=== PATIENT | male | born 1940 | race Caucasian/White ===

== ENCOUNTER 2019-11-13 09:48 | Outpatient (RCR) | payer MEDICARE, SELFPAY | END 2019-12-11 11:00 | disposition home or self-care (01) | LOC: HO.WCC 09:48 | PROVIDERS: PCP Internal Medicine; Visit Provider Plastic Surgery | DX: E11.621 Type 2 diabetes mellitus with foot ulcer (principal); L97.522 Non-pressure chronic ulcer of other part of left foot with fat layer exposed; T81.31XA Disruption of external operation (surgical) wound, not elsewhere classified, initial encounter; I70.245 Atherosclerosis of native arteries of left leg with ulceration of other part of foot; Z89.412 Acquired absence of left great toe; Z79.2 Long term (current) use of antibiotics; Z79.4 Long term (current) use of insulin; Z79.82 Long term (current) use of aspirin | CPT/HCPCS: 11042; 11044; 87071; 87077; 87186; 87205; 88304; 88305; 88311 ==

== ENCOUNTER 2019-11-13 15:46 | Outpatient (REF) | payer MEDICARE, SELFPAY ==
[2019-11-13 15:53] LABS: MANUAL DIFF FLAG NO
[2019-11-13 16:03] LABS: Basophils Percent Auto 0.4 % (0-2); Eosinophils Absolute Auto 0.2 X10*3/uL (0.0-0.4); Eosinophils Percent Auto 2.3 % (0-4); Hematocrit 30.5 % (42-52); Hemoglobin 9.7 g/dl (14.0-18.0); Imm Gran Abs Auto 0.02 X10*3/uL (0.00-0.03); Imm Gran Pct Auto 0.3 % (0.0-0.4); Lymphocytes Percent Auto 24.9 % (20-40); Mean Corpuscular HGB Conc 31.8 g/dl (31.0-36.0); Mean Corpuscular Hemoglobin 30.3 pg (27.0-33.0); Mean Corpuscular Volume 95.3 fL (80-98); Mean Platelet Volume 9.6 fL (9.4-12.4); Monocytes Absolute Auto 0.8 X10*3/uL (0.1-1.2); Monocytes Percent Auto 10.5 % (2-11); Neutrophils Absolute Auto 4.9 X10*3/uL (2.0-8.3); Neutrophils Percent Auto 61.6 % (45-73); Platelet Count 367 X10*3/uL (160-400); Red Cell Distribution Width 13.8 % (11.0-16.0); White Blood Count 7.9 X10*3/uL (4.8-10.8)
[2019-11-13 16:34] LABS: Alanine Aminotransferase 14 U/L (0-40); Albumin Level 3.7 g/dL (3.5-5.0); Alkaline Phosphatase 96 U/L (39-117); Anion Gap 13 (12-20); Aspartate Amino Transferase 14 U/L (5-37); Bilirubin Direct < 0.2 mg/dL (0.0-0.5); Bilirubin Total 0.2 mg/dL (0.0-1.0); Blood Urea Nitrogen 24 mg/dL (9-16); Calcium 8.7 mg/dL (8.4-10.2); Carbon Dioxide 25 mmol/L (22-29); Chloride 102 mmol/L (96-108); Estimated Glomerular Filt Rate > 60; Glucose Random 161 mg/dL (60-115); Potassium 5.2 mmol/l (3.3-5.1); Sodium 135 mmol/L (135-145); Total Protein 6.3 g/dL (6.5-8.0)
== END 2019-11-13 15:47 | disposition home or self-care (01) ==
LOC: HO.LNP 15:46
PROVIDERS: Referring Provider Internal Medicine; Visit Provider Internal Medicine
DX: D64.9 Anemia, unspecified (principal)
CPT/HCPCS: 36415; 80048; 80076; 85025

== ENCOUNTER 2019-11-20 13:08 | Outpatient (REF) | payer MEDICARE, SELFPAY ==
[2019-11-20 13:12] LABS: MANUAL DIFF FLAG NO
[2019-11-20 13:20] LABS: Basophils Percent Auto 0.4 % (0-2); Eosinophils Absolute Auto 0.2 X10*3/uL (0.0-0.4); Eosinophils Percent Auto 2.4 % (0-4); Hematocrit 30.8 % (42-52); Hemoglobin 9.7 g/dl (14.0-18.0); Imm Gran Abs Auto 0.03 X10*3/uL (0.00-0.03); Imm Gran Pct Auto 0.4 % (0.0-0.4); Lymphocytes Absolute Auto 1.7 X10*3/uL (1.2-4.9); Lymphocytes Percent Auto 20.4 % (20-40); Mean Corpuscular HGB Conc 31.5 g/dl (31.0-36.0); Mean Corpuscular Hemoglobin 29.8 pg (27.0-33.0); Mean Corpuscular Volume 94.8 fL (80-98); Mean Platelet Volume 9.6 fL (9.4-12.4); Monocytes Absolute Auto 0.8 X10*3/uL (0.1-1.2); Monocytes Percent Auto 9.9 % (2-11); Neutrophils Absolute Auto 5.4 X10*3/uL (2.0-8.3); Neutrophils Percent Auto 66.5 % (45-73); Platelet Count 534 X10*3/uL (160-400); Red Blood Count 3.25 X10*6/uL (4.60-5.80); Red Cell Distribution Width 13.5 % (11.0-16.0); White Blood Count 8.1 X10*3/uL (4.8-10.8)
[2019-11-20 13:38] LABS: Alanine Aminotransferase 13 U/L (0-40); Albumin Level 3.8 g/dL (3.5-5.0); Alkaline Phosphatase 105 U/L (39-117); Anion Gap 15 (12-20); Aspartate Amino Transferase 15 U/L (5-37); Bilirubin Direct < 0.2 mg/dL (0.0-0.5); Bilirubin Total 0.4 mg/dL (0.0-1.0); Blood Urea Nitrogen 25 mg/dL (9-16); Calcium 8.7 mg/dL (8.4-10.2); Carbon Dioxide 25 mmol/L (22-29); Chloride 102 mmol/L (96-108); Estimated Glomerular Filt Rate > 60; Glucose Random 176 mg/dL (60-115); Potassium 5.6 mmol/l (3.3-5.1); Sodium 136 mmol/L (135-145); Total Protein 6.4 g/dL (6.5-8.0)
== END 2019-11-20 13:09 | disposition home or self-care (01) ==
LOC: HO.LNP 13:08
PROVIDERS: Referring Provider Internal Medicine; Visit Provider Internal Medicine
DX: D64.9 Anemia, unspecified (principal)
CPT/HCPCS: 36415; 80053; 80076; 85025

== ENCOUNTER 2019-11-22 11:57 | Outpatient (REF) | payer MEDICARE, SELFPAY ==
[2019-11-22 13:01] LABS: Potassium 5.1 mmol/l (3.3-5.1)
== END 2019-11-22 11:58 | disposition home or self-care (01) ==
LOC: HO.LAB 11:57
PROVIDERS: PCP Internal Medicine; Visit Provider Internal Medicine
DX: M86.9 Osteomyelitis, unspecified (principal); E87.5 Hyperkalemia
CPT/HCPCS: 84132; 99212

== ENCOUNTER → 2019-12-05 11:09 | Outpatient (BNVA) | payer MEDICARE, SELFPAY | PROVIDERS: Visit Provider Surgery Vascular Surgery | DX: T87.81 Dehiscence of amputation stump (principal); M86.9 Osteomyelitis, unspecified; I73.9 Peripheral vascular disease, unspecified | CPT/HCPCS: 99212 ==

== ENCOUNTER → 2019-12-06 13:38 | Outpatient (BNVA) | payer MEDICARE, SELFPAY | PROVIDERS: Visit Provider Internal Medicine | DX: M86.9 Osteomyelitis, unspecified (principal); I73.9 Peripheral vascular disease, unspecified; Z79.899 Other long term (current) drug therapy | CPT/HCPCS: 99212 ==

== ENCOUNTER 2019-12-18 06:03 | Day surgery (SDC) | payer MEDICARE, SELFPAY ==
[2019-12-14 10:50] VITALS: BMI 30.7
[2019-12-14 11:22] VITALS: BMI 30.7
--- NOTE | 2019-12-15 12:43 | HO.ANESPROP2 ---
Documented by User: Sary Ricketts 12/15/19 12:51 HPI - Anesthesia Eval Consult details Narrative: 79yo M for Toe Amputation,revision great toe s/p toe amp 09/2019 GA-LMA 5 [facility] Past Medical History Medical History Diabetes History of amputation of great toe History of amputation of great toe HTN (hypertension) Hx of osteomyelitis 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 Surgical History Surgical History History of angioplasty of peripheral vessel Social History Social History Are you a primary aged or disabled care worker to a significant other at home: No Do you presently have visiting nurse or other home services: Yes Alcohol intake: never Smoking Status: Former smoker Tobacco Type: Cigarette Smoking Quit Date: age 30's Use of substances other than those prescribed or required for medical reasons: No Have you been hit, kicked, punched, or otherwise hurt by someone within the past year? If so, by whom?: No Advance Directives Information Provided: No Recently lost weight without trying: No Meds Allergies Allergy/AdvReac Type Severity Reaction Status Date / Time No Known Allergies Allergy Verified 12/05/19 11:18 [No Known Allergies*] Home Medications Medication Instructions Recorded Confirmed Type clopidogrel 75 mg tablet 75 mg PO DAILY 11/22/19 12/14/19 History insulin glargine 100 unit/mL (3 38 unit SUBCUT QAM 11/22/19 12/14/19 History mL) subcutaneous pen lisinopril 20 mg tablet 20 mg PO DAILY 11/22/19 12/14/19 History aspirin 81 mg tablet,delayed 81 mg PO DAILY 12/05/19 12/18/19 History release metformin 1,000 mg tablet 1,000 mg PO BID tab 12/05/19 12/14/19 History Exam Exam Date and Time: December 15, 2019 1243 Height,Weight and Vital Signs: Height 5 ft 7 in Weight 88.904 kg Pertinent Lab Results Pertinent Lab Results: Laboratory Tests 11/20/19 11/20/19 11/22/19 11:00 11:00 12:15 WBC 8.1 Hgb 9.7 L Hct 30.8 L Plt Count 534 H D Sodium 136 Potassium 5.1 Chloride 102 Carbon Dioxide 25 BUN 25 H Creatinine 0.86 Assessment and Plan Assessment Anesthesia Assessment: Chart Reviewed Documented by User: Angelito Espinosa 12/18/19 08:08 [facility] Past Medical History Medical History Diabetes History of amputation of great toe History of amputation of great toe HTN (hypertension) Hx of osteomyelitis 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 Surgical History Surgical History History of angioplasty of peripheral vessel Social History Social History Are you a primary aged or disabled care worker to a significant other at home: No Do you presently have visiting nurse or other home services: Yes Alcohol intake: never Smoking Status: Former smoker Tobacco Type: Cigarette Smoking Quit Date: age 32's Use of substances other than those prescribed or required for medical reasons: No Have you been hit, kicked, punched, or otherwise hurt by someone within the past year? If so, by whom?: No Advance Directives Information Provided: No Recently lost weight without trying: No Meds Allergies Allergy/AdvReac Type Severity Reaction Status Date / Time No Known Allergies Allergy Verified 12/05/19 11:18 [No Known Allergies*] Home Medications Medication Instructions Recorded Confirmed Type clopidogrel 75 mg tablet 75 mg PO DAILY 11/22/19 12/14/19 History insulin glargine 100 unit/mL (3 38 unit SUBCUT QAM 11/22/19 12/14/19 History mL) subcutaneous pen lisinopril 20 mg tablet 20 mg PO DAILY 11/22/19 12/14/19 History aspirin 81 mg tablet,delayed 81 mg PO DAILY 12/05/19 12/18/19 History release metformin 1,000 mg tablet 1,000 mg PO BID tab 12/05/19 12/14/19 History Exam Airway Mallampati Class: III TM Dist: >3cm Neck ROM: Limited Partial: Upper and Lower (Edentulous) Heart: RRR Assessment and Plan Assessment Anesthesia Assessment: Anesthesia Plan Discussed Final Anesthetic Review NPO: Yes ASA Class: IV Final Preanesthetic Review: Consent Obtained/Reviewed Anesthetic Plan Anesthetic Plan: MAC:
[2019-12-18 06:46] LABS: Glucose, Whole Blood 124 mg/dL (60-115)
[2019-12-18 07:10] VITALS: BP 135/52; PULSE 64; RESP 16; TEMP 36.1; O2SAT 94
[2019-12-18] MEDS: Lactated Ringers 1,000 ML 100 ML IVCONT (07:15)
[2019-12-18] MEDS: ceFAZolin Sodium/Dextrose,Iso 2 GM/50 ML PIGGYBACK IV (07:15)
[2019-12-18 08:51] VITALS: BP 121/52; PULSE 59; RESP 18; TEMP 36.4; O2SAT 100
[2019-12-18 09:06] VITALS: BP 134/53; PULSE 59; RESP 18; O2SAT 99
[2019-12-18 09:19] LABS: Glucose, Whole Blood 124 mg/dL (60-115)
[2019-12-18] MEDS: Acetaminophen 325 MG TABLET 650 MG PO (09:20)
[2019-12-18 09:21] VITALS: BP 141/53; PULSE 56; RESP 18; O2SAT 98
--- NOTE | 2019-12-18 09:27 | HO.POSTANES ---
Post Anesthesia Evaluation Post Anesthesia Evaluation Vital Signs: Vital Signs Temp Pulse Resp BP Pulse Ox 12/18/19 09:06 59 18 134/53 L 99 12/18/19 08:51 97.5 F 59 18 121/52 L 100 12/18/19 07:10 97 F 64 16 135/52 L 94 Anesthesia: Monitored Mental Status: Awake Pain Control: Satisfactory Nausea/Vomiting: None Hydration: Adequate Anesthesia-Related Issues: No Anes. Related Issues
--- NOTE | 2019-12-18 13:22 | OP_ITS ---
SURGEON: Shaq Jhonson MD INDICATIONS: Vj is a 79-year-old gentleman with a history of a great toe amp that has been nonhealing. He has exposed metatarsal head. He now presents for revision. Risks, benefits, and complications were discussed in detail with the patient. The patient understood and consented. PREOPERATIVE DIAGNOSIS: POSTOPERATIVE DIAGNOSIS: PROCEDURE PERFORMED: Left great toe ray amputation. ESTIMATED BLOOD LOSS: Minimal. COMPLICATIONS: ANESTHESIA: General. ASSISTANTS: SPECIMENS: One. PREPROCEDURE DIAGNOSIS: Nonhealing left great toe ulceration. POSTPROCEDURE DIAGNOSIS: Nonhealing left great toe ulceration. DESCRIPTION OF PROCEDURE: The patient was brought to the operating room, prior to which timeout was called for patient identification and site verification. Incision was carried out over the dorsum of the first metatarsal head. We took this all the way back and then we dissected around that metatarsal head and this was then cut with the power electric saw. Once we were through, adequate hemostasis was achieved. The wound was thoroughly irrigated out after the bone was removed and good tissue bed was noted. Once this was accomplished, we reapproximated the deep layer with 2-0 Vicryl, and the skin with a 2-0 nylon. Xeroform and a sterile dressing were applied. At the end of the case, sponge, needle, instrument counts were correct. The patient tolerated the procedure well, returned to Recovery with stable vitals. DRAINS: None. MD LUIS Astorga/MODL / [id number]
== END 2019-12-18 10:16 | disposition home or self-care (01) ==
PROVIDERS: PCP Internal Medicine; Visit Provider Surgery Vascular Surgery
PROC: (CPT 28810; principal; 2019-12-18 07:30)
DX: T87.89 Other complications of amputation stump (principal); M86.9 Osteomyelitis, unspecified; E11.621 Type 2 diabetes mellitus with foot ulcer; L97.526 Non-pressure chronic ulcer of other part of left foot with bone involvement without evidence of necrosis; Z79.4 Long term (current) use of insulin; I10 Essential (primary) hypertension; I73.9 Peripheral vascular disease, unspecified; Z79.899 Other long term (current) drug therapy; Z79.82 Long term (current) use of aspirin; Z87.891 Personal history of nicotine dependence
CPT/HCPCS: 28810; 82947; 88304; 88311; J0690; J2250; J3590; Q4186

== ENCOUNTER → 2020-01-02 14:35 | Outpatient (BNVA) | payer MEDICARE, SELFPAY | PROVIDERS: PCP Internal Medicine; Referring Provider Internal Medicine; Visit Provider Surgery Vascular Surgery | DX: Z48.89 Encounter for other specified surgical aftercare (principal); I73.9 Peripheral vascular disease, unspecified; L97.529 Non-pressure chronic ulcer of other part of left foot with unspecified severity; Z89.412 Acquired absence of left great toe | CPT/HCPCS: 99212 ==

== ENCOUNTER → 2020-01-16 14:19 | Outpatient (BNVA) | payer MEDICARE, SELFPAY | PROVIDERS: PCP Internal Medicine; Visit Provider Surgery Vascular Surgery | DX: I73.9 Peripheral vascular disease, unspecified (principal); Z89.412 Acquired absence of left great toe | CPT/HCPCS: 99212 ==

== ENCOUNTER → 2020-02-06 13:20 | Outpatient (BNVA) | payer MEDICARE, SELFPAY | PROVIDERS: PCP Internal Medicine; Visit Provider Surgery Vascular Surgery | DX: I73.9 Peripheral vascular disease, unspecified (principal) | CPT/HCPCS: 99212 ==

== ENCOUNTER → 2020-02-27 13:23 | Outpatient (BNVA) | payer MEDICARE, SELFPAY | PROVIDERS: PCP Internal Medicine; Visit Provider Surgery Vascular Surgery | DX: I73.9 Peripheral vascular disease, unspecified (principal) | CPT/HCPCS: 99212 ==

== ENCOUNTER 2020-03-19 11:54 | Outpatient (REF) | payer MEDICARE, SELFPAY ==
[2020-03-19 13:56] LABS: Estimated Average Glucose 120 mg/dL; Glucose Fasting 111 mg/dL (60-99); Hemoglobin A1c % 5.8 %
== END 2020-03-19 11:55 | disposition home or self-care (01) ==
LOC: HO.10HDLNP 11:54
PROVIDERS: Visit Provider Internal Medicine
DX: E11.9 Type 2 diabetes mellitus without complications (principal)
CPT/HCPCS: 82947; 83036

== ENCOUNTER → 2020-03-21 10:13 | Outpatient (BNVA) | payer MEDICARE, SELFPAY | PROVIDERS: PCP Internal Medicine; Visit Provider Surgery Vascular Surgery | DX: I73.9 Peripheral vascular disease, unspecified (principal) | CPT/HCPCS: 99212 ==

== ENCOUNTER → 2020-04-11 11:01 | Outpatient (BNVA) | payer MEDICARE, SELFPAY | PROVIDERS: PCP Internal Medicine; Visit Provider Surgery Vascular Surgery | DX: I73.9 Peripheral vascular disease, unspecified (principal) | CPT/HCPCS: 99212 ==

== ENCOUNTER → 2020-05-02 11:27 | Outpatient (BNVA) | payer MEDICARE, SELFPAY | PROVIDERS: PCP Internal Medicine; Visit Provider Surgery Vascular Surgery | DX: I73.9 Peripheral vascular disease, unspecified (principal); Z87.891 Personal history of nicotine dependence | CPT/HCPCS: 99212 ==

== ENCOUNTER → 2020-05-16 10:14 | Outpatient (BNVA) | payer MEDICARE, SELFPAY | PROVIDERS: PCP Internal Medicine; Visit Provider Surgery Vascular Surgery | DX: I73.9 Peripheral vascular disease, unspecified (principal) | CPT/HCPCS: 99212 ==

== ENCOUNTER → 2020-06-06 09:53 | Outpatient (BNVA) | payer MEDICARE, SELFPAY | PROVIDERS: PCP Internal Medicine; Visit Provider Surgery Vascular Surgery | DX: I73.9 Peripheral vascular disease, unspecified (principal) | CPT/HCPCS: 99212 ==

== ENCOUNTER 2020-07-09 09:33 | Outpatient (REF) | payer MEDICARE, SELFPAY ==
--- NOTE | ~2020-07-09 | US_ITS ---
EXAMINATION: NONINVASIVE ASSESSMENT OF THE ARTERIES OF BOTH LOWER EXTREMITIES CLINICAL INFORMATION: Peripheral vascular disease. COMPARISON: Arterial study of 10/05/2019 and 09/04/2019. TECHNIQUE: Segmental ankle pulse volume recording, pressure measurement at the ankle and ankle brachial indices were obtained of the lower extremity arterial system bilaterally. This study was performed at rest only. FINDINGS: a) AT REST: 1. The ankle-brachial indices are: Right 0.66 and left 0.84. >0.97-1.25 = normal - no significant arterial disease. 0.75-0.96 = mild peripheral arterial disease. 0.5-0.74 = moderate peripheral arterial disease. <0.50 = severe peripheral arterial disease. 2. Segmental pressure at ankle: Dorsalis pedis artery 104 mmHg. Left posterior tibial artery pressure of 125 mmHg. US/US BERENICE complete IMPRESSION: Findings consistent with moderate peripheral vascular disease within the right lower extremity and mild peripheral vascular disease within the left lower extremity.
--- NOTE | ~2020-07-09 | US_ITS ---
EXAMINATION: US ARTERIAL LOWER EXTREMITY DUPLEX DOPPLER EVALUATION AND ABIS, BILATERAL CLINICAL INFORMATION: PVD. Status post 1st toe amputation. COMPARISON: 10/05/2019 and 09/04/2019 TECHNIQUE: Real-time ultrasound and Doppler techniques (integrating B-mode 2-D vascular images, Doppler spectral analysis and color flow Doppler imaging) were utilized to interrogate the lower extremity arteries bilaterally. ABIS: FINDINGS: Segmental ankle pulse volume recording, pressure measurement at the ankle and ankle brachial indices were obtained of the lower extremity arterial system bilaterally. This study was performed at rest only. FINDINGS: a) AT REST: 1. The ankle-brachial indices are: Right 0.66 and left 0.80. >0.97-1.25 = normal - no significant arterial disease. 0.75-0.96 = mild peripheral arterial disease. 0.5-0.74 = moderate peripheral arterial disease. <0.50 = severe peripheral arterial disease. 2. Segmental pressure at ankle: Right dorsalis pedis 104 mmHg. Left posterior tibial 125 mmHg. Calcified plaque is seen throughout the arterial system which was studied. Right Lower Extremity: The right common femoral artery has a biphasic waveform with elevated peak systolic velocity of 432 cm/s. The right profunda femoral artery has a biphasic waveform with peak systolic velocity of 210 cm/s. The right superficial femoral artery proximally has a biphasic waveform with peak systolic velocity of 130 cm/s. The mid superficial femoral artery has a triphasic waveform with peak systolic velocity of 210 cm/s. The distal superficial femoral artery has a biphasic waveform with peak systolic velocity of 104 cm/s. The popliteal artery has a triphasic waveform with peak systolic velocity of 53 cm/s. The posterior tibial artery has a monophasic waveform with peak systolic velocity of 37 cm/s. The peroneal artery has a monophasic waveform with peak systolic velocity of 41 cm/s. Left Lower Extremity: The left common femoral artery has a biphasic waveform with peak systolic velocity of 146 cm/s. The left profunda femoral artery has a biphasic waveform with peak systolic velocity of 111 cm/s. Common femoral artery proximal to stent has a biphasic waveform with peak systolic velocity of 202 cm/s. Within the proximal stent, there is a triphasic waveform with peak systolic velocity of 186 cm/s. Within the mid stent just past a region of intimal hyperplasia, there is a biphasic waveform with peak systolic velocity of 258 cm/s. In the superficial femoral artery just distal to the stent, there is a triphasic waveform with peak systolic velocity of 179 cm/s. In the distal aspect of the stent, there is a triphasic waveform with peak systolic velocity of 230 cm/s. Within the mid superficial femoral artery, there is a biphasic waveform with peak systolic velocity of 127 cm/s. Within the distal superficial femoral artery, there is a triphasic waveform with peak systolic velocity of 61 cm/s. Within the left popliteal artery, there is a monophasic waveform with peak systolic velocity of 82 cm/s. Within the posterior tibial artery. there is a monophasic waveform with peak systolic velocity of 59 cm/s. Within the peroneal artery. there is a monophasic waveform with peak systolic velocity of 66 cm/s. There is a left popliteal fossa cyst measuring 3.2 x 1.1 x 2.0 cm in size. US/US arterial duplex LE BI IMPRESSION: By ankle brachial indices, there is moderate peripheral vascular disease within the right lower extremity and mild peripheral arterial disease within the left lower extremity. There is elevation of peak systolic velocity of the right common femoral artery consistent with a more proximal hemodynamically significant stenosis. There are bilateral regions of calcified plaque identified. There are monophasic waveforms distal to the right popliteal artery consistent with hemodynamically significant stenoses. There is elevation of peak systolic velocity within the mid superficial femoral artery consistent with hemodynamically significant stenosis. Within the left superficial femoral artery stent, there is some intimal hyperplasia and a hemodynamically significant stenosis. There are monophasic waveforms seen within the left popliteal artery and distal to this. Left popliteal fossa cyst.
== END 2020-07-09 09:34 | disposition home or self-care (01) ==
LOC: HO.US 09:33
PROVIDERS: PCP Internal Medicine; Visit Provider Surgery Vascular Surgery
DX: I70.213 Atherosclerosis of native arteries of extremities with intermittent claudication, bilateral legs (principal)
CPT/HCPCS: 93923; 93925

== ENCOUNTER → 2020-07-23 10:46 | Outpatient (BNVA) | payer MEDICARE, SELFPAY | PROVIDERS: PCP Internal Medicine; Visit Provider Surgery Vascular Surgery | DX: I73.9 Peripheral vascular disease, unspecified (principal) | CPT/HCPCS: 99212 ==

== ENCOUNTER 2021-08-15 10:54 | Outpatient (REF) | payer MEDICARE, OTHER, SELFPAY ==
[2021-08-15 10:58] LABS: MANUAL DIFF FLAG NO
[2021-08-15 11:06] LABS: Basophils Percent Auto 0.4 % (0-2); Eosinophils Absolute Auto 0.4 X10*3/uL (0.0-0.4); Eosinophils Percent Auto 3.3 % (0-4); Hematocrit 42.4 % (42.0-52.0); Imm Gran Abs Auto 0.04 X10*3/uL (0.00-0.03); Imm Gran Pct Auto 0.4 % (0.0-0.4); Lymphocytes Percent Auto 18.4 % (20-40); Mean Corpuscular Hemoglobin 31.9 pg (27.0-33.0); Mean Corpuscular Volume 96.6 fL (80.0-98.0); Monocytes Absolute Auto 0.9 X10*3/uL (0.1-1.2); Monocytes Percent Auto 8.5 % (2-11); Neutrophils Absolute Auto 7.6 x10*3/uL (2.0-8.3); Platelet Count 339 X10*3/uL (160-400); Red Blood Count 4.39 X10*6/uL (4.60-5.80); Red Cell Distribution Width 12.3 % (11.0-16.0); White Blood Count 11.1 X10*3/uL (4.8-10.8)
[2021-08-15 11:08] LABS: Appearance Urine CLEAR; Color Urine YELLOW; Glucose Urine UA NEG (NEG); Leukocyte Esterase Urine NEG (NEG); Nitrite Urine NEG (NEG); PH 5.5 (5.0-8.0); Specific Gravity - Urine 1.015 (1.005-1.025); Urine Blood NEG (NEG); Urine Ketones NEG (NEG); Urine Protein NEG (NEG-TRACE)
[2021-08-15 11:19] LABS: RBC Urine 0 /HPF (0); WBC Urine 0-2 /HPF (0-4)
[2021-08-15 11:23] LABS: Estimated Average Glucose 117 mg/dL; Hemoglobin A1c % 5.7 %
[2021-08-15 11:32] LABS: Alanine Aminotransferase 17 U/L (0-40); Albumin Level 4.1 g/dL (3.5-5.0); Alkaline Phosphatase 79 U/L (39-117); Anion Gap 12 (12-20); Aspartate Amino Transferase 17 U/L (5-37); Bilirubin Total 0.2 mg/dL (0.0-1.0); Blood Urea Nitrogen 29 mg/dL (9-16); Calcium 8.8 mg/dL (8.4-10.2); Carbon Dioxide 27 mmol/L (22-29); Chloride 104 mmol/L (96-108); Cholesterol 228 mg/dL; Estimated Glomerular Filt Rate > 60; Glucose Fasting 80 mg/dL (60-99); HDL Cholesterol 53 mg/dL; LDL Cholesterol Calculated 156 mg/dl; Potassium 5.1 mmol/L (3.3-5.1); Sodium 138 mmol/L (135-145); Total Protein 6.6 g/dL (6.5-8.0); Triglycerides 97 mg/dL
[2021-08-15 11:50] LABS: Creatinine Urine 58.64 mg/dL; Microalbum/Creatinine Ratio Ur 27.2 ug/mg cr
[2021-08-15 11:55] LABS: PSA,Total (Free>4and<10) 2.37 ng/mL (0.00-4.00)
== END 2021-08-15 10:55 | disposition home or self-care (01) ==
LOC: HO.LNP 10:54
PROVIDERS: Visit Provider Internal Medicine
DX: Z12.5 Encounter for screening for malignant neoplasm of prostate (principal); I10 Essential (primary) hypertension; R31.9 Hematuria, unspecified; E78.00 Pure hypercholesterolemia, unspecified; E11.621 Type 2 diabetes mellitus with foot ulcer
CPT/HCPCS: 80053; 80061; 81001; 82043; 83036; 84153; 85025

== ENCOUNTER 2021-09-30 15:08 | Inpatient (IN) | payer MEDICARE, OTHER, SELFPAY ==
--- NOTE | ~2021-09-30 | US_ITS ---
EXAMINATION: COLOR-FLOW DUPLEX IMAGING OF THE UNILATERAL LEFT LOWER EXTREMITY ARTERIAL SYSTEM. VELOCITY MEASUREMENTS THROUGHOUT THE FEMORAL ARTERIES Interventional Radiologist: Arsalan Sylvester M.D., F.S.I.R., F.A.C.R. CLINICAL INFORMATION: This is a 81-year-old male with osteomyelitis of the third toe. Peripheral arterial disease. Status post femoral stent. LEFT FEMORAL RUNOFF VELOCITIES: The left common femoral artery measures 180 cm/s and monophasic. The left profunda femoral artery is 127 cm/s and is biphasic. Left proximal superficial femoral artery measures 194 cm/s and biphasic. Mid superficial femoral artery is 226 cm/s and monophasic. Distal left superficial femoral artery measures 136 cm/s and is monophasic. Left popliteal velocity measures 107 cm/s and is monophasic. The posterior tibial artery velocity measures 63 cm/s and was monophasic. Left femoral stent velocities: [place] artery proximal to stent: 202 cm/s and triphasic. Proximal stent: 200 cm/s and monophasic. Mid stent: 204 cm/s and monophasic. Distal stent: 163 cm/s and monophasic. [place] artery distal to the stent: 167 cm/s and monophasic. US/US arterial duplex LE LT IMPRESSION: 1. The patient is status post stent placement within the left femoral artery. There are elevated velocities within the stent with monophasic waveforms suggesting developing stenosis. 2. There is a hemodynamically significant stenosis in the mid left superficial femoral artery.
--- NOTE | ~2021-09-30 | XR_ITS ---
EXAMINATION: XR FOOT, LEFT CLINICAL INFORMATION: Question osteo third toe COMPARISON: 10/04/2019 TECHNIQUE: AP, lateral, and oblique views of the left foot. FINDINGS: In comparison to the prior examination there is now heterogeneous destruction of the third distal phalanx with surrounding soft tissue swelling, suspicious for osteomyelitis. Status post amputation through the neck of the first metatarsal. There is generalized soft tissue swelling most prominently of the distal foot. Articular alignment elsewhere appears anatomic. Vascular calcification is noted. XR/XR foot LT 2V IMPRESSION: Heterogeneous destruction of the third distal phalanx with surrounding soft tissue swelling, suspicious for osteomyelitis. Generalized soft tissue swelling of the distal foot.
[2021-09-30 16:12] VITALS: BP 180/84; PULSE 65; RESP 18; O2SAT 98; BMI 31.1
[2021-09-30 19:59] VITALS: BP 179/75; PULSE 60; RESP 16; TEMP 36.7; O2SAT 95
[2021-09-30 21:07] LABS: Hematocrit 40.3 % (42.0-52.0); Hemoglobin 13.5 g/dl (14.0-18.0); Mean Corpuscular HGB Conc 33.5 g/dl (31.0-36.0); Mean Corpuscular Hemoglobin 31.4 pg (27.0-33.0); Mean Corpuscular Volume 93.7 fL (80.0-98.0); Mean Platelet Volume 9.3 fL (9.4-12.4); Platelet Count 350 X10*3/uL (160-400); Red Cell Distribution Width 12.2 % (11.0-16.0); White Blood Count 10.8 X10*3/uL (4.8-10.8)
[2021-09-30 21:20] LABS: Alanine Aminotransferase 12 U/L (0-40); Albumin Level 3.9 g/dL (3.5-5.0); Alkaline Phosphatase 104 U/L (39-117); Anion Gap 15 (12-20); Aspartate Amino Transferase 16 U/L (5-37); Bilirubin Total 0.4 mg/dL (0.0-1.0); Blood Urea Nitrogen 20 mg/dL (9-16); Carbon Dioxide 24 mmol/L (22-29); Chloride 104 mmol/L (96-108); Creatinine Clr Calc Pharmacy 82.8; Estimated Glomerular Filt Rate > 60; Glucose Random 64 mg/dL (60-115); Potassium 4.4 mmol/L (3.3-5.1); Sodium 139 mmol/L (135-145); Total Protein 6.6 g/dL (6.5-8.0)
[2021-09-30 23:35] VITALS: BP 181/75; PULSE 69; RESP 18; TEMP 36.7; O2SAT 97
--- NOTE | 2021-09-30 23:57 | ED_ITS ---
HPI - General Adult General Chief complaint: Extremity Problem Stated complaint: L foot infection/leg sent by pcp Time Seen by Provider: 09/30/21 21:37 Source: patient Mode of arrival: ambulatory Limitations: no limitations History of Present Illness HPI narrative: Patient comes to the emergency room complaining of an infection in his 3rd toe spreading up his foot and to the distal extremity on the left side. Patient states that approximately 7 days ago, he tried cutting his own toenails, since then, erythema started in his toe spreading upwards. Patient denies fever or chills. Patient has history of poor lower extremity circulation, has had stents placed by Dr. Johnson. Related Data Home Medications Medication Instructions Recorded Confirmed clopidogrel 75 mg tablet 75 mg PO DAILY 11/22/19 12/14/19 insulin glargine 100 unit/mL (3 38 unit subcut QAM 11/22/19 12/14/19 mL) subcutaneous pen lisinopril 20 mg tablet 20 mg PO DAILY 11/22/19 12/14/19 aspirin 81 mg tablet,delayed 81 mg PO DAILY 12/05/19 12/18/19 release (Adult Low Dose Aspirin) metformin 1,000 mg tablet 1,000 mg PO BID 12/05/19 12/14/19 multivit with min-folic tab PO 07/23/20 acid-lutein 200 mcg-137.5 mcg chewable tablet (Adult Multivitamin (w-lutein)) Previous Rx's Medication Instructions Recorded cephalexin 500 mg capsule 500 mg PO BID #20 caps 05/02/20 Allergies Allergy/AdvReac Type Severity Reaction Status Date / Time No Known Allergies Allergy Verified 09/30/21 16:12 [No Known Allergies*] Review of Systems Review of Systems: Constitutional : No Weight loss, No Fever, No Chills, No Night Sweats, No Fatigue, No Malaise ENT/Mouth : No Hearing loss, No Ear Pain, No Nasal Congestion, No Sinus Pain, No Hoarseness, No sore throat, No Rhinorrhea, No Swallowing Difficulty Eyes: No Eye Pain, No Swelling, No Redness, No Foreign Body, No Discharge, No Vision Changes Cardiovascular : No Chest Pain, No SOB, No Dyspnea on Exertion, No Orthopnea, No Edema, No Palpitations Respiratory : No Cough, No Sputum, No Wheezing, No Smoke Exposure, No Dyspnea Gastrointestinal : No Nausea, No Vomiting, No Diarrhea, No Constipation, No abdominal Pain, No Hematochezia, No Melena Genitourinary : no irregular bleeding, No Dysuria, No Urinary Frequency, No Hematuria, No Urinary Incontinence, No Urgency, No Flank Pain, No Urinary Flow Changes, No Hesitancy Musculoskeletal : No joint pain, No Myalgias, No Joint Swelling Skin : Diabetic foot ulcer in the left foot 3rd toe, redness spreading to the dorsum of the foot and to the lateral aspect of the left leg distally Neuro : No Weakness, No Numbness, No Paresthesias, No Loss of Consciousness, No Dizziness, No Headache Psych : No Anxiety/Panic, No Depression, No SI/HI/AH/VH, No Social Issues, Heme/Lymph: No Bruising, No Bleeding,No Lymphadenopathy Endocrine : No Polyuria, No Polydipsia, No Temperature Intolerance [facility] Past Medical History Medical History Diabetes History of amputation of great toe History of amputation of great toe HTN (hypertension) Hx of osteomyelitis 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 Surgical History History of angioplasty of peripheral vessel Social History Social History Are you a primary before and after school daycare worker to a significant other at home: No Do you presently have visiting nurse or other home services: Yes Alcohol intake: current Alcohol intake frequency: holidays/special occasions only Patient Tobacco Use Status: Never used Tobacco Use of substances other than those prescribed or required for medical reasons: No Advance Directives: No Advance Directives Information Provided: Yes Physical Exam ED Vital Signs: Vital Signs - 24 hr 09/30/21 16:12 09/30/21 19:59 09/30/21 23:35 Temperature 98.0 F 98.0 F Pulse Rate 65 60 69 Respiratory Rate 18 16 18 Blood Pressure 180/84 H 179/75 H 181/75 H Pulse Oximetry 98 95 97 Oxygen Delivery Method Room Air Room Air Room Air 10/01/21 01:21 Temperature 97.8 F Pulse Rate 70 Respiratory Rate 18 Blood Pressure 126/100 H Pulse Oximetry 98 Oxygen Delivery Method Room Air BMI result Body Mass Index 31.1 Const Other: Appearance: Alert. Oriented X3. No acute distress. Eyes: Pupils equal, round and reactive to light. ENT: Pharynx normal. Neck: Normal inspection. Neck supple. No lymph nodes noted. No crepitus CVS: Normal heart rate and rhythm. Pulses normal. Normal S1 and S2 Respiratory: No respiratory distress. Breath sounds normal. No Wheezing. No rales Abdomen: Soft and nontender. No rigidity. No distention. Skin: Skin warm and dry. See extremity below Extremities: +1 pitting edema bilaterally, 3rd toe on the left foot distally has a diabetic ulcer, foul-smelling. Patient denies any pain to palpation. No drainage. Erythema present on the dorsum of the left foot and a patch of erythema in the lateral aspect above the left ankle Neuro: Oriented X 3. No motor deficit. No sensory deficit. Moving all extremities. No slurred speech. CN 2 through 12 grossly intact Psych: calm, cooperative, normal affect Course Course Course Narrative: I discussed with the patient that he will likely need debridement of his toe. Some labs are pending, x-rays pending. Patient has been started on IV fluids, vancomycin and Zosyn. Patient's vitals stable, no fever, normal white blood cell count, sepsis not suspected. Anticipating admission. CRP elevated, ESR pending. Foot x-ray is suspicious for 3rd digit osteomyelitis. Sepsis is not suspected. I discussed the patient with Dr. Hodgson, patient being admitted Medical Decision Making Lab Data Result diagrams: 09/30/21 20:59 09/30/21 20:59 Labs: Lab Results 09/30/21 09/30/21 10/01/21 Range/Units 20:59 20:59 00:11 WBC 10.8 (4.8-10.8) X10*3/uL RBC 4.30 L (4.60-5.80) X10*6/uL Hgb 13.5 L (14.0-18.0) g/dl Hct 40.3 L (42.0-52.0) % MCV 93.7 (80.0-98.0) fL MCH 31.4 (27.0-33.0) pg MCHC 33.5 (31.0-36.0) g/dl RDW 12.2 (11.0-16.0) % Plt Count 350 (160-400) X10*3/uL MPV 9.3 L (9.4-12.4) fL Absolute Nucleated RBC 0.000 (0.0-0.012) X10*3/uL Nucleated RBC % (auto) 0.0 (0.0-0.2) /100WBC Sodium 139 (135-145) mmol/L Potassium 4.4 (3.3-5.1) mmol/L Chloride 104 (96-108) mmol/L Carbon Dioxide 24 (22-29) mmol/L Anion Gap 15 (12-20) BUN 20 H (9-16) mg/dL Creatinine 0.80 (0.5-1.4) mg/dL Estim Creat Clear Calc 82.8 Estimated GFR > 60 Random Glucose 64 D (60-115) mg/dL Lactic Acid (0.5-2.0) mmol/L Calcium 9.0 (8.4-10.2) mg/dL Total Bilirubin 0.4 (0.0-1.0) mg/dL AST 16 (5-37) U/L ALT 12 (0-40) U/L Alkaline Phosphatase 104 D (39-117) U/L C-Reactive Protein 1.90 H (< or = 0.50) mg/dL Total Protein 6.6 (6.5-8.0) g/dL Albumin 3.9 (3.5-5.0) g/dL COVID-19 (SANDRINE) (Negative) COVID-19 Clin Com 10/01/21 10/01/21 Range/Units 00:11 00:11 WBC (4.8-10.8) X10*3/uL RBC (4.60-5.80) X10*6/uL Hgb (14.0-18.0) g/dl Hct (42.0-52.0) % MCV (80.0-98.0) fL MCH (27.0-33.0) pg MCHC (31.0-36.0) g/dl RDW (11.0-16.0) % Plt Count (160-400) X10*3/uL MPV (9.4-12.4) fL Absolute Nucleated RBC (0.0-0.012) X10*3/uL Nucleated RBC % (auto) (0.0-0.2) /100WBC Sodium (135-145) mmol/L Potassium (3.3-5.1) mmol/L Chloride (96-108) mmol/L Carbon Dioxide (22-29) mmol/L Anion Gap (12-20) BUN (9-16) mg/dL Creatinine (0.5-1.4) mg/dL Estim Creat Clear Calc Estimated GFR Random Glucose (60-115) mg/dL Lactic Acid 0.7 (0.5-2.0) mmol/L Calcium (8.4-10.2) mg/dL Total Bilirubin (0.0-1.0) mg/dL AST (5-37) U/L ALT (0-40) U/L Alkaline Phosphatase (39-117) U/L C-Reactive Protein (< or = 0.50) mg/dL Total Protein (6.5-8.0) g/dL Albumin (3.5-5.0) g/dL COVID-19 (SANDRINE) Negative (Negative) COVID-19 Clin Com See Note Imaging Data Foot x-ray: Radiologist's impression: In comparison to the prior examination there is now heterogeneous destruction of the third distal phalanx with surrounding soft tissue swelling, suspicious for osteomyelitis. Status post amputation through the neck of the first metatarsal. There is generalized soft tissue swelling most prominently of the distal foot. Articular alignment elsewhere appears anatomic. Vascular calcification is noted.? XR/XR foot LT 2V IMPRESSION: Heterogeneous destruction of the third distal phalanx with surrounding soft tissue swelling, suspicious for osteomyelitis. Generalized soft tissue swelling of the distal foot. Discharge Plan Discharge Clinical Impression: Diabetic foot ulcer, Osteomyelitis of third toe of left foot Patient Disposition: Admitted As Inpatient Prescriptions: No Action lisinopril 20 mg tablet 20 mg PO DAILY insulin glargine 100 unit/mL (3 mL) insulin pen 38 unit subcut QAM clopidogrel 75 mg tablet 75 mg PO DAILY metformin 1,000 mg tablet 1,000 mg PO BID aspirin [Adult Low Dose Aspirin] 81 mg tablet,delayed release (DR/EC) 81 mg PO DAILY cephalexin 500 mg capsule 500 mg PO BID Qty: 20 0RF
[2021-10-01] VITALS (7 sets, daily range): BP systolic 126–171; BP diastolic 50–100; PULSE 65–78; RESP 15–20; TEMP 36.4–37; O2SAT 94–98
[2021-10-01] MEDS: 0.9 % Sodium Chloride 1,000 ML 999 ML IVCONT (00:15)
[2021-10-01 00:39] LABS: Lactic Acid 0.7 mmol/L (0.5-2.0)
[2021-10-01 00:40] LABS: COVID-19 Test Negative (Negative)
[2021-10-01] MEDS: Piperacillin Sodium/Tazobactam 3.375 GM in 0.9 % Sodium Chloride 50 ML IV ×4 (00:58→17:58)
--- NOTE | 2021-10-01 01:37 | PM.IMHP ---
History of Present Illness Date of Service: 10/01/21 Chief Complaint: left toe infection 81-year-old male with history of diabetes, history of amputation of left great toe secondary to osteomyelitis, hypertension, presents the hospital with complaints of redness, swelling of his 3rd left toe, he is also complaining that there is redness along his foot as well as huitron laterally. He reports that his symptoms are about 7 days ago when he was trying to cut his nails on his toes, he reports no fever or chills, he reports significant swelling in the foot up to the huitron area, redness, as well as pain. He denies any headache, no change in vision, No chest pain, no shortness of breath,no abdominal pain nausea or vomiting,no diarrhea constipation, no urinary symptoms. on arrival to the ED patient hemodynamically stable with elevated blood pressure Labs are significant for WBC count of 12.1, hemoglobin 13.6, hematocrit 39.3, ESR 63, CRP of 1.9, Foot x-ray shows heterogeneous destruction of the 3rd distal phalanx with surrounding soft tissue swelling suspicious for osteomyelitis and generalized soft tissue swelling of the distal foot patient started on IV antibiotics and will be admitted for further management Review of Systems Review of Systems: Yes all other systems are reviewed and are negative [facility] Medical History Diabetes History of amputation of great toe History of amputation of great toe HTN (hypertension) Hx of osteomyelitis 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 Family History Other No family history of coronary artery disease Surgical History History of angioplasty of peripheral vessel Social History Are you a primary foster care therapist to a significant other at home: No Do you presently have visiting nurse or other home services: Yes Alcohol intake: current Alcohol intake frequency: holidays/special occasions only Patient Tobacco Use Status: Never used Tobacco Use of substances other than those prescribed or required for medical reasons: No Advance Directives: No Advance Directives Information Provided: Yes Meds Allergies Allergy/AdvReac Type Severity Reaction Status Date / Time No Known Allergies Allergy Verified 09/30/21 16:12 [No Known Allergies*] Active Medications: Current Medications Vancomycin HCl 2,000 mg/ (Sodium Chloride) 540 mls @ 270 mls/hr IV ONCE ONE Stop: 10/01/21 01:47 Last Admin: 10/01/21 01:14 Dose: 270 mls/hr Pharmacy Consult (Consult Rx Vancomycin Dosing) 1 each MISCELLANE DAILY PRN PRN Reason: Consult order Home Medications Medication Instructions Recorded Confirmed Last Taken Type clopidogrel 75 mg tablet 75 mg PO DAILY 11/22/19 12/14/19 Unknown History insulin glargine 100 unit/mL (3 38 unit subcut QAM 11/22/19 12/14/19 Unknown History mL) subcutaneous pen lisinopril 20 mg tablet 20 mg PO DAILY 11/22/19 12/14/19 Unknown History aspirin 81 mg tablet,delayed 81 mg PO DAILY 12/05/19 12/18/19 12/18/19 05:00 History release (Adult Low Dose Aspirin) metformin 1,000 mg tablet 1,000 mg PO BID 12/05/19 12/14/19 Unknown History multivit with min-folic tab PO 07/23/20 Unknown History acid-lutein 200 mcg-137.5 mcg chewable tablet (Adult Multivitamin (w-lutein)) Physical Exam Vital Signs and Narrative: Vital Signs: Last Vital Signs Temp 97.8 F 10/01/21 01:21 Pulse 70 10/01/21 01:21 Resp 18 10/01/21 01:21 BP 126/100 H 10/01/21 01:21 Pulse Ox 98 10/01/21 01:21 O2 Del Method 10/01/21 01:21 BMI result Body Mass Index 31.1 Const: General: cooperative and no acute distress Orientation/consciousness: patient oriented x3 Eyes: General: appearance normal, both eyes and all related structures Resp: Effort & Inspection: normal respiratory effort Auscultation: clear to auscultation bilaterally Cardio: Rate: regular rate Rhythm: regular rhythm GI: Palpation (GI): Soft to palpation Auscultation: normal bowel sounds Skin: General skin exam: no rashes or lesions noted Neuro: General: patient oriented x3 Cognition (Neuro): normal cognition Extrem: Other: left foot erythema, warmth, tenderness, there is also significant edema, on the dorsiflex of the left foot, as well as on the huitron, patient also has and erythematous area on the lateral left huitron Results Labs CBC and Chem 7: 10/01/21 04:33 10/01/21 04:33 Labs: Laboratory Results - last 24 hr 09/30/21 09/30/21 10/01/21 20:59 20:59 00:11 MCV 93.7 MCH 31.4 MCHC 33.5 RDW 12.2 Plt Count 350 MPV 9.3 L Absolute Nucleated RBC 0.000 Nucleated RBC % (auto) 0.0 Anion Gap 15 Estim Creat Clear Calc 82.8 Estimated GFR > 60 Random Glucose 64 D Lactic Acid Calcium 9.0 Total Bilirubin 0.4 AST 16 ALT 12 Alkaline Phosphatase 104 D C-Reactive Protein 1.90 H Total Protein 6.6 Albumin 3.9 COVID-19 (SANDRINE) COVID-19 Clin Com 10/01/21 10/01/21 00:11 00:11 MCV MCH MCHC RDW Plt Count MPV Absolute Nucleated RBC Nucleated RBC % (auto) Anion Gap Estim Creat Clear Calc Estimated GFR Random Glucose Lactic Acid 0.7 Calcium Total Bilirubin AST ALT Alkaline Phosphatase C-Reactive Protein Total Protein Albumin COVID-19 (SANDRINE) Negative COVID-19 Clin Com See Note Imaging Radiologist's Impressions: Impressions Foot X-Ray 10/01/21 00:27 IMPRESSION: Heterogeneous destruction of the third distal phalanx with surrounding soft tissue swelling, suspicious for osteomyelitis. Generalized soft tissue swelling of the distal foot. Assessment and Plan (1) Osteomyelitis of third toe of left foot: Status: Acute (2) Diabetic foot ulcer: Status: Acute Plan 81-year-old male with past medical history of diabetes, osteomyelitis, PD who presents the hospital with complaints of left foot/toe redness and swelling found to have osteomyelitis # left 3rd phalanx osteomyelitis - has elevated ESR, CRP, as well as evidence on imaging of osteomyelitis - has leukocytosis, afebrile and no lactic acidosis - history of osteomyelitis with history of diabetes - will treat with IV antibiotics, blood cultures, - Infectious Disease consulted # diabetes - hold metformin, - continue glargine - low-dose sliding scale insulin - diabetic diet # history PAD - continue Plavix DVT prophylaxis: Lovenox given osteomyelitis and need for IV antibiotics patient will require a minimum 2 night hospital stay for further management and monitoring Quality Stroke Does the patient have a stroke diagnosis?: No VTE Prior VTE?: No VTE Risk Level:: Medical - moderate - high VTE Device Contraindication: Treatment Not Indicated VTE Drug Contraindication: N/A - Med Ordered
[2021-10-01 01:45] LABS: Erythrocyte Sedimentation Rate 63 MM/HR (0-15)
[2021-10-01] MEDS: Enoxaparin Sodium 40 MG/0.4 ML SYRINGE SUBCUT (03:35)
[2021-10-01 04:39] LABS: MANUAL DIFF FLAG NO
[2021-10-01 04:40] LABS: Basophils Percent Auto 0.3 % (0-2); Eosinophils Absolute Auto 0.4 X10*3/uL (0.0-0.4); Eosinophils Percent Auto 3.5 % (0-4); Hematocrit 39.3 % (42.0-52.0); Hemoglobin 13.6 g/dl (14.0-18.0); Imm Gran Abs Auto 0.03 X10*3/uL (0.00-0.03); Imm Gran Pct Auto 0.2 % (0.0-0.4); Lymphocytes Absolute Auto 2.1 X10*3/uL (1.2-4.9); Lymphocytes Percent Auto 17.1 % (20-40); Mean Corpuscular HGB Conc 34.6 g/dl (31.0-36.0); Mean Corpuscular Hemoglobin 33.2 pg (27.0-33.0); Mean Corpuscular Volume 95.9 fL (80.0-98.0); Mean Platelet Volume 9.7 fL (9.4-12.4); Monocytes Absolute Auto 1.2 X10*3/uL (0.1-1.2); Monocytes Percent Auto 9.8 % (2-11); Neutrophils Absolute Auto 8.4 x10*3/uL (2.0-8.3); Neutrophils Percent Auto 69.1 % (45-73); Platelet Count 328 X10*3/uL (160-400); Red Cell Distribution Width 12.3 % (11.0-16.0); White Blood Count 12.1 X10*3/uL (4.8-10.8)
[2021-10-01 04:57] LABS: Anion Gap 15 (12-20); Blood Urea Nitrogen 18 mg/dL (9-16); Calcium 8.9 mg/dL (8.4-10.2); Carbon Dioxide 23 mmol/L (22-29); Chloride 106 mmol/L (96-108); Creatinine Clr Calc Pharmacy 82.8; Estimated Glomerular Filt Rate > 60; Glucose Random 100 mg/dL (60-115); Potassium 4.4 mmol/L (3.3-5.1); Sodium 140 mmol/L (135-145)
[2021-10-01 07:20] LABS: Glucose, Whole Blood 63 mg/dL (60-115)
--- NOTE | 2021-10-01 07:47 | PHA.MEDREC ---
Pharmacy Consult ? Medication Reconciliation Nurse has completed the medication reconciliation, pharmacist reviewed.
[2021-10-01] MEDS: 0.9 % Sodium Chloride Flush 3 ML SYRINGE IVFLUSH ×2 (08:30→15:19)
--- NOTE | 2021-10-01 09:57 | P.CONGS_ITS ---
History of Present Illness Consult details Consult date: 10/01/21 Narrative: 81-year-old male referred for osteomyelitis of the left 3rd toe. He says he really had not noticed pain on his 3rd toe but apparently he has had some redness on this area for a week now. He also describes a separate area of redness on the left lower leg. He denies any significant pain. He has a history of amputation of the big toe on the left for osteomyelitis. He had undergone endovascular intervention for peripheral artery disease of the left leg in the past. Review of Systems Constitutional: Constitutional: Denies chills and Denies fever(s) Cardiovascular: Cardiovascular: Denies chest pain, Denies dyspnea and Denies dyspnea on exertion Respiratory: Respiratory: Denies cough, Denies dyspnea and Denies dyspnea on exertion Gastrointestinal: Gastrointestinal: Denies hematochezia and Denies change in bowel habits Genitourinary: Genitourinary: Denies hematuria and Denies difficulty urinating Musculoskeletal: Musculoskeletal: Denies back pain and Denies limited range of motion Neurologic: Denies focal weakness and Denies convulsions Psychiatric: Psychiatric: Denies depression and Denies mood swings PMFSH Past Medical History Medical History Diabetes History of amputation of great toe History of amputation of great toe HTN (hypertension) Hx of osteomyelitis 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 Family History Family History Other No family history of coronary artery disease Surgical History Surgical History History of angioplasty of peripheral vessel Social History Social History Household Members: Significant Other Housing: House Are you a primary manager medicare to a significant other at home: No Do you presently have visiting nurse or other home services: No Alcohol intake: current Alcohol intake frequency: holidays/special occasions only Patient Tobacco Use Status: Never used Tobacco Second Hand Smoke Exposure: No service: No Current occupational status: retired Meds Allergies Allergy/AdvReac Type Severity Reaction Status Date / Time No Known Allergies Allergy Verified 09/30/21 16:12 [No Known Allergies*] Active Medications: Current Medications Acetaminophen (Acetaminophen 325 Mg Tablet) 650 mg PO Q6H PRN PRN Reason: Pain, Mild (Pain Scale 1-3) Dextrose (Dextrose 50 % 25 Gm/50 Ml Syringe) 25 gm IVPUSH Q15M PRN; Protocol PRN Reason: per Hypoglycemia Standing Ord. Docusate Sodium (Docusate Sodium 100 Mg Capsule) 100 mg PO DAILY PRN PRN Reason: Constipation Enoxaparin Sodium (Enoxaparin Sodium 40 Mg/0.4 Ml Syringe) 40 mg SUBCUT Q24H [facility] Last Admin: 10/01/21 03:35 Dose: 40 mg Glucose (Glucose Gel 15 Gm Gel..Gram.) 15 gm PO Q15M PRN; Protocol PRN Reason: per Hypoglycemia Standing Ord. Piperacillin Sod/Tazobactam (Sod 3.375 gm/ Sodium Chloride) 50 mls @ 100 mls/hr IV Q6H [facility] Last Infusion: 10/01/21 08:25 Dose: Infused Insulin Glargine (Insulin Glargine,Hum.Rec.Anlog 100 Unit/Ml 10 Ml Vial) 38 unit SUBCUT DAILY [facility] Insulin Human Lispro (Insulin Lispro 100 Unit/Ml 3 Ml Vial) 0 unit SUBCUT QIDACHS [facility]; Protocol Lisinopril (Lisinopril 20 Mg Tablet) 20 mg PO DAILY [facility]; Protocol Morphine Sulfate (Morphine Sulfate 4 Mg/Ml Cartridge) 4 mg IVPUSH Q4H PRN; Protocol PRN Reason: Pain, Severe (Pain Scale 7-10) Ondansetron HCl (Ondansetron Hcl 4 Mg/2 Ml Vial) 4 mg IVPUSH Q8H PRN PRN Reason: Nausea and Vomiting Pharmacy Consult (Consult Rx Vancomycin Dosing) 1 each MISCELLANE DAILY PRN PRN Reason: Consult order Pharmacy Consult (Consult Rx Vancomycin Dosing) 1 each MISCELLANE DAILY PRN PRN Reason: Consult order Sodium Chloride (0.9 % Sodium Chloride Flush 3 Ml Syringe) [facility] Last Admin: 10/01/21 08:30 Dose: 3 ml Home Medications Medication Instructions Recorded Confirmed Last Taken Type insulin glargine 100 unit/mL (3 38 unit subcut QAM 11/22/19 10/01/21 1 Day Ago History mL) subcutaneous pen ~09/30/21 lisinopril 20 mg tablet 20 mg PO DAILY 11/22/19 10/01/21 1 Day Ago History ~09/30/21 metformin 1,000 mg tablet 1,000 mg PO BID 12/05/19 10/01/21 1 Day Ago History ~09/30/21 Physical Exam Vital Signs: Vital Signs: Last Vital Signs Temp 97.6 F 10/01/21 07:07 Pulse 66 10/01/21 07:07 Resp 16 10/01/21 07:07 BP 157/61 H 10/01/21 07:07 Pulse Ox 98 10/01/21 07:07 O2 Del Method 10/01/21 07:07 BMI result Body Mass Index 31.1 Const: General: comfortable and no acute distress Orientation/cons ciousness: patient oriented x3 Neck: Neck: Yes no lymphadenopathy Resp: Auscultation: clear to auscultation bilaterally Cardio: Rhythm: regular rhythm GI: Palpation (GI): Soft to palpation, nontender and no guarding Neuro: General: patient oriented x3 Extrem: Other: Area of redness about 5 cm wide, on the lateral aspect the left lower leg consistent with cellulitis. There was note of dry ulceration of the distal aspect of the 3rd toe on the left as well, with cellulitic changes on the toe as well as the base at the forefoot Old amputation site, big toe on the left Results Labs Result diagrams: 10/04/21 20:56 10/06/21 07:13 Labs: Abnormal lab results 09/30/21 09/30/21 10/01/21 Range/Units 20:59 20:59 00:11 WBC (4.8-10.8) X10*3/uL RBC 4.30 L (4.60-5.80) X10*6/uL Hgb 13.5 L (14.0-18.0) g/dl Hct 40.3 L (42.0-52.0) % MCH (27.0-33.0) pg MPV 9.3 L (9.4-12.4) fL Lymph % (Auto) (20-40) % Absolute Neuts (auto) (2.0-8.3) x10*3/uL ESR 63 H (0-15) MM/HR BUN 20 H (9-16) mg/dL C-Reactive Protein (< or = 0.50) mg/dL 10/01/21 10/01/21 10/01/21 Range/Units 00:11 04:33 04:33 WBC 12.1 H (4.8-10.8) X10*3/uL RBC 4.10 L (4.60-5.80) X10*6/uL Hgb 13.6 L (14.0-18.0) g/dl Hct 39.3 L (42.0-52.0) % MCH 33.2 H (27.0-33.0) pg MPV (9.4-12.4) fL Lymph % (Auto) 17.1 L (20-40) % Absolute Neuts (auto) 8.4 H (2.0-8.3) x10*3/uL ESR (0-15) MM/HR BUN 18 H (9-16) mg/dL C-Reactive Protein 1.90 H (< or = 0.50) mg/dL Short CBC 09/30/21 10/01/21 Range/Units 20:59 04:33 WBC 10.8 12.1 H (4.8-10.8) X10*3/uL Hgb 13.5 L 13.6 L (14.0-18.0) g/dl Hct 40.3 L 39.3 L (42.0-52.0) % Plt Count 350 328 (160-400) X10*3/uL BMP 09/30/21 10/01/21 20:59 04:33 Sodium 139 140 Potassium 4.4 4.4 Chloride 104 106 Carbon Dioxide 24 23 BUN 20 H 18 H Creatinine 0.80 0.80 Calcium 9.0 8.9 Liver Function 09/30/21 Range/Units 20:59 Total Bilirubin 0.4 (0.0-1.0) mg/dL AST 16 (5-37) U/L ALT 12 (0-40) U/L Alkaline Phosphatase 104 D (39-117) U/L Albumin 3.9 (3.5-5.0) g/dL All other labs normal. Assessment and Plan (1) Osteomyelitis of third toe of left foot: Status: Acute He has ulceration and redness of the 3rd toe extending to base. His x-ray shows findings consistent with osteomyelitis of the distal phalanx. I explained to him the option of proceeding with amputation of the 3rd toe. I reviewed with him the technique of this procedure. I explained the risks including but not limited to bleeding, infections, as well as the benefits and alternatives which would be long-term IV antibiotics. He is very hesitant about proceeding with amputation at this time. He says he wants to save the toe for now and wants to try antibiotic treatment. I will follow along while he is in the hospital. He has a peripheral artery disease but surveillance after the vascular intervention on the left leg shows good flow last July,. Procedures Date of Service Date of Service: 10/01/21
[2021-10-01] MEDS: Insulin Glargine,Hum.rec.anlog 100 UNIT/ML 10 ML VIAL 38 UNIT SUBCUT (10:23)
[2021-10-01] MEDS: lisinopriL 20 MG TABLET PO (10:24)
--- NOTE | 2021-10-01 10:59 | PHA.PROG ---
Admission Date/Time: October 01, 2021 01:36 Indication: Weight in k.986 kg Adjusted body weight in K.2 [place] body weight in K.4 Obesity Dosing Indication % IBW: Serum Creatinine - Last 168 Hours 09/30/21 10/01/21 20:59 04:33 Creatinine 0.80 0.80 Estimated CrCl and GFR - Last 168 Hours 09/30/21 10/01/21 20:59 04:33 Estim Creat Clear Calc 82.8 82.8 Estimated GFR > 60 > 60 Vancomycin Loading Dose: 2000 MG Current Vancomycin Dosing Regimen: 1500 MG Q24 Vancomycin Monitoring using AUC goal of 400 - 600 range with trough as surrogate marker: 479, 14.9 Date and Time for next Vancomycin Level to be drawn:10/02 @ 2100 Pharmacist Comments on Vancomycin Plan: scheduling second dose a bit earlier so labs can be drawn during second shift to manage trough Vancomycin dosing will take advantage of [employer] as a clinical decision support tool that uses Bayesian modeling to calculate individual patient's pharmacokinetic parameters and forecast the patient's drug concentration time course with the target goal AUC 24 range of 400 - 600 mg/L/hr.
[2021-10-01 12:31] LABS: Glucose, Whole Blood 88 mg/dL (60-115)
--- NOTE | 2021-10-01 15:28 | MHC.CM.PN ---
PATIENT LIVES WITH SIGNIFICANT OTHER HCP IS ON FILE AND VERIFIED. HE USES A CANE MOSTLY BUT DOES HAVE A ROLLATOR THAT IS USED OCCASIONALLY NO VNA OR ELDER SERVICES. IF HE NEEDS VNA AT DISCHARGE,HE ASKS FOR [facility]. REFERRAL TO BE PLACED TO FOLLOW. HE HAS BEEN COVID VACCINATED X 3 HE HAS NOT CONTRACTED COVID-19 CASE MANAGEMENT FOLLOWING FOR DC NEEDS. IMM 10/01 IN MEDICAL RECORDS BIN
--- NOTE | 2021-10-01 15:53 | HO.PM.IMPN ---
Subjective Subjective Date of Service: 10/01/21 Interval History: no fever/chills ongoing redness/pain/swelling L 3rd toe streaking up the huitron Review of Systems Review of Systems: Yes all other systems are reviewed and are negative Physical Exam Vital Signs: Vital Signs: Last Vital Signs Temp 97.6 F 10/01/21 07:07 Pulse 66 10/01/21 07:07 Resp 16 10/01/21 07:07 BP 157/61 H 10/01/21 07:07 Pulse Ox 98 10/01/21 07:07 O2 Del Method 10/01/21 07:07 BMI result Body Mass Index 31.1 Gen: in no acute distress HEENT: sclera anicteric, moist mucus membranes Neck: supple Lungs: clear to auscultation bilaterally Heart: regular rate and rhythm, no murmurs Abd: soft, non-tender, non-distended Ext: s/p L 1st toe amputation. L 3rd toe with dry ulcer, erythematous; erythema streaking up dorsum of L foot and L huitron Skin: warm/well-perfused Neuro: alert and oriented x3, no focal findings Psych: appropriate affect Objective Data Active Medications Acetaminophen (Acetaminophen 325 Mg Tablet) 650 mg PO Q6H PRN PRN Reason: Pain, Mild (Pain Scale 1-3) Dextrose (Dextrose 50 % 25 Gm/50 Ml Syringe) 25 gm IVPUSH Q15M PRN; Protocol PRN Reason: per Hypoglycemia Standing Ord. Docusate Sodium (Docusate Sodium 100 Mg Capsule) 100 mg PO DAILY PRN PRN Reason: Constipation Enoxaparin Sodium (Enoxaparin Sodium 40 Mg/0.4 Ml Syringe) 40 mg SUBCUT Q24H [facility] Last Admin: 10/01/21 03:35 Dose: 40 mg Documented By: ADAM Comments: Med. late d/t med. not available in ED Glucose (Glucose Gel 15 Gm Gel..Gram.) 15 gm PO Q15M PRN; Protocol PRN Reason: per Hypoglycemia Standing Ord. Piperacillin Sod/Tazobactam (Sod 3.375 gm/ Sodium Chloride) 50 mls @ 100 mls/hr IV Q6H [facility] Last Infusion: 10/01/21 13:01 Dose: 0 mls/hr Documented By: [email or web address] Vancomycin HCl 1,500 mg/ (Sodium Chloride) 500 mls @ 333.333 mls/hr IV Q24H [facility] Insulin Glargine (Insulin Glargine,Hum.Rec.Anlog 100 Unit/Ml 10 Ml Vial) 38 unit SUBCUT DAILY [facility] Last Admin: 10/01/21 10:23 Dose: 38 unit Documented By: JOCELYN Insulin Human Lispro (Insulin Lispro 100 Unit/Ml 3 Ml Vial) 0 unit SUBCUT QIDACHS [facility]; Protocol Last Admin: 10/01/21 12:31 Dose: Not Given Documented By: MARCELLA Non-Admin Reason: No Insulin Coverage Lisinopril (Lisinopril 20 Mg Tablet) 20 mg PO DAILY [facility]; Protocol Last Admin: 10/01/21 10:24 Dose: 20 mg Documented By: JOCELYN Morphine Sulfate (Morphine Sulfate 4 Mg/Ml Cartridge) 4 mg IVPUSH Q4H PRN; Protocol PRN Reason: Pain, Severe (Pain Scale 7-10) Ondansetron HCl (Ondansetron Hcl 4 Mg/2 Ml Vial) 4 mg IVPUSH Q8H PRN PRN Reason: Nausea and Vomiting Pharmacy Consult (Consult Rx Vancomycin Dosing) 1 each MISCELLANE DAILY PRN PRN Reason: Consult order Pharmacy Consult (Consult Rx Vancomycin Dosing) 1 each MISCELLANE DAILY PRN PRN Reason: Consult order Sodium Chloride (0.9 % Sodium Chloride Flush 3 Ml Syringe) 3 ml IVFLUSH QSHIFT [facility] Last Admin: 10/01/21 15:19 Dose: 3 ml Documented By: MARCELLA Labs CBC & Chem 7: 10/01/21 04:33 10/01/21 04:33 Labs: Laboratory Results - last 24 hr 09/30/21 09/30/21 10/01/21 20:59 20:59 00:11 MCV 93.7 MCH 31.4 MCHC 33.5 RDW 12.2 Plt Count 350 MPV 9.3 L Immature Gran % (Auto) Neut % (Auto) Lymph % (Auto) [place] % (Auto) Eos % (Auto) Baso % (Auto) Lymph # (Auto) [place] # (Auto) Eos # (Auto) Baso # (Auto) Abs Immat Gran (auto) Absolute Neuts (auto) Absolute Nucleated RBC 0.000 Nucleated RBC % (auto) 0.0 ESR 63 H Anion Gap 15 Estim Creat Clear Calc 82.8 Estimated GFR > 60 POC Glucose Random Glucose 64 D Lactic Acid Calcium 9.0 Total Bilirubin 0.4 AST 16 ALT 12 Alkaline Phosphatase 104 D C-Reactive Protein Total Protein 6.6 Albumin 3.9 COVID-19 (SANDRINE) COVID-19 Clin Com 10/01/21 10/01/21 10/01/21 00:11 00:11 00:11 MCV MCH MCHC RDW Plt Count MPV Immature Gran % (Auto) Neut % (Auto) Lymph % (Auto) [place] % (Auto) Eos % (Auto) Baso % (Auto) Lymph # (Auto) [place] # (Auto) Eos # (Auto) Baso # (Auto) Abs Immat Gran (auto) Absolute Neuts (auto) Absolute Nucleated RBC Nucleated RBC % (auto) ESR Anion Gap Estim Creat Clear Calc Estimated GFR POC Glucose Random Glucose Lactic Acid 0.7 Calcium Total Bilirubin AST ALT Alkaline Phosphatase C-Reactive Protein 1.90 H Total Protein Albumin COVID-19 (SANDRINE) Negative COVID-19 Clin Com See Note 10/01/21 10/01/21 10/01/21 04:33 04:33 07:04 MCV 95.9 MCH 33.2 H MCHC 34.6 RDW 12.3 Plt Count 328 MPV 9.7 Immature Gran % (Auto) 0.2 Neut % (Auto) 69.1 Lymph % (Auto) 17.1 L [place] % (Auto) 9.8 Eos % (Auto) 3.5 Baso % (Auto) 0.3 Lymph # (Auto) 2.1 [place] # (Auto) 1.2 Eos # (Auto) 0.4 Baso # (Auto) 0.0 Abs Immat Gran (auto) 0.03 Absolute Neuts (auto) 8.4 H Absolute Nucleated RBC 0.000 Nucleated RBC % (auto) 0.0 ESR Anion Gap 15 Estim Creat Clear Calc 82.8 Estimated GFR > 60 POC Glucose 63 Random Glucose 100 D Lactic Acid Calcium 8.9 Total Bilirubin AST ALT Alkaline Phosphatase C-Reactive Protein Total Protein Albumin COVID-19 (SANDRINE) COVID-19 Clin Com 10/01/21 12:28 MCV MCH MCHC RDW Plt Count MPV Immature Gran % (Auto) Neut % (Auto) Lymph % (Auto) [place] % (Auto) Eos % (Auto) Baso % (Auto) Lymph # (Auto) [place] # (Auto) Eos # (Auto) Baso # (Auto) Abs Immat Gran (auto) Absolute Neuts (auto) Absolute Nucleated RBC Nucleated RBC % (auto) ESR Anion Gap Estim Creat Clear Calc Estimated GFR POC Glucose 88 Random Glucose Lactic Acid Calcium Total Bilirubin AST ALT Alkaline Phosphatase C-Reactive Protein Total Protein Albumin COVID-19 (SANDRINE) COVID-19 Clin Com Assessment and Plan (1) Osteomyelitis of third toe of left foot: Status: Acute Plan hospital d#1 81yo M with DM2, hx osteomyelitis, hx MRSA infection, PAD admitted for L 3rd toe osteomyelitis/cellulitis # osteomyelitis/cellulitis associated with DM foot - pip/valeria + vanco d#1, ID consultation, Gen Surg/Vasc Surg consultations, artieral duplex studies # PAD - continue clopidogrel # HTN - continue lisinopril # DM2 - basal/bolus insulin, hold MTF # VTE ppx: LMWH In my clinical judgment, the patient requires continued hospitalization for the following reasons: IV ABX, possibility of operative intervention Quality Stroke Does the patient have a stroke diagnosis?: No VTE Prior VTE?: No VTE Risk Level:: Medical - moderate - high VTE Device Contraindication: Treatment Not Indicated VTE Drug Contraindication: N/A - Med Ordered
[2021-10-01 17:31] LABS: Glucose, Whole Blood 134 mg/dL (60-115)
[2021-10-01 20:42] LABS: Glucose, Whole Blood 171 mg/dL (60-115)
[2021-10-01] MEDS: Insulin Lispro 100 UNIT/ML 3 ML VIAL SUBCUT (20:46)
--- NOTE | 2021-10-01 22:59 | W.PM.IDCN ---
History of Present Illness Data of Consult Service Date: 10/01/21 Requesting physician: Thiago Adams Primary Care Provider: Keaton Santana MD [facility] Reason for consult: reddened left foot He presents with left foot and leg redness over last week. He had cut nails by himself and nicked foot. He now has malodor and redness He has seen Dr Johnson. He stopped going to Podiatry. He has h/o MRSA. Review of Systems Review of Systems: Yes all other systems are reviewed and are negative PMFSH Past Medical History Medical History Diabetes History of amputation of great toe History of amputation of great toe HTN (hypertension) Hx of osteomyelitis 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 Family History Family History Other No family history of coronary artery disease Family history: reviewed and not pertinent Surgical History Surgical History History of angioplasty of peripheral vessel Social History Social History Are you a primary pet care attendant to a significant other at home: No Do you presently have visiting nurse or other home services: Yes Alcohol intake: current Alcohol intake frequency: holidays/special occasions only Patient Tobacco Use Status: Never used Tobacco Use of substances other than those prescribed or required for medical reasons: No Advance Directives: No Advance Directives Information Provided: Yes service: No Current occupational status: retired Meds Allergies Allergy/AdvReac Type Severity Reaction Status Date / Time No Known Allergies Allergy Verified 09/30/21 16:12 [No Known Allergies*] Active Medications: Current Medications Acetaminophen (Acetaminophen 325 Mg Tablet) 650 mg PO Q6H PRN PRN Reason: Pain, Mild (Pain Scale 1-3) Dextrose (Dextrose 50 % 25 Gm/50 Ml Syringe) 25 gm IVPUSH Q15M PRN; Protocol PRN Reason: per Hypoglycemia Standing Ord. Docusate Sodium (Docusate Sodium 100 Mg Capsule) 100 mg PO DAILY PRN PRN Reason: Constipation Enoxaparin Sodium (Enoxaparin Sodium 40 Mg/0.4 Ml Syringe) 40 mg SUBCUT Q24H [facility] Last Admin: 10/01/21 03:35 Dose: 40 mg Glucose (Glucose Gel 15 Gm Gel..Gram.) 15 gm PO Q15M PRN; Protocol PRN Reason: per Hypoglycemia Standing Ord. Piperacillin Sod/Tazobactam (Sod 3.375 gm/ Sodium Chloride) 50 mls @ 100 mls/hr IV Q6H [facility] Last Infusion: 10/01/21 20:41 Dose: Infused Vancomycin HCl 1,500 mg/ (Sodium Chloride) 500 mls @ 333.333 mls/hr IV Q24H [facility] Insulin Glargine (Insulin Glargine,Hum.Rec.Anlog 100 Unit/Ml 10 Ml Vial) 38 unit SUBCUT DAILY [facility] Last Admin: 10/01/21 10:23 Dose: 38 unit Insulin Human Lispro (Insulin Lispro 100 Unit/Ml 3 Ml Vial) 0 unit SUBCUT QIDACHS [facility]; Protocol Last Admin: 10/01/21 20:46 Dose: 2 unit Lisinopril (Lisinopril 20 Mg Tablet) 20 mg PO DAILY [facility]; Protocol Last Admin: 10/01/21 10:24 Dose: 20 mg Morphine Sulfate (Morphine Sulfate 4 Mg/Ml Cartridge) 4 mg IVPUSH Q4H PRN; Protocol PRN Reason: Pain, Severe (Pain Scale 7-10) Ondansetron HCl (Ondansetron Hcl 4 Mg/2 Ml Vial) 4 mg IVPUSH Q8H PRN PRN Reason: Nausea and Vomiting Pharmacy Consult (Consult Rx Vancomycin Dosing) 1 each MISCELLANE DAILY PRN PRN Reason: Consult order Pharmacy Consult (Consult Rx Vancomycin Dosing) 1 each MISCELLANE DAILY PRN PRN Reason: Consult order Sodium Chloride (0.9 % Sodium Chloride Flush 3 Ml Syringe) 3 ml IVFLUSH QSHIFT [facility] Last Admin: 10/01/21 15:19 Dose: 3 ml Home Medications Medication Instructions Recorded Confirmed Last Taken Type insulin glargine 100 unit/mL (3 38 unit subcut QAM 11/22/19 10/01/21 1 Day Ago History mL) subcutaneous pen ~09/30/21 lisinopril 20 mg tablet 20 mg PO DAILY 11/22/19 10/01/21 1 Day Ago History ~09/30/21 metformin 1,000 mg tablet 1,000 mg PO BID 12/05/19 10/01/21 1 Day Ago History ~09/30/21 Physical Exam Vital Signs: Vital Signs: Last Vital Signs Temp 98.1 F 10/01/21 20:31 Pulse 78 10/01/21 20:31 Resp 15 10/01/21 20:31 BP 171/73 H 10/01/21 20:31 Pulse Ox 98 10/01/21 20:31 O2 Del Method 10/01/21 20:31 BMI result Body Mass Index 31.1 Const: General: cooperative HEENT: Head: Yes normal to inspection Face and sinus: Yes normal facial exam Mouth: Normal oral and palatal mucosa present Teeth and gingiva: dentition normal Eyes: General: appearance normal, both eyes and all related structures Pupils: Equal, round and reactive pupils present Resp: Effort & Inspection: normal respiratory effort Cardio: Rate: regular rate Rhythm: regular rhythm GI: Palpation (GI): Soft to palpation and nontender : General: Yes no CVA tenderness Back/Spine/Pelvis: Back: no CVA tenderness Skin: General skin exam: no rashes or lesions noted Neuro: General: moves all extremities Cranial nerves: Yes Equal, round and reactive pupils present Extrem: Other: neuropathy, reddened foot and leg,left,ulcer scab lateral Psych: Appearance: grossly normal Results Labs CBC & Chem 7: 10/01/21 04:33 10/01/21 04:33 Labs: Short CBC 10/01/21 Range/Units 04:33 WBC 12.1 H (4.8-10.8) X10*3/uL Hgb 13.6 L (14.0-18.0) g/dl Hct 39.3 L (42.0-52.0) % Plt Count 328 (160-400) X10*3/uL BMP 10/01/21 04:33 Sodium 140 Potassium 4.4 Chloride 106 Carbon Dioxide 23 BUN 18 H Creatinine 0.80 Calcium 8.9 Assessment and Plan (1) Diabetic foot ulcer: Status: Acute He has gram negative,likely anerobes and gram positive There is likely osteomyelitis. Plan Would continue Zosyn and Vancomycin Await cultures. Likely 6 weeks IV antibiotics
[2021-10-02] MEDS: Enoxaparin Sodium 40 MG/0.4 ML SYRINGE SUBCUT (04:33)
[2021-10-02] MEDS: Piperacillin Sodium/Tazobactam 3.375 GM in 0.9 % Sodium Chloride 50 ML IV ×3 (04:34→18:25)
[2021-10-02] MEDS: vancomycin HCL 1,500 MG in 0.9 % Sodium Chloride 500 ML 333.33 MG IV ×2 (04:35→23:11)
[2021-10-02] MEDS: 0.9 % Sodium Chloride Flush 3 ML SYRINGE IVFLUSH ×4 (04:35→20:45)
[2021-10-02 05:18] VITALS: BP 151/72; PULSE 72; RESP 18; TEMP 35.9; O2SAT 98
[2021-10-02 05:20] VITALS: BMI 31.9
--- NOTE | 2021-10-02 06:10 | PC.NURSE ---
PATIENT ADMITTED TO ROOM 378 VIA WHEELCHAIR FROM ED SETTING AT 0450. ALERT, CALM, AND CO-OP, LITTLE VAGUE AT TIMES. PRN #[id number] ANGIO AT RIGHT FOREARM WITH NO IV ABX INFUSING UPON TRANSFER TIME. NOTED EXPANSE WAS IN DOWNTIME AND ED RN STATED IN REPORT THAT SHE INFUSED ZOSYN AND VANCOMYCIN, AND TIMES REFLECTED ARE OFF. PT STATED HE FELT DIZZY AND WEAK RECENTLY DUE TO BLOOD PRESSURE MEDICATION CHANGES AND HAD A MINOR FALL. PT DENIES DIZZINESS CURRENTLY, HOWEVER, WILL MAKE A MODERATE RISK AND EDUCATED PT ON HFR PROTOCOL. PT DENIES ALL PAIN, VSS, LUNG LOUIS CLEAR. REDNESS AND EDEMA NOTED TO LLE AND FOOT. DX OSTEO AT 3RD TOE LEFT FOOT AND HX GREAT TOE AMPUTATION IN 2020 ON LEFT.
[2021-10-02 07:07] LABS: Hematocrit 40.9 % (42.0-52.0); Hemoglobin 13.5 g/dl (14.0-18.0); Mean Corpuscular Hemoglobin 31.1 pg (27.0-33.0); Mean Corpuscular Volume 94.2 fL (80.0-98.0); Mean Platelet Volume 9.5 fL (9.4-12.4); Platelet Count 362 X10*3/uL (160-400); Red Blood Count 4.34 X10*6/uL (4.60-5.80); White Blood Count 11.4 X10*3/uL (4.8-10.8)
[2021-10-02 07:42] LABS: Glucose, Whole Blood 88 mg/dL (60-115)
[2021-10-02 07:48] LABS: Anion Gap 14 (12-20); Blood Urea Nitrogen 18 mg/dL (9-16); Carbon Dioxide 26 mmol/L (22-29); Chloride 103 mmol/L (96-108); Creatinine Clr Calc Pharmacy 79.8; Estimated Glomerular Filt Rate > 60; Glucose Random 86 mg/dL (60-115); Potassium 4.6 mmol/L (3.3-5.1); Sodium 138 mmol/L (135-145)
[2021-10-02 07:55] VITALS: BP 190/81; PULSE 72; RESP 17; TEMP 36; O2SAT 96
[2021-10-02] MEDS: lisinopriL 20 MG TABLET PO (10:23)
[2021-10-02] MEDS: Insulin Glargine,Hum.rec.anlog 100 UNIT/ML 10 ML VIAL 38 UNIT SUBCUT (10:24)
[2021-10-02 11:15] VITALS: BP 168/72; PULSE 78; RESP 18; TEMP 36.2; O2SAT 98
[2021-10-02 11:25] LABS: Glucose, Whole Blood 196 mg/dL (60-115)
--- NOTE | 2021-10-02 12:07 | P.CDIC_ITS ---
CDI Concurrent Query Documentation Clarification: PHYSICIAN'S DOCUMENTATION REQUEST Date of Query: 10/02/21 1209 Patient Name: Vj Galicia Admit Date: 10/01/21 Dear Doctor, A review of the medical record indicates additional documentation may be needed. Please review below and update the documentation accordingly. Clinical Indicators: Documentation on 10/01/21 indicates Osteomyelitis. Risk Factors/Clinical Indicators/Treatments Per MD progress note 10/01/21: ?DM2, hx osteomyelitis, hx MRSA infection, PAD admitted for L 3rd toe osteomyelitis/cellulitis Based on the above, please clarify in the Progress Notes further specificity regarding the type of Osteomyelitis. Also include specific site with laterality and known or suspected infectious agent: * Acute osteomyelitis * Acute hematogenous osteomyelitis * Subacute osteomyelitis * Chronic osteomyelitis * Chronic hemotogenous osteomyelitis * Chronic multifocal osteomyelitis * Other (please specify) * Unable to determine Use of terms such as suspected, likely, concern for, or probable (associated with a specific diagnosis that is being evaluated, monitored, or treated as if it exists) are acceptable and can be coded in the inpatient setting, when docu mented at the time of discharge. Thank you, Jeanie Gallo RN Extension: [phone] Please use your independent medical judgment in providing your response. THIS QUERY IS PART OF THE PERMANENT MEDICAL RECORD Provider Response: Other Other Diagnosis: acute osteo
--- NOTE | 2021-10-02 12:30 | P.PNIM_ITS ---
Subjective Subjective Date of Service: 10/02/21 Interval History: Redness L foot slightly improved; pain improved; no fever/chills; BCx NGTD Review of Systems Review of Systems: Yes all other systems are reviewed and are negative Physical Exam Vital Signs: Vital Signs: Last Vital Signs Temp 97.1 F 10/02/21 11:15 Pulse 78 10/02/21 11:15 Resp 18 10/02/21 11:15 BP 168/72 H 10/02/21 11:15 Pulse Ox 98 10/02/21 11:15 O2 Del Method 10/02/21 11:15 BMI result Body Mass Index 31.9 Gen: in no acute distress HEENT: sclera anicteric, moist mucus membranes Neck: supple Lungs: clear to auscultation bilaterally Heart: regular rate and rhythm, no murmurs Abd: soft, non-tender, non-distended Ext: s/p L 1st toe amputation.? L 3rd toe with dry ulcer, erythematous; erythema streaking up dorsum of L foot and L huitron less bright and less extensive than yesterday Skin: warm/well-perfused Neuro: alert and oriented x3, no focal findings Psych: appropriate affect Objective Data Active Medications Acetaminophen (Acetaminophen 325 Mg Tablet) 650 mg PO Q6H PRN PRN Reason: Pain, Mild (Pain Scale 1-3) Dextrose (Dextrose 50 % 25 Gm/50 Ml Syringe) 25 gm IVPUSH Q15M PRN; Protocol PRN Reason: per Hypoglycemia Standing Ord. Docusate Sodium (Docusate Sodium 100 Mg Capsule) 100 mg PO DAILY PRN PRN Reason: Constipation Enoxaparin Sodium (Enoxaparin Sodium 40 Mg/0.4 Ml Syringe) 40 mg SUBCUT Q24H [facility] Last Admin: 10/02/21 04:33 Dose: 40 mg Documented By: ADAM Glucose (Glucose Gel 15 Gm Gel..Gram.) 15 gm PO Q15M PRN; Protocol PRN Reason: per Hypoglycemia Standing Ord. Piperacillin Sod/Tazobactam (Sod 3.375 gm/ Sodium Chloride) 50 mls @ 100 mls/hr IV Q6H [facility] Last Admin: 10/02/21 05:39 Dose: Not Given Documented By: JOE Non-Admin Reason: just given in the ed Vancomycin HCl 1,500 mg/ (Sodium Chloride) 500 mls @ 333.333 mls/hr IV Q24H [facility] Last Infusion: 10/02/21 07:19 Dose: 0 mls/hr Documented By: HUGO Insulin Glargine (Insulin Glargine,Hum.Rec.Anlog 100 Unit/Ml 10 Ml Vial) 38 unit SUBCUT DAILY [facility] Last Admin: 10/02/21 10:24 Dose: 38 unit Documented By: HUGO Insulin Human Lispro (Insulin Lispro 100 Unit/Ml 3 Ml Vial) 0 unit SUBCUT QIDACHS [facility]; Protocol Last Admin: 10/02/21 07:43 Dose: Not Given Documented By: HUGO Non-Admin Reason: No Insulin Coverage Lisinopril (Lisinopril 20 Mg Tablet) 20 mg PO DAILY [facility]; Protocol Last Admin: 10/02/21 10:23 Dose: 20 mg Documented By: HUGO Morphine Sulfate (Morphine Sulfate 4 Mg/Ml Cartridge) 4 mg IVPUSH Q4H PRN; Protocol PRN Reason: Pain, Severe (Pain Scale 7-10) Ondansetron HCl (Ondansetron Hcl 4 Mg/2 Ml Vial) 4 mg IVPUSH Q8H PRN PRN Reason: Nausea and Vomiting Pharmacy Consult (Consult Rx Vancomycin Dosing) 1 each MISCELLANE DAILY PRN PRN Reason: Consult order Pharmacy Consult (Consult Rx Vancomycin Dosing) 1 each MISCELLANE DAILY PRN PRN Reason: Consult order Sodium Chloride (0.9 % Sodium Chloride Flush 3 Ml Syringe) 3 ml IVFLUSH QSHIFT [facility] Last Admin: 10/02/21 10:23 Dose: 3 ml Documented By: HUGO Labs CBC & Chem 7: 10/02/21 06:13 10/02/21 06:13 Labs: Laboratory Results - last 24 hr 10/01/21 10/01/21 10/01/21 12:28 17:25 20:37 MCV MCH MCHC RDW Plt Count MPV Absolute Nucleated RBC Nucleated RBC % (auto) Anion Gap Estim Creat Clear Calc Estimated GFR POC Glucose 88 134 H 171 H Random Glucose Calcium 10/02/21 10/02/21 10/02/21 06:13 06:13 07:37 MCV 94.2 MCH 31.1 MCHC 33.0 RDW 12.0 Plt Count 362 MPV 9.5 Absolute Nucleated RBC 0.000 Nucleated RBC % (auto) 0.0 Anion Gap 14 Estim Creat Clear Calc 79.8 Estimated GFR > 60 POC Glucose 88 Random Glucose 86 Calcium 9.0 10/02/21 11:17 MCV MCH MCHC RDW Plt Count MPV Absolute Nucleated RBC Nucleated RBC % (auto) Anion Gap Estim Creat Clear Calc Estimated GFR POC Glucose 196 H Random Glucose Calcium Microbiology Microbiology Results: Microbiology 10/01/21 00:11 Blood Culture - Preliminary Blood - Venous No growth after 24 hours. 10/01/21 00:11 Blood Culture - Preliminary Blood - Venous No growth after 24 hours. Assessment and Plan (1) Osteomyelitis of third toe of left foot: Status: Acute Plan hospital d#2 81yo M with DM2, hx osteomyelitis, hx MRSA infection, PAD admitted for L 3rd toe osteomyelitis/cellulitis # acute osteomyelitis/cellulitis associated with DM foot - pip/valeria + vanco d#2, ID consulted, pt declined amputation by Gen Surg, if BCx negative tomorrow will place PICC for likely 6 wk IV ABX # PAD - continue clopidogrel - arterial duplex pending, Vascular Surgery consult pending # HTN - continue lisinopril # DM2 - basal/bolus insulin, hold MTF # VTE ppx: LMWH In my clinical judgment, the patient requires continued hospitalization for the following reasons: IV ABX, possibility of operative intervention Quality Stroke Does the patient have a stroke diagnosis?: No VTE Prior VTE?: No VTE Risk Level:: Medical - moderate - high VTE Device Contraindication: Treatment Not Indicated VTE Drug Contraindication: N/A - Med Ordered
[2021-10-02] MEDS: Insulin Lispro 100 UNIT/ML 3 ML VIAL SUBCUT (12:31)
--- NOTE | 2021-10-02 13:16 | MHC.CM.PN ---
PER REVIEW OF CHART, IF BLOOD CX ARE (-) Wednesday10/03/21, PLAN IS PICC AND LT IV ABX. PATIENT DECLINES AMPUTATION.
--- NOTE | 2021-10-02 14:32 | MHC.CLN ---
NUTRITION INCREASED DIET CALORIES. DIET=DIABETIC 2000 KCALS.
[2021-10-02 15:03] VITALS: BP 131/63; PULSE 71; RESP 17; TEMP 36.2; O2SAT 98
--- NOTE | 2021-10-02 15:21 | PM.CNGS ---
History of Present Illness Consult details Consult date: 10/02/21 Narrative: pleasant 81-year-old gentleman well known to me for prior endovascular intervention presented to the hospital with nonhealing left 3rd toe ulcer. It had become a source of pain and discomfort. He has also noted some swelling in that left lower extremity as well. There has been some serous drainage throughout the foot. Now presents to us for vascular evaluation. Review of Systems Review of Systems: Yes all other systems are reviewed and are negative Constitutional: Constitutional: Reports no additional constitutional complaints ENT: Reports Normal hearing present Cardiovascular: Cardiovascular: Denies chest pain, Denies chest pain at rest, Denies chest pain with activity and Denies pedal edema Respiratory: Respiratory: Denies cough Gastrointestinal: Gastrointestinal: Denies abdominal pain Musculoskeletal: Musculoskeletal: Denies abnormal gait, Denies muscle cramps and Denies radiating pain into limb Integumentary/Breasts: Skin/Breast: Denies skin ulcer and Denies wounds Neurologic: Reports Normal hearing present and Denies abnormal gait Psychiatric: Psychiatric: Reports no additional psychiatric complaints PMFSH Past Medical History Medical History Diabetes History of amputation of great toe History of amputation of great toe HTN (hypertension) Hx of osteomyelitis 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 Family History Family History Other No family history of coronary artery disease Family history: reviewed and not pertinent Surgical History Surgical History History of angioplasty of peripheral vessel Social History Social History Household Members: Significant Other Housing: House Are you a primary menagerie caretaker to a significant other at home: No Do you presently have visiting nurse or other home services: No Alcohol intake: current Alcohol intake frequency: holidays/special occasions only Patient Tobacco Use Status: Never used Tobacco Second Hand Smoke Exposure: No service: No Current occupational status: retired [employer] Allergies Allergy/AdvReac Type Severity Reaction Status Date / Time No Known Allergies Allergy Verified 09/30/21 16:12 [No Known Allergies*] Active Medications: Current Medications Acetaminophen (Acetaminophen 325 Mg Tablet) 650 mg PO Q6H PRN PRN Reason: Pain, Mild (Pain Scale 1-3) Dextrose (Dextrose 50 % 25 Gm/50 Ml Syringe) 25 gm IVPUSH Q15M PRN; Protocol PRN Reason: per Hypoglycemia Standing Ord. Docusate Sodium (Docusate Sodium 100 Mg Capsule) 100 mg PO DAILY PRN PRN Reason: Constipation Enoxaparin Sodium (Enoxaparin Sodium 40 Mg/0.4 Ml Syringe) 40 mg SUBCUT Q24H [facility] Last Admin: 10/02/21 04:33 Dose: 40 mg Glucose (Glucose Gel 15 Gm Gel..Gram.) 15 gm PO Q15M PRN; Protocol PRN Reason: per Hypoglycemia Standing Ord. Piperacillin Sod/Tazobactam (Sod 3.375 gm/ Sodium Chloride) 50 mls @ 100 mls/hr IV Q6H [facility] Last Infusion: 10/02/21 14:19 Dose: Infused Vancomycin HCl 1,500 mg/ (Sodium Chloride) 500 mls @ 333.333 mls/hr IV Q24H [facility] Last Infusion: 10/02/21 07:19 Dose: Infused Insulin Glargine (Insulin Glargine,Hum.Rec.Anlog 100 Unit/Ml 10 Ml Vial) 38 unit SUBCUT DAILY [facility] Last Admin: 10/02/21 10:24 Dose: 38 unit Insulin Human Lispro (Insulin Lispro 100 Unit/Ml 3 Ml Vial) 0 unit SUBCUT QIDACHS [facility]; Protocol Last Admin: 10/02/21 12:31 Dose: 2 unit Lisinopril (Lisinopril 20 Mg Tablet) 20 mg PO DAILY [facility]; Protocol Last Admin: 10/02/21 10:23 Dose: 20 mg Morphine Sulfate (Morphine Sulfate 4 Mg/Ml Cartridge) 4 mg IVPUSH Q4H PRN; Protocol PRN Reason: Pain, Severe (Pain Scale 7-10) Ondansetron HCl (Ondansetron Hcl 4 Mg/2 Ml Vial) 4 mg IVPUSH Q8H PRN PRN Reason: Nausea and Vomiting Pharmacy Consult (Consult Rx Vancomycin Dosing) 1 each MISCELLANE DAILY PRN PRN Reason: Consult order Pharmacy Consult (Consult Rx Vancomycin Dosing) 1 each MISCELLANE DAILY PRN PRN Reason: Consult order Sodium Chloride (0.9 % Sodium Chloride Flush 3 Ml Syringe) 3 ml IVFLUSH QSHIFT [facility] Last Admin: 10/02/21 10:23 Dose: 3 ml Home Medications Medication Instructions Recorded Confirmed Last Taken Type insulin glargine 100 unit/mL (3 38 unit subcut QAM 11/22/19 10/01/21 1 Day Ago History mL) subcutaneous pen ~09/30/21 lisinopril 20 mg tablet 20 mg PO DAILY 11/22/19 10/01/21 1 Day Ago History ~09/30/21 metformin 1,000 mg tablet 1,000 mg PO BID 12/05/19 10/01/21 1 Day Ago History ~09/30/21 Physical Exam Vital Signs: Vital Signs: Last Vital Signs Temp 97.2 F 10/02/21 15:03 Pulse 71 10/02/21 15:03 Resp 17 10/02/21 15:03 BP 131/63 10/02/21 15:03 Pulse Ox 98 10/02/21 15:03 O2 Del Method 10/02/21 15:03 BMI result Body Mass Index 31.9 Const: General: cooperative, healthy appearing and comfortable Orientation/consciousness: oriented to person, oriented to place and oriented to time HEENT: Head: Yes normal to inspection Neck: Neck: Yes normal visual inspection Carotids: no bruits Chest: Chest palpation & inspection: normal inspection of the chest Resp: Effort & Inspection: normal respiratory effort and able to speak in complete sentences Auscultation: clear to auscultation bilaterally, no crackles, no rales, no rhonchi and no wheezes Cardio: Rate: regular rate Rhythm: regular rhythm Heart sounds: S1 normal heart sound present and S2 normal heart sound present Bruits: no carotid bruits Peripheral pulses: dorsalis pedis present ( bilateral DP signals) GI: Inspection: Yes normal to inspection Skin: Wounds: wounds noted ( Left 3rd toe) Hair: normal Neuro: General: oriented to person, oriented to place and oriented to time Cranial nerves: Yes CN's II-XII intact bilaterally and Yes Normal hearing present Cognition (Neuro): normal cognition Motor exam (neuro): 5/5 motor strength present throughout Extrem: Other: venous exam: +2 edema left leg General: No clubbing, No cyanosis and Yes edema Psych: Appearance: grossly normal Mental Status: mental status grossly normal Speech and movement: Normal speech and movement present Results Labs Result diagrams: 10/02/21 06:13 10/02/21 06:13 Labs: Abnormal lab results 10/01/21 10/01/21 10/02/21 Range/Units 17:25 20:37 06:13 WBC 11.4 H (4.8-10.8) X10*3/uL RBC 4.34 L (4.60-5.80) X10*6/uL Hgb 13.5 L (14.0-18.0) g/dl Hct 40.9 L (42.0-52.0) % BUN (9-16) mg/dL POC Glucose 134 H 171 H (60-115) mg/dL 10/02/21 10/02/21 Range/Units 06:13 11:17 WBC (4.8-10.8) X10*3/uL RBC (4.60-5.80) X10*6/uL Hgb (14.0-18.0) g/dl Hct (42.0-52.0) % BUN 18 H (9-16) mg/dL POC Glucose 196 H (60-115) mg/dL Short CBC 10/02/21 Range/Units 06:13 WBC 11.4 H (4.8-10.8) X10*3/uL Hgb 13.5 L (14.0-18.0) g/dl Hct 40.9 L (42.0-52.0) % Plt Count 362 (160-400) X10*3/uL BMP 10/02/21 06:13 Sodium 138 Potassium 4.6 Chloride 103 Carbon Dioxide 26 BUN 18 H Creatinine 0.84 Calcium 9.0 All other labs normal. Assessment and Plan (1) PAD (peripheral artery disease): Status: Acute the patient has undergone left lower extremity intervention with us in 2019. It appears that his arterial flow was stable on last surveillance his left BERENICE was 0.8 with reasonable flow down through the left leg. He has undergone repeat ultrasound with final report still pending it appears that his prior stent is patent. At the current time I do believe his vascular flow is stable. Has been seen by General surgery and is refusing toe amputation. Agree with conservative measures and long-term IV antibiotics. We will follow up with you once final reading ultrasound has been performed. Thank you for allowing us to assist in his care. Procedures Date of Service Date of Service: 10/02/21
[2021-10-02 16:33] LABS: Glucose, Whole Blood 140 mg/dL (60-115)
[2021-10-02 19:23] VITALS: BP 175/77; PULSE 70; RESP 18; TEMP 35.7; O2SAT 98
[2021-10-02 20:01] LABS: Glucose, Whole Blood 125 mg/dL (60-115)
[2021-10-02 21:25] LABS: Vancomycin Random 10.9 mcg/mL (15-20)
--- NOTE | 2021-10-02 21:55 | HE.PHANOTE ---
trough 10.9 per [facility], keep 1500 mg Q24H. may suggest increasing dose to 1750 mg for higher therapeutic AUC
[2021-10-02 23:28] VITALS: BP 149/67; PULSE 66; RESP 16; TEMP 36.3; O2SAT 94
[2021-10-03] MEDS: Enoxaparin Sodium 40 MG/0.4 ML SYRINGE SUBCUT (00:53)
[2021-10-03] MEDS: Piperacillin Sodium/Tazobactam 3.375 GM in 0.9 % Sodium Chloride 50 ML IV ×4 (00:53→17:52)
[2021-10-03 03:03] VITALS: BP 140/61; PULSE 62; RESP 18; TEMP 36.1; O2SAT 95
[2021-10-03 08:00] VITALS: BP 157/74; PULSE 70; RESP 18; TEMP 36.4; O2SAT 97
[2021-10-03 08:15] LABS: Glucose, Whole Blood 84 mg/dL (60-115)
[2021-10-03 08:27] LABS: Creatinine Clr Calc Pharmacy 76.2; Estimated Glomerular Filt Rate > 60
[2021-10-03] MEDS: Insulin Glargine,Hum.rec.anlog 100 UNIT/ML 10 ML VIAL 38 UNIT SUBCUT (08:57)
[2021-10-03] MEDS: lisinopriL 20 MG TABLET PO (08:57)
[2021-10-03] MEDS: 0.9 % Sodium Chloride Flush 3 ML SYRINGE IVFLUSH ×3 (08:57→20:32)
--- NOTE | 2021-10-03 09:19 | MHC.CM.PN ---
REFERRAL TO [facility] TO FOLLOW FOR HOME INFUSION NEEDS.
[2021-10-03 11:28] VITALS: BP 173/80; PULSE 62; RESP 18; TEMP 36.5; O2SAT 97
--- NOTE | 2021-10-03 12:04 | P.F2F_ITS ---
Service Date Service Date: 10/03/21 Encounter Date of encounter: 10/03/21 Reasons for Services Signs and symptoms assessed: IV ABX for osteomyelitis Reason for group home: central line care and medication management Overseeing Care: Keaton Santana Homebound: Leaving the home is medically contraindicated at this time without the asist of a device and/or another person due th the listed conditions above and below. Reason homebound: immunosuppression / infection risk and weakness related to hospital stay Homebound supporting statement: needs IV ABX for osteomyelitis, end date 11/12/21 Certification: Based on the above findings, I certify that this patient is confined to the home and needs intermittent group home care, physical therapy and/or speech therapy, or continues to need occupational therapy. The patient is under my care, and I have initiated the establishment of the plan of care. The patient will be followed by a physician who will periodically review the plan of care.
[2021-10-03 12:08] LABS: Glucose, Whole Blood 137 mg/dL (60-115)
--- NOTE | 2021-10-03 14:11 | HO.PM.IMPN ---
Subjective Subjective Date of Service: 10/03/21 Interval History: more redness to L lateral huitron with suggestion of some purulence no fever/chills Review of Systems Review of Systems: Yes all other systems are reviewed and are negative Physical Exam Vital Signs: Vital Signs: Last Vital Signs Temp 97.7 F 10/03/21 11:28 Pulse 62 10/03/21 11:28 Resp 18 10/03/21 11:28 BP 173/80 H 10/03/21 11:28 Pulse Ox 97 10/03/21 11:28 O2 Del Method 10/03/21 11:28 BMI result Body Mass Index 31.9 Gen: in no acute distress HEENT: sclera anicteric, moist mucus membranes Neck: supple Lungs: clear to auscultation bilaterally Heart: regular rate and rhythm, no murmurs Abd: soft, non-tender, non-distended Ext: s/p L 1st toe amputation.? L 3rd toe with dry ulcer, erythematous; erythema streaking up dorsum of L foot and L huitron with an indurated area on the lateral huitron with minimal purulence but no underlying fluctuance Skin: warm/well-perfused Neuro: alert and oriented x3, no focal findings Psych: appropriate affect Objective Data Active Medications Acetaminophen (Acetaminophen 325 Mg Tablet) 650 mg PO Q6H PRN PRN Reason: Pain, Mild (Pain Scale 1-3) Dextrose (Dextrose 50 % 25 Gm/50 Ml Syringe) 25 gm IVPUSH Q15M PRN; Protocol PRN Reason: per Hypoglycemia Standing Ord. Docusate Sodium (Docusate Sodium 100 Mg Capsule) 100 mg PO DAILY PRN PRN Reason: Constipation Enoxaparin Sodium (Enoxaparin Sodium 40 Mg/0.4 Ml Syringe) 40 mg SUBCUT Q24H [facility] Last Admin: 10/03/21 00:53 Dose: 40 mg Documented By: PRABHAKAR Glucose (Glucose Gel 15 Gm Gel..Gram.) 15 gm PO Q15M PRN; Protocol PRN Reason: per Hypoglycemia Standing Ord. Piperacillin Sod/Tazobactam (Sod 3.375 gm/ Sodium Chloride) 50 mls @ 100 mls/hr IV Q6H [facility] Last Admin: 10/03/21 13:47 Dose: 100 mls/hr Documented By: HUGO Vancomycin HCl 1,500 mg/ (Sodium Chloride) 500 mls @ 333.333 mls/hr IV Q24H [facility] Last Infusion: 10/03/21 00:50 Dose: 0 mls/hr Documented By: PRABHAKAR Insulin Glargine (Insulin Glargine,Hum.Rec.Anlog 100 Unit/Ml 10 Ml Vial) 38 unit SUBCUT DAILY [facility] Last Admin: 10/03/21 08:57 Dose: 38 unit Documented By: HUGO Insulin Human Lispro (Insulin Lispro 100 Unit/Ml 3 Ml Vial) 0 unit SUBCUT QIDACHS [facility]; Protocol Last Admin: 10/03/21 11:43 Dose: Not Given Documented By: HUGO Non-Admin Reason: No Insulin Coverage Lisinopril (Lisinopril 20 Mg Tablet) 20 mg PO DAILY [facility]; Protocol Last Admin: 10/03/21 08:57 Dose: 20 mg Documented By: HUGO Morphine Sulfate (Morphine Sulfate 4 Mg/Ml Cartridge) 4 mg IVPUSH Q4H PRN; Protocol PRN Reason: Pain, Severe (Pain Scale 7-10) Ondansetron HCl (Ondansetron Hcl 4 Mg/2 Ml Vial) 4 mg IVPUSH Q8H PRN PRN Reason: Nausea and Vomiting Pharmacy Consult (Consult Rx Vancomycin Dosing) 1 each MISCELLANE DAILY PRN PRN Reason: Consult order Pharmacy Consult (Consult Rx Vancomycin Dosing) 1 each MISCELLANE DAILY PRN PRN Reason: Consult order Sodium Chloride (0.9 % Sodium Chloride Flush 3 Ml Syringe) 3 ml IVFLUSH QSHIFT [facility] Last Admin: 10/03/21 08:57 Dose: 3 ml Documented By: HUGO Labs CBC & Chem 7: 10/02/21 06:13 10/03/21 08:04 Labs: Laboratory Results - last 24 hr 10/02/21 10/02/21 10/02/21 16:29 19:20 20:58 Estim Creat Clear Calc Estimated GFR POC Glucose 140 H 125 H Random Vancomycin 10.9 L 10/03/21 10/03/21 10/03/21 08:04 08:10 11:28 Estim Creat Clear Calc 76.2 Estimated GFR > 60 POC Glucose 84 137 H Random Vancomycin Impressions Duplex Scan Lower Extremity Artery 10/01/21 16:35 IMPRESSION: 1. The patient is status post stent placement within the left femoral artery. There are elevated velocities within the stent with monophasic waveforms suggesting developing stenosis. 2. There is a hemodynamically significant stenosis in the mid left superficial femoral artery. Microbiology Microbiology Results: Microbiology 10/01/21 00:11 Blood Culture - Preliminary Blood - Venous No growth after 48 hours. 10/01/21 00:11 Blood Culture - Preliminary Blood - Venous No growth after 48 hours. Assessment and Plan (1) Osteomyelitis of third toe of left foot: Status: Acute Plan hospital d#3 81yo M with DM2, hx osteomyelitis, hx MRSA infection, PAD admitted for L 3rd toe osteomyelitis/cellulitis # acute osteomyelitis/cellulitis associated with DM foot # PAD - pip/valeria + vanco d#3, not bacteremic - outpt IV ABX options are prohibitively expensive for patient. considering linezolid PO - pt now amenable to amputation, will need angiogram Wednesday, updated Dr Johnson - continue clopidogrel # HTN - continue lisinopril # DM2 - basal/bolus insulin, hold MTF # VTE ppx: LMWH In my clinical judgment, the patient requires continued hospitalization for the following reasons: IV ABX, possibility of operative intervention Quality Stroke Does the patient have a stroke diagnosis?: No VTE Prior VTE?: No VTE Risk Level:: Medical - moderate - high VTE Device Contraindication: Treatment Not Indicated VTE Drug Contraindication: N/A - Med Ordered
--- NOTE | 2021-10-03 14:21 | MHC.CM.PN ---
Addendum entered by Yohana Russell 10/03/21 14:26: amedysis vna and hvna following along Original Note: PLAN WAS HOME WITH [facility]. VANCO CHANGED TO ERTAPENEM. COST IS $379/WEEK WHICH IS NOT AFFORDABLE FOR PATIENT. $310/WEEK FOR DAPTO AND $195/ 8 DAYSFOR VANCO. ALL COSTS ARE UNAFFORDABLE PLAN IS TO DC HOME ON PO ZYVOX. (600 MG BID) PATIENT MAY REMAIN HERE OVER THE WEEKEND. HE IS CURRENTLY WAITING TO SPEAK WITH VASCULAR DAUGHTER HUMPHREY [phone] AWARE OF PLAN
--- NOTE | 2021-10-03 15:27 | MHC.CM.PN ---
DAUGHTER HUMPHREY SPOKE WITH PATIENT WHO IS NOW CONSIDERING A TOE AMPUTATION. PATIENT WILL SPEAK WITH VASCULAR AND POSSIBLE OR AT FIRST OF THE WEEK. AMEDYSIS AND HVNA FOLLOWING ALONG [facility] ALSO FOLLOWING IN THE EVENT IV ABX WERE NEEDED AND AFFORDABLE TO PATIENT
[2021-10-03 16:00] VITALS: BP 157/74; PULSE 73; RESP 17; TEMP 36.6; O2SAT 99
--- NOTE | 2021-10-03 16:06 | HO.VASCPN ---
Subjective Subjective Date of Service: 10/03/21 Patient reports: no new complaints and feels better Interval history: 81-year-old gentleman with a nonhealing left foot diabetic ulcer is now for hospital follow-up. He has undergone noninvasive testing. He has had no interval issues over the last day or 2. He reports that he is fairly comfortable. He is concerned that he may require 6 weeks of IV antibiotics and may not be interested in that. He would like to proceed with all procedures required at the current time. Physical Exam Vital Signs: Vital Signs: Last Vital Signs Temp 97.7 F 10/03/21 11:28 Pulse 62 10/03/21 11:28 Resp 18 10/03/21 11:28 BP 173/80 H 10/03/21 11:28 Pulse Ox 97 10/03/21 11:28 O2 Del Method 10/03/21 11:28 BMI result Body Mass Index 31.9 Const: General: cooperative, healthy appearing and no acute distress Orientation/consciousness: oriented to person, oriented to place and oriented to time HEENT: Head: Yes normal to inspection Neck: Carotids: no bruits Chest: Chest palpation & inspection: normal inspection of the chest Resp: Effort & Inspection: normal respiratory effort and able to speak in complete sentences Auscultation: clear to auscultation bilaterally Cardio: Rate: regular rate Heart sounds: S1 normal heart sound present and S2 normal heart sound present Peripheral pulses: dorsalis pedis present ( Bilateral DP signals) GI: Inspection: Yes normal to inspection Skin: General skin exam: no rashes or lesions noted Wounds: wounds noted ( left 3rd toe nonhealing ulcer) Neuro: General: oriented to person, oriented to place, oriented to time and CN's II-XI intact bilaterally Extrem: General: Yes normal to inspection, Yes full ROM and Yes no clubbing, cyanosis or edema Psych: Appearance: grossly normal and well kempt Speech and movement: Normal speech and movement present Affect: normal affect Progress Note: A&P Assessment and plan (1) PAD (peripheral artery disease): Status: Acute Assessment and Plan: Patient has a nonhealing left 3rd toe ulcer. I have discussed the pathophysiology of peripheral vascular disease with the patient. I have also discussed risk factor modification. I have reviewed the patient's arterial testing which reveals on direct ultrasound there is concern for left leg InStent restenoses. the patient would benefit from a left leg endovascular peripheral angiogram with possible angioplasty, stent, and/or atherectomy. This has been discussed in detail with the patient along with risks, benefits, and complications. This includes but is not limited to bleeding, infection, heart attack, need for emergent surgical repair, limb ischemia, blood vessel damage, bleeding, puncture, kidney injury, bruising, allergic reaction, and skin reaction. The patient demonstrates a clear understanding. We will schedule for the next for Wednesday. Thank you for allowing us to assist in this patient's care. Time Spent With Patient Time: Total time spent is greater than 50% in coordination of care (as documented) at patient's floor/unit and/or counseling patient: Procedures Date of Service Date of Service: 10/03/21 Quality Stroke Does the patient have a stroke diagnosis?: No VTE Prior VTE?: No VTE Risk Level:: Medical - moderate - high VTE Device Contraindication: Treatment Not Indicated VTE Drug Contraindication: N/A - Med Ordered
[2021-10-03 16:23] LABS: Glucose, Whole Blood 137 mg/dL (60-115)
[2021-10-03 19:10] VITALS: BP 132/58; PULSE 72; RESP 18; TEMP 36.2; O2SAT 97
[2021-10-03 19:30] LABS: Glucose, Whole Blood 225 mg/dL (60-115)
[2021-10-03] MEDS: Insulin Lispro 100 UNIT/ML 3 ML VIAL SUBCUT (20:29)
--- NOTE | 2021-10-03 21:52 | HE.PHANOTE ---
Vancomycin Dosing Addendum Patients renal function slightly up from 0.84 to 0.88mg/dL. Patients trough came back at 13 mg/L, slightly shy of goal. Increasing dose is 1750mg Q24H. Pharmacy will continue to monitor renal function. Level to be drawn 10/04 @2100 to ensure safety vs efficacy. Predicted AUC 528 mg/L/hr.
[2021-10-03] MEDS: vancomycin HCL 1,000 MG, vancomycin HCL 750 MG in 0.9 % Sodium Chloride 500 ML 267.5 MG IV (22:59)
[2021-10-03 23:26] VITALS: BP 167/79; PULSE 80; RESP 16; TEMP 36.4; O2SAT 97
[2021-10-04] VITALS (7 sets, daily range): BP systolic 136–146; BP diastolic 60–78; PULSE 55–74; RESP 16–20; TEMP 36.1–37.1; O2SAT 95–98
[2021-10-04] MEDS: Piperacillin Sodium/Tazobactam 3.375 GM in 0.9 % Sodium Chloride 50 ML IV ×5 (01:19→23:09)
[2021-10-04] MEDS: Enoxaparin Sodium 40 MG/0.4 ML SYRINGE SUBCUT ×2 (01:19→23:12)
[2021-10-04 06:17] LABS: Creatinine Clr Calc Pharmacy 74.5; Estimated Glomerular Filt Rate > 60
[2021-10-04 07:17] LABS: Glucose, Whole Blood 85 mg/dL (60-115)
--- NOTE | 2021-10-04 08:16 | HE.PHANOTE ---
Vancomycin Dosing Addendum Vancomycin Trough scheduled for 10/04 @2100. Continue with current regimen.
[2021-10-04] MEDS: Insulin Glargine,Hum.rec.anlog 100 UNIT/ML 10 ML VIAL 38 UNIT SUBCUT (09:14)
[2021-10-04] MEDS: lisinopriL 20 MG TABLET PO (09:14)
[2021-10-04] MEDS: 0.9 % Sodium Chloride Flush 3 ML SYRINGE IVFLUSH ×2 (09:15→17:10)
--- NOTE | 2021-10-04 10:34 | HO.PM.IMPN ---
Subjective Subjective Date of Service: 10/04/21 Interval History: no fever/chills developing abscess L lateral huitron Review of Systems Review of Systems: Yes all other systems are reviewed and are negative Physical Exam Vital Signs: Vital Signs: Last Vital Signs Temp 97 F 10/04/21 07:08 Pulse 74 10/04/21 07:08 Resp 20 10/04/21 07:08 BP 146/78 H 10/04/21 07:08 Pulse Ox 98 10/04/21 07:08 O2 Del Method 10/04/21 07:08 BMI result Body Mass Index 31.9 Gen: in no acute distress HEENT: sclera anicteric, moist mucus membranes Neck: supple Lungs: clear to auscultation bilaterally Heart: regular rate and rhythm, no murmurs Abd: soft, non-tender, non-distended Ext: s/p L 1st toe amputation.? L 3rd toe with dry ulcer, erythematous; erythema streaking up dorsum of L foot and L huitron with an indurated area on the lateral huitron with purulence under tension Skin: warm/well-perfused Neuro: alert and oriented x3, no focal findings Psych: appropriate affect ? Objective Data Active Medications Acetaminophen (Acetaminophen 325 Mg Tablet) 650 mg PO Q6H PRN PRN Reason: Pain, Mild (Pain Scale 1-3) Dextrose (Dextrose 50 % 25 Gm/50 Ml Syringe) 25 gm IVPUSH Q15M PRN; Protocol PRN Reason: per Hypoglycemia Standing Ord. Docusate Sodium (Docusate Sodium 100 Mg Capsule) 100 mg PO DAILY PRN PRN Reason: Constipation Enoxaparin Sodium (Enoxaparin Sodium 40 Mg/0.4 Ml Syringe) 40 mg SUBCUT Q24H [facility] Last Admin: 10/04/21 01:19 Dose: 40 mg Documented By: MALIK Glucose (Glucose Gel 15 Gm Gel..Gram.) 15 gm PO Q15M PRN; Protocol PRN Reason: per Hypoglycemia Standing Ord. Piperacillin Sod/Tazobactam (Sod 3.375 gm/ Sodium Chloride) 50 mls @ 100 mls/hr IV Q6H [facility] Last Infusion: 10/04/21 06:11 Dose: 0 mls/hr Documented By: JORDIN Vancomycin HCl 1,000 mg/Vancomycin HCl 750 mg/ Sodium Chloride 535 mls @ 267.5 mls/hr IV Q24H [facility] Last Infusion: 10/04/21 02:30 Dose: 0 mls/hr Documented By: JORDIN Insulin Glargine (Insulin Glargine,Hum.Rec.Anlog 100 Unit/Ml 10 Ml Vial) 38 unit SUBCUT DAILY [facility] Last Admin: 10/04/21 09:14 Dose: 38 unit Documented By: WESLEY Insulin Human Lispro (Insulin Lispro 100 Unit/Ml 3 Ml Vial) 0 unit SUBCUT QIDACHS [facility]; Protocol Last Admin: 10/04/21 07:35 Dose: Not Given Documented By: WESLEY Non-Admin Reason: No Insulin Coverage Lisinopril (Lisinopril 20 Mg Tablet) 20 mg PO DAILY [facility]; Protocol Last Admin: 10/04/21 09:14 Dose: 20 mg Documented By: WESLEY Morphine Sulfate (Morphine Sulfate 4 Mg/Ml Cartridge) 4 mg IVPUSH Q4H PRN; Protocol PRN Reason: Pain, Severe (Pain Scale 7-10) Ondansetron HCl (Ondansetron Hcl 4 Mg/2 Ml Vial) 4 mg IVPUSH Q8H PRN PRN Reason: Nausea and Vomiting Pharmacy Consult (Consult Rx Vancomycin Dosing) 1 each MISCELLANE DAILY PRN PRN Reason: Consult order Pharmacy Consult (Consult Rx Vancomycin Dosing) 1 each MISCELLANE DAILY PRN PRN Reason: Consult order Sodium Chloride (0.9 % Sodium Chloride Flush 3 Ml Syringe) 3 ml IVFLUSH QSHIFT [facility] Last Admin: 10/04/21 09:15 Dose: 3 ml Documented By: WESLEY Labs CBC & Chem 7: 10/02/21 06:13 10/04/21 05:14 Labs: Laboratory Results - last 24 hr 10/03/21 10/03/21 10/03/21 11:28 16:10 19:21 Estim Creat Clear Calc Estimated GFR POC Glucose 137 H 137 H 225 H Vancomycin Trough 10/03/21 10/04/21 10/04/21 20:58 05:14 07:07 Estim Creat Clear Calc 74.5 Estimated GFR > 60 POC Glucose 85 Vancomycin Trough 13.0 Assessment and Plan (1) Osteomyelitis of third toe of left foot: Status: Acute Plan hospital d#4 81yo M with DM2, hx osteomyelitis, hx MRSA infection, PAD admitted for L 3rd toe osteomyelitis/cellulitis # acute osteomyelitis/cellulitis/abscess associated with DM foot # PAD - pip/valeria + vanco d#4, not bacteremic - outpt IV ABX options are prohibitively expensive for patient. considering linezolid PO - pt now amenable to definitive treatment by amputation but will need angiography and revascularization first; NPO after midnight 10/06/[address] Johnson - Gen Surg evaluation re: drainage of developing abscess on L lateral huitron - continue clopidogrel # HTN - continue lisinopril # DM2 - basal/bolus insulin, hold MTF # VTE ppx: LMWH In my clinical judgment, the patient requires continued hospitalization for the following reasons: IV ABX, operative intervention Quality Stroke Does the patient have a stroke diagnosis?: No VTE Prior VTE?: No VTE Risk Level:: Medical - moderate - high VTE Device Contraindication: Treatment Not Indicated VTE Drug Contraindication: N/A - Med Ordered
[2021-10-04 11:23] LABS: Glucose, Whole Blood 231 mg/dL (60-115)
[2021-10-04] MEDS: Insulin Lispro 100 UNIT/ML 3 ML VIAL SUBCUT ×3 (12:08→20:04)
--- NOTE | 2021-10-04 14:16 | P.PNGS_ITS ---
Subjective Subjective Date of Service: 10/04/21 Interval history: feels ok left leg draining Physical Exam Vital Signs: Vital Signs: Last Vital Signs Temp 98 F 10/04/21 11:02 Pulse 65 10/04/21 11:02 Resp 18 10/04/21 11:02 BP 142/74 H 10/04/21 11:02 Pulse Ox 97 10/04/21 11:02 O2 Del Method 10/04/21 11:02 BMI result Body Mass Index 31.9 Skin: Other: left leg significantly swollen and edemaotous no ture abscess but some irriation nd cellultis worse due to edema Objective Data Active Medications Acetaminophen (Acetaminophen 325 Mg Tablet) 650 mg PO Q6H PRN PRN Reason: Pain, Mild (Pain Scale 1-3) Dextrose (Dextrose 50 % 25 Gm/50 Ml Syringe) 25 gm IVPUSH Q15M PRN; Protocol PRN Reason: per Hypoglycemia Standing Ord. Docusate Sodium (Docusate Sodium 100 Mg Capsule) 100 mg PO DAILY PRN PRN Reason: Constipation Enoxaparin Sodium (Enoxaparin Sodium 40 Mg/0.4 Ml Syringe) 40 mg SUBCUT Q24H [facility] Last Admin: 10/04/21 01:19 Dose: 40 mg Documented By: MALIK Glucose (Glucose Gel 15 Gm Gel..Gram.) 15 gm PO Q15M PRN; Protocol PRN Reason: per Hypoglycemia Standing Ord. Piperacillin Sod/Tazobactam (Sod 3.375 gm/ Sodium Chloride) 50 mls @ 100 mls/hr IV Q6H [facility] Last Infusion: 10/04/21 13:07 Dose: 0 mls/hr Documented By: WESLEY Vancomycin HCl 1,000 mg/Vancomycin HCl 750 mg/ Sodium Chloride 535 mls @ 267.5 mls/hr IV Q24H [facility] Last Infusion: 10/04/21 02:30 Dose: 0 mls/hr Documented By: JORDIN Insulin Glargine (Insulin Glargine,Hum.Rec.Anlog 100 Unit/Ml 10 Ml Vial) 38 unit SUBCUT DAILY [facility] Last Admin: 10/04/21 09:14 Dose: 38 unit Documented By: WESLEY Insulin Human Lispro (Insulin Lispro 100 Unit/Ml 3 Ml Vial) 0 unit SUBCUT QIDACHS [facility]; Protocol Last Admin: 10/04/21 12:08 Dose: 4 unit Documented By: WESLEY Lisinopril (Lisinopril 20 Mg Tablet) 20 mg PO DAILY [facility]; Protocol Last Admin: 10/04/21 09:14 Dose: 20 mg Documented By: WESLEY Morphine Sulfate (Morphine Sulfate 4 Mg/Ml Cartridge) 4 mg IVPUSH Q4H PRN; Protocol PRN Reason: Pain, Severe (Pain Scale 7-10) Ondansetron HCl (Ondansetron Hcl 4 Mg/2 Ml Vial) 4 mg IVPUSH Q8H PRN PRN Reason: Nausea and Vomiting Pharmacy Consult (Consult Rx Vancomycin Dosing) 1 each MISCELLANE DAILY PRN PRN Reason: Consult order Pharmacy Consult (Consult Rx Vancomycin Dosing) 1 each MISCELLANE DAILY PRN PRN Reason: Consult order Sodium Chloride (0.9 % Sodium Chloride Flush 3 Ml Syringe) 3 ml IVFLUSH QSHIFT [facility] Last Admin: 10/04/21 09:15 Dose: 3 ml Documented By: WESLEY Labs CBC & Chem 7: 10/02/21 06:13 10/04/21 05:14 Labs: Laboratory Results - last 24 hr 10/03/21 10/03/21 10/03/21 16:10 19:21 20:58 Estim Creat Clear Calc Estimated GFR POC Glucose 137 H 225 H Vancomycin Trough 13.0 10/04/21 10/04/21 10/04/21 05:14 07:07 11:01 Estim Creat Clear Calc 74.5 Estimated GFR > 60 POC Glucose 85 231 H Vancomycin Trough Procedures Date of Service Date of Service: 10/04/21 Progress Note: A&P Assessment and plan (1) Edema: Status: Acute Plan left leg edema - evin wrap leg and keep it elevated no need to i and d betadine paint reassess tomorrow Time Spent With Patient Time: Total time spent is greater than 50% in coordination of care (as documented) at patient's floor/unit and/or counseling patient: Quality Stroke Does the patient have a stroke diagnosis?: No VTE Prior VTE?: No VTE Risk Level:: Medical - moderate - high VTE Device Contraindication: Treatment Not Indicated VTE Drug Contraindication: N/A - Med Ordered
[2021-10-04 16:15] LABS: Glucose, Whole Blood 225 mg/dL (60-115)
[2021-10-04 19:47] LABS: Glucose, Whole Blood 160 mg/dL (60-115)
[2021-10-04] MEDS: vancomycin HCL 1,000 MG, vancomycin HCL 750 MG in 0.9 % Sodium Chloride 500 ML 267.5 MG IV (21:09)
[2021-10-04 21:14] LABS: Hematocrit 35.7 % (42.0-52.0); Hemoglobin 11.8 g/dl (14.0-18.0); Mean Corpuscular HGB Conc 33.1 g/dl (31.0-36.0); Mean Corpuscular Hemoglobin 31.3 pg (27.0-33.0); Mean Corpuscular Volume 94.7 fL (80.0-98.0); Mean Platelet Volume 9.4 fL (9.4-12.4); Platelet Count 367 X10*3/uL (160-400); Red Blood Count 3.77 X10*6/uL (4.60-5.80); Red Cell Distribution Width 12.2 % (11.0-16.0); White Blood Count 8.9 X10*3/uL (4.8-10.8)
[2021-10-04 21:20] LABS: Prothrombin Time 11.4 SEC (10.0-13.1)
[2021-10-04 21:22] LABS: Partial Thromboplastin Time 31.7 SEC (26.0-36.4)
[2021-10-04 21:27] LABS: Anion Gap 12 (12-20); Blood Urea Nitrogen 22 mg/dL (9-16); C Reactive Protein 2.86 mg/dL (< or = 0.50); Calcium 8.5 mg/dL (8.4-10.2); Carbon Dioxide 27 mmol/L (22-29); Chloride 105 mmol/L (96-108); Creatinine Clr Calc Pharmacy 72.8; Estimated Glomerular Filt Rate > 60; Glucose Random 101 mg/dL (60-115); Potassium 4.3 mmol/L (3.3-5.1); Sodium 140 mmol/L (135-145)
[2021-10-04 23:23] LABS: Vancomycin Random 12.9 mcg/mL (15-20)
[2021-10-05] VITALS (7 sets, daily range): BP systolic 152–190; BP diastolic 59–84; PULSE 63–88; RESP 17–19; TEMP 36.1–37.1; O2SAT 97–99
[2021-10-05] MEDS: Piperacillin Sodium/Tazobactam 3.375 GM in 0.9 % Sodium Chloride 50 ML IV ×3 (06:25→17:12)
--- NOTE | 2021-10-05 06:32 | HE.PHANOTE ---
Vanco level 12.9, keep current dose of 1750 mg q24h. expected auc = [phone]
[2021-10-05 08:08] LABS: Glucose, Whole Blood 76 mg/dL (60-115)
[2021-10-05] MEDS: Insulin Glargine,Hum.rec.anlog 100 UNIT/ML 10 ML VIAL 38 UNIT SUBCUT (08:52)
[2021-10-05] MEDS: lisinopriL 20 MG TABLET PO (08:52)
[2021-10-05] MEDS: 0.9 % Sodium Chloride Flush 3 ML SYRINGE IVFLUSH ×3 (08:55→22:31)
--- NOTE | 2021-10-05 09:46 | P.PNIM_ITS ---
Subjective Subjective Date of Service: 10/05/21 Interval History: L lateral huitron pus draining spontaneously no fever/chills Review of Systems Review of Systems: Yes all other systems are reviewed and are negative Physical Exam Vital Signs: Vital Signs: Last Vital Signs Temp 98.7 F 10/05/21 07:57 Pulse 88 10/05/21 07:57 Resp 18 10/05/21 07:57 BP 157/84 H 10/05/21 07:57 Pulse Ox 98 10/05/21 07:57 O2 Del Method 10/05/21 07:57 BMI result Body Mass Index 31.9 Gen: in no acute distress HEENT: sclera anicteric, moist mucus membranes Neck: supple Lungs: clear to auscultation bilaterally Heart: regular rate and rhythm, no murmurs Abd: soft, non-tender, non-distended Ext: s/p L 1st toe amputation.? L 3rd toe with dry ulcer, erythematous; erythema streaking up dorsum of L foot and L huitron with an indurated area on the lateral huitron with draining purulence Skin: warm/well-perfused Neuro: alert and oriented x3, no focal findings Psych: appropriate affect Objective Data Active Medications Acetaminophen (Acetaminophen 325 Mg Tablet) 650 mg PO Q6H PRN PRN Reason: Pain, Mild (Pain Scale 1-3) Dextrose (Dextrose 50 % 25 Gm/50 Ml Syringe) 25 gm IVPUSH Q15M PRN; Protocol PRN Reason: per Hypoglycemia Standing Ord. Docusate Sodium (Docusate Sodium 100 Mg Capsule) 100 mg PO DAILY PRN PRN Reason: Constipation Enoxaparin Sodium (Enoxaparin Sodium 40 Mg/0.4 Ml Syringe) 40 mg SUBCUT Q24H [facility] Last Admin: 10/04/21 23:12 Dose: 40 mg Documented By: JORDIN Glucose (Glucose Gel 15 Gm Gel..Gram.) 15 gm PO Q15M PRN; Protocol PRN Reason: per Hypoglycemia Standing Ord. Piperacillin Sod/Tazobactam (Sod 3.375 gm/ Sodium Chloride) 50 mls @ 100 mls/hr IV Q6H [facility] Last Infusion: 10/05/21 07:49 Dose: 0 mls/hr Documented By: YOHANA Vancomycin HCl 1,000 mg/Vancomycin HCl 750 mg/ Sodium Chloride 535 mls @ 267.5 mls/hr IV Q24H [facility] Last Infusion: 10/04/21 23:15 Dose: 0 mls/hr Documented By: JORDIN Insulin Glargine (Insulin Glargine,Hum.Rec.Anlog 100 Unit/Ml 10 Ml Vial) 38 unit SUBCUT DAILY [facility] Last Admin: 10/05/21 08:52 Dose: 38 unit Documented By: YOHANA Insulin Human Lispro (Insulin Lispro 100 Unit/Ml 3 Ml Vial) 0 unit SUBCUT QIDACHS [facility]; Protocol Last Admin: 10/05/21 08:09 Dose: Not Given Documented By: YOHANA Non-Admin Reason: No Insulin Coverage Lisinopril (Lisinopril 20 Mg Tablet) 20 mg PO DAILY [facility]; Protocol Last Admin: 10/05/21 08:52 Dose: 20 mg Documented By: YOHANA Morphine Sulfate (Morphine Sulfate 4 Mg/Ml Cartridge) 4 mg IVPUSH Q4H PRN; Protocol PRN Reason: Pain, Severe (Pain Scale 7-10) Ondansetron HCl (Ondansetron Hcl 4 Mg/2 Ml Vial) 4 mg IVPUSH Q8H PRN PRN Reason: Nausea and Vomiting Pharmacy Consult (Consult Rx Vancomycin Dosing) 1 each MISCELLANE DAILY PRN PRN Reason: Consult order Pharmacy Consult (Consult Rx Vancomycin Dosing) 1 each MISCELLANE DAILY PRN PRN Reason: Consult order Sodium Chloride (0.9 % Sodium Chloride Flush 3 Ml Syringe) 3 ml IVFLUSH QSHIFT [facility] Last Admin: 10/05/21 08:55 Dose: 3 ml Documented By: YOHANA Labs CBC & Chem 7: 10/04/21 20:56 10/04/21 20:56 Labs: Laboratory Results - last 24 hr 10/04/21 10/04/21 10/04/21 11:01 15:16 19:30 MCV MCH MCHC RDW Plt Count MPV Absolute Nucleated RBC Nucleated RBC % (auto) PT INR APTT Anion Gap Estim Creat Clear Calc Estimated GFR POC Glucose 231 H 225 H 160 H Random Glucose Calcium C-Reactive Protein Random Vancomycin 10/04/21 10/04/21 10/04/21 20:56 20:56 20:56 MCV 94.7 MCH 31.3 MCHC 33.1 RDW 12.2 Plt Count 367 MPV 9.4 Absolute Nucleated RBC 0.000 Nucleated RBC % (auto) 0.0 PT 11.4 INR 1.0 APTT 31.7 Anion Gap Estim Creat Clear Calc Estimated GFR POC Glucose Random Glucose Calcium C-Reactive Protein Random Vancomycin 12.9 L 10/04/21 10/05/21 20:56 08:02 MCV MCH MCHC RDW Plt Count MPV Absolute Nucleated RBC Nucleated RBC % (auto) PT INR APTT Anion Gap 12 Estim Creat Clear Calc 72.8 Estimated GFR > 60 POC Glucose 76 Random Glucose 101 Calcium 8.5 C-Reactive Protein 2.86 H Random Vancomycin Assessment and Plan (1) Osteomyelitis of third toe of left foot: Status: Acute Plan hospital d#5 81yo M with DM2, hx osteomyelitis, hx MRSA infection, PAD admitted for L 3rd toe osteomyelitis/cellulitis # acute osteomyelitis/cellulitis/abscess associated with DM foot # PAD - pip/valeria + vanco d#5, not bacteremic - initially pt refused amputation and plan was for IV ABX at home via PICC. however, outpt IV ABX options (daptomycin + even vancomycin) are prohibitively expensive for patient. considering linezolid PO per ID. pt now amenable to definitive treatment by amputation but will need angiography and revascularization first; NPO after midnight tonight or OR with Dr Johnson tomorrow - developing abscess on L lateral huitron draining spontaneously, continue to observe - continue clopidogrel # HTN - continue lisinopril # DM2 - basal/bolus insulin, holding MTF # VTE ppx: LMWH In my clinical judgment, the patient requires continued hospitalization for the following reasons: IV ABX, operative intervention Quality Stroke Does the patient have a stroke diagnosis?: No VTE Prior VTE?: No VTE Risk Level:: Medical - moderate - high VTE Device Contraindication: Treatment Not Indicated VTE Drug Contraindication: N/A - Med Ordered
[2021-10-05 11:15] LABS: Glucose, Whole Blood 187 mg/dL (60-115)
[2021-10-05] MEDS: Insulin Lispro 100 UNIT/ML 3 ML VIAL SUBCUT ×2 (12:04→17:12)
[2021-10-05 16:42] LABS: Glucose, Whole Blood 168 mg/dL (60-115)
[2021-10-05 20:44] LABS: Glucose, Whole Blood 149 mg/dL (60-115)
--- NOTE | 2021-10-05 22:06 | HE.PHANOTE ---
Trough at 11 but AUC 500, will leave currently at 1750 mg q24h, Temp and WBC within normal range
[2021-10-05] MEDS: vancomycin HCL 1,000 MG, vancomycin HCL 750 MG in 0.9 % Sodium Chloride 500 ML 267.5 MG IV (22:30)
[2021-10-06] VITALS (12 sets, daily range): BP systolic 140–175; BP diastolic 63–93; PULSE 58–84; RESP 16–19; TEMP 35.8–37.3; O2SAT 95–98
[2021-10-06] MEDS: Piperacillin Sodium/Tazobactam 3.375 GM in 0.9 % Sodium Chloride 50 ML IV ×4 (00:32→18:37)
[2021-10-06 07:36] LABS: Glucose, Whole Blood 80 mg/dL (60-115)
[2021-10-06 07:43] LABS: Estimated Glomerular Filt Rate > 60
[2021-10-06] MEDS: 0.9 % Sodium Chloride Flush 3 ML SYRINGE IVFLUSH ×2 (08:25→14:45)
[2021-10-06 09:55] LABS: Glucose, Whole Blood 92 mg/dL (60-115)
--- NOTE | 2021-10-06 12:09 | P.OP_ITS ---
Operative Note Operative Note Date of Service: 10/06/21 Narrative: Angiogram report from [facility] Preoperative diagnosis: Atherosclerosis of left lower extremity with nonhealing ulcer Postoperative diagnosis: Same Procedure: 1. Ultrasound-guided right common femoral access 2. Aortogram with left lower extremity runoff 3. Left leg plasty of anterior tibial artery 4. Left leg plasty SFA Surgeon:Shaq Johnson M.D., FACS, RPVI Open Cut Examiner:None Anesthesia: Local with moderate conscious sedation. Total intraservice moderate sedation time was 62 minutes. I monitored the patient's level of consciousness and physiologic status continuously throughout the procedure. Specimens:none Drains:none Estimated blood loss: Less than 10 ml Implant: Medtronic Impact DCB 6 x 80 Indications: 81-year-old gentleman with nonhealing left toe ulcer. He had noninvasive testing concerning for SFA and tibial disease. He now presents for endovascular intervention The patient has signed the informed consent after reviewing risks, complications, benefits, and alternatives previously discussed with the patient. The patient was given the opportunity to ask any additional questions or voice any concerns. All questions were answered to the patient's satisfaction. Procedure in detail: Patient was brought to the angiography suite prior to which a time-out was called for patient identification and site verification. Bilateral groins were prepped and draped in the standard surgical fashion. Under ultrasound guidance right common femoral was punctured with micro puncture needle and wire. Subsequently a precision 4 Kinyarwanda sheath was then placed. Bentson wire was advanced to the level of the aorta. 4 Kinyarwanda Flush catheter was brought up and parked at the level of the renal arteries. Aortogram was then undertaken. Catheter was brought down to the level of the iliac bifurcation. Iliacs were subsequently imaged. Catheter was then brought in up and over to the left side SFA. Runoff study was then undertaken. At this time we noted InStent restenoses and disease in the anterior tibial. 5000 units of systemic heparin was administered. After 5 minutes of circulation times an up and over 6 Kinyarwanda sheath was then placed. An 035 glidewire Advantage was used to traverse the SFA. We followed this with a now be cross catheter. This was t hen brought down into the anterior tibial artery. We then brought in a 014 glidewire Advantage. We were able to easily traverse the anterior tibial lesions. At this time we plasty the bend and the anterior tibial with a 3 x 40 balloon with 2 subsequent plasties. We then turned our attention to the SFA there appeared to be some InStent restenoses. We 1st plasty this with a 6 x 40 balloon. Subsequently we plasty D InStent restenoses and the SFA with a drug coated balloon. This was a 6 x 80 DCB this was brought into position in under 3 minutes and insufflated for a total of 3 minutes in duration. Once this was accomplished completion angiogram demonstrated excellent result catheter wire sheath was brought back to the ipsilateral side StarClose closure device was deployed. Patient tolerated the procedure well returned to recovery with stable vitals. Interpretation of films: 1. Ultrasound demonstrates appropriate femoral puncture. Image of which was eileen ed. 2. Aortogram demonstrates appropriate caliber aorta. Minimal disease. Appropriate take-off of the renals. 3. Iliac images demonstrate no significant disease 4. Left Leg Common femoral artery: No significant disease Profundus Femoris: No significant disease Superficial femoral artery: InStent restenosis Popliteal artery (p1,p2,p3): Mild disease at the P1 segment Anterior tibial artery: Patent with stenotic lesions at the proximal border of the anterior tibial in particular at the bend Peroneal artery: Occluded proximally reconstitutes via collateral diminutive Posterior tibial artery: Occluded proximally reconstitutes via collaterals diminutive Dorsalis pedis/plantar arch: Patent but incomplete Conclusion: 1. Successful plasty of left anterior tibial and SFA. Patient has 1 vessel runoff 2. Anticoagulation status: Aspirin and Plavix for 6 months This note is constructed using voice recognition software. While every effort h as been made to ensure accuracy, food safety officer errors may have been included. Thank you for allowing me to participate in the care of your patient. Yours sincerely, Shaq Johnson MD, FACS, R.P.V.I.
--- NOTE | 2021-10-06 12:25 | MHC.CM.PN ---
SOLEO AND AMEDYSIS FOLLOWIGN FOR POSSIBLE IV ABX.. POSSIBLE AMP TOO
[2021-10-06] MEDS: iohexoL 300 MG/ML 100 ML INFUS..BTL IV (12:37)
--- NOTE | 2021-10-06 12:50 | HO.VASCPN ---
Subjective Subjective Date of Service: 10/06/21 Patient reports: no new complaints and feels better Interval history: Patient is status post endovascular intervention. Reports that he is doing fairly well. No issues. He is eager to go home. Concerned about his left 3rd toe. He is now for follow-up. Physical Exam Vital Signs: Vital Signs: Last Vital Signs Temp 97.3 F 10/06/21 12:05 Pulse 66 10/06/21 12:35 Resp 17 10/06/21 12:35 BP 156/63 H 10/06/21 12:35 Pulse Ox 96 10/06/21 12:35 O2 Del Method 10/06/21 12:35 BMI result Body Mass Index 31.9 Const: General: cooperative, healthy appearing and no acute distress Orientation/consciousness: oriented to person, oriented to place and oriented to time HEENT: Head: Yes normal to inspection Neck: Carotids: no bruits Chest: Chest palpation & inspection: normal inspection of the chest Resp: Effort & Inspection: normal respiratory effort and able to speak in complete sentences Auscultation: clear to auscultation bilaterally Cardio: Rate: regular rate Heart sounds: S1 normal heart sound present and S2 normal heart sound present GI: Inspection: Yes normal to inspection Skin: General skin exam: no rashes or lesions noted Wounds: wounds noted ( Left 3rd toe nonhealing ulcer) Neuro: General: oriented to person, oriented to place, oriented to time and CN's II-XI intact bilaterally Extrem: General: Yes normal to inspection, Yes full ROM and Yes no clubbing, cyanosis or edema Psych: Appearance: grossly normal and well kempt Speech and movement: Normal speech and movement present Affect: normal affect Progress Note: A&P Assessment and plan (1) PAD (peripheral artery disease): Status: Acute Assessment and Plan: in short patient has a nonhealing left 3rd toe ulcer with underlying osteomyelitis. He has undergone endovascular revascularization. he will require a left 3rd toe amputation. We did discuss his options including IV antibiotics. He would like to move forward with a 3rd toe amputation so that he can return home sooner. Risks benefits complications were discussed in detail with the patient. He understood and consented. Will plan for surgery for tomorrow. Time Spent With Patient Time: Total time spent is greater than 50% in coordination of care (as documented) at patient's floor/unit and/or counseling patient: Procedures Date of Service Date of Service: 10/06/21 Quality Stroke Does the patient have a stroke diagnosis?: No VTE Prior VTE?: No VTE Risk Level:: Medical - moderate - high VTE Device Contraindication: Treatment Not Indicated VTE Drug Contraindication: N/A - Med Ordered
[2021-10-06 13:34] LABS: Glucose, Whole Blood 93 mg/dL (60-115)
--- NOTE | 2021-10-06 13:39 | HO.PM.IMPN ---
Subjective Subjective Date of Service: 10/06/21 Interval History: patient NPO for endovascular intervention today by Dr. Johnson, offers no acute complaints, denies worsening pain left leg, no acute overnight events. Review of Systems Review of Systems: Yes all other systems are reviewed and are negative Physical Exam Vital Signs: Vital Signs: Last Vital Signs Temp 97.8 F 10/06/21 13:26 Pulse 73 10/06/21 13:26 Resp 19 10/06/21 13:26 BP 148/93 H 10/06/21 13:26 Pulse Ox 98 10/06/21 13:26 O2 Del Method 10/06/21 13:26 BMI result Body Mass Index 31.9 Const: Other: Gen: in no acute distress Neck: supple Lungs: clear to auscultation bilaterally Heart: regular rate and rhythm, no murmurs Abd: soft, non-tender, non-distended, bowel sounds audible Ext: s/p L 1st toe amputation.? L 3rd toe with dry ulcer, erythematous; erythema extending to dorsum of L foot and L huitron with an indurated area on the lateral huitron with draining purulence Skin: warm/well-perfused Neuro: alert and oriented x3, no focal findings Psych: appropriate affect Objective Data Active Medications Acetaminophen (Acetaminophen 325 Mg Tablet) 650 mg PO Q6H PRN PRN Reason: Pain, Mild (Pain Scale 1-3) Aspirin (Aspirin 81 Mg Tab.Chew) 81 mg PO DAILY [facility] Clopidogrel Bisulfate (Clopidogrel Bisulfate 75 Mg Tablet) 75 mg PO DAILY [facility] Dextrose (Dextrose 50 % 25 Gm/50 Ml Syringe) 25 gm IVPUSH Q15M PRN; Protocol PRN Reason: per Hypoglycemia Standing Ord. Docusate Sodium (Docusate Sodium 100 Mg Capsule) 100 mg PO DAILY PRN PRN Reason: Constipation Enoxaparin Sodium (Enoxaparin Sodium 40 Mg/0.4 Ml Syringe) 40 mg SUBCUT Q24H [facility] Last Admin: 10/06/21 00:33 Dose: Not Given Documented By: LOC Non-Admin Reason: Patient Refused Glucose (Glucose Gel 15 Gm Gel..Gram.) 15 gm PO Q15M PRN; Protocol PRN Reason: per Hypoglycemia Standing Ord. Piperacillin Sod/Tazobactam (Sod 3.375 gm/ Sodium Chloride) 50 mls @ 100 mls/hr IV Q6H [facility] Last Infusion: 10/06/21 07:54 Dose: 0 mls/hr Documented By: RUDI Vancomycin HCl 1,000 mg/Vancomycin HCl 750 mg/ Sodium Chloride 535 mls @ 267.5 mls/hr IV Q24H [facility] Last Infusion: 10/06/21 00:34 Dose: 0 mls/hr Documented By: LOC Dextrose/Sodium Chloride (D5ns) 1,000 mls @ 80 mls/hr IVCONT .[id number] [facility] Sodium Chloride (Ns) 1,000 mls @ 100 mls/hr IVCONT .Q10H [facility] Insulin Glargine (Insulin Glargine,Hum.Rec.Anlog 100 Unit/Ml 10 Ml Vial) 38 unit SUBCUT DAILY [facility] Last Admin: 10/06/21 10:14 Dose: Not Given Documented By: RUDI Non-Admin Reason: NPO and sugar 80 Insulin Human Lispro (Insulin Lispro 100 Unit/Ml 3 Ml Vial) 0 unit SUBCUT QIDACHS [facility]; Protocol Last Admin: 10/06/21 07:53 Dose: Not Given Documented By: RUDI Non-Admin Reason: No Insulin Coverage Lisinopril (Lisinopril 20 Mg Tablet) 20 mg PO DAILY [facility]; Protocol Last Admin: 10/05/21 08:52 Dose: 20 mg Documented By: YOHANA Morphine Sulfate (Morphine Sulfate 4 Mg/Ml Cartridge) 4 mg IVPUSH Q2H PRN; Protocol PRN Reason: Pain, Severe (Pain Scale 7-10) Ondansetron HCl (Ondansetron Hcl 4 Mg/2 Ml Vial) 4 mg IVPUSH Q8H PRN PRN Reason: Nausea and Vomiting Oxycodone HCl (Oxycodone Hcl Immed Release 5 Mg Tablet) 5 mg PO Q4H PRN PRN Reason: Pain, Moderate (Pain Scale 4-6 Pharmacy Consult (Consult Rx Vancomycin Dosing) 1 each MISCELLANE DAILY PRN PRN Reason: Consult order Pharmacy Consult (Consult Rx Vancomycin Dosing) 1 each MISCELLANE DAILY PRN PRN Reason: Consult order Sodium Chloride (0.9 % Sodium Chloride Flush 3 Ml Syringe) 3 ml IVFLUSH QSHIFT [facility] Last Admin: 10/06/21 08:25 Dose: 3 ml Documented By: HO.LARHO Labs CBC & Chem 7: 10/04/21 20:56 10/06/21 07:13 Labs: Laboratory Results - last 24 hr 10/05/21 10/05/21 10/05/21 16:24 20:16 21:17 Estim Creat Clear Calc Estimated GFR POC Glucose 168 H 149 H Vancomycin Trough 11.0 10/06/21 10/06/21 10/06/21 07:13 07:31 09:52 Estim Creat Clear Calc 77.0 Estimated GFR > 60 POC Glucose 80 92 Vancomycin Trough 10/06/21 13:25 Estim Creat Clear Calc Estimated GFR POC Glucose 93 Vancomycin Trough Microbiology Microbiology Results: Microbiology 10/01/21 00:11 Blood Culture - Final Blood - Venous No growth after 5 days. 10/01/21 00:11 Blood Culture - Final Blood - Venous No growth after 5 days. Assessment and Plan (1) Osteomyelitis of third toe of left foot: Status: Acute Plan 81yo M with DM2, hx osteomyelitis, hx MRSA infection, PAD admitted for L 3rd toe osteomyelitis/cellulitis # acute osteomyelitis Left 3rd toe/cellulitis/abscess associated with DM foot/# PAD - continue IV pip/valeria + vanco d#6, not bacteremic - initially pt refused amputation and plan was for IV ABX at home via PICC. however, outpt IV ABX options (daptomycin + even vancomycin) are prohibitively expensive for patient. considering linezolid PO per ID, patient subsequently agreed for left 3rd toe amputation, underwent aortogram with left lower extremity runoff with left leg plasty of anterior tibial artery and left SFA today by Dr. Johnson case discussed with Dr. Johnson will undergo left 3rd toe amputation tomorrow and possible I&D of left lateral huitron abscess continue clopidogrel # HTN - blood pressure on high side,continue lisinopril follow BP # DM2 - noted to have low blood sugars this morning since NPO, placed on IV fluid, resume diet after surgery, continue basal/bolus insulin, dose adjusted, holding MTF # VTE ppx: LMWH In my clinical judgment, the patient requires continued hospitalization for the following reasons: IV ABX, operative intervention Quality Stroke Does the patient have a stroke diagnosis?: No VTE Prior VTE?: No VTE Risk Level:: Medical - moderate - high VTE Device Contraindication: Treatment Not Indicated VTE Drug Contraindication: N/A - Med Ordered
[2021-10-06] MEDS: Aspirin 325 MG TABLET 650 MG PO (13:40)
[2021-10-06] MEDS: Clopidogrel Bisulfate 300 MG TABLET PO (16:01)
[2021-10-06 16:20] LABS: Glucose, Whole Blood 77 mg/dL (60-115)
[2021-10-06 19:56] LABS: Glucose, Whole Blood 178 mg/dL (60-115)
[2021-10-06] MEDS: Insulin Lispro 100 UNIT/ML 3 ML VIAL SUBCUT (20:52)
[2021-10-06 21:36] LABS: Vancomycin Random 13.4 mcg/mL (15-20)
--- NOTE | 2021-10-06 21:41 | HE.PHANOTE ---
DAVINA GONZALEZ CONTINUE CURRENT DOSE, NEXT TROUGH 10/08 @2100
[2021-10-06] MEDS: vancomycin HCL 1,000 MG, vancomycin HCL 750 MG in 0.9 % Sodium Chloride 500 ML 267.5 MG IV (22:52)
[2021-10-07] VITALS (11 sets, daily range): BP systolic 100–180; BP diastolic 42–77; PULSE 58–76; RESP 16–18; TEMP 36.1–36.5; O2SAT 95–100
[2021-10-07] MEDS: Piperacillin Sodium/Tazobactam 3.375 GM in 0.9 % Sodium Chloride 50 ML IV ×4 (01:28→23:47)
[2021-10-07] MEDS: 0.9 % Sodium Chloride Flush 3 ML SYRINGE IVFLUSH ×4 (01:34→23:47)
[2021-10-07 06:20] LABS: Estimated Glomerular Filt Rate > 60
--- NOTE | 2021-10-07 06:41 | HE.PHANOTE ---
Vancomycin Dosing Addendum Patients renal function is down to 0.77 today from 0.87 mg/dL. Patients current regimen is 1750mg Q24H. Patient is over 65 years old, therefore Q24H dosing is appropriate to allow for clearing. Obese model being used. Continue current regimen, level to be drawn tomorrow 10/08 @2100, will reassess after level. Predicted AUC 428 mg/L/hr, trough 10.1 mg/L
[2021-10-07 07:44] LABS: Glucose, Whole Blood 79 mg/dL (60-115)
[2021-10-07] MEDS: 0.9 % Sodium Chloride 1,000 ML 50 ML IVCONT (08:04)
[2021-10-07] MEDS: lisinopriL 20 MG TABLET PO (08:04)
[2021-10-07] MEDS: Dextrose 5 % and 0.9 % NaCl 1,000 ML 50 ML IVCONT (10:16)
[2021-10-07 11:18] LABS: Glucose, Whole Blood 108 mg/dL (60-115)
--- NOTE | 2021-10-07 11:43 | P.CONAN_ITS ---
HPI - Anesthesia Eval Consult details Narrative: Left 3rd toe amputation PMFSH Active Problems Active Problems: All Active Problems (Updated 10/04/21 @ 14:17 by Xenia Casas MD) Edema (Acute) Diabetic foot ulcer (Acute) Osteomyelitis of third toe of left foot (Acute) PAD (peripheral artery disease) (Acute) 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 (Acute) Past Medical History Medical History Diabetes History of amputation of great toe History of amputation of great toe HTN (hypertension) Hx of osteomyelitis 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 Family History Family History Other No family history of coronary artery disease Family history of problems with anesthesia: No Surgical History Surgical History History of angioplasty of peripheral vessel History of Problems with Anesthesia: No Social History Social History Household Members: Significant Other Housing: House Are you a primary after school caregiver to a significant other at home: No Do you presently have visiting nurse or other home services: No Alcohol intake: current Alcohol intake frequency: holidays/special occasions only Patient Tobacco Use Status: Never used Tobacco Second Hand Smoke Exposure: No service: No Current occupational status: retired [employer] Allergies Allergy/AdvReac Type Severity Reaction Status Date / Time No Known Allergies Allergy Verified 09/30/21 16:12 [No Known Allergies*] Active Medications: Current Medications Acetaminophen (Acetaminophen 325 Mg Tablet) 650 mg PO Q6H PRN PRN Reason: Pain, Mild (Pain Scale 1-3) Aspirin (Aspirin 81 Mg Tab.Chew) 81 mg PO DAILY [facility] Last Admin: 10/07/21 08:10 Dose: Not Given Clopidogrel Bisulfate (Clopidogrel Bisulfate 75 Mg Tablet) 75 mg PO DAILY [facility] Last Admin: 10/07/21 08:10 Dose: Not Given Dextrose (Dextrose 50 % 25 Gm/50 Ml Syringe) 25 gm IVPUSH Q15M PRN; Protocol PRN Reason: per Hypoglycemia Standing Ord. Docusate Sodium (Docusate Sodium 100 Mg Capsule) 100 mg PO DAILY PRN PRN Reason: Constipation Enoxaparin Sodium (Enoxaparin Sodium 40 Mg/0.4 Ml Syringe) 40 mg SUBCUT Q24H [facility] Last Admin: 10/07/21 02:17 Dose: Not Given Glucose (Glucose Gel 15 Gm Gel..Gram.) 15 gm PO Q15M PRN; Protocol PRN Reason: per Hypoglycemia Standing Ord. Piperacillin Sod/Tazobactam (Sod 3.375 gm/ Sodium Chloride) 50 mls @ 100 mls/hr IV Q6H [facility] Last Infusion: 10/07/21 06:42 Dose: Infused Vancomycin HCl 1,000 mg/Vancomycin HCl 750 mg/ Sodium Chloride 535 mls @ 267.5 mls/hr IV Q24H [facility] Last Infusion: 10/07/21 02:10 Dose: Infused Dextrose/Sodium Chloride (D5ns) 1,000 mls @ 50 mls/hr IVCONT .Q20H [facility] Last Admin: 10/07/21 10:16 Dose: 50 mls/hr Insulin Glargine (Insulin Glargine,Hum.Rec.Anlog 100 Unit/Ml 10 Ml Vial) 20 unit SUBCUT DAILY [facility] Last Admin: 10/07/21 08:11 Dose: Not Given Insulin Human Lispro (Insulin Lispro 100 Unit/Ml 3 Ml Vial) 0 unit SUBCUT QIDACHS [facility]; Protocol Last Admin: 10/07/21 11:30 Dose: Not Given Lisinopril (Lisinopril 20 Mg Tablet) 20 mg PO DAILY [facility]; Protocol Last Admin: 10/07/21 08:04 Dose: 20 mg Morphine Sulfate (Morphine Sulfate 4 Mg/Ml Cartridge) 4 mg IVPUSH Q2H PRN; Protocol PRN Reason: Pain, Severe (Pain Scale 7-10) Ondansetron HCl (Ondansetron Hcl 4 Mg/2 Ml Vial) 4 mg IVPUSH Q8H PRN PRN Reason: Nausea and Vomiting Oxycodone HCl (Oxycodone Hcl Immed Release 5 Mg Tablet) 5 mg PO Q4H PRN PRN Reason: Pain, Moderate (Pain Scale 4-6 Pharmacy Consult (Consult Rx Vancomycin Dosing) 1 each MISCELLANE DAILY PRN PRN Reason: Consult order Pharmacy Consult (Consult Rx Vancomycin Dosing) 1 each MISCELLANE DAILY PRN PRN Reason: Consult order Sodium Chloride (0.9 % Sodium Chloride Flush 3 Ml Syringe) 3 ml IVFLUSH QSHIFT [facility] Last Admin: 10/07/21 08:04 Dose: 3 ml Home Medications Medication Instructions Recorded Confirmed Last Taken Type insulin glargine 100 unit/mL (3 38 unit subcut QAM 11/22/19 10/01/21 1 Day Ago History mL) subcutaneous pen ~09/30/21 lisinopril 20 mg tablet 20 mg PO DAILY 11/22/19 10/01/21 1 Day Ago History ~09/30/21 metformin 1,000 mg tablet 1,000 mg PO BID 12/05/19 10/01/21 1 Day Ago History ~09/30/21 Exam Exam Date and Time: October 07, 2021 1143 Height,Weight and Vital Signs: Height 5 ft 8 in Weight 95.3 kg Last Vital Signs Temp 97.7 F 10/07/21 11:04 Pulse 66 10/07/21 11:04 Resp 16 10/07/21 11:04 BP 175/62 H 10/07/21 11:04 Pulse Ox 100 10/07/21 11:04 O2 Del Method 10/07/21 11:04 Pertinent Lab Results Pertinent Lab Results: Laboratory Tests 09/30/21 09/30/21 10/01/21 20:59 20:59 00:11 WBC 10.8 RBC 4.30 L Hgb 13.5 L Hct 40.3 L MCV 93.7 MCH 31.4 MCHC 33.5 RDW 12.2 Plt Count 350 MPV 9.3 L Immature Gran % (Auto) Neut % (Auto) Lymph % (Auto) [place] % (Auto) Eos % (Auto) Baso % (Auto) Lymph # (Auto) [place] # (Auto) Eos # (Auto) Baso # (Auto) Abs Immat Gran (auto) Absolute Neuts (auto) Absolute Nucleated RBC 0.000 Nucleated RBC % (auto) 0.0 ESR 63 H PT INR APTT Sodium 139 Potassium 4.4 Chloride 104 Carbon Dioxide 24 Anion Gap 15 BUN 20 H Creatinine 0.80 Estim Creat Clear Calc 82.8 Estimated GFR > 60 POC Glucose Random Glucose 64 D Lactic Acid Calcium 9.0 Total Bilirubin 0.4 AST 16 ALT 12 Alkaline Phosphatase 104 D C-Reactive Protein Total Protein 6.6 Albumin 3.9 Vancomycin Trough Random Vancomycin COVID-19 (SANDRINE) COVID-19 Clin Com 10/01/21 10/01/21 10/01/21 00:11 00:11 00:11 WBC RBC Hgb Hct MCV MCH MCHC RDW Plt Count MPV Immature Gran % (Auto) Neut % (Auto) Lymph % (Auto) [place] % (Auto) Eos % (Auto) Baso % (Auto) Lymph # (Auto) [place] # (Auto) Eos # (Auto) Baso # (Auto) Abs Immat Gran (auto) Absolute Neuts (auto) Absolute Nucleated RBC Nucleated RBC % (auto) ESR PT INR APTT Sodium Potassium Chloride Carbon Dioxide Anion Gap BUN Creatinine Estim Creat Clear Calc Estimated GFR POC Glucose Random Glucose Lactic Acid 0.7 Calcium Total Bilirubin AST ALT Alkaline Phosphatase C-Reactive Protein 1.90 H Total Protein Albumin Vancomycin Trough Random Vancomycin COVID-19 (SANDRINE) Negative COVID-19 Clin Com See Note 10/01/21 10/01/21 10/01/21 04:33 04:33 07:04 WBC 12.1 H RBC 4.10 L Hgb 13.6 L Hct 39.3 L MCV 95.9 MCH 33.2 H MCHC 34.6 RDW 12.3 Plt Count 328 MPV 9.7 Immature Gran % (Auto) 0.2 Neut % (Auto) 69.1 Lymph % (Auto) 17.1 L [place] % (Auto) 9.8 Eos % (Auto) 3.5 Baso % (Auto) 0.3 Lymph # (Auto) 2.1 [place] # (Auto) 1.2 Eos # (Auto) 0.4 Baso # (Auto) 0.0 Abs Immat Gran (auto) 0.03 Absolute Neuts (auto) 8.4 H Absolute Nucleated RBC 0.000 Nucleated RBC % (auto) 0.0 ESR PT INR APTT Sodium 140 Potassium 4.4 Chloride 106 Carbon Dioxide 23 Anion Gap 15 BUN 18 H Creatinine 0.80 Estim Creat Clear Calc 82.8 Estimated GFR > 60 POC Glucose 63 Random Glucose 100 D Lactic Acid Calcium 8.9 Total Bilirubin AST ALT Alkaline Phosphatase C-Reactive Protein Total Protein Albumin Vancomycin Trough Random Vancomycin COVID-19 (SANDRINE) COVID-19 Clin Com 10/01/21 10/01/21 10/01/21 12:28 17:25 20:37 WBC RBC Hgb Hct MCV MCH MCHC RDW Plt Count MPV Immature Gran % (Auto) Neut % (Auto) Lymph % (Auto) [place] % (Auto) Eos % (Auto) Baso % (Auto) Lymph # (Auto) [place] # (Auto) Eos # (Auto) Baso # (Auto) Abs Immat Gran (auto) Absolute Neuts (auto) Absolute Nucleated RBC Nucleated RBC % (auto) ESR PT INR APTT Sodium Potassium Chloride Carbon Dioxide Anion Gap BUN Creatinine Estim Creat Clear Calc Estimated GFR POC Glucose 88 134 H 171 H Random Glucose Lactic Acid Calcium Total Bilirubin AST ALT Alkaline Phosphatase C-Reactive Protein Total Protein Albumin Vancomycin Trough Random Vancomycin COVID-19 (SANDRINE) COVID-19 [place] Com 10/02/21 10/02/21 10/02/21 06:13 06:13 07:37 WBC 11.4 H RBC 4.34 L Hgb 13.5 L Hct 40.9 L MCV 94.2 MCH 31.1 MCHC 33.0 RDW 12.0 Plt Count 362 MPV 9.5 Immature Gran % (Auto) Neut % (Auto) Lymph % (Auto) [place] % (Auto) Eos % (Auto) Baso % (Auto) Lymph # (Auto) [place] # (Auto) Eos # (Auto) Baso # (Auto) Abs Immat Gran (auto) Absolute Neuts (auto) Absolute Nucleated RBC 0.000 Nucleated RBC % (auto) 0.0 ESR PT INR APTT Sodium 138 Potassium 4.6 Chloride 103 Carbon Dioxide 26 Anion Gap 14 BUN 18 H Creatinine 0.84 Estim Creat Clear Calc 79.8 Estimated GFR > 60 POC Glucose 88 Random Glucose 86 Lactic Acid Calcium 9.0 Total Bilirubin AST ALT Alkaline Phosphatase C-Reactive Protein Total Protein Albumin Vancomycin Trough Random Vancomycin COVID-19 (SANDRINE) COVID-19 Clin Com 10/02/21 10/02/21 10/02/21 11:17 16:29 19:20 WBC RBC Hgb Hct MCV MCH MCHC RDW Plt Count MPV Immature Gran % (Auto) Neut % (Auto) Lymph % (Auto) [place] % (Auto) Eos % (Auto) Baso % (Auto) Lymph # (Auto) [place] # (Auto) Eos # (Auto) Baso # (Auto) Abs Immat Gran (auto) Absolute Neuts (auto) Absolute Nucleated RBC Nucleated RBC % (auto) ESR PT INR APTT Sodium Potassium Chloride Carbon Dioxide Anion Gap BUN Creatinine Estim Creat Clear Calc Estimated GFR POC Glucose 196 H 140 H 125 H Random Glucose Lactic Acid Calcium Total Bilirubin AST ALT Alkaline Phosphatase C-Reactive Protein Total Protein Albumin Vancomycin Trough Random Vancomycin COVID-19 (SANDRINE) COVID-19 Clin Com 10/02/21 10/03/21 10/03/21 20:58 08:04 08:10 WBC RBC Hgb Hct MCV MCH MCHC RDW Plt Count MPV Immature Gran % (Auto) Neut % (Auto) Lymph % (Auto) [place] % (Auto) Eos % (Auto) Baso % (Auto) Lymph # (Auto) [place] # (Auto) Eos # (Auto) Baso # (Auto) Abs Immat Gran (auto) Absolute Neuts (auto) Absolute Nucleated RBC Nucleated RBC % (auto) ESR PT INR APTT Sodium Potassium Chloride Carbon Dioxide Anion Gap BUN Creatinine 0.88 Estim Creat Clear Calc 76.2 Estimated GFR > 60 POC Glucose 84 Random Glucose Lactic Acid Calcium Total Bilirubin AST ALT Alkaline Phosphatase C-Reactive Protein Total Protein Albumin Vancomycin Trough Random Vancomycin 10.9 L COVID-19 (SANDRINE) COVID-19 Clin Com 10/03/21 10/03/21 10/03/21 11:28 16:10 19:21 WBC RBC Hgb Hct MCV MCH MCHC RDW Plt Count MPV Immature Gran % (Auto) Neut % (Auto) Lymph % (Auto) [place] % (Auto) Eos % (Auto) Baso % (Auto) Lymph # (Auto) [place] # (Auto) Eos # (Auto) Baso # (Auto) Abs Immat Gran (auto) Absolute Neuts (auto) Absolute Nucleated RBC Nucleated RBC % (auto) ESR PT INR APTT Sodium Potassium Chloride Carbon Dioxide Anion Gap BUN Creatinine Estim Creat Clear Calc Estimated GFR POC Glucose 137 H 137 H 225 H Random Glucose Lactic Acid Calcium Total Bilirubin AST ALT Alkaline Phosphatase C-Reactive Protein Total Protein Albumin Vancomycin Trough Random Vancomycin COVID-19 (SANDRINE) COVID-19 Clin Com 10/03/21 10/04/21 10/04/21 20:58 05:14 07:07 WBC RBC Hgb Hct MCV MCH MCHC RDW Plt Count MPV Immature Gran % (Auto) Neut % (Auto) Lymph % (Auto) [place] % (Auto) Eos % (Auto) Baso % (Auto) Lymph # (Auto) [place] # (Auto) Eos # (Auto) Baso # (Auto) Abs Immat Gran (auto) Absolute Neuts (auto) Absolute Nucleated RBC Nucleated RBC % (auto) ESR PT INR APTT Sodium Potassium Chloride Carbon Dioxide Anion Gap BUN Creatinine 0.90 Estim Creat Clear Calc 74.5 Estimated GFR > 60 POC Glucose 85 Random Glucose Lactic Acid Calcium Total Bilirubin AST ALT Alkaline Phosphatase C-Reactive Protein Total Protein Albumin Vancomycin Trough 13.0 Random Vancomycin COVID-19 (SANDRINE) COVID-19 [place] 10/04/21 10/04/21 10/04/21 11:01 15:16 19:30 WBC RBC Hgb Hct MCV MCH MCHC RDW Plt Count MPV Immature Gran % (Auto) Neut % (Auto) Lymph % (Auto) [place] % (Auto) Eos % (Auto) Baso % (Auto) Lymph # (Auto) [place] # (Auto) Eos # (Auto) Baso # (Auto) Abs Immat Gran (auto) Absolute Neuts (auto) Absolute Nucleated RBC Nucleated RBC % (auto) ESR PT INR APTT Sodium Potassium Chloride Carbon Dioxide Anion Gap BUN Creatinine Estim Creat Clear Calc Estimated GFR POC Glucose 231 H 225 H 160 H Random Glucose Lactic Acid Calcium Total Bilirubin AST ALT Alkaline Phosphatase C-Reactive Protein Total Protein Albumin Vancomycin Trough Random Vancomycin COVID-19 (SANDRINE) COVID-19 [place] 10/04/21 10/04/21 10/04/21 20:56 20:56 20:56 WBC 8.9 RBC 3.77 L Hgb 11.8 L Hct 35.7 L MCV 94.7 MCH 31.3 MCHC 33.1 RDW 12.2 Plt Count 367 MPV 9.4 Immature Gran % (Auto) Neut % (Auto) Lymph % (Auto) [place] % (Auto) Eos % (Auto) Baso % (Auto) Lymph # (Auto) [place] # (Auto) Eos # (Auto) Baso # (Auto) Abs Immat Gran (auto) Absolute Neuts (auto) Absolute Nucleated RBC 0.000 Nucleated RBC % (auto) 0.0 ESR PT 11.4 INR 1.0 APTT 31.7 Sodium Potassium Chloride Carbon Dioxide Anion Gap BUN Creatinine Estim Creat Clear Calc Estimated GFR POC Glucose Random Glucose Lactic Acid Calcium Total Bilirubin AST ALT Alkaline Phosphatase C-Reactive Protein Total Protein Albumin Vancomycin Trough Random Vancomycin 12.9 L COVID-19 (SANDRINE) COVID-19 [place] 10/04/21 10/05/21 10/05/21 20:56 08:02 11:07 WBC RBC Hgb Hct MCV MCH MCHC RDW Plt Count MPV Immature Gran % (Auto) Neut % (Auto) Lymph % (Auto) [place] % (Auto) Eos % (Auto) Baso % (Auto) Lymph # (Auto) [place] # (Auto) Eos # (Auto) Baso # (Auto) Abs Immat Gran (auto) Absolute Neuts (auto) Absolute Nucleated RBC Nucleated RBC % (auto) ESR PT INR APTT Sodium 140 Potassium 4.3 Chloride 105 Carbon Dioxide 27 Anion Gap 12 BUN 22 H Creatinine 0.92 Estim Creat Clear Calc 72.8 Estimated GFR > 60 POC Glucose 76 187 H Random Glucose 101 Lactic Acid Calcium 8.5 Total Bilirubin AST ALT Alkaline Phosphatase C-Reactive Protein 2.86 H Total Protein Albumin Vancomycin Trough Random Vancomycin COVID-19 (SANDRINE) COVID-19 [place] 10/05/21 10/05/21 10/05/21 16:24 20:16 21:17 WBC RBC Hgb Hct MCV MCH MCHC RDW Plt Count MPV Immature Gran % (Auto) Neut % (Auto) Lymph % (Auto) [place] % (Auto) Eos % (Auto) Baso % (Auto) Lymph # (Auto) [place] # (Auto) Eos # (Auto) Baso # (Auto) Abs Immat Gran (auto) Absolute Neuts (auto) Absolute Nucleated RBC Nucleated RBC % (auto) ESR PT INR APTT Sodium Potassium Chloride Carbon Dioxide Anion Gap BUN Creatinine Estim Creat Clear Calc Estimated GFR POC Glucose 168 H 149 H Random Glucose Lactic Acid Calcium Total Bilirubin AST ALT Alkaline Phosphatase C-Reactive Protein Total Protein Albumin Vancomycin Trough 11.0 Random Vancomycin COVID-19 (SANDRINE) COVID-19 [place] 10/06/21 10/06/21 10/06/21 07:13 07:31 09:52 WBC RBC Hgb Hct MCV MCH MCHC RDW Plt Count MPV Immature Gran % (Auto) Neut % (Auto) Lymph % (Auto) [place] % (Auto) Eos % (Auto) Baso % (Auto) Lymph # (Auto) [place] # (Auto) Eos # (Auto) Baso # (Auto) Abs Immat Gran (auto) Absolute Neuts (auto) Absolute Nucleated RBC Nucleated RBC % (auto) ESR PT INR APTT Sodium Potassium Chloride Carbon Dioxide Anion Gap BUN Creatinine 0.87 Estim Creat Clear Calc 77.0 Estimated GFR > 60 POC Glucose 80 92 Random Glucose Lactic Acid Calcium Total Bilirubin AST ALT Alkaline Phosphatase C-Reactive Protein Total Protein Albumin Vancomycin Trough Random Vancomycin COVID-19 (SANDRINE) COVID-19 [place] 10/06/21 10/06/21 10/06/21 13:25 15:53 19:36 WBC RBC Hgb Hct MCV MCH MCHC RDW Plt Count MPV Immature Gran % (Auto) Neut % (Auto) Lymph % (Auto) [place] % (Auto) Eos % (Auto) Baso % (Auto) Lymph # (Auto) [place] # (Auto) Eos # (Auto) Baso # (Auto) Abs Immat Gran (auto) Absolute Neuts (auto) Absolute Nucleated RBC Nucleated RBC % (auto) ESR PT INR APTT Sodium Potassium Chloride Carbon Dioxide Anion Gap BUN Creatinine Estim Creat Clear Calc Estimated GFR POC Glucose 93 77 178 H Random Glucose Lactic Acid Calcium Total Bilirubin AST ALT Alkaline Phosphatase C-Reactive Protein Total Protein Albumin Vancomycin Trough Random Vancomycin COVID-19 (SANDRINE) COVID-19 [place] 10/06/21 10/07/21 10/07/21 20:56 05:21 07:18 WBC RBC Hgb Hct MCV MCH MCHC RDW Plt Count MPV Immature Gran % (Auto) Neut % (Auto) Lymph % (Auto) [place] % (Auto) Eos % (Auto) Baso % (Auto) Lymph # (Auto) [place] # (Auto) Eos # (Auto) Baso # (Auto) Abs Immat Gran (auto) Absolute Neuts (auto) Absolute Nucleated RBC Nucleated RBC % (auto) ESR PT INR APTT Sodium Potassium Chloride Carbon Dioxide Anion Gap BUN Creatinine 0.77 Estim Creat Clear Calc 87.0 Estimated GFR > 60 POC Glucose 79 Random Glucose Lactic Acid Calcium Total Bilirubin AST ALT Alkaline Phosphatase C-Reactive Protein Total Protein Albumin Vancomycin Trough Random Vancomycin 13.4 L COVID-19 (SANDRINE) COVID-19 [place] 10/07/21 11:15 WBC RBC Hgb Hct MCV MCH MCHC RDW Plt Count MPV Immature Gran % (Auto) Neut % (Auto) Lymph % (Auto) [place] % (Auto) Eos % (Auto) Baso % (Auto) Lymph # (Auto) [place] # (Auto) Eos # (Auto) Baso # (Auto) Abs Immat Gran (auto) Absolute Neuts (auto) Absolute Nucleated RBC Nucleated RBC % (auto) ESR PT INR APTT Sodium Potassium Chloride Carbon Dioxide Anion Gap BUN Creatinine Estim Creat Clear Calc Estimated GFR POC Glucose 108 Random Glucose Lactic Acid Calcium Total Bilirubin AST ALT Alkaline Phosphatase C-Reactive Protein Total Protein Albumin Vancomycin Trough Random Vancomycin COVID-19 (SANDRINE) COVID-19 Clin Com Airway Mallampati Class: II TM Dist: >3cm Neck ROM: Full Partial: Upper Loose/Missing/Broken Teeth: Yes (upper patial with few rooten teeth up top, only 2 teeth on bottom in poor condition) Heart: [id number] Lungs: CTA b/l Assessment and Plan Assessment Anesthesia Assessment: Anesthesia Plan Discussed and Chart Reviewed Final Anesthetic Review Family History of Problems with Anesthesia: No History of Problems with Anesthesia: No NPO: Yes ASA Class: III Final Preanesthetic Review: No Changes in Pt Med Stat, Meds/Allgs Chart Reviewed, Consent Obtained/Reviewed and Anes Risks/Benef Reviewed Patient Risk: Intermediate Procedure Risk: Intermediate Assessment/Block/Sedation in SS: Assess/Block/Sedation-SS Anesthetic Plan Anesthetic Plan: GA, MAC: and Agree w/ Assess. and Plan Disposition: Standard PACU
--- NOTE | 2021-10-07 12:49 | P.PNIM_ITS ---
Subjective Subjective Date of Service: 10/07/21 Interval History: Feels lightheaded this morning denies fever chills, no worsening redness or swelling of left leg, no other acute events overnight. Review of Systems Review of Systems: Yes all other systems are reviewed and are negative Physical Exam Vital Signs: Vital Signs: Last Vital Signs Temp 97.7 F 10/07/21 11:04 Pulse 66 10/07/21 11:04 Resp 16 10/07/21 11:04 BP 175/62 H 10/07/21 11:04 Pulse Ox 100 10/07/21 11:04 O2 Del Method 10/07/21 11:04 BMI result Body Mass Index 31.9 Const: Other: Gen: Awake alert, in no acute distre ss Neck: supple, n o JVD Lungs: clear to auscultation b ilaterally Heart: regular rate and r hythm, no murmurs Abd: soft, non-ten viktoriya, non-distended , bowel sounds aud ible Ext: s/p L 1s t toe amputation.? L 3rd toe with dr y ulcer, erythemat ous; erythema? ext ending to dorsum o f L foot and L zechariah n with an indurate d area on the late ral huitron with augie villaseñor purulence No change in exam sin ce yesterday Skin: warm/well-perfuse d Neuro: alert and oriented x3, no f ocal findings Psyc h: appropriate aff ect Objective Data Active Medications Acetaminophen (Acetaminophen 325 Mg Tablet) 650 mg PO Q6H PRN PRN Reason: Pain, Mild (Pain Scale 1-3) Aspirin (Aspirin 81 Mg Tab.Chew) 81 mg PO DAILY [facility] Last Admin: 10/07/21 08:10 Dose: Not Given Documented By: HERBER Non-Admin Reason: NPO Clopidogrel Bisulfate (Clopidogrel Bisulfate 75 Mg Tablet) 75 mg PO DAILY [facility] Last Admin: 10/07/21 08:10 Dose: Not Given Documented By: HERBER Non-Admin Reason: NPO Dextrose (Dextrose 50 % 25 Gm/50 Ml Syringe) 25 gm IVPUSH Q15M PRN; Protocol PRN Reason: per Hypoglycemia Standing Ord. Docusate Sodium (Docusate Sodium 100 Mg Capsule) 100 mg PO DAILY PRN PRN Reason: Constipation Enoxaparin Sodium (Enoxaparin Sodium 40 Mg/0.4 Ml Syringe) 40 mg SUBCUT Q24H [facility] Last Admin: 10/07/21 02:17 Dose: Not Given Documented By: ALAINA Non-Admin Reason: preop Fentanyl (Fentanyl Citrate/Pf 100 Mcg/2 Ml Vial) 50 mcg IVPUSH Q5M PRN; Protocol PRN Reason: Pain, Moderate (Pain Scale 4-6 Glucose (Glucose Gel 15 Gm Gel..Gram.) 15 gm PO Q15M PRN; Protocol PRN Reason: per Hypoglycemia Standing Ord. Hydromorphone HCl (Hydromorphone Hcl 0.5 Mg/0.5 Ml Syringe) 0.5 mg IVPUSH Q5M PRN; Protocol PRN Reason: Pain, Severe (Pain Scale 7-10) Piperacillin Sod/Tazobactam (Sod 3.375 gm/ Sodium Chloride) 50 mls @ 100 mls/hr IV Q6H [facility] Last Infusion: 10/07/21 06:42 Dose: 0 mls/hr Documented By: ALAINA Vancomycin HCl 1,000 mg/Vancomycin HCl 750 mg/ Sodium Chloride 535 mls @ 267.5 mls/hr IV Q24H [facility] Last Infusion: 10/07/21 02:10 Dose: 0 mls/hr Documented By: ALAINA Dextrose/Sodium Chloride (D5ns) 1,000 mls @ 50 mls/hr IVCONT .Q20H [facility] Last Admin: 10/07/21 10:16 Dose: 50 mls/hr Documented By: HERBER Promethazine HCl 6.25 mg/ (Sodium Chloride) 50.25 mls @ 201 mls/hr IV ONCE PRN PRN Reason: Nausea and Vomiting Insulin Glargine (Insulin Glargine,Hum.Rec.Anlog 100 Unit/Ml 10 Ml Vial) 20 unit SUBCUT DAILY [facility] Last Admin: 10/07/21 08:11 Dose: Not Given Documented By: HERBER Non-Admin Reason: surgery Insulin Human Lispro (Insulin Lispro 100 Unit/Ml 3 Ml Vial) 0 unit SUBCUT QIDACHS [facility]; Protocol Last Admin: 10/07/21 11:30 Dose: Not Given Documented By: DABA Non-Admin Reason: No Insulin Coverage Lisinopril (Lisinopril 20 Mg Tablet) 20 mg PO DAILY [facility]; Protocol Last Admin: 10/07/21 08:04 Dose: 20 mg Documented By: HERBER Morphine Sulfate (Morphine Sulfate 4 Mg/Ml Cartridge) 4 mg IVPUSH Q2H PRN; Protocol PRN Reason: Pain, Severe (Pain Scale 7-10) Ondansetron HCl (Ondansetron Hcl 4 Mg/2 Ml Vial) 4 mg IVPUSH Q8H PRN PRN Reason: Nausea and Vomiting Ondansetron HCl (Ondansetron Hcl 4 Mg/2 Ml Vial) 4 mg IVPUSH ONCE PRN PRN Reason: Nausea and Vomiting Oxycodone HCl (Oxycodone Hcl Immed Release 5 Mg Tablet) 5 mg PO Q4H PRN PRN Reason: Pain, Moderate (Pain Scale 4-6 Oxycodone HCl (Oxycodone Hcl Immed Release 5 Mg Tablet) 10 mg PO ONCE PRN PRN Reason: Pain, Mild (Pain Scale 1-3) Pharmacy Consult (Consult Rx Vancomycin Dosing) 1 each MISCELLANE DAILY PRN PRN Reason: Consult order Pharmacy Consult (Consult Rx Vancomycin Dosing) 1 each MISCELLANE DAILY PRN PRN Reason: Consult order Sodium Chloride (0.9 % Sodium Chloride Flush 3 Ml Syringe) 3 ml IVFLUSH QSHIFT [facility] Last Admin: 10/07/21 08:04 Dose: 3 ml Documented By: HERBER Labs CBC & Chem 7: 10/04/21 20:56 10/07/21 05:21 Labs: Laboratory Results - last 24 hr 10/06/21 10/06/21 10/06/21 13:25 15:53 19:36 Estim Creat Clear Calc Estimated GFR POC Glucose 93 77 178 H Random Vancomycin 10/06/21 10/07/21 10/07/21 20:56 05:21 07:18 Estim Creat Clear Calc 87.0 Estimated GFR > 60 POC Glucose 79 Random Vancomycin 13.4 L 10/07/21 11:15 Estim Creat Clear Calc Estimated GFR POC Glucose 108 Random Vancomycin Assessment and Plan (1) Osteomyelitis of third toe of left foot: Status: Acute Plan 81yo M with DM2, hx osteomyelitis, hx MRSA infection, PAD admitted for L 3rd toe osteomyelitis/cellulitis # acute osteomyelitis Left 3rd toe/cellulitis/abscess associated with DM foot/# PAD on IV pip/valeria + vanco d#7, not bacteremic - initially pt refused amputation and plan was for IV ABX at home via PICC. however, outpt IV ABX options (daptomycin + even vancomycin) are prohibitively expensive for patient. patient subsequently agreed for left 3rd toe amputation underwent aortogram with left lower extremity runoff with left leg plasty of anterior tibial artery and left SFA on 10/[address] Johnson will undergo left 3rd toe amputation today and possible I&D of left lateral huitron abscess continue clopidogrel Will transition to by mouth antibiotics Augmentin and doxy x2 weeks upon discharge # HTN - blood pressure on high side,continue lisinopril 20 mg follow BP and adjust medication # DM2 - noted to have low blood sugars this morning since NPO, placed on IV fluid, w hole morning insulin resume diet after surgery holding MTF on basal and bolus insulin # VTE ppx: LMWH In my clinical judgment, the patient requires continued hospitalization for the following reasons: IV ABX, operative intervention Quality Stroke Does the patient have a stroke diagnosis?: No VTE Prior VTE?: No VTE Risk Level:: Medical - moderate - high VTE Device Contraindication: Treatment Not Indicated VTE Drug Contraindication: N/A - Med Ordered
--- NOTE | 2021-10-07 13:27 | P.OP_ITS ---
Operative Note Operative Note Date of Service: 10/07/21 Narrative: Operative note by [facility] Preoperative diagnosis:1. Nonhealing left 3rd toe diabetic ulcer 2. osteomyelitis Postoperative diagnosis: same Procedure: left 3rd toe amputation Surgeon:Shaq Johnson M.D. Technical Information Specialist: pebbles Anesthesia: general Specimens:1 - calf drainage Drains: none Estimated blood loss: minimal Indications: 81-year-old gentleman with a history diabetes and nonhealing ulcer presents for left 3rd toe amputation. The patient has signed the informed consent after reviewing risks, complications, benefits, and alternatives previously discussed with the patient. The patient was given the opportunity to ask any additional questions or voice any concerns. All questions were answered to the patient's satisfaction. Procedure in detail: Patient was brought to the operating room prior to which a time-out was called for patient identification site verification left leg was prepped and draped in standard surgical fashion. [place] incision was carried out over the left 3rd toe. We took this down to the metatarsal head. Using electrocautery was dissected free and passed off the table as specimen. Once this was accomplished adequate hemostasis was obtained with electrocautery. Wound was irrigated out thoroughly with saline. Once this was all accomplished deep layer was reapproximated using 2 0 Polysorb superficial layer with a 3-0 nylon in a mattress fashion Xeroform and a sterile dressing were applied. Of note there was a calf ulceration that was draining fluid and this was sent for culture. At the end the case sponge instrument counts were correct. Patient tolerated the procedure well. Returned to recovery with stable vitals. This note is constructed using voice recognition software. While every effort has been made to ensure accuracy, lace tearing supervisor errors may have been included. Thank you for allowing me to participate in the care of your patient. Yours sincerely, Shaq Johnson MD, FACS, R.P.V.I.
--- NOTE | 2021-10-07 13:53 | MHC.CM.PN ---
PATIENT TAKEN FOR AMPUTATION TODAY. [facility] UPDATED
[2021-10-07 15:57] LABS: Glucose, Whole Blood 111 mg/dL (60-115)
[2021-10-07 19:49] LABS: Glucose, Whole Blood 199 mg/dL (60-115)
[2021-10-07] MEDS: Insulin Lispro 100 UNIT/ML 3 ML VIAL SUBCUT (19:59)
[2021-10-08] VITALS (8 sets, daily range): BP systolic 146–168; BP diastolic 72–91; PULSE 68–82; RESP 17–18; TEMP 35.5–36.8; O2SAT 94–98
[2021-10-08] MEDS: vancomycin HCL 1,000 MG, vancomycin HCL 750 MG in 0.9 % Sodium Chloride 500 ML 267.5 MG IV (00:35)
[2021-10-08] MEDS: Enoxaparin Sodium 40 MG/0.4 ML SYRINGE SUBCUT (01:04)
[2021-10-08] MEDS: Piperacillin Sodium/Tazobactam 3.375 GM in 0.9 % Sodium Chloride 50 ML IV ×2 (05:56→11:49)
[2021-10-08 06:40] LABS: Creatinine Clr Calc Pharmacy 76.2; Estimated Glomerular Filt Rate > 60
[2021-10-08 06:41] LABS: Hematocrit 34.8 % (42.0-52.0); Hemoglobin 11.6 g/dl (14.0-18.0); Mean Corpuscular HGB Conc 33.3 g/dl (31.0-36.0); Mean Corpuscular Hemoglobin 31.6 pg (27.0-33.0); Mean Corpuscular Volume 94.8 fL (80.0-98.0); Mean Platelet Volume 9.4 fL (9.4-12.4); Platelet Count 373 X10*3/uL (160-400); Red Blood Count 3.67 X10*6/uL (4.60-5.80); Red Cell Distribution Width 12.1 % (11.0-16.0); White Blood Count 9.2 X10*3/uL (4.8-10.8)
[2021-10-08 06:52] LABS: Anion Gap 17 (12-20); Blood Urea Nitrogen 14 mg/dL (9-16); Calcium 8.6 mg/dL (8.4-10.2); Carbon Dioxide 26 mmol/L (22-29); Chloride 104 mmol/L (96-108); Estimated Glomerular Filt Rate > 60; Glucose Random 136 mg/dL (60-115); Potassium 4.5 mmol/L (3.3-5.1); Sodium 142 mmol/L (135-145)
--- NOTE | 2021-10-08 07:01 | HO.POSTANES ---
Post Anesthesia Evaluation Post Anesthesia Evaluation Vital Signs: Vital Signs Temp Pulse Resp BP Pulse Ox O2 Del Method 10/08/21 03:30 98.2 F 75 18 165/75 H 94 Room Air 10/08/21 01:06 168/74 H 10/07/21 23:18 97.3 F 76 16 180/72 H 98 Room Air 10/07/21 19:35 97.3 F 73 18 170/69 H 97 Room Air Anesthesia: General Mental Status: Awake Pain Control: Satisfactory Nausea/Vomiting: None Hydration: Adequate Anesthesia-Related Issues: No Anes. Related Issues
[2021-10-08 07:18] LABS: Glucose, Whole Blood 136 mg/dL (60-115)
[2021-10-08] MEDS: Aspirin 81 MG TAB.CHEW PO (09:31)
[2021-10-08] MEDS: Clopidogrel Bisulfate 75 MG TABLET PO (09:31)
[2021-10-08] MEDS: lisinopriL 20 MG TABLET PO (09:32)
[2021-10-08] MEDS: 0.9 % Sodium Chloride Flush 3 ML SYRINGE IVFLUSH ×3 (09:32→20:19)
--- NOTE | 2021-10-08 11:10 | MHC.CM.PN ---
PLAN IS HOME Wednesday10/09/21 WITH [facility]. PRITESHO INFORMED THAT PATIENT NO LONGER REQUIRES IV ABX.
[2021-10-08 11:15] LABS: Glucose, Whole Blood 227 mg/dL (60-115)
[2021-10-08] MEDS: Insulin Lispro 100 UNIT/ML 3 ML VIAL SUBCUT ×3 (11:49→21:38)
--- NOTE | 2021-10-08 12:33 | HO.PM.IMPN ---
Subjective Subjective Date of Service: 10/08/21 Interval History: Patient denies pain at site of surgery, no leg pain denies fever chills no acute issues overnight tolerating diet, walking on heel, no acute events overnight. 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 no dizziness CVS no chest pain, no palpitation GI no nausea, no vomiting Review of Systems: Yes all other systems are reviewed and are negative Physical Exam Vital Signs: Vital Signs: Last Vital Signs Temp 97 F 10/08/21 11:09 Pulse 76 10/08/21 11:09 Resp 18 10/08/21 11:09 BP 158/72 H 10/08/21 11:09 Pulse Ox 96 10/08/21 11:09 O2 Del Method 10/08/21 11:09 O2 Flow Rate 6 10/07/21 13:30 BMI result Body Mass Index 31.9 Const: Other: Gen: in no acute distress Neck: supple Lungs: clear to auscultation bilaterally Heart: regular rate and rhythm, no murmurs Abd: soft, non-tender, non-distended, bowel sounds audible Ext: s/p L 1st toe amputation.? L 3rd toe with dry ulcer, erythematous; erythema? extending to dorsum of L foot and L huitron with an indurated area on the lateral huitron with draining purulence Skin: warm/well-perfused Neuro: alert and oriented x3, no focal findings Psych: appropriate affect Objective Data Active Medications Acetaminophen (Acetaminophen 325 Mg Tablet) 650 mg PO Q6H PRN PRN Reason: Pain, Mild (Pain Scale 1-3) Aspirin (Aspirin 81 Mg Tab.Chew) 81 mg PO DAILY [facility] Last Admin: 10/08/21 09:31 Dose: 81 mg Documented By: YINKA Clopidogrel Bisulfate (Clopidogrel Bisulfate 75 Mg Tablet) 75 mg PO DAILY [facility] Last Admin: 10/08/21 09:31 Dose: 75 mg Documented By: YINKA Dextrose (Dextrose 50 % 25 Gm/50 Ml Syringe) 25 gm IVPUSH Q15M PRN; Protocol PRN Reason: per Hypoglycemia Standing Ord. Docusate Sodium (Docusate Sodium 100 Mg Capsule) 100 mg PO DAILY PRN PRN Reason: Constipation Enoxaparin Sodium (Enoxaparin Sodium 40 Mg/0.4 Ml Syringe) 40 mg SUBCUT Q24H [facility] Last Admin: 10/08/21 01:04 Dose: 40 mg Documented By: JOE Fentanyl (Fentanyl Citrate/Pf 100 Mcg/2 Ml Vial) 50 mcg IVPUSH Q5M PRN; Protocol PRN Reason: Pain, Moderate (Pain Scale 4-6 Glucose (Glucose Gel 15 Gm Gel..Gram.) 15 gm PO Q15M PRN; Protocol PRN Reason: per Hypoglycemia Standing Ord. Hydromorphone HCl (Hydromorphone Hcl 0.5 Mg/0.5 Ml Syringe) 0.5 mg IVPUSH Q5M PRN; Protocol PRN Reason: Pain, Severe (Pain Scale 7-10) Piperacillin Sod/Tazobactam (Sod 3.375 gm/ Sodium Chloride) 50 mls @ 100 mls/hr IV Q6H [facility] Last Infusion: 10/08/21 12:32 Dose: 0 mls/hr Documented By: YINKA Vancomycin HCl 1,000 mg/Vancomycin HCl 750 mg/ Sodium Chloride 535 mls @ 267.5 mls/hr IV Q24H [facility] Last Infusion: 10/08/21 02:46 Dose: 0 mls/hr Documented By: JOE Promethazine HCl 6.25 mg/ (Sodium Chloride) 50.25 mls @ 201 mls/hr IV ONCE PRN PRN Reason: Nausea and Vomiting Insulin Glargine (Insulin Glargine,Hum.Rec.Anlog 100 Unit/Ml 10 Ml Vial) 20 unit SUBCUT DAILY [facility] Last Admin: 10/07/21 08:11 Dose: Not Given Documented By: HERBER Non-Admin Reason: surgery Insulin Human Lispro (Insulin Lispro 100 Unit/Ml 3 Ml Vial) 0 unit SUBCUT QIDACHS [facility]; Protocol Last Admin: 10/08/21 11:49 Dose: 2 unit Documented By: YINKA Lisinopril (Lisinopril 20 Mg Tablet) 20 mg PO DAILY [facility]; Protocol Last Admin: 10/08/21 09:32 Dose: 20 mg Documented By: YINKA Morphine Sulfate (Morphine Sulfate 4 Mg/Ml Cartridge) 4 mg IVPUSH Q2H PRN; Protocol PRN Reason: Pain, Severe (Pain Scale 7-10) Ondansetron HCl (Ondansetron Hcl 4 Mg/2 Ml Vial) 4 mg IVPUSH Q8H PRN PRN Reason: Nausea and Vomiting Ondansetron HCl (Ondansetron Hcl 4 Mg/2 Ml Vial) 4 mg IVPUSH ONCE PRN PRN Reason: Nausea and Vomiting Oxycodone HCl (Oxycodone Hcl Immed Release 5 Mg Tablet) 5 mg PO Q4H PRN PRN Reason: Pain, Moderate (Pain Scale 4-6 Oxycodone HCl (Oxycodone Hcl Immed Release 5 Mg Tablet) 10 mg PO ONCE PRN PRN Reason: Pain, Mild (Pain Scale 1-3) Pharmacy Consult (Consult Rx Vancomycin Dosing) 1 each MISCELLANE DAILY PRN PRN Reason: Consult order Pharmacy Consult (Consult Rx Vancomycin Dosing) 1 each MISCELLANE DAILY PRN PRN Reason: Consult order Sodium Chloride (0.9 % Sodium Chloride Flush 3 Ml Syringe) 3 ml IVFLUSH QSHIFT [facility] Last Admin: 10/08/21 09:32 Dose: 3 ml Documented By: YINKA Labs CBC & Chem 7: 10/08/21 05:48 10/08/21 05:48 Labs: Laboratory Results - last 24 hr 10/07/21 10/07/21 10/08/21 15:51 19:44 05:48 MCV MCH MCHC RDW Plt Count MPV Absolute Nucleated RBC Nucleated RBC % (auto) Anion Gap Estim Creat Clear Calc 76.2 Estimated GFR > 60 POC Glucose 111 199 H Random Glucose Calcium 10/08/21 10/08/21 10/08/21 05:48 05:48 07:01 MCV 94.8 MCH 31.6 MCHC 33.3 RDW 12.1 Plt Count 373 MPV 9.4 Absolute Nucleated RBC 0.000 Nucleated RBC % (auto) 0.0 Anion Gap 17 Estim Creat Clear Calc 77.0 Estimated GFR > 60 POC Glucose 136 H Random Glucose 136 H Calcium 8.6 10/08/21 11:11 MCV MCH MCHC RDW Plt Count MPV Absolute Nucleated RBC Nucleated RBC % (auto) Anion Gap Estim Creat Clear Calc Estimated GFR POC Glucose 227 H Random Glucose Calcium Microbiology Microbiology Results: Microbiology 10/07/21 Unknown Gram Stain - Final Leg Left Routine Culture - Preliminary Staphylococcus aureus Assessment and Plan (1) Osteomyelitis of third toe of left foot: Status: Acute Plan 81yo M with DM2, hx osteomyelitis, hx MRSA infection, PAD admitted for L 3rd toe osteomyelitis/cellulitis # acute osteomyelitis Left 3rd toe/cellulitis/abscess associated with DM foot/# PAD on IV pip/valeria + vanco , not bacteremic, normal WBC, no fevers status post left 3rd toe amputation and I&D left leg abscess on 10/07 underwent aortogram with left lower extremity runoff with left leg plasty of anterior tibial artery and left SFA on 10/[address] Johnson Will DC IV antibiotic place patient on doxycycline and Augmentin for 2 weeks, case discussed with ID and Dr. Johnson, DC IV fluid continue clopidogrel/asa/wound change as per Dr. Johnson. # HTN - blood pressure on high side,continue lisinopril 20 mg question related to anxiety, IV fluid, follow BP and adjust medication # DM2 - noted to have low blood sugars hold a.m. Lantus, continue insulin sliding scale # VTE ppx: LMWH In my clinical judgment, the patient requires continued hospitalization for close monitoring of left 3rd toe wound status post amputation, and follow-up on left leg abscess. Quality Stroke Does the patient have a stroke diagnosis?: No VTE Prior VTE?: No VTE Risk Level:: Medical - moderate - high VTE Device Contraindication: Treatment Not Indicated VTE Drug Contraindication: N/A - Med Ordered
--- NOTE | 2021-10-08 12:45 | HO.VASCPN ---
Subjective Subjective Date of Service: 10/08/21 Patient reports: no new complaints and feels better Interval history: patient postop day 1 status post left 3rd toe amputation. Reports he is feeling better. No significant complaints. Up in chair eating lunch at the time of my visit. Pain well controlled. Physical Exam Vital Signs: Vital Signs: Last Vital Signs Temp 97 F 10/08/21 11:09 Pulse 76 10/08/21 11:09 Resp 18 10/08/21 11:09 BP 158/72 H 10/08/21 11:09 Pulse Ox 96 10/08/21 11:09 O2 Del Method 10/08/21 11:09 O2 Flow Rate 6 10/07/21 13:30 BMI result Body Mass Index 31.9 Const: General: cooperative, healthy appearing and no acute distress Orientation/consciousness: oriented to person, oriented to place and oriented to time HEENT: Head: Yes normal to inspection Neck: Carotids: no bruits Chest: Chest palpation & inspection: normal inspection of the chest Resp: Effort & Inspection: normal respiratory effort and able to speak in complete sentences Auscultation: clear to auscultation bilaterally Cardio: Rate: regular rate Heart sounds: S1 normal heart sound present and S2 normal heart sound present GI: Inspection: Yes normal to inspection Skin: Other: Left leg dressing clean dry intact General skin exam: no rashes or lesions noted Wounds: no wounds Neuro: General: oriented to person, oriented to place, oriented to time and CN's II-XI intact bilaterally Extrem: General: Yes normal to inspection, Yes full ROM and Yes no clubbing, cyanosis or edema Psych: Appearance: grossly normal and well kempt Speech and movement: Normal speech and movement present Affect: normal affect Progress Note: A&P Assessment and plan (1) PAD (peripheral artery disease): Status: Acute Assessment and Plan: in short patient is doing well status post left 3rd toe amputation schedule for dressing change for tomorrow. If stable would be able to be discharged with home p.o. antibiotics pending culture. We will change dressing tomorrow, And provide additional wound instructions. Thank you for allowing us to assist in his care. Time Spent With Patient Time: Total time spent is greater than 50% in coordination of care (as documented) at patient's floor/unit and/or counseling patient: Procedures Date of Service Date of Service: 10/08/21 Quality Stroke Does the patient have a stroke diagnosis?: No VTE Prior VTE?: No VTE Risk Level:: Medical - moderate - high VTE Device Contraindication: Treatment Not Indicated VTE Drug Contraindication: N/A - Med Ordered
[2021-10-08] MEDS: Amoxicillin/Potassium Clav 875 MG TABLET PO ×2 (13:18→20:19)
[2021-10-08 16:23] LABS: Glucose, Whole Blood 159 mg/dL (60-115)
[2021-10-08 21:12] LABS: Glucose, Whole Blood 234 mg/dL (60-115)
[2021-10-09] MEDS: Enoxaparin Sodium 40 MG/0.4 ML SYRINGE SUBCUT (01:12)
[2021-10-09 04:00] VITALS: BP 159/71; PULSE 70; RESP 17; TEMP 36.3; O2SAT 97
[2021-10-09 07:00] VITALS: BP 159/74
[2021-10-09 07:04] LABS: Creatinine Clr Calc Pharmacy 72.8; Estimated Glomerular Filt Rate > 60
[2021-10-09 07:43] LABS: Glucose, Whole Blood 143 mg/dL (60-115)
[2021-10-09] MEDS: Clopidogrel Bisulfate 75 MG TABLET PO (08:08)
[2021-10-09] MEDS: Aspirin 81 MG TAB.CHEW PO (08:08)
[2021-10-09] MEDS: lisinopriL 20 MG TABLET PO (08:08)
[2021-10-09] MEDS: Amoxicillin/Potassium Clav 875 MG TABLET PO (08:08)
[2021-10-09] MEDS: 0.9 % Sodium Chloride Flush 3 ML SYRINGE IVFLUSH (08:09)
[2021-10-09] MEDS: Insulin Glargine,Hum.rec.anlog 100 UNIT/ML 10 ML VIAL 20 UNIT SUBCUT (09:33)
[2021-10-09 10:57] VITALS: BP 160/82; PULSE 69; RESP 18; TEMP 36.8; O2SAT 97
--- NOTE | 2021-10-09 11:06 | HO.VASCPN ---
Subjective Subjective Date of Service: 10/09/21 Patient reports: no new complaints and feels better Interval history: Patient seen and examined. No significant events postop. For dressing change today. He appears to be doing relatively well. No significant concerns. Now for routine postprocedure follow-up. Physical Exam Vital Signs: Vital Signs: Last Vital Signs Temp 98.2 F 10/09/21 10:57 Pulse 69 10/09/21 10:57 Resp 18 10/09/21 10:57 BP 160/82 H 10/09/21 10:57 Pulse Ox 97 10/09/21 10:57 O2 Del Method 10/09/21 10:57 O2 Flow Rate 6 10/07/21 13:30 BMI result Body Mass Index 31.9 Const: General: cooperative, healthy appearing and no acute distress Orientation/consciousness: oriented to person, oriented to place and oriented to time HEENT: Head: Yes normal to inspection Neck: Carotids: no bruits Chest: Chest palpation & inspection: normal inspection of the chest Resp: Effort & Inspection: normal respiratory effort and able to speak in complete sentences Auscultation: clear to auscultation bilaterally Cardio: Rate: regular rate Heart sounds: S1 normal heart sound present and S2 normal heart sound present GI: Inspection: Yes normal to inspection Skin: General skin exam: no rashes or lesions noted Wounds: amputation site (Toe amp site healing well dressing change) and wounds noted (Calf ulcer appears to be doing well) Neuro: General: oriented to person, oriented to place, oriented to time and CN's II-XI intact bilaterally Extrem: General: Yes normal to inspection, Yes full ROM and Yes no clubbing, cyanosis or edema Psych: Appearance: grossly normal and well kempt Speech and movement: Normal speech and movement present Affect: normal affect Progress Note: A&P Assessment and plan (1) PAD (peripheral artery disease): Status: Acute Assessment and Plan: Stable from a peripheral vascular standpoint. He will require routine surveillance follow-up which he is somewhat noncompliant with. Follow-up with me in approximately 2 weeks upon discharge. (2) Osteomyelitis of third toe of left foot: Status: Acute Plan Status post toe amp. Offloading shoe ordered. Dressing orders upon discharge placed on discharge she and would include Xeroform 4 x 4 and tape to the toe amp site Allyvn dressing to the calf. He can see me in approximately 2 weeks after discharge for suture removal. Thank you for allowing me to participate in his care. Time Spent With Patient Time: Total time spent is greater than 50% in coordination of care (as documented) at patient's floor/unit and/or counseling patient: Procedures Date of Service Date of Service: 10/09/21 Quality Stroke Does the patient have a stroke diagnosis?: No VTE Prior VTE?: No VTE Risk Level:: Medical - moderate - high VTE Device Contraindication: Treatment Not Indicated VTE Drug Contraindication: N/A - Med Ordered
[2021-10-09 11:12] LABS: Glucose, Whole Blood 145 mg/dL (60-115)
--- NOTE | 2021-10-09 11:16 | PM.DS ---
DS: Providers Provider Date of Service: 10/09/21 Date of admission: 10/01/21 01:36 Primary care physician: Keaton Santana MD Consults: 10/01/21 01:34 Consult to Infectious Diseases Routine Consulting Provider: Cristina Mayberry Reason for consultation: osteo Has provider been notified: No 10/01/21 08:57 Consult to General Surgery Routine Consulting Provider: [facility] [place] General Surgeons Reason for consultation: 3rd toe osteo 10/01/21 15:52 Consult to Vascular Surgery Routine Consulting Provider: Shaq Johnson Reason for consultation: osteo 3rd toe, hx endovascular intervention 10/04/21 10:34 Consult to General Surgery Routine Consulting Provider: [facility] [place] General Surgeons Reason for consultation: ?I+D abscess L lateral huitron? DS: Diagnosis Discharge Diagnosis (1) PAD (peripheral artery disease): Status: Acute (2) Osteomyelitis of third toe of left foot: Status: Acute DS: Summary Hospital Course Hospital Course: Chief Complaint: left toe infection ?81-year-old male with history of diabetes, history of amputation of left great toe secondary to osteomyelitis, hypertension, presents the hospital with complaints of redness, swelling of his 3rd left toe, he is also complaining that there is redness along his foot as well as huitron laterally.? He reports that his symptoms are about 7 days ago when he was trying to cut his nails on his toes, he reports no fever or chills, he reports significant swelling in the foot? up to the huitron area, redness, as well as pain.? He denies any headache, no change in vision, ? No chest pain, no shortness of breath,no abdominal pain nausea or vomiting,no diarrhea constipation, no urinary symptoms. ?on arrival to the ED patient hemodynamically stable with elevated blood pressure Labs are significant for WBC count of 12.1, hemoglobin 13.6, hematocrit 39.3, ESR 63, CRP of 1.9, Foot x-ray shows heterogeneous destruction of the 3rd distal phalanx with surrounding soft tissue swelling suspicious for osteomyelitis and generalized soft tissue swelling of the distal foot ?patient started on IV antibiotics and will be admitted for further management Hospital course 81yo M with DM2, hx osteomyelitis, hx MRSA infection, PAD admitted for L 3rd toe osteomyelitis/cellulitis, patient initially treated with IV vancomycin and Zosyn, blood cultures came back negative, WBC normalized, patient had no fevers, patient was evaluated by vascular surgery, he underwent aortogram with left lower extremity runoff with left leg plasty of anterior tibial artery and left SFA on 10/06 by Elizabeth subsequently patient had left 3rd toe amputation, patient also noted to have left leg abscess that was I and D by Dr. Johnson since left 3rd toe is removed patient does not qualify for long-term antibiotic is being discharged home on 2 weeks of doxycycline and Augmentin he has been recommended to continue dressing change as per surgery and is being discharged with VNA services he will have outpatient follow-up with Dr. Johnson in 2 weeks time he has been placed on Plavix and aspirin. In regard to hypertension he has been continued on lisinopril he was noted to have few high blood pressure readings recommend to continue close blood pressure monitoring. DM2 he was noted to have low blood sugars at a.m. is dose of Lantus has been reduced to 25 units he take 38 units of Lantus at home recommend to follow diabetic diet and continue metformin Time Spent with Patient Time attestation: Total time spent providing and/or coordinating discharge services: Discharge coordination time: Greater than 30 minutes Quality: Safe Use of Opioids Does Pt have an Active Cancer Diagnosis on the Problem List?: No Quality: Stroke Does the patient have a stroke diagnosis?: No Physical Exam Vital Signs: Vital Signs: Last Vital Signs Temp 98.2 F 10/09/21 10:57 Pulse 69 10/09/21 10:57 Resp 18 10/09/21 10:57 BP 160/82 H 10/09/21 10:57 Pulse Ox 97 10/09/21 10:57 O2 Del Method 10/09/21 10:57 O2 Flow Rate 6 10/07/21 13:30 BMI result Body Mass Index 31.9 Const: Other: Gen: in no acute d istress Neck: supp le Lungs: clear to auscultation bila terally Heart: reg ular rate and rhyt hm, no murmurs Abd : soft, non-tender , non-distended, b owel sounds audibl e Ext: Left foot dressing in place, decreased redness and edema left le g Skin: warm/well- perfused Neuro: al ert and oriented x 3, no focal findin gs Psych: appropri ate affect DS: Data Data Completed and Pending Pending studies at discharge: Pending at discharge 10/07/21 13:02 Surgical [PTH] Routine Labs on day of discharge: Laboratory Results - last 24 hr 10/08/21 10/08/21 10/09/21 16:13 21:05 05:23 Creatinine 0.92 Estim Creat Clear Calc 72.8 Estimated GFR > 60 POC Glucose 159 H 234 H 10/09/21 10/09/21 07:31 11:01 Creatinine Estim Creat Clear Calc Estimated GFR POC Glucose 143 H 145 H Discharge Plan Discharge Patient Disposition: Home Health Service Discharge Diagnosis: Acute left 3rd toe osteomyelitis status post amputation Left leg abscess Referrals: Keaton Santana MD [Primary Care Provider] - 1 Week Discharge Medications: New clopidogrel 75 mg Tablet 75 mg PO DAILY Qty: 30 0RF aspirin 81 mg Tablet,Chewable 81 mg PO DAILY Qty: 30 0RF doxycycline hyclate 100 mg Tablet 100 mg PO BID Qty: 25 0RF amoxicillin-pot clavulanate 875-125 mg Tablet 875 mg PO BID Qty: 25 0RF Continued lisinopril 20 mg tablet 20 mg PO DAILY metformin 1,000 mg tablet 1,000 mg PO BID Changed insulin glargine 100 unit/mL (3 mL) insulin pen 25 unit subcut QAM Qty: 15 0RF Discharge Orders: Discharge Order (Routine); Ordered 10/09/21 Ordered By: Kenrick Kilgore Diet: Diabetic diet Activity on Discharge: As tolerated Stand Alone Forms: Patient Portal Discharge page Activity Restrictions/Additional Instructions: Wound care upon discharge: xeroform, 4x4 and tape to the amputated toe site. Please change daily. For calf ulcer please place Allyvn dressing. Please call Dr. Johnson at [phone] for 2 week follow up for suture removal Take aspirin and Plavix Finish course of antibiotics as prescribed Care Plan Goals: Status post 3rd toe amputation wound dressing as above, dose of Lantus reduced to 25 units since noted to have low blood sugars at a.m., home dose 38 units, increase to home dose of noted to have blood sugars above 150 Health Concerns: Continue all home medications as before Plan of Treatment: Follow-up with primary care physician and Dr. Johnson in 2 weeks Assessment: As per discharge summary
--- NOTE | 2021-10-09 11:33 | MHC.CM.PN ---
[facility] TO [facility]. RN AWARE OF PLAN. IMM 10/08 IN CHART
--- NOTE | 2021-10-09 11:42 | P.F2F_ITS ---
Service Date Service Date: 10/09/21 Encounter Date of encounter: 10/09/21 Reasons for Services Signs and symptoms assessed: Left 3rd toe amputation Reason for assisted: wound care and diabetic teaching Homebound: Leaving the home is medically contraindicated at this time without the asist of a device and/or another person due th the listed conditions above and below. Reason homebound: weakness related to hospital stay Certification: Based on the above findings, I certify that this patient is confined to the home and needs intermittent assisted care, physical therapy and/or speech therapy, or continues to need occupational therapy. The patient is under my care, and I have initiated the establishment of the plan of care. The patient will be followed by a physician who will periodically review the plan of care.
[2021-10-09 12:00] VITALS: BP 160/82; PULSE 81; RESP 16; TEMP 36.8; O2SAT 96
== END 2021-10-09 13:23 | disposition home health service (06) | DRG 253 ==
LOC: HO.ED 10-01 01:24 → HO.EDOVER 10-01 01:40 → HO.S3 10-01 22:27
PROVIDERS: Family Medicine; Surgery Vascular Surgery; Admitting Provider Internal Medicine; Emergency Provider Emergency Medicine; PCP Internal Medicine; Visit Provider Hospitalist
PROC: 047P3Z1 Dilation of Right Anterior Tibial Artery using Drug-Coated Balloon, Percutaneous Approach (ICD-10-PCS; principal; 2021-10-06 10:00)
PROC: 0Y6U0Z0 Detachment at Left 3rd Toe, Complete, Open Approach (ICD-10-PCS; principal; 2021-10-07 12:30)
DX: E11.51 Type 2 diabetes mellitus with diabetic peripheral angiopathy without gangrene (principal); L02.416 Cutaneous abscess of left lower limb; M86.172 Other acute osteomyelitis, left ankle and foot; I70.245 Atherosclerosis of native arteries of left leg with ulceration of other part of foot; E11.621 Type 2 diabetes mellitus with foot ulcer; E11.69 Type 2 diabetes mellitus with other specified complication; L03.032 Cellulitis of left toe; L97.529 Non-pressure chronic ulcer of other part of left foot with unspecified severity; I10 Essential (primary) hypertension; E11.628 Type 2 diabetes mellitus with other skin complications; Z20.822 Contact with and (suspected) exposure to COVID-19; Z86.14 Personal history of Methicillin resistant Staphylococcus aureus infection; Z79.02 Long term (current) use of antithrombotics/antiplatelets; Z79.82 Long term (current) use of aspirin; Z79.84 Long term (current) use of oral hypoglycemic drugs; Z79.4 Long term (current) use of insulin; Z79.899 Other long term (current) drug therapy
CPT/HCPCS: 36415; 37224; 37228; 73620; 76937; 80048; 80053; 80202; 82565; 82947; 83605; 85025; 85027; 85610; 85652; 85730; 86140; 87040; 87071; 87077; 87186; 87205; 87635; 88305; 88311; 93926; 99152; 99153; 99285; C1725; C1760; C1769; C1887; J1170; J1650; J2370; J2543; J2795; J3010; J3370; Q9967

== ENCOUNTER → 2021-10-23 13:57 | Outpatient (BNVA) | payer MEDICARE, OTHER, SELFPAY | PROVIDERS: PCP Internal Medicine; Visit Provider Surgery Vascular Surgery | DX: Z47.81 Encounter for orthopedic aftercare following surgical amputation (principal); I73.9 Peripheral vascular disease, unspecified; Z89.422 Acquired absence of other left toe(s); Z95.820 Peripheral vascular angioplasty status with implants and grafts | CPT/HCPCS: 99212 ==

== ENCOUNTER → 2021-11-06 09:42 | Outpatient (BNVA) | payer MEDICARE, OTHER, SELFPAY | PROVIDERS: PCP Internal Medicine; Visit Provider Surgery Vascular Surgery | DX: I73.9 Peripheral vascular disease, unspecified (principal) | CPT/HCPCS: 99212 ==

== ENCOUNTER → 2021-12-02 09:39 | Outpatient (BNVA) | payer MEDICARE, OTHER, SELFPAY | PROVIDERS: PCP Internal Medicine; Visit Provider Surgery Vascular Surgery | DX: I73.9 Peripheral vascular disease, unspecified (principal) | CPT/HCPCS: 99212 ==

== ENCOUNTER → 2021-12-15 10:09 | Outpatient (BNVA) | payer MEDICARE, OTHER, SELFPAY | PROVIDERS: PCP Internal Medicine; Visit Provider Surgery Vascular Surgery | DX: I73.9 Peripheral vascular disease, unspecified (principal) | CPT/HCPCS: 99212 ==

== ENCOUNTER → 2021-12-30 11:23 | Outpatient (BNVA) | payer MEDICARE, OTHER, SELFPAY | PROVIDERS: PCP Internal Medicine; Visit Provider Surgery Vascular Surgery | DX: Z47.81 Encounter for orthopedic aftercare following surgical amputation (principal); I73.9 Peripheral vascular disease, unspecified; L97.529 Non-pressure chronic ulcer of other part of left foot with unspecified severity; Z89.422 Acquired absence of other left toe(s) | CPT/HCPCS: 99212 ==

== ENCOUNTER 2022-01-05 11:14 | Inpatient (IN) | payer MEDICARE, OTHER, SELFPAY ==
--- NOTE | ~2022-01-05 | XR_ITS ---
EXAMINATION: XR FOOT, LEFT CLINICAL INFORMATION: Brain and wound. Concern for osteomyelitis. COMPARISON: Left foot x-rays 10/01/2021 TECHNIQUE: AP, lateral, and oblique views of the left foot. FINDINGS: Patient is status post interval amputation of the third toe with old amputation of the first toe including the distal aspect of the first metatarsal. There is persistent soft tissue swelling diffusely throughout the distal foot. There appears to be new cortical irregularity involving the distal phalanx of the fourth toe raising the possibility for acute osteomyelitis. Clinical correlation is recommended. MRI imaging may be warranted. Vascular calcifications noted. XR/XR foot LT min 3V IMPRESSION: 1. Possible acute osteomyelitis of the distal phalanx of the fourth toe. Further evaluation can be obtained with MRI imaging if clinically indicated. 2. Postsurgical changes of the first and third toes.
--- NOTE | ~2022-01-05 | US_ITS ---
EXAMINATION: NONINVASIVE ASSESSMENT OF THE ARTERIES OF BOTH LOWER EXTREMITIES WITH PVR EXAM AND BILATERAL LOWER EXTREMITY DUPLEX Alie Altman MD CLINICAL INFORMATION: Nonhealing ulcer TECHNIQUE: Ankle pulse volume recordings, ankle pressure measurements and ankle brachial indices were obtained of the lower extremity arterial system bilaterally in addition to duplex Doppler techniques with wave form analysis and measurement of velocities in the common femoral, profunda femoral, superficial femoral, popliteal and tibial arteries. The study was performed only at rest. COMPARISON: Arterial duplex on 10/01/2021 FINDINGS: a) AT REST: RIGHT LE. The right ankle-brachial index is: 0.67 * >0.97-1.25 = normal - no significant arterial disease * 0.75-0.96 = mild peripheral arterial disease * 0.5-0.74 = moderate peripheral arterial disease * <0.50 = severe peripheral arterial disease 2. Right ankle pressure: Low 3. Right ankle PVR waveform: Abnormal 4. Right direct duplex Doppler findings: Common femoral artery: 397 cm/s, Multiphasic Profunda femoris artery: 60 cm/s, Multiphasic Superficial femoral artery (proximal): 126 cm/s, Multiphasic Superficial femoral artery (mid): 150 cm/s, Multiphasic Superficial femoral artery (distal): 172 cm/s, Multiphasic Proximal Popliteal artery: 65 cm/s, Multiphasic Mid posterior tibial artery: 38 cm/s, Multiphasic LEFT LE. The left ankle-brachial index is: 0.65 * >0.97-1.25 = normal - no significant arterial disease * 0.75-0.96 = mild peripheral arterial disease * 0.5-0.74 = moderate peripheral arterial disease * <0.50 = severe peripheral arterial disease 2. Left ankle pressure: Low 3. Left ankle PVR waveform: Abnormal 4. Left direct duplex Doppler findings: Common femoral artery: 194 cm/s, Multiphasic Profunda femoris artery: 77 cm/s, Multiphasic Superficial femoral artery (proximal): 201 cm/s, monophasic, stent is present Superficial femoral artery (mid): 233 cm/s, monophasic Superficial femoral artery (distal): 159 cm/s, monophasic Proximal Popliteal artery: 160 cm/s, monophasic US/US arterial duplex LE BI IMPRESSION: RIGHT LEG: Moderate peripheral arterial disease. LEFT LEG: Moderate peripheral arterial disease with monophasic flow throughout the left lower extremity. There is a stent in the left proximal superficial femoral artery with monophasic flow and elevated velocities suggesting stenosis.
--- NOTE | ~2022-01-05 | US_ITS ---
EXAMINATION: NONINVASIVE ASSESSMENT OF THE ARTERIES OF BOTH LOWER EXTREMITIES WITH PVR EXAM AND BILATERAL LOWER EXTREMITY DUPLEX Alie Altman MD CLINICAL INFORMATION: Nonhealing ulcer TECHNIQUE: Ankle pulse volume recordings, ankle pressure measurements and ankle brachial indices were obtained of the lower extremity arterial system bilaterally in addition to duplex Doppler techniques with wave form analysis and measurement of velocities in the common femoral, profunda femoral, superficial femoral, popliteal and tibial arteries. The study was performed only at rest. COMPARISON: Arterial duplex on 10/01/2021 FINDINGS: a) AT REST: RIGHT LE. The right ankle-brachial index is: 0.67 * >0.97-1.25 = normal - no significant arterial disease * 0.75-0.96 = mild peripheral arterial disease * 0.5-0.74 = moderate peripheral arterial disease * <0.50 = severe peripheral arterial disease 2. Right ankle pressure: Low 3. Right ankle PVR waveform: Abnormal 4. Right direct duplex Doppler findings: Common femoral artery: 397 cm/s, Multiphasic Profunda femoris artery: 60 cm/s, Multiphasic Superficial femoral artery (proximal): 126 cm/s, Multiphasic Superficial femoral artery (mid): 150 cm/s, Multiphasic Superficial femoral artery (distal): 172 cm/s, Multiphasic Proximal Popliteal artery: 65 cm/s, Multiphasic Mid posterior tibial artery: 38 cm/s, Multiphasic LEFT LE. The left ankle-brachial index is: 0.65 * >0.97-1.25 = normal - no significant arterial disease * 0.75-0.96 = mild peripheral arterial disease * 0.5-0.74 = moderate peripheral arterial disease * <0.50 = severe peripheral arterial disease 2. Left ankle pressure: Low 3. Left ankle PVR waveform: Abnormal 4. Left direct duplex Doppler findings: Common femoral artery: 194 cm/s, Multiphasic Profunda femoris artery: 77 cm/s, Multiphasic Superficial femoral artery (proximal): 201 cm/s, monophasic, stent is present Superficial femoral artery (mid): 233 cm/s, monophasic Superficial femoral artery (distal): 159 cm/s, monophasic Proximal Popliteal artery: 160 cm/s, monophasic US/US BERENICE complete IMPRESSION: RIGHT LEG: Moderate peripheral arterial disease. LEFT LEG: Moderate peripheral arterial disease with monophasic flow throughout the left lower extremity. There is a stent in the left proximal superficial femoral artery with monophasic flow and elevated velocities suggesting stenosis.
[2022-01-05 12:18] VITALS: BP 167/58; PULSE 77; RESP 18; TEMP 36.7; O2SAT 98; BMI 30.4
--- NOTE | 2022-01-05 12:20 | ED.GENADULT ---
HPI - General Adult General Chief complaint: General Medical <JEREMÍAS Caballero - Last Filed: 01/05/22 12:24> Stated complaint: Infected toe-diabetic sent by Elizabeth <JEREMÍAS Caballero - Last Filed: 01/05/22 12:24> Time Seen by Provider: 01/05/22 21:32 <JEREMÍAS Caballero - Last Filed: 01/05/22 12:24> Source: patient <Hayes Huerta MD - Last Filed: 01/05/22 23:48> Mode of arrival: ambulatory <Hayes Huerta MD - Last Filed: 01/05/22 23:48> Limitations: no limitations <Hayes Huerta MD - Last Filed: 01/05/22 23:48> History of Present Illness HPI narrative: Patient diabetic with history of peripheral artery disease recently had left 4th toe amputation secondary to osteomyelitis seen by vascular surgeon on 12/30/2021 and the wound was healing good comes here as per last 2 days patient noticed in the left 4th toe has a foul smelling discharge and visiting nurse noticed redness of the dorsum of the foot all the symptoms started within 2-3 days otherwise patient feels fine no fever no chills <Hayes Huerta MD - Last Filed: 01/05/22 23:48> Related Data Home medications: Home Medications Medication Instructions Recorded Confirmed lisinopril 20 mg tablet 20 mg PO DAILY 11/22/19 10/01/21 metformin 1,000 mg tablet 1,000 mg PO BID 12/05/19 10/01/21 Previous Rx's Medication Instructions Recorded amoxicillin 875 mg-potassium 875 mg PO BID #25 tabs 10/09/21 clavulanate 125 mg tablet aspirin 81 mg chewable tablet 81 mg PO DAILY #30 tabs 10/09/21 clopidogrel 75 mg tablet 75 mg PO DAILY #30 tabs 10/09/21 doxycycline hyclate 100 mg tablet 100 mg PO BID #25 tabs 10/09/21 insulin glargine 100 unit/mL (3 25 unit (0.25 mL) subcut QAM #15 mL 10/09/21 mL) subcutaneous pen cephalexin 500 mg capsule 500 mg PO BID #20 caps 12/02/21 clopidogrel 75 mg tablet (Plavix) 75 mg PO DAILY #90 tabs 12/02/21 <JEREMÍAS Caballero - Last Filed: 01/05/22 12:24> Allergies/adverse reactions: Allergies Allergy/AdvReac Type Severity Reaction Status Date / Time No Known Allergies Allergy Verified 12/30/21 11:33 [No Known Allergies*] <JEREMÍAS Caballero - Last Filed: 01/05/22 12:24> Review of Systems Review of Systems: Yes all other systems are reviewed and are negative <Hayes Huerta MD - Last Filed: 01/05/22 23:48> [facility] Past Medical History Medical History: Medical History Diabetes History of amputation of great toe History of amputation of great toe HTN (hypertension) Hx of osteomyelitis 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 PAD (peripheral artery disease) <JEREMÍAS Caballero - Last Filed: 01/05/22 12:24> Surgical History: Surgical History History of angioplasty of peripheral vessel <JEREMÍAS Caballero - Last Filed: 01/05/22 12:24> Family History Family History: Family History Other No family history of coronary artery disease <JEREMÍAS Caballero - Last Filed: 01/05/22 12:24> Social History Social History: Social History Household Members: Significant Other Housing: House Are you a primary customer care team coach to a significant other at home: No Do you presently have visiting nurse or other home services: No Alcohol intake: current Alcohol intake frequency: holidays/special occasions only Patient Tobacco Use Status: Never used Tobacco Second Hand Smoke Exposure: No Advance Directives: Yes Advance Directives on File: Yes Advance Directives Date on File: 10/01/21 service: No Current occupational status: retired <JEREMÍAS Caballero - Last Filed: 01/05/22 12:24> Physical Exam ED Vital Signs: Vital Signs - 24 hr 01/05/22 12:18 01/05/22 19:37 01/05/22 22:03 Temperature 98.1 F 99.3 F 99.8 F Pulse Rate 77 80 78 Respiratory Rate 18 16 16 Blood Pressure 167/58 H 140/57 H 134/47 L Pulse Oximetry 98 95 98 Oxygen Delivery Method Room Air Room Air Room Air BMI result Body Mass Index 30.4 <JEREMÍAS Caballero - Last Filed: 01/05/22 12:24> Vital Signs - 24 hr 01/05/22 12:18 01/05/22 19:37 01/05/22 22:03 Temperature 98.1 F 99.3 F 99.8 F Pulse Rate 77 80 78 Respiratory Rate 18 16 16 Blood Pressure 167/58 H 140/57 H 134/47 L Pulse Oximetry 98 95 98 Oxygen Delivery Method Room Air Room Air Room Air BMI result Body Mass Index 30.4 <Hayes Huerta MD - Last Filed: 01/05/22 23:48> Appearance: Alert. Oriented X3. No acute distress. Eyes: PERRLA, No Nystagmus ENT: Pharynx normal. Oral Mucosa moist Neck: Normal inspection. Neck supple. CVS: Normal heart rate and rhythm. Pulses normal. Respiratory: No respiratory distress. Equal air entry bilateral, no wheezing/rales/rhonchi Abdomen: Soft and nontender. Bowel sounds are present, no mass palpable, no CVA tenderness Skin: Skin warm and dry. Normal skin color. Normal skin turgor. Extremities: + lower extremity edema. No calf tenderness resume other dorsum of the left foot with open wound of 2nd toe erythema spreading all the way to the huitron of the Rafter Neuro: Oriented X 3. No motor deficit. No sensory deficit.No cerebellar signs , cranial nerves II-XII intact <Hayes Heurta MD - Last Filed: 01/05/22 23:48> Extrem Other: <Hayes Huerta MD - Last Filed: 01/05/22 23:48> Course Course Course Narrative: 81 yo male with history of DM on insulin, PAD s/p several toe amputations (follows w/ Dr. Johnson) in the past who presents to the ER 4 days of worsening left toe redness, swelling, and drainage. Redness has now extended to the right lower leg just below the knee. No fevers at home. Recently seen by Dr. Johnson last week and everything looked good. Afebrile in triage. Left foot with maceration, slightly bloody drainage. Exam is consistent with cellulitis. Will get lab workup and XR to assess for possible osteo. May require admission. Dispo pending results. <JEREMÍAS Caballero - Last Filed: 01/05/22 12:24> Medications Administered Generic Name Dose Route Start Last Admin Trade Name Freq PRN Reason Stop Dose Admin Vancomycin HCl 2,000 mg in 520 mls @ 260 mls/hr 01/05/22 22:15 01/05/22 23:03 Vancomycin/Ns IV 01/06/22 00:14 260 mls/hr ONCE ONE Administration Discontinued Medications Generic Name Dose Route Start Last Admin Trade Name Freq PRN Reason Stop Dose Admin Piperacillin Sod/Tazobactam 50 mls @ 100 mls/hr 01/05/22 22:06 01/05/22 22:36 Sod 3.375 gm/ Sodium Chloride IV 01/05/22 22:35 100 mls/hr ONCE ONE Administration <JEREMÍAS Caballero - Last Filed: 01/05/22 12:24> Medications Administered Generic Name Dose Route Start Last Admin Trade Name Freq PRN Reason Stop Dose Admin Vancomycin HCl 2,000 mg in 520 mls @ 260 mls/hr 01/05/22 22:15 01/05/22 23:03 Vancomycin/Ns IV 01/06/22 00:14 260 mls/hr ONCE ONE Administration Discontinued Medications Generic Name Dose Route Start Last Admin Trade Name Freq PRN Reason Stop Dose Admin Piperacillin Sod/Tazobactam 50 mls @ 100 mls/hr 01/05/22 22:06 01/05/22 22:36 Sod 3.375 gm/ Sodium Chloride IV 01/05/22 22:35 100 mls/hr ONCE ONE Administration <Hayes Huerta MD - Last Filed: 01/05/22 23:48> Medical Decision Making MDM Narrative Medical decision making narrative: Patient has osteomyelitis of left 4th toe withhx of peripheral artery disease admit patient for IV antibiotics possible amputation <Hayes Huerta MD - Last Filed: 01/05/22 23:48> Lab Data Lab results reviewed: Yes I reviewed the patient's lab results. <Hayes Huerta MD - Last Filed: 01/05/22 23:48> Result diagrams: : 01/05/22 14:08 01/05/22 14:08 <JEREMÍAS Caballero - Last Filed: 01/05/22 12:24> Labs: Lab Results 01/05/22 01/05/22 01/05/22 Range/Units 14:08 14:08 14:08 WBC 12.8 H (4.8-10.8) X10*3/uL RBC 3.63 L (4.60-5.80) X10*6/uL Hgb 11.2 L (14.0-18.0) g/dl Hct 33.6 L (42.0-52.0) % MCV 92.6 (80.0-98.0) fL MCH 30.9 (27.0-33.0) pg MCHC 33.3 (31.0-36.0) g/dl RDW 11.9 (11.0-16.0) % Plt Count 412 H (160-400) X10*3/uL MPV 9.7 (9.4-12.4) fL Immature Gran % (Auto) 0.5 H (0.0-0.4) % Neut % (Auto) 82.0 H (45-73) % Lymph % (Auto) 6.6 L (20-40) % Wharton % (Auto) 10.5 (2-11) % Eos % (Auto) 0.2 (0-4) % Baso % (Auto) 0.2 (0-2) % Lymph # (Auto) 0.9 L (1.2-4.9) X10*3/uL Wharton # (Auto) 1.4 H (0.1-1.2) X10*3/uL Eos # (Auto) 0.0 (0.0-0.4) X10*3/uL Baso # (Auto) 0.0 (0.0-0.2) X10*3/uL Abs Immat Gran (auto) 0.06 H (0.00-0.03) X10*3/uL Absolute Neuts (auto) 10.5 H (2.0-8.3) x10*3/uL Absolute Nucleated RBC 0.000 (0.0-0.012) X10*3/uL Nucleated RBC % (auto) 0.0 (0.0-0.2) /100WBC ESR 86 H (0-15) MM/HR PT 11.8 (10.0-13.1) SEC INR 1.0 (0.9-1.1) APTT 25.8 L (26.0-36.4) SEC Sodium (135-145) mmol/L Potassium (3.3-5.1) mmol/L Chloride (96-108) mmol/L Carbon Dioxide (22-29) mmol/L Anion Gap (12-20) BUN (9-16) mg/dL Creatinine (0.5-1.4) mg/dL Estim Creat Clear Calc Estimated GFR Random Glucose (60-115) mg/dL Lactic Acid (0.5-2.0) mmol/L Calcium (8.4-10.2) mg/dL Magnesium (1.6-2.6) mg/dL Total Bilirubin (0.0-1.0) mg/dL Direct Bilirubin (0.0-0.5) mg/dL AST (5-37) U/L ALT (0-40) U/L Alkaline Phosphatase (39-117) U/L C-Reactive Protein (< or = 0.50) mg/dL Total Protein (6.5-8.0) g/dL Albumin (3.5-5.0) g/dL Urine Color Urine Appearance Urine pH (5.0-9.0) Ur Specific [place] (1.005-1.025) Urine Protein (Neg-Trace) mg/dL Urine Glucose (UA) (Negative) mg/dL Urine Ketones (Negative) mg/dL Urine Blood (Negative) Urine Nitrite (Negative) Ur Leukocyte Esterase (Negative) Urine RBC (0-2) /HPF Urine WBC (0-5) /HPF Ur Squamous Epith Cells (0-2) /HPF Urine Bacteria (None Seen) Hyaline Casts (0-2) /LPF COVID-19 (SANDRINE) (Negative) COVID-19 Clin Com 01/05/22 01/05/22 01/05/22 Range/Units 14:08 14:08 14:08 WBC (4.8-10.8) X10*3/uL RBC (4.60-5.80) X10*6/uL Hgb (14.0-18.0) g/dl Hct (42.0-52.0) % MCV (80.0-98.0) fL MCH (27.0-33.0) pg MCHC (31.0-36.0) g/dl RDW (11.0-16.0) % Plt Count (160-400) X10*3/uL MPV (9.4-12.4) fL Immature Gran % (Auto) (0.0-0.4) % Neut % (Auto) (45-73) % Lymph % (Auto) (20-40) % Wharton % (Auto) (2-11) % Eos % (Auto) (0-4) % Baso % (Auto) (0-2) % Lymph # (Auto) (1.2-4.9) X10*3/uL [place]arton # (Auto) (0.1-1.2) X10*3/uL Eos # (Auto) (0.0-0.4) X10*3/uL Baso # (Auto) (0.0-0.2) X10*3/uL Abs Immat Gran (auto) (0.00-0.03) X10*3/uL Absolute Neuts (auto) (2.0-8.3) x10*3/uL Absolute Nucleated RBC (0.0-0.012) X10*3/uL Nucleated RBC % (auto) (0.0-0.2) /100WBC ESR (0-15) MM/HR PT (10.0-13.1) SEC INR (0.9-1.1) APTT (26.0-36.4) SEC Sodium 136 (135-145) mmol/L Potassium 4.9 (3.3-5.1) mmol/L Chloride 100 (96-108) mmol/L Carbon Dioxide 24 (22-29) mmol/L Anion Gap 17 (12-20) BUN 21 H (9-16) mg/dL Creatinine 1.01 (0.5-1.4) mg/dL Estim Creat Clear Calc 64.8 Estimated GFR > 60 Random Glucose 181 H (60-115) mg/dL Lactic Acid 1.8 (0.5-2.0) mmol/L Calcium 9.6 D (8.4-10.2) mg/dL Magnesium 1.7 (1.6-2.6) mg/dL Total Bilirubin 0.5 (0.0-1.0) mg/dL Direct Bilirubin 0.2 (0.0-0.5) mg/dL AST 17 (5-37) U/L ALT 16 (0-40) U/L Alkaline Phosphatase 120 H (39-117) U/L C-Reactive Protein 15.16 H (< or = 0.50) mg/dL Total Protein 7.1 (6.5-8.0) g/dL Albumin 4.1 (3.5-5.0) g/dL Urine Color Urine Appearance Urine pH (5.0-9.0) Ur Specific [place] (1.005-1.025) Urine Protein (Neg-Trace) mg/dL Urine Glucose (UA) (Negative) mg/dL Urine Ketones (Negative) mg/dL Urine Blood (Negative) Urine Nitrite (Negative) Ur Leukocyte Esterase (Negative) Urine RBC (0-2) /HPF Urine WBC (0-5) /HPF Ur Squamous Epith Cells (0-2) /HPF Urine Bacteria (None Seen) Hyaline Casts (0-2) /LPF COVID-19 (SANDRINE) Negative (Negative) COVID-19 Clin Com See Note 01/05/22 Range/Units 14:18 WBC (4.8-10.8) X10*3/uL RBC (4.60-5.80) X10*6/uL Hgb (14.0-18.0) g/dl Hct (42.0-52.0) % MCV (80.0-98.0) fL MCH (27.0-33.0) pg MCHC (31.0-36.0) g/dl RDW (11.0-16.0) % Plt Count (160-400) X10*3/uL MPV (9.4-12.4) fL Immature Gran % (Auto) (0.0-0.4) % Neut % (Auto) (45-73) % Lymph % (Auto) (20-40) % Wharton % (Auto) (2-11) % Eos % (Auto) (0-4) % Baso % (Auto) (0-2) % Lymph # (Auto) (1.2-4.9) X10*3/uL [place]arton # (Auto) (0.1-1.2) X10*3/uL Eos # (Auto) (0.0-0.4) X10*3/uL Baso # (Auto) (0.0-0.2) X10*3/uL Abs Immat Gran (auto) (0.00-0.03) X10*3/uL Absolute Neuts (auto) (2.0-8.3) x10*3/uL Absolute Nucleated RBC (0.0-0.012) X10*3/uL Nucleated RBC % (auto) (0.0-0.2) /100WBC ESR (0-15) MM/HR PT (10.0-13.1) SEC INR (0.9-1.1) APTT (26.0-36.4) SEC Sodium (135-145) mmol/L Potassium (3.3-5.1) mmol/L Chloride (96-108) mmol/L Carbon Dioxide (22-29) mmol/L Anion Gap (12-20) BUN (9-16) mg/dL Creatinine (0.5-1.4) mg/dL Estim Creat Clear Calc Estimated GFR Random Glucose (60-115) mg/dL Lactic Acid (0.5-2.0) mmol/L Calcium (8.4-10.2) mg/dL Magnesium (1.6-2.6) mg/dL Total Bilirubin (0.0-1.0) mg/dL Direct Bilirubin (0.0-0.5) mg/dL AST (5-37) U/L ALT (0-40) U/L Alkaline Phosphatase (39-117) U/L C-Reactive Protein (< or = 0.50) mg/dL Total Protein (6.5-8.0) g/dL Albumin (3.5-5.0) g/dL Urine Color Yellow Urine Appearance Clear Urine pH 5.0 (5.0-9.0) Ur Specific [place] 1.020 (1.005-1.025) Urine Protein 30 (1+) H (Neg-Trace) mg/dL Urine Glucose (UA) 500 H (Negative) mg/dL Urine Ketones Negative (Negative) mg/dL Urine Blood Negative (Negative) Urine Nitrite Negative (Negative) Ur Leukocyte Esterase Negative (Negative) Urine RBC 0-2 (0-2) /HPF Urine WBC 0-5 (0-5) /HPF Ur Squamous Epith Cells 0-2 (0-2) /HPF Urine Bacteria None Seen (None Seen) Hyaline Casts 0-2 (0-2) /LPF COVID-19 (SANDRINE) (Negative) COVID-19 Clin Com <JEREMÍAS Caballero - Last Filed: 01/05/22 12:24> Lab Results 01/05/22 01/05/22 01/05/22 Range/Units 14:08 14:08 14:08 WBC 12.8 H (4.8-10.8) X10*3/uL RBC 3.63 L (4.60-5.80) X10*6/uL Hgb 11.2 L (14.0-18.0) g/dl Hct 33.6 L (42.0-52.0) % MCV 92.6 (80.0-98.0) fL MCH 30.9 (27.0-33.0) pg MCHC 33.3 (31.0-36.0) g/dl RDW 11.9 (11.0-16.0) % Plt Count 412 H (160-400) X10*3/uL MPV 9.7 (9.4-12.4) fL Immature Gran % (Auto) 0.5 H (0.0-0.4) % Neut % (Auto) 82.0 H (45-73) % Lymph % (Auto) 6.6 L (20-40) % Wharton % (Auto) 10.5 (2-11) % Eos % (Auto) 0.2 (0-4) % Baso % (Auto) 0.2 (0-2) % Lymph # (Auto) 0.9 L (1.2-4.9) X10*3/uL Wharton # (Auto) 1.4 H (0.1-1.2) X10*3/uL Eos # (Auto) 0.0 (0.0-0.4) X10*3/uL Baso # (Auto) 0.0 (0.0-0.2) X10*3/uL Abs Immat Gran (auto) 0.06 H (0.00-0.03) X10*3/uL Absolute Neuts (auto) 10.5 H (2.0-8.3) x10*3/uL Absolute Nucleated RBC 0.000 (0.0-0.012) X10*3/uL Nucleated RBC % (auto) 0.0 (0.0-0.2) /100WBC ESR 86 H (0-15) MM/HR PT 11.8 (10.0-13.1) SEC INR 1.0 (0.9-1.1) APTT 25.8 L (26.0-36.4) SEC Sodium (135-145) mmol/L Potassium (3.3-5.1) mmol/L Chloride (96-108) mmol/L Carbon Dioxide (22-29) mmol/L Anion Gap (12-20) BUN (9-16) mg/dL Creatinine (0.5-1.4) mg/dL Estim Creat Clear Calc Estimated GFR Random Glucose (60-115) mg/dL Lactic Acid (0.5-2.0) mmol/L Calcium (8.4-10.2) mg/dL Magnesium (1.6-2.6) mg/dL Total Bilirubin (0.0-1.0) mg/dL Direct Bilirubin (0.0-0.5) mg/dL AST (5-37) U/L ALT (0-40) U/L Alkaline Phosphatase (39-117) U/L C-Reactive Protein (< or = 0.50) mg/dL Total Protein (6.5-8.0) g/dL Albumin (3.5-5.0) g/dL Urine Color Urine Appearance Urine pH (5.0-9.0) Ur Specific [place] (1.005-1.025) Urine Protein (Neg-Trace) mg/dL Urine Glucose (UA) (Negative) mg/dL Urine Ketones (Negative) mg/dL Urine Blood (Negative) Urine Nitrite (Negative) Ur Leukocyte Esterase (Negative) Urine RBC (0-2) /HPF Urine WBC (0-5) /HPF Ur Squamous Epith Cells (0-2) /HPF Urine Bacteria (None Seen) Hyaline Casts (0-2) /LPF COVID-19 (SANDRINE) (Negative) COVID-19 Clin Com 01/05/22 01/05/22 01/05/22 Range/Units 14:08 14:08 14:08 WBC (4.8-10.8) X10*3/uL RBC (4.60-5.80) X10*6/uL Hgb (14.0-18.0) g/dl Hct (42.0-52.0) % MCV (80.0-98.0) fL MCH (27.0-33.0) pg MCHC (31.0-36.0) g/dl RDW (11.0-16.0) % Plt Count (160-400) X10*3/uL MPV (9.4-12.4) fL Immature Gran % (Auto) (0.0-0.4) % Neut % (Auto) (45-73) % Lymph % (Auto) (20-40) % Wharton % (Auto) (2-11) % Eos % (Auto) (0-4) % Baso % (Auto) (0-2) % Lymph # (Auto) (1.2-4.9) X10*3/uL [place]arton # (Auto) (0.1-1.2) X10*3/uL Eos # (Auto) (0.0-0.4) X10*3/uL Baso # (Auto) (0.0-0.2) X10*3/uL Abs Immat Gran (auto) (0.00-0.03) X10*3/uL Absolute Neuts (auto) (2.0-8.3) x10*3/uL Absolute Nucleated RBC (0.0-0.012) X10*3/uL Nucleated RBC % (auto) (0.0-0.2) /100WBC ESR (0-15) MM/HR PT (10.0-13.1) SEC INR (0.9-1.1) APTT (26.0-36.4) SEC Sodium 136 (135-145) mmol/L Potassium 4.9 (3.3-5.1) mmol/L Chloride 100 (96-108) mmol/L Carbon Dioxide 24 (22-29) mmol/L Anion Gap 17 (12-20) BUN 21 H (9-16) mg/dL Creatinine 1.01 (0.5-1.4) mg/dL Estim Creat Clear Calc 64.8 Estimated GFR > 60 Random Glucose 181 H (60-115) mg/dL Lactic Acid 1.8 (0.5-2.0) mmol/L Calcium 9.6 D (8.4-10.2) mg/dL Magnesium 1.7 (1.6-2.6) mg/dL Total Bilirubin 0.5 (0.0-1.0) mg/dL Direct Bilirubin 0.2 (0.0-0.5) mg/dL AST 17 (5-37) U/L ALT 16 (0-40) U/L Alkaline Phosphatase 120 H (39-117) U/L C-Reactive Protein 15.16 H (< or = 0.50) mg/dL Total Protein 7.1 (6.5-8.0) g/dL Albumin 4.1 (3.5-5.0) g/dL Urine Color Urine Appearance Urine pH (5.0-9.0) Ur Specific [place] (1.005-1.025) Urine Protein (Neg-Trace) mg/dL Urine Glucose (UA) (Negative) mg/dL Urine Ketones (Negative) mg/dL Urine Blood (Negative) Urine Nitrite (Negative) Ur Leukocyte Esterase (Negative) Urine RBC (0-2) /HPF Urine WBC (0-5) /HPF Ur Squamous Epith Cells (0-2) /HPF Urine Bacteria (None Seen) Hyaline Casts (0-2) /LPF COVID-19 (SANDRINE) Negative (Negative) COVID-19 Clin Com See Note 01/05/22 Range/Units 14:18 WBC (4.8-10.8) X10*3/uL RBC (4.60-5.80) X10*6/uL Hgb (14.0-18.0) g/dl Hct (42.0-52.0) % MCV (80.0-98.0) fL MCH (27.0-33.0) pg MCHC (31.0-36.0) g/dl RDW (11.0-16.0) % Plt Count (160-400) X10*3/uL MPV (9.4-12.4) fL Immature Gran % (Auto) (0.0-0.4) % Neut % (Auto) (45-73) % Lymph % (Auto) (20-40) % [place]arton % (Auto) (2-11) % Eos % (Auto) (0-4) % Baso % (Auto) (0-2) % Lymph # (Auto) (1.2-4.9) X10*3/uL [place]arton # (Auto) (0.1-1.2) X10*3/uL Eos # (Auto) (0.0-0.4) X10*3/uL Baso # (Auto) (0.0-0.2) X10*3/uL Abs Immat Gran (auto) (0.00-0.03) X10*3/uL Absolute Neuts (auto) (2.0-8.3) x10*3/uL Absolute Nucleated RBC (0.0-0.012) X10*3/uL Nucleated RBC % (auto) (0.0-0.2) /100WBC ESR (0-15) MM/HR PT (10.0-13.1) SEC INR (0.9-1.1) APTT (26.0-36.4) SEC Sodium (135-145) mmol/L Potassium (3.3-5.1) mmol/L Chloride (96-108) mmol/L Carbon Dioxide (22-29) mmol/L Anion Gap (12-20) BUN (9-16) mg/dL Creatinine (0.5-1.4) mg/dL Estim Creat Clear Calc Estimated GFR Random Glucose (60-115) mg/dL Lactic Acid (0.5-2.0) mmol/L Calcium (8.4-10.2) mg/dL Magnesium (1.6-2.6) mg/dL Total Bilirubin (0.0-1.0) mg/dL Direct Bilirubin (0.0-0.5) mg/dL AST (5-37) U/L ALT (0-40) U/L Alkaline Phosphatase (39-117) U/L C-Reactive Protein (< or = 0.50) mg/dL Total Protein (6.5-8.0) g/dL Albumin (3.5-5.0) g/dL Urine Color Yellow Urine Appearance Clear Urine pH 5.0 (5.0-9.0) Ur Specific [place] 1.020 (1.005-1.025) Urine Protein 30 (1+) H (Neg-Trace) mg/dL Urine Glucose (UA) 500 H (Negative) mg/dL Urine Ketones Negative (Negative) mg/dL Urine Blood Negative (Negative) Urine Nitrite Negative (Negative) Ur Leukocyte Esterase Negative (Negative) Urine RBC 0-2 (0-2) /HPF Urine WBC 0-5 (0-5) /HPF Ur Squamous Epith Cells 0-2 (0-2) /HPF Urine Bacteria None Seen (None Seen) Hyaline Casts 0-2 (0-2) /LPF COVID-19 (SANDRINE) (Negative) COVID-19 Clin Com <Hayes Huerta MD - Last Filed: 01/05/22 23:48> Imaging Data l foot xray: Attestation: I personally reviewed and interpreted this imaging study as follows: <Hayes Huerta MD - Last Filed: 01/05/22 23:48> Radiologist's impression: XR/XR foot LT min 3V IMPRESSION: 1.? Possible acute osteomyelitis of the distal phalanx of the fourth toe. Further evaluation can be obtained with MRI imaging if clinically indicated. 2.? Postsurgical changes of the first and third toes. ? <Hayes Huerta MD - Last Filed: 01/05/22 23:48> Discharge Plan Discharge Clinical Impression: Toe osteomyelitis, left, PAD (peripheral artery disease) <JEREMÍAS Caballero - Last Filed: 01/05/22 12:24> Patient Disposition: Admitted As Inpatient <JEREMÍAS Caballero - Last Filed: 01/05/22 12:24>
[2022-01-05 14:25] LABS: Prothrombin Time 11.8 SEC (10.0-13.1)
[2022-01-05 14:26] LABS: Appearance Urine Clear; Color Urine Yellow; Glucose Urine UA 500 mg/dL (Negative); Leukocyte Esterase Urine Negative (Negative); Nitrite Urine Negative (Negative); UMIC TRIGGER UACC YES; Urine Blood Negative (Negative); Urine Ketones Negative (Negative); Urine Protein 30 (1+) mg/dL (Neg-Trace)
[2022-01-05 14:28] LABS: Partial Thromboplastin Time 25.8 SEC (26.0-36.4)
[2022-01-05 14:29] LABS: Bacteria Urine None Seen (None Seen); Hyaline Casts Urine 0-2 /LPF (0-2); RBC Urine 0-2 /HPF (0-2); Squamous Epithelial Cell Urine 0-2 /HPF (0-2); WBC Urine 0-5 /HPF (0-5)
[2022-01-05 14:30] LABS: Lactic Acid 1.8 mmol/L (0.5-2.0)
[2022-01-05 14:32] LABS: IDNOW Serial# BCCEAD1C
[2022-01-05 14:33] LABS: COVID-19 Test Negative (Negative)
[2022-01-05 14:39] LABS: Alanine Aminotransferase 16 U/L (0-40); Albumin Level 4.1 g/dL (3.5-5.0); Alkaline Phosphatase 120 U/L (39-117); Anion Gap 17 (12-20); Aspartate Amino Transferase 17 U/L (5-37); Bilirubin Direct 0.2 mg/dL (0.0-0.5); Bilirubin Total 0.5 mg/dL (0.0-1.0); Blood Urea Nitrogen 21 mg/dL (9-16); C Reactive Protein 15.16 mg/dL (< or = 0.50); Calcium 9.6 mg/dL (8.4-10.2); Carbon Dioxide 24 mmol/L (22-29); Chloride 100 mmol/L (96-108); Creatinine Clr Calc Pharmacy 64.8; Estimated Glomerular Filt Rate > 60; Glucose Random 181 mg/dL (60-115); Magnesium 1.7 mg/dL (1.6-2.6); Potassium 4.9 mmol/L (3.3-5.1); Sodium 136 mmol/L (135-145); Total Protein 7.1 g/dL (6.5-8.0)
[2022-01-05 14:42] LABS: Basophils Percent Auto 0.2 % (0-2); Eosinophils Percent Auto 0.2 % (0-4); Hematocrit 33.6 % (42.0-52.0); Hemoglobin 11.2 g/dl (14.0-18.0); Imm Gran Abs Auto 0.06 X10*3/uL (0.00-0.03); Imm Gran Pct Auto 0.5 % (0.0-0.4); Lymphocytes Absolute Auto 0.9 X10*3/uL (1.2-4.9); Lymphocytes Percent Auto 6.6 % (20-40); Mean Corpuscular HGB Conc 33.3 g/dl (31.0-36.0); Mean Corpuscular Hemoglobin 30.9 pg (27.0-33.0); Mean Corpuscular Volume 92.6 fL (80.0-98.0); Mean Platelet Volume 9.7 fL (9.4-12.4); Monocytes Absolute Auto 1.4 X10*3/uL (0.1-1.2); Monocytes Percent Auto 10.5 % (2-11); Neutrophils Absolute Auto 10.5 x10*3/uL (2.0-8.3); Platelet Count 412 X10*3/uL (160-400); Red Blood Count 3.63 X10*6/uL (4.60-5.80); Red Cell Distribution Width 11.9 % (11.0-16.0); White Blood Count 12.8 X10*3/uL (4.8-10.8)
[2022-01-05 15:05] LABS: Erythrocyte Sedimentation Rate 86 MM/HR (0-15)
[2022-01-05 19:37] VITALS: BP 140/57; PULSE 80; RESP 16; TEMP 37.4; O2SAT 95
--- NOTE | 2022-01-05 19:38 | PC.NURSE ---
pt was called into triage by this pct ,2nd set of blood culture done and vs taken .
[2022-01-05 22:03] VITALS: BP 134/47; PULSE 78; RESP 16; TEMP 37.7; O2SAT 98
--- NOTE | 2022-01-05 22:21 | ED.EXTPRO ---
HPI - Extremity Problem General Chief complaint: General Medical Stated complaint: Infected toe-diabetic sent by Elizbaeth Time Seen by Provider: 01/05/22 21:32 Source: patient Mode of arrival: ambulatory Limitations: no limitations Related Data Home Medications Medication Instructions Recorded Confirmed lisinopril 20 mg tablet 20 mg PO DAILY 11/22/19 10/01/21 metformin 1,000 mg tablet 1,000 mg PO BID 12/05/19 10/01/21 Previous Rx's Medication Instructions Recorded amoxicillin 875 mg-potassium 875 mg PO BID #25 tabs 10/09/21 clavulanate 125 mg tablet aspirin 81 mg chewable tablet 81 mg PO DAILY #30 tabs 10/09/21 clopidogrel 75 mg tablet 75 mg PO DAILY #30 tabs 10/09/21 doxycycline hyclate 100 mg tablet 100 mg PO BID #25 tabs 10/09/21 insulin glargine 100 unit/mL (3 25 unit (0.25 mL) subcut QAM #15 mL 10/09/21 mL) subcutaneous pen cephalexin 500 mg capsule 500 mg PO BID #20 caps 12/02/21 clopidogrel 75 mg tablet (Plavix) 75 mg PO DAILY #90 tabs 12/02/21 Allergies Allergy/AdvReac Type Severity Reaction Status Date / Time No Known Allergies Allergy Verified 12/30/21 11:33 [No Known Allergies*] [facility], LAT[facility] Past Medical History Medical History Diabetes History of amputation of great toe History of amputation of great toe HTN (hypertension) Hx of osteomyelitis 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 PAD (peripheral artery disease) Surgical History History of angioplasty of peripheral vessel Family History Family History Other No family history of coronary artery disease Social History Social History Household Members: Significant Other Housing: House Are you a primary progressive care manager to a significant other at home: No Do you presently have visiting nurse or other home services: No Alcohol intake: current Alcohol intake frequency: holidays/special occasions only Patient Tobacco Use Status: Never used Tobacco Second Hand Smoke Exposure: No Advance Directives: Yes Advance Directives on File: Yes Advance Directives Date on File: 10/01/21 service: No Current occupational status: retired Physical Exam Vital Signs: Vital Signs: Last Vital Signs Temp 99.8 F 01/05/22 22:03 Pulse 78 01/05/22 22:03 Resp 16 01/05/22 22:03 BP 134/47 L 01/05/22 22:03 Pulse Ox 98 01/05/22 22:03 O2 Del Method 01/05/22 22:03 BMI result Body Mass Index 30.4 Extrem: Other: Medications Administered Discontinued Medications Generic Name Dose Route Start Last Admin Trade Name Freq PRN Reason Stop Dose Admin Piperacillin Sod/Tazobactam 50 mls @ 100 mls/hr 01/05/22 22:06 01/05/22 22:36 Sod 3.375 gm/ Sodium Chloride IV 01/05/22 22:35 100 mls/hr ONCE ONE Administration MDM - Extremity (Nontraumatic) Lab Data Result diagrams: 01/05/22 14:08 01/05/22 14:08 Labs: Lab Results 01/05/22 01/05/22 01/05/22 Range/Units 14:08 14:08 14:08 WBC 12.8 H (4.8-10.8) X10*3/uL RBC 3.63 L (4.60-5.80) X10*6/uL Hgb 11.2 L (14.0-18.0) g/dl Hct 33.6 L (42.0-52.0) % MCV 92.6 (80.0-98.0) fL MCH 30.9 (27.0-33.0) pg MCHC 33.3 (31.0-36.0) g/dl RDW 11.9 (11.0-16.0) % Plt Count 412 H (160-400) X10*3/uL MPV 9.7 (9.4-12.4) fL Immature Gran % (Auto) 0.5 H (0.0-0.4) % Neut % (Auto) 82.0 H (45-73) % Lymph % (Auto) 6.6 L (20-40) % [place] % (Auto) 10.5 (2-11) % Eos % (Auto) 0.2 (0-4) % Baso % (Auto) 0.2 (0-2) % Lymph # (Auto) 0.9 L (1.2-4.9) X10*3/uL [place] # (Auto) 1.4 H (0.1-1.2) X10*3/uL Eos # (Auto) 0.0 (0.0-0.4) X10*3/uL Baso # (Auto) 0.0 (0.0-0.2) X10*3/uL Abs Immat Gran (auto) 0.06 H (0.00-0.03) X10*3/uL Absolute Neuts (auto) 10.5 H (2.0-8.3) x10*3/uL Absolute Nucleated RBC 0.000 (0.0-0.012) X10*3/uL Nucleated RBC % (auto) 0.0 (0.0-0.2) /100WBC ESR 86 H (0-15) MM/HR PT 11.8 (10.0-13.1) SEC INR 1.0 (0.9-1.1) APTT 25.8 L (26.0-36.4) SEC Sodium (135-145) mmol/L Potassium (3.3-5.1) mmol/L Chloride (96-108) mmol/L Carbon Dioxide (22-29) mmol/L Anion Gap (12-20) BUN (9-16) mg/dL Creatinine (0.5-1.4) mg/dL Estim Creat Clear Calc Estimated GFR Random Glucose (60-115) mg/dL Lactic Acid (0.5-2.0) mmol/L Calcium (8.4-10.2) mg/dL Magnesium (1.6-2.6) mg/dL Total Bilirubin (0.0-1.0) mg/dL Direct Bilirubin (0.0-0.5) mg/dL AST (5-37) U/L ALT (0-40) U/L Alkaline Phosphatase (39-117) U/L C-Reactive Protein (< or = 0.50) mg/dL Total Protein (6.5-8.0) g/dL Albumin (3.5-5.0) g/dL Urine Color Urine Appearance Urine pH (5.0-9.0) Ur Specific [place] (1.005-1.025) Urine Protein (Neg-Trace) mg/dL Urine Glucose (UA) (Negative) mg/dL Urine Ketones (Negative) mg/dL Urine Blood (Negative) Urine Nitrite (Negative) Ur Leukocyte Esterase (Negative) Urine RBC (0-2) /HPF Urine WBC (0-5) /HPF Ur Squamous Epith Cells (0-2) /HPF Urine Bacteria (None Seen) Hyaline Casts (0-2) /LPF COVID-19 (SANDRINE) (Negative) COVID-19 Clin Com 01/05/22 01/05/22 01/05/22 Range/Units 14:08 14:08 14:08 WBC (4.8-10.8) X10*3/uL RBC (4.60-5.80) X10*6/uL Hgb (14.0-18.0) g/dl Hct (42.0-52.0) % MCV (80.0-98.0) fL MCH (27.0-33.0) pg MCHC (31.0-36.0) g/dl RDW (11.0-16.0) % Plt Count (160-400) X10*3/uL MPV (9.4-12.4) fL Immature Gran % (Auto) (0.0-0.4) % Neut % (Auto) (45-73) % Lymph % (Auto) (20-40) % [place] % (Auto) (2-11) % Eos % (Auto) (0-4) % Baso % (Auto) (0-2) % Lymph # (Auto) (1.2-4.9) X10*3/uL [place] # (Auto) (0.1-1.2) X10*3/uL Eos # (Auto) (0.0-0.4) X10*3/uL Baso # (Auto) (0.0-0.2) X10*3/uL Abs Immat Gran (auto) (0.00-0.03) X10*3/uL Absolute Neuts (auto) (2.0-8.3) x10*3/uL Absolute Nucleated RBC (0.0-0.012) X10*3/uL Nucleated RBC % (auto) (0.0-0.2) /100WBC ESR (0-15) MM/HR PT (10.0-13.1) SEC INR (0.9-1.1) APTT (26.0-36.4) SEC Sodium 136 (135-145) mmol/L Potassium 4.9 (3.3-5.1) mmol/L Chloride 100 (96-108) mmol/L Carbon Dioxide 24 (22-29) mmol/L Anion Gap 17 (12-20) BUN 21 H (9-16) mg/dL Creatinine 1.01 (0.5-1.4) mg/dL Estim Creat Clear Calc 64.8 Estimated GFR > 60 Random Glucose 181 H (60-115) mg/dL Lactic Acid 1.8 (0.5-2.0) mmol/L Calcium 9.6 D (8.4-10.2) mg/dL Magnesium 1.7 (1.6-2.6) mg/dL Total Bilirubin 0.5 (0.0-1.0) mg/dL Direct Bilirubin 0.2 (0.0-0.5) mg/dL AST 17 (5-37) U/L ALT 16 (0-40) U/L Alkaline Phosphatase 120 H (39-117) U/L C-Reactive Protein 15.16 H (< or = 0.50) mg/dL Total Protein 7.1 (6.5-8.0) g/dL Albumin 4.1 (3.5-5.0) g/dL Urine Color Urine Appearance Urine pH (5.0-9.0) Ur Specific [place] (1.005-1.025) Urine Protein (Neg-Trace) mg/dL Urine Glucose (UA) (Negative) mg/dL Urine Ketones (Negative) mg/dL Urine Blood (Negative) Urine Nitrite (Negative) Ur Leukocyte Esterase (Negative) Urine RBC (0-2) /HPF Urine WBC (0-5) /HPF Ur Squamous Epith Cells (0-2) /HPF Urine Bacteria (None Seen) Hyaline Casts (0-2) /LPF COVID-19 (SANDRINE) Negative (Negative) COVID-19 Clin Com See Note 01/05/22 Range/Units 14:18 WBC (4.8-10.8) X10*3/uL RBC (4.60-5.80) X10*6/uL Hgb (14.0-18.0) g/dl Hct (42.0-52.0) % MCV (80.0-98.0) fL MCH (27.0-33.0) pg MCHC (31.0-36.0) g/dl RDW (11.0-16.0) % Plt Count (160-400) X10*3/uL MPV (9.4-12.4) fL Immature Gran % (Auto) (0.0-0.4) % Neut % (Auto) (45-73) % Lymph % (Auto) (20-40) % [place] % (Auto) (2-11) % Eos % (Auto) (0-4) % Baso % (Auto) (0-2) % Lymph # (Auto) (1.2-4.9) X10*3/uL [place] # (Auto) (0.1-1.2) X10*3/uL Eos # (Auto) (0.0-0.4) X10*3/uL Baso # (Auto) (0.0-0.2) X10*3/uL Abs Immat Gran (auto) (0.00-0.03) X10*3/uL Absolute Neuts (auto) (2.0-8.3) x10*3/uL Absolute Nucleated RBC (0.0-0.012) X10*3/uL Nucleated RBC % (auto) (0.0-0.2) /100WBC ESR (0-15) MM/HR PT (10.0-13.1) SEC INR (0.9-1.1) APTT (26.0-36.4) SEC Sodium (135-145) mmol/L Potassium (3.3-5.1) mmol/L Chloride (96-108) mmol/L Carbon Dioxide (22-29) mmol/L Anion Gap (12-20) BUN (9-16) mg/dL Creatinine (0.5-1.4) mg/dL Estim Creat Clear Calc Estimated GFR Random Glucose (60-115) mg/dL Lactic Acid (0.5-2.0) mmol/L Calcium (8.4-10.2) mg/dL Magnesium (1.6-2.6) mg/dL Total Bilirubin (0.0-1.0) mg/dL Direct Bilirubin (0.0-0.5) mg/dL AST (5-37) U/L ALT (0-40) U/L Alkaline Phosphatase (39-117) U/L C-Reactive Protein (< or = 0.50) mg/dL Total Protein (6.5-8.0) g/dL Albumin (3.5-5.0) g/dL Urine Color Yellow Urine Appearance Clear Urine pH 5.0 (5.0-9.0) Ur Specific [place] 1.020 (1.005-1.025) Urine Protein 30 (1+) H (Neg-Trace) mg/dL Urine Glucose (UA) 500 H (Negative) mg/dL Urine Ketones Negative (Negative) mg/dL Urine Blood Negative (Negative) Urine Nitrite Negative (Negative) Ur Leukocyte Esterase Negative (Negative) Urine RBC 0-2 (0-2) /HPF Urine WBC 0-5 (0-5) /HPF Ur Squamous Epith Cells 0-2 (0-2) /HPF Urine Bacteria None Seen (None Seen) Hyaline Casts 0-2 (0-2) /LPF COVID-19 (SANDRINE) (Negative) COVID-19 Clin Com Discharge Plan Discharge Prescriptions: No Action clopidogrel 75 mg Tablet 75 mg PO DAILY Qty: 30 0RF aspirin 81 mg Tablet,Chewable 81 mg PO DAILY Qty: 30 0RF doxycycline hyclate 100 mg Tablet 100 mg PO BID Qty: 25 0RF amoxicillin-pot clavulanate 875-125 mg Tablet 875 mg PO BID Qty: 25 0RF insulin glargine 100 unit/mL (3 mL) insulin pen 25 unit subcut QAM Qty: 15 0RF lisinopril 20 mg tablet 20 mg PO DAILY metformin 1,000 mg tablet 1,000 mg PO BID cephalexin 500 mg capsule 500 mg PO BID Qty: 20 0RF clopidogrel [Plavix] 75 mg tablet 75 mg PO DAILY Qty: 90 1RF
[2022-01-05] MEDS: Piperacillin Sodium/Tazobactam 3.375 GM in 0.9 % Sodium Chloride 50 ML IV (22:36)
--- NOTE | 2022-01-05 23:16 | PM.IMHP ---
History of Present Illness Date of Service: 01/05/22 Chief Complaint: Toe infection This is a 81-year-old male with pertinent history of insulin-dependent diabetes mellitus, peripheral artery disease status post toe amputations, essential hypertension who presents to the emergency department for evaluation of left 4rd toe redness/swelling/drainage. Patient states it started about 4 days prior to presentation, persistent and progressive. The drainage is foul smelling. There is also redness along the left foot and huitron. It is associated with pain and warmth. Patient denies fever, chills, nausea, vomiting, chest pain, shortness of breath, palpitations, abdominal pain, changes in urinary or bowel habits. Of note, he was admitted recently and discharged on 10/09 with left 3rd toe osteomyelitis for which he underwent amputation with Dr. Johnson. In the emergency department, imaging concerning for left 4th toe osteomyelitis. Review of Systems Constitutional: Constitutional: Reports no additional constitutional complaints Cardiovascular: Cardiovascular: Reports no additional cardiovascular complaints Respiratory: Respiratory: Reports no additional respiratory complaints Genitourinary: Genitourinary: Reports no additional male genitourinary complaints Musculoskeletal: Musculoskeletal: Reports joint swelling [facility] Medical History (Updated 01/05/22 @ 23:23 by [place] Villarreal MD) Diabetes History of amputation of great toe History of amputation of great toe HTN (hypertension) Hx of osteomyelitis 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 PAD (peripheral artery disease) Family History Other No family history of coronary artery disease Surgical History History of angioplasty of peripheral vessel Social History Household Members: Significant Other Housing: House Are you a primary career developer to a significant other at home: No Do you presently have visiting nurse or other home services: No Alcohol intake: current Alcohol intake frequency: holidays/special occasions only Patient Tobacco Use Status: Never used Tobacco Second Hand Smoke Exposure: No Advance Directives: Yes Advance Directives on File: Yes Advance Directives Date on File: 10/01/21 service: No Current occupational status: retired Meds Allergies Allergy/AdvReac Type Severity Reaction Status Date / Time No Known Allergies Allergy Verified 12/30/21 11:33 [No Known Allergies*] Active Medications: Current Medications Acetaminophen (Acetaminophen 325 Mg Tablet) 650 mg PO Q6H PRN PRN Reason: Pain, Mild (Pain Scale 1-3) Dextrose (Dextrose 50 % 25 Gm/50 Ml Syringe) 25 gm IVPUSH Q15M PRN; Protocol PRN Reason: per Hypoglycemia Standing Ord. Glucose (Glucose Gel 15 Gm Gel..Gram.) 15 gm PO Q15M PRN; Protocol PRN Reason: per Hypoglycemia Standing Ord. Vancomycin HCl (Vancomycin/Ns) 2,000 mg in 520 mls @ 260 mls/hr IV ONCE ONE Stop: 01/06/22 00:14 Last Admin: 01/05/22 23:03 Dose: 260 mls/hr Piperacillin Sod/Tazobactam (Sod 4.5 gm/ Sodium Chloride) 100 mls @ 200 mls/hr IV Q6H [facility] Insulin Human Lispro (Insulin Lispro 100 Unit/Ml 3 Ml Vial) 0 unit SUBCUT QIDACHS [facility]; Protocol Melatonin (Melatonin 3 Mg Tablet) 6 mg PO BEDTIME PRN PRN Reason: Insomnia Ondansetron HCl (Ondansetron Hcl 4 Mg/2 Ml Vial) 4 mg IVPUSH Q8H PRN PRN Reason: Nausea and Vomiting Pharmacy Consult (Consult Rx Vancomycin Dosing) 1 each MISCELLANE DAILY PRN PRN Reason: Consult order Pharmacy Consult (Consult Rx Vancomycin Dosing) 1 each MISCELLANE DAILY PRN PRN Reason: Consult order Pharmacy Consult (Consult Rx Perform Med Rec) 1 each MISCELLANE ONCE PRN PRN Reason: Consult order Sodium Chloride (0.9 % Sodium Chloride Flush 3 Ml Syringe) [facility] Medications Medication Instructions Recorded Confirmed Last Taken Type lisinopril 20 mg tablet 20 mg PO DAILY 11/22/19 10/01/21 1 Day Ago History ~09/30/21 metformin 1,000 mg tablet 1,000 mg PO BID 12/05/19 10/01/21 1 Day Ago History ~09/30/21 Physical Exam Vital Signs and Narrative: Vital Signs: Last Vital Signs Temp 99.8 F 01/05/22 22:03 Pulse 78 01/05/22 22:03 Resp 16 01/05/22 22:03 BP 134/47 L 01/05/22 22:03 Pulse Ox 98 01/05/22 22:03 O2 Del Method 01/05/22 22:03 BMI result Body Mass Index 30.4 Middle-aged male lying in bed in no distress Neck supple, no JVD Regular rate and rhythm, S1-S2 heard Regular breath sounds bilaterally, no wheezing or crackles appreciated Abdomen soft nontender, no guarding, no rigidity Patient is awake, alert and oriented to place, time and person ; no focal motor deficit Extremity: Imaging of the foot attached as below Psych: Normal mood Extrem: Other: Results Labs CBC and Chem 7: 01/05/22 14:08 01/05/22 14:08 Labs: Laboratory Results - last 24 hr 01/05/22 01/05/22 01/05/22 14:08 14:08 14:08 MCV 92.6 MCH 30.9 MCHC 33.3 RDW 11.9 Plt Count 412 H MPV 9.7 Immature Gran % (Auto) 0.5 H Neut % (Auto) 82.0 H Lymph % (Auto) 6.6 L [place] % (Auto) 10.5 Eos % (Auto) 0.2 Baso % (Auto) 0.2 Lymph # (Auto) 0.9 L [place]w # (Auto) 1.4 H Eos # (Auto) 0.0 Baso # (Auto) 0.0 Abs Immat Gran (auto) 0.06 H Absolute Neuts (auto) 10.5 H Absolute Nucleated RBC 0.000 Nucleated RBC % (auto) 0.0 ESR 86 H PT 11.8 INR 1.0 APTT 25.8 L Anion Gap Estim Creat Clear Calc Estimated GFR Random Glucose Lactic Acid Calcium Magnesium Total Bilirubin Direct Bilirubin AST ALT Alkaline Phosphatase C-Reactive Protein Total Protein Albumin Urine Color Urine Appearance Urine pH Ur Specific [place] Urine Protein Urine Glucose (UA) Urine Ketones Urine Blood Urine Nitrite Ur Leukocyte Esterase Urine RBC Urine WBC Ur Squamous Epith Cells Urine Bacteria Hyaline Casts COVID-19 (SANDRINE) COVID-19 Clin Com 01/05/22 01/05/22 01/05/22 14:08 14:08 14:08 MCV MCH MCHC RDW Plt Count MPV Immature Gran % (Auto) Neut % (Auto) Lymph % (Auto) [place] % (Auto) Eos % (Auto) Baso % (Auto) Lymph # (Auto) [place] # (Auto) Eos # (Auto) Baso # (Auto) Abs Immat Gran (auto) Absolute Neuts (auto) Absolute Nucleated RBC Nucleated RBC % (auto) ESR PT INR APTT Anion Gap 17 Estim Creat Clear Calc 64.8 Estimated GFR > 60 Random Glucose 181 H Lactic Acid 1.8 Calcium 9.6 D Magnesium 1.7 Total Bilirubin 0.5 Direct Bilirubin 0.2 AST 17 ALT 16 Alkaline Phosphatase 120 H C-Reactive Protein 15.16 H Total Protein 7.1 Albumin 4.1 Urine Color Urine Appearance Urine pH Ur Specific [place] Urine Protein Urine Glucose (UA) Urine Ketones Urine Blood Urine Nitrite Ur Leukocyte Esterase Urine RBC Urine WBC Ur Squamous Epith Cells Urine Bacteria Hyaline Casts COVID-19 (SANDRINE) Negative COVID-19 Clin Com See Note 01/05/22 14:18 MCV MCH MCHC RDW Plt Count MPV Immature Gran % (Auto) Neut % (Auto) Lymph % (Auto) [place] % (Auto) Eos % (Auto) Baso % (Auto) Lymph # (Auto) [place] # (Auto) Eos # (Auto) Baso # (Auto) Abs Immat Gran (auto) Absolute Neuts (auto) Absolute Nucleated RBC Nucleated RBC % (auto) ESR PT INR APTT Anion Gap Estim Creat Clear Calc Estimated GFR Random Glucose Lactic Acid Calcium Magnesium Total Bilirubin Direct Bilirubin AST ALT Alkaline Phosphatase C-Reactive Protein Total Protein Albumin Urine Color Yellow Urine Appearance Clear Urine pH 5.0 Ur Specific [place] 1.020 Urine Protein 30 (1+) H Urine Glucose (UA) 500 H Urine Ketones Negative Urine Blood Negative Urine Nitrite Negative Ur Leukocyte Esterase Negative Urine RBC 0-2 Urine WBC 0-5 Ur Squamous Epith Cells 0-2 Urine Bacteria None Seen Hyaline Casts 0-2 COVID-19 (SANDIRNE) COVID-19 Clin Com Imaging Radiologist's Impressions: Impressions Foot X-Ray 01/05/22 12:40 IMPRESSION: 1. Possible acute osteomyelitis of the distal phalanx of the fourth toe. Further evaluation can be obtained with MRI imaging if clinically indicated. 2. Postsurgical changes of the first and third toes. Assessment and Plan (1) Toe osteomyelitis, left: Status: Acute (2) IDDM (insulin dependent diabetes mellitus): Status: Acute (3) HTN (hypertension): Status: Acute (4) PAD (peripheral artery disease): Status: Acute Plan This is a 81-year-old male with pertinent history of insulin-dependent diabetes mellitus, peripheral artery disease status post toe amputations, essential hypertension who presents to the emergency department for evaluation of left 4rd toe redness/swelling/drainage. #. Left fourth toe osteomyelitis with cellulitis of left foot -patient received vancomycin and Zosyn in the ER, continue broad-spectrum empiric IV antibiotics. Consulted vascular surgery and Infectious Disease, appreciate assistance. #. Insulin-dependent diabetes mellitus with hyperglycemia -continue glargine at reduced dosage while in the hospital. Initiate Accu-Cheks and sliding scale insulin. Hold home metformin. #. Peripheral arterial disease status post toe amputations -hold Plavix until surgical evaluation. Not on statin #. Essential hypertension -hold lisinopril until surgical evaluation to prevent postop hypotension Med rec pending DVT prophylaxis: Holding Lovenox until vascular surgery evaluation Diabetic diet Full code Admit as inpatient and will require two night minimum hospital stay for IV antibiotics. Specialist consult pending. Quality Stroke Does the patient have a stroke diagnosis?: No VTE Prior VTE?: No VTE Risk Level:: Medical - moderate - high VTE Device Contraindication: Treatment Not Indicated VTE Drug Contraindication: Treatment Not Indicated
[2022-01-06] MEDS: Piperacillin Sodium/Tazobactam 4.5 GM in 0.9 % Sodium Chloride 100 ML IV ×4 (04:42→22:28)
--- NOTE | 2022-01-06 04:44 | PC.NURSE ---
late entry- this rn assisted pt in ambulating to the bathroom. pt mildly unstable due to wound on L foot. pt reports no pain or discomfort while walking at this time. this rn assisted pt back into bed at this time. warm blanket provided.
--- NOTE | 2022-01-06 04:45 | PC.NURSE ---
pt medicated according to mar
[2022-01-06 05:51] VITALS: TEMP 37.1
[2022-01-06 06:00] VITALS: BP 119/58; PULSE 80; RESP 16; TEMP 36.8; O2SAT 96
[2022-01-06 06:35] LABS: Basophils Absolute Auto 0.1 X10*3/uL (0.0-0.2); Basophils Percent Auto 0.4 % (0-2); Eosinophils Absolute Auto 0.1 X10*3/uL (0.0-0.4); Eosinophils Percent Auto 0.8 % (0-4); Hemoglobin 10.8 g/dl (14.0-18.0); Imm Gran Abs Auto 0.05 X10*3/uL (0.00-0.03); Imm Gran Pct Auto 0.4 % (0.0-0.4); Lymphocytes Absolute Auto 1.2 X10*3/uL (1.2-4.9); Lymphocytes Percent Auto 10.2 % (20-40); MANUAL DIFF FLAG SCAN; Mean Corpuscular HGB Conc 32.7 g/dl (31.0-36.0); Mean Corpuscular Hemoglobin 30.9 pg (27.0-33.0); Mean Corpuscular Volume 94.3 fL (80.0-98.0); Mean Platelet Volume 9.6 fL (9.4-12.4); Monocytes Absolute Auto 1.7 X10*3/uL (0.1-1.2); Monocytes Percent Auto 14.5 % (2-11); Neutrophils Absolute Auto 8.4 x10*3/uL (2.0-8.3); Neutrophils Percent Auto 73.7 % (45-73); Platelet Count 384 X10*3/uL (160-400); Red Cell Distribution Width 11.9 % (11.0-16.0); SCAN SMEAR FLAG 1; White Blood Count 11.4 X10*3/uL (4.8-10.8)
[2022-01-06 07:01] LABS: SLIDE REVIEW VERIFIED
[2022-01-06 07:02] LABS: Anion Gap 14 (12-20); Blood Urea Nitrogen 24 mg/dL (9-16); Calcium 9.1 mg/dL (8.4-10.2); Carbon Dioxide 25 mmol/L (22-29); Chloride 102 mmol/L (96-108); Creatinine Clr Calc Pharmacy 62.3; Estimated Glomerular Filt Rate > 60; Glucose Random 151 mg/dL (60-115); Potassium 4.5 mmol/L (3.3-5.1); Sodium 136 mmol/L (135-145)
[2022-01-06 07:28] LABS: Glucose, Whole Blood 151 mg/dL (60-115)
[2022-01-06] MEDS: Insulin Lispro 100 UNIT/ML 3 ML VIAL SUBCUT ×4 (07:33→21:03)
[2022-01-06] MEDS: 0.9 % Sodium Chloride Flush 3 ML SYRINGE IVFLUSH ×2 (07:34→15:45)
--- NOTE | 2022-01-06 07:35 | PC.NURSE ---
Pt alert/oriented. Reports no pain at this time. Eating breakfast. SSI given per protocol. Skin pwd.
--- NOTE | 2022-01-06 08:11 | PHA.PROG ---
Admission Date/Time: January 05, 2022 22:55 Indication: SKIN AND SKIN STRUCTURE Weight in k.718 kg Adjusted body weight in K.3 [place] body weight in K.4 Obesity Dosing Indication % IBW:obese Serum Creatinine - Last 168 Hours 01/05/22 01/06/22 14:08 06:14 Creatinine 1.01 1.05 Estimated CrCl and GFR - Last 168 Hours 01/05/22 01/06/22 14:08 06:14 Estim Creat Clear Calc 64.8 62.3 Estimated GFR > 60 > 60 Vancomycin Loading Dose: 2000 MG x1 Current Vancomycin Dosing Regimen: 1000 MG q24h Vancomycin Monitoring using AUC goal of 400 - 600 range with trough as surrogate marker: 426 mg/L/hr Date and Time for next Vancomycin Level to be drawn: 01/08 @2099 Pharmacist Comments on Vancomycin Plan: Obese model used. Patient received proper load. level to be drawn after 3 doses on 01/08 @2099. renal function monitored daily. Vancomycin dosing will take advantage of [employer] as a clinical decision support tool that uses Bayesian modeling to calculate individual patient's pharmacokinetic parameters and forecast the patient's drug concentration time course with the target goal AUC 24 range of 400 - 600 mg/L/hr.
[2022-01-06 08:57] LABS: Glucose, Whole Blood 236 mg/dL (60-115)
[2022-01-06] MEDS: Insulin Glargine,Hum.rec.anlog 100 UNIT/ML 10 ML VIAL 20 UNIT SUBCUT (09:27)
--- NOTE | 2022-01-06 10:34 | PC.NURSE ---
Dsg changed to left foot, area macerated, swollen/red, warm to touch. New DCD applied. Denies pain.
[2022-01-06 12:36] LABS: Glucose, Whole Blood 200 mg/dL (60-115)
[2022-01-06 13:18] VITALS: BP 135/64; PULSE 77; RESP 16; TEMP 36.2; O2SAT 100
--- NOTE | 2022-01-06 15:21 | P.CNID_ITS ---
History of Present Illness Data of Consult Service Date: 01/06/22 Requesting physician: Radha Jackman Primary Care Provider: Keaton Santana MD [facility] Reason for consult: left fourth toe osteomyelitis He presents with redness left foot and swelling left fourth toe. He has no fever or chills. I saw him in September and he had left 3rd toe OM and amputation done and left hospital on 10/09 with Augmentin and Doxycycline. Review of Systems Review of Systems: Yes all other systems are reviewed and are negative [facility] Past Medical History Medical History Diabetes History of amputation of great toe History of amputation of great toe HTN (hypertension) Hx of osteomyelitis 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 PAD (peripheral artery disease) Family History Family History Other No family history of coronary artery disease Family history: reviewed and not pertinent Surgical History Surgical History History of angioplasty of peripheral vessel Social History Social History Household Members: Significant Other Housing: House Are you a primary primary care sales representative to a significant other at home: No Do you presently have visiting nurse or other home services: No Alcohol intake: current Alcohol intake frequency: does not drink Patient Tobacco Use Status: Never used Tobacco Smoked in Last 30 Days: No Second Hand Smoke Exposure: No Use of substances other than those prescribed or required for medical reasons: No Advance Directives: Yes Advance Directives on File: Yes Advance Directives Date on File: 10/01/21 service: No Current occupational status: retired [email or web address] Allergies Allergy/AdvReac Type Severity Reaction Status Date / Time No Known Allergies Allergy Verified 12/30/21 11:33 [No Known Allergies*] Active Medications: Current Medications Acetaminophen (Acetaminophen 325 Mg Tablet) 650 mg PO Q6H PRN PRN Reason: Pain, Mild (Pain Scale 1-3) Aspirin (Aspirin 81 Mg Tab.Chew) 81 mg PO DAILY JOSE E Dextrose (Dextrose 50 % 25 Gm/50 Ml Syringe) 25 gm IVPUSH Q15M PRN; Protocol PRN Reason: per Hypoglycemia Standing Ord. Glucose (Glucose Gel 15 Gm Gel..Gram.) 15 gm PO Q15M PRN; Protocol PRN Reason: per Hypoglycemia Standing Ord. Piperacillin Sod/Tazobactam (Sod 4.5 gm/ Sodium Chloride) 100 mls @ 200 mls/hr IV Q6H [facility] Last Infusion: 01/06/22 10:33 Dose: Infused Vancomycin HCl 1,000 mg/ (Sodium Chloride) 270 mls @ 270 mls/hr IV Q24H [facility] Insulin Glargine (Insulin Glargine,Hum.Rec.Anlog 100 Unit/Ml 10 Ml Vial) 20 unit SUBCUT DAILY [facility] Last Admin: 01/06/22 09:27 Dose: 20 unit Insulin Human Lispro (Insulin Lispro 100 Unit/Ml 3 Ml Vial) 0 unit SUBCUT QIDACHS [facility]; Protocol Last Admin: 01/06/22 13:14 Dose: 2 unit Melatonin (Melatonin 3 Mg Tablet) 6 mg PO BEDTIME PRN PRN Reason: Insomnia Ondansetron HCl (Ondansetron Hcl 4 Mg/2 Ml Vial) 4 mg IVPUSH Q8H PRN PRN Reason: Nausea and Vomiting Pharmacy Consult (Consult Rx Vancomycin Dosing) 1 each MISCELLANE DAILY PRN PRN Reason: Consult order Pharmacy Consult (Consult Rx Vancomycin Dosing) 1 each MISCELLANE DAILY PRN PRN Reason: Consult order Pharmacy Consult (Consult Rx Perform Med Rec) 1 each MISCELLANE ONCE PRN PRN Reason: Consult order Sodium Chloride (0.9 % Sodium Chloride Flush 3 Ml Syringe) [facility] Last Admin: 01/06/22 07:34 Dose: 3 ml Home Medications Medication Instructions Recorded Confirmed Last Taken Type lisinopril 20 mg tablet 20 mg PO DAILY 11/22/19 01/06/22 1 Day Ago History ~09/30/21 metformin 1,000 mg tablet 1,000 mg PO BID 12/05/19 01/06/22 1 Day Ago History ~09/30/21 Physical Exam Vital Signs: Vital Signs: Last Vital Signs Temp 97.1 F 01/06/22 13:18 Pulse 77 01/06/22 13:18 Resp 16 01/06/22 13:18 BP 135/64 01/06/22 13:18 Pulse Ox 100 01/06/22 13:18 O2 Del Method 01/06/22 13:18 BMI result Body Mass Index 30.4 Const: General: cooperative HEENT: Head: Yes normal to inspection Face and sinus: Yes normal facial exam Mouth: Normal oral and palatal mucosa present Teeth and gingiva: dentition normal Eyes: General: appearance normal, both eyes and all related structures Pupils: Equal, round and reactive pupils present Resp: Effort & Inspection: normal respiratory effort Cardio: Rate: regular rate Rhythm: regular rhythm GI: Palpation (GI): Soft to palpation and nontender : General: Yes no CVA tenderness Back/Spine/Pelvis: Back: no CVA tenderness Skin: General skin exam: no rashes or lesions noted Neuro: General: moves all extremities Cranial nerves: Yes Equal, round and reactive pupils present Extrem: Other: hot red left foot below ankle and some redness and streaking up leg Psych: Appearance: grossly normal Results Labs CBC & Chem 7: 01/06/22 06:14 01/06/22 06:14 Labs: Short CBC 01/06/22 Range/Units 06:14 WBC 11.4 H (4.8-10.8) X10*3/uL Hgb 10.8 L (14.0-18.0) g/dl Hct 33.0 L (42.0-52.0) % Plt Count 384 (160-400) X10*3/uL BMP 01/06/22 06:14 Sodium 136 Potassium 4.5 Chloride 102 Carbon Dioxide 25 BUN 24 H Creatinine 1.05 Calcium 9.1 Assessment and Plan (1) Toe osteomyelitis, left: Status: Acute His left foot including toes is red. He has possible staph or strep. He has low likelihood of suppression with halfway IV antibiotics especially since adjacent toe recently infected. Plan Would continue broadspectrum IV antibiotics until definitive surgical therapy. TMA with Dr Johnson would be best (did reach out to him).
--- NOTE | 2022-01-06 15:26 | MHC.CM.PN ---
IMM DELIVERED PT LIVES WITH S/O JESSIKA IN A SINGLE FAMILY HOME. USES A CANE AND IS ACTIVE WITH [employer] . REQUESTS RETURN REFERRAL. +COVID VAX X3 +HCP PCP DR. OLSEN. DP: HOME AND RESUME [facility] SERVICES WITH [employer]. S/O WILL TRANSPORT
[2022-01-06 15:51] VITALS: BP 140/52; PULSE 72; RESP 16; TEMP 36.7; O2SAT 97
--- NOTE | 2022-01-06 15:53 | PC.NURSE ---
this pct assumed care of pt at 1500 ,vs taken ,call gay within reach ,pt at bedside .
[2022-01-06 17:51] LABS: Glucose, Whole Blood 228 mg/dL (60-115)
--- NOTE | 2022-01-06 18:19 | P.PNIM_ITS ---
Subjective Subjective Date of Service: 01/08/22 Interval History: Toe infection Review of Systems mild sloughing in the 4th toe left side, mucoid discharge denies any chest pain or shortness of breath or abdominal pain or chills Physical Exam Vital Signs: Vital Signs: Last Vital Signs Temp 98.1 F 01/06/22 15:51 Pulse 72 01/06/22 15:51 Resp 16 01/06/22 15:51 BP 140/52 H 01/06/22 15:51 Pulse Ox 97 01/06/22 15:51 O2 Del Method 01/06/22 15:51 BMI result Body Mass Index 30.4 awake alert x3, not in distress Neck supple, no JVD Regular rate and rhythm, S1-S2 heard Regular breath sounds bilaterally, no wheezing or crackles appreciated Abdomen soft nontender, no guarding, no rigidity Patient is awake, alert and oriented to place, time and person ; no focal motor deficit Extremity:? Imaging of the foot attached as below please see images from H&P. Objective Data Active Medications Acetaminophen (Acetaminophen 325 Mg Tablet) 650 mg PO Q6H PRN PRN Reason: Pain, Mild (Pain Scale 1-3) Aspirin (Aspirin 81 Mg Tab.Chew) 81 mg PO DAILY REPLACED BY [facility] Dextrose (Dextrose 50 % 25 Gm/50 Ml Syringe) 25 gm IVPUSH Q15M PRN; Protocol PRN Reason: per Hypoglycemia Standing Ord. Glucose (Glucose Gel 15 Gm Gel..Gram.) 15 gm PO Q15M PRN; Protocol PRN Reason: per Hypoglycemia Standing Ord. Piperacillin Sod/Tazobactam (Sod 4.5 gm/ Sodium Chloride) 100 mls @ 200 mls/hr IV Q6H REPLACED BY [facility] Last Infusion: 01/06/22 17:25 Dose: 0 mls/hr Documented By: CRUZITO Vancomycin HCl 1,000 mg/ (Sodium Chloride) 270 mls @ 270 mls/hr IV Q24H REPLACED BY [facility] Insulin Glargine (Insulin Glargine,Hum.Rec.Anlog 100 Unit/Ml 10 Ml Vial) 20 unit SUBCUT DAILY REPLACED BY [facility] Last Admin: 01/06/22 09:27 Dose: 20 unit Documented By: CRUZITO Insulin Human Lispro (Insulin Lispro 100 Unit/Ml 3 Ml Vial) 0 unit SUBCUT QID [facility]; Protocol Last Admin: 01/06/22 13:14 Dose: 2 unit Documented By: CRUZITO Melatonin (Melatonin 3 Mg Tablet) 6 mg PO BEDTIME PRN PRN Reason: Insomnia Ondansetron HCl (Ondansetron Hcl 4 Mg/2 Ml Vial) 4 mg IVPUSH Q8H PRN PRN Reason: Nausea and Vomiting Pharmacy Consult (Consult Rx Vancomycin Dosing) 1 each MISCELLANE DAILY PRN PRN Reason: Consult order Pharmacy Consult (Consult Rx Vancomycin Dosing) 1 each MISCELLANE DAILY PRN PRN Reason: Consult order Pharmacy Consult (Consult Rx Perform Med Rec) 1 each MISCELLANE ONCE PRN PRN Reason: Consult order Sodium Chloride (0.9 % Sodium Chloride Flush 3 Ml Syringe) 3 ml IVFLUSH QSHIFT REPLACED BY [facility] Last Admin: 01/06/22 15:45 Dose: 3 ml Documented By: CRUZITO Labs CBC & Chem 7: 01/06/22 06:14 01/08/22 05:56 Labs: Laboratory Results - last 24 hr 01/06/22 01/06/22 01/06/22 06:14 06:14 07:24 MCV 94.3 MCH 30.9 MCHC 32.7 RDW 11.9 Plt Count 384 MPV 9.6 Immature Gran % (Auto) 0.4 Neut % (Auto) 73.7 H Lymph % (Auto) 10.2 L [place] % (Auto) 14.5 H Eos % (Auto) 0.8 Baso % (Auto) 0.4 Lymph # (Auto) 1.2 [place] # (Auto) 1.7 H Eos # (Auto) 0.1 Baso # (Auto) 0.1 Abs Immat Gran (auto) 0.05 H Absolute Neuts (auto) 8.4 H Absolute Nucleated RBC 0.000 Nucleated RBC % (auto) 0.0 Smear Tech's Comments VERIFIED Anion Gap 14 Estim Creat Clear Calc 62.3 Estimated GFR > 60 POC Glucose 151 H Random Glucose 151 H Calcium 9.1 01/06/22 01/06/22 01/06/22 08:53 12:33 17:44 MCV MCH MCHC RDW Plt Count MPV Immature Gran % (Auto) Neut % (Auto) Lymph % (Auto) [place] % (Auto) Eos % (Auto) Baso % (Auto) Lymph # (Auto) [place] # (Auto) Eos # (Auto) Baso # (Auto) Abs Immat Gran (auto) Absolute Neuts (auto) Absolute Nucleated RBC Nucleated RBC % (auto) Smear Tech's Comments Anion Gap Estim Creat Clear Calc Estimated GFR POC Glucose 236 H 200 H 228 H Random Glucose Calcium Microbiology Microbiology Results: Microbiology 01/05/22 14:08 Blood Culture - Preliminary Blood - Venous No growth after 24 hours. Assessment and Plan (1) Toe osteomyelitis, left: Status: Acute (2) HTN (hypertension): Status: Acute (3) IDDM (insulin dependent diabetes mellitus): Status: Acute Plan 81-year-old male with pertinent history of insulin-dependent diabetes mellitus, peripheral artery disease status post toe amputations, essential hypertension who presents to the emergency department for evaluation of left 4rd toe redness/swelling/drainage. #. acute Left fourth toe osteomyelitis with cellulitis of left foot -patient received vancomycin and Zosyn in the ER, continue broad-spectrum empiric IV antibiotics.? Consulted vascular surgery and Infectious Disease, appreciate assistance. #.? Insulin-dependent diabetes mellitus with hyperglycemia -continue glargine at reduced dosage while in the hospital.? Initiate Accu-Cheks and sliding scale insulin.? Hold home metformin. #.? Peripheral arterial disease status post toe amputations -hold Plavix until surgical evaluation.? Not on statin #.? Essential hypertension -hold lisinopril until surgical evaluation to prevent postop hypotension Med rec pending DVT prophylaxis: Holding Lovenox until vascular surgery evaluation Diabetic diet Full code Admit as inpatient and will require two night minimum hospital stay for IV antibiotics.? Vascular evaluation pending. Quality Stroke Does the patient have a stroke diagnosis?: No VTE Prior VTE?: No VTE Risk Level:: Medical - moderate - high VTE Device Contraindication: Treatment Not Indicated VTE Drug Contraindication: Treatment Not Indicated
--- NOTE | 2022-01-06 18:24 | PC.NURSE ---
Patient arrives to unit extremely anxious ,stating I do not want to do this any longer , I am done with all of this . Patient became tearful and appeared to be short of breath Vital signs taken, SAT 100 % @ room air RN aware .
--- NOTE | 2022-01-06 18:25 | PC.NURSE ---
this rn assumed care of this pt at 1800, pt transported to overflow unit by transported and his at the bedside. pt attempting to exit his bed states I want to go home . next to him redirecting him.
[2022-01-06 19:07] VITALS: BP 174/80; PULSE 73; RESP 20; O2SAT 99
[2022-01-06] MEDS: hydrOXYzine HCL 25 MG TABLET PO (20:06)
[2022-01-06] MEDS: traZODone HCL 50 MG TABLET PO (20:06)
[2022-01-06] MEDS: Melatonin 3 MG TABLET 6 MG PO (20:06)
[2022-01-06 21:17] LABS: Glucose, Whole Blood 167 mg/dL (60-115)
[2022-01-06] MEDS: vancomycin HCL 1,000 MG in 0.9 % Sodium Chloride 250 ML 270 MG IV (23:07)
[2022-01-07] MEDS: 0.9 % Sodium Chloride Flush 3 ML SYRINGE IVFLUSH ×4 (00:21→21:19)
[2022-01-07] MEDS: Piperacillin Sodium/Tazobactam 4.5 GM in 0.9 % Sodium Chloride 100 ML IV ×4 (03:57→21:18)
--- NOTE | 2022-01-07 06:16 | PC.NURSE ---
pt was awake most of the night exit seeking , he got dress and wanted to leave , he states he don't wanna b here , hes ready to leave, i reminded him he is here to get better then go home, he is a lil unsteady on his feet when he walk to the Br with his cane, he is still alil unsteady.. he was trying to take the IV out, , the nurse was notified
--- NOTE | 2022-01-07 06:40 | PC.NURSE ---
see downtime sheet for nurses note
[2022-01-07 07:27] LABS: Glucose, Whole Blood 139 mg/dL (60-115)
[2022-01-07 07:32] LABS: Creatinine Clr Calc Pharmacy 66.1; Estimated Glomerular Filt Rate > 60
--- NOTE | 2022-01-07 08:12 | PC.NURSE ---
patient a&ox3, oob making his bed, pt denies pain/discomfort, insulin held due to 139 poc, pt aware he is to have abx in a few hours, will continue to monitor
--- NOTE | 2022-01-07 08:28 | PC.NURSE ---
dr. christina notified of pts poc, he asked this nurse to hold the patients lantus as well
[2022-01-07 09:08] VITALS: BP 146/66; PULSE 82; RESP 16; TEMP 36.3; O2SAT 97
[2022-01-07] MEDS: Aspirin 81 MG TAB.CHEW PO (10:15)
--- NOTE | 2022-01-07 10:22 | PC.NURSE ---
patient a&ox3, sitting dressed at side of the bed, pt c/o it being cold and wanted to wear his clothes. provider at bedside assessing dressing will change dressings himself, pt aware he will be inpt for a few days for further abx per provider. iv antibiotics running per order call gay within reach, will continue to monitor.
--- NOTE | 2022-01-07 10:31 | P.CONGS_ITS ---
History of Present Illness Consult details Consult date: 01/07/22 Reason for consult: wound care Narrative: Very pleasant 81-year-old gentleman well known to me with prior history of toe amputations with a nonhealing left toe ulcer. It has progressively gotten wor se. He actually has cellulitis Spiro tracking up the foot. He now presents for vascular evaluation. Review of Systems Review of Systems: Yes all other systems are reviewed and are negative Constitutional: Constitutional: Reports no additional constitutional complai nts ENT: Reports Normal hearing present Cardiovascular: Cardiovascular: Denies chest pain, Denies chest pain at rest, Denies chest pain with activity and Denies pedal edema Respiratory: Respiratory: Denies cough Gastrointestinal: Gastrointestinal: Denies abdominal pain Musculoskeletal: Musculoskeletal: Denies abnormal gait, Denies muscle cramps and Denies radiating pain into limb Integumentary/Breasts: Skin/Breast: Denies skin ulcer and Denies wounds Neurologic: Reports Normal hearing present and Denies abnormal gait Psychiatric: Psychiatric: Reports no additional psychiatric complaints PMFSH Past Medical History Medical History Diabetes History of amputation of great toe History of amputation of great toe HTN (hypertension) Hx of osteomyelitis 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 PAD (peripheral artery disease) Family History Family History Other No family history of coronary artery disease Family history: reviewed and not pertinent Surgical History Surgical History History of angioplasty of peripheral vessel Social History Social History Household Members: Significant Other Housing: House Are you a primary progressive care nurse to a significant other at home: No Do you presently have visiting nurse or other home services: No Alcohol intake: current Alcohol intake frequency: does not drink Patient Tobacco Use Status: Never used Tobacco Smoked in Last 30 Days: No Second Hand Smoke Exposure: No Use of substances other than those prescribed or required for medical reasons: No Advance Directives: Yes Advance Directives on File: Yes Advance Directives Date on File: 10/01/21 service: No Current occupational status: retired Meds Allergies Allergy/AdvReac Type Severity Reaction Status Date / Time No Known Allergies Allergy Verified 12/30/21 11:33 [No Known Allergies*] Active Medications: Current Medications Acetaminophen (Acetaminophen 325 Mg Tablet) 650 mg PO Q6H PRN PRN Reason: Pain, Mild (Pain Scale 1-3) Aspirin (Aspirin 81 Mg Tab.Chew) 81 mg PO DAILY [facility] Last Admin: 01/07/22 10:15 Dose: 81 mg Dextrose (Dextrose 50 % 25 Gm/50 Ml Syringe) 25 gm IVPUSH Q15M PRN; Protocol PRN Reason: per Hypoglycemia Standing Ord. Glucose (Glucose Gel 15 Gm Gel..Gram.) 15 gm PO Q15M PRN; Protocol PRN Reason: per Hypoglycemia Standing Ord. Piperacillin Sod/Tazobactam (Sod 4.5 gm/ Sodium Chloride) 100 mls @ 200 mls/hr IV Q6H [facility] Last Admin: 01/07/22 10:15 Dose: 200 mls/hr Vancomycin HCl 1,000 mg/ (Sodium Chloride) 270 mls @ 270 mls/hr IV Q24H [facility] Last Infusion: 01/07/22 00:18 Dose: Infused Insulin Glargine (Insulin Glargine,Hum.Rec.Anlog 100 Unit/Ml 10 Ml Vial) 20 unit SUBCUT DAILY [facility] Last Admin: 01/07/22 08:28 Dose: Not Given Insulin Human Lispro (Insulin Lispro 100 Unit/Ml 3 Ml Vial) 0 unit SUBCUT QIDACHS [facility]; Protocol Last Admin: 01/07/22 08:08 Dose: Not Given Melatonin (Melatonin 3 Mg Tablet) 6 mg PO BEDTIME PRN PRN Reason: Insomnia Last Admin: 01/06/22 20:06 Dose: 6 mg Ondansetron HCl (Ondansetron Hcl 4 Mg/2 Ml Vial) 4 mg IVPUSH Q8H PRN PRN Reason: Nausea and Vomiting Pharmacy Consult (Consult Rx Vancomycin Dosing) 1 each MISCELLANE DAILY PRN PRN Reason: Consult order Pharmacy Consult (Consult Rx Vancomycin Dosing) 1 each MISCELLANE DAILY PRN PRN Reason: Consult order Pharmacy Consult (Consult Rx Perform Med Rec) 1 each MISCELLANE ONCE PRN PRN Reason: Consult order Sodium Chloride (0.9 % Sodium Chloride Flush 3 Ml Syringe) 3 ml IVFLUSH QSHIFT [facility] Last Admin: 01/07/22 08:10 Dose: 3 ml Home Medications Medication Instructions Recorded Confirmed Last Taken Type lisinopril 20 mg tablet 20 mg PO DAILY 11/22/19 01/06/22 1 Day Ago History ~09/30/21 metformin 1,000 mg tablet 1,000 mg PO BID 12/05/19 01/06/22 1 Day Ago History ~09/30/21 Physical Exam Vital Signs: Vital Signs: Last Vital Signs Temp 97.3 F 01/07/22 09:08 Pulse 82 01/07/22 09:08 Resp 16 01/07/22 09:08 BP 146/66 H 01/07/22 09:08 Pulse Ox 97 01/07/22 09:08 O2 Del Method 01/07/22 09:08 BMI result Body Mass Index 30.4 Const: General: cooperative, healthy appearing and comfortable Orientation/consciousness: oriented to person, oriented to place and oriented to time HEENT: Head: Yes normal to inspection Neck: Neck: Yes normal visual inspection Carotids: no bruits Chest: Chest palpation & inspection: normal inspection of the chest Resp: Effort & Inspection: normal respiratory effort and able to speak in complete sentences Auscultation: clear to auscultation bilaterally, no crackles, no rales, no rhonchi and no wheezes Cardio: Rate: regular rate Rhythm: regular rhythm Heart sounds: S1 normal heart sound present and S2 normal heart sound present Bruits: no carotid bruits Peripheral pulses: dorsalis pedis present (Bilateral DP signals) GI: Inspection: Yes normal to inspection Skin: Other: Left 4th toe nonhealing ulcer soft and boggy. Erythema tracking up to mid ankle Wounds: no wounds Hair: normal Neuro: General: oriented to person, oriented to place and oriented to time Cranial nerves: Yes CN's II-XII intact bilaterally and Yes Normal hearing present Cognition (Neuro): normal cognition Motor exam (neuro): 5/5 motor strength present throughout Extrem: Other: venous exam: No significant superficial varicosities or spider telangiectasias, minimal edema General: No clubbing, No cyanosis and No edema Psych: Appearance: grossly normal Mental Status: mental status grossly normal Speech and movement: Normal speech and movement present Results Labs Result diagrams: 01/06/22 06:14 01/07/22 07:01 Labs: Abnormal lab results 01/06/22 01/06/22 01/06/22 Range/Units 12:33 17:44 20:59 POC Glucose 200 H 228 H 167 H (60-115) mg/dL 01/07/22 Range/Units 07:24 POC Glucose 139 H (60-115) mg/dL BMP 01/07/22 07:01 Creatinine 0.99 Urine 01/05/22 Range/Units 14:18 Urine Color Yellow Urine Appearance Clear Urine pH 5.0 (5.0-9.0) Ur Specific [place] 1.020 (1.005-1.025) Urine Protein 30 (1+) H (Neg-Trace) mg/dL Urine Glucose (UA) 500 H (Negative) mg/dL All other labs normal. Assessment and Plan (1) PAD (peripheral artery disease): Status: Acute Plan In short patient has nonhealing left foot ulcer. He has had endovascular intervention back in September. I have taken the liberty of ordering noninvasive testing. In addition I would likely erythema and to go down prior to any intervention. I did discuss this case with Infectious Disease. He will most likely require transmetatarsal amputation. This was discussed in detail with the patient. Although he is anxious to go home he is in agreement and will continue hospital level of care. We will continue to monitor his status with you. Thank you for allowing us to assist in his care. Procedures Date of Service Date of Service: 01/07/22
[2022-01-07 11:53] LABS: Glucose, Whole Blood 268 mg/dL (60-115)
--- NOTE | 2022-01-07 12:48 | PC.NURSE ---
daughter contact: Noni Coelho [phone] the daughter called wanting to speak with Dr. Jackman about obtaining a second surgical opinion for her father, this information was passed to Dr. Jackman via tiger text with the daughters name and cell phone number.
--- NOTE | 2022-01-07 13:49 | P.CDIC_ITS ---
CDI Concurrent Query Documentation Clarification: PHYSICIAN'S DOCUMENTATION REQUEST Date of Query: 01/07/22 8253 Patient Name: Vj Galicia Admit Date: 01/05/22 Dear Doctor, A review of the medical record indicates additional documentation may be needed. Please review below and update the documentation accordingly. Clinical Indicators: Documentation on 01/06/22 indicates Osteomyelitis. Risk Factors/Clinical Indicators/Treatments per MD progress note: Left fourth toe osteomyelitis with cellulitis of left foot -patient received Vancomycin and Zosyn i n the ER, continue broad-spectrum empiric IV antibiotics. Based on the above, please clarify in the Progress Notes further specificity regarding the type of Osteomyelitis. Also include specific site with laterality and known or suspected infectious agent: * Acute osteomyelitis * Acute hematogenous osteomyelitis * Subacute osteomyelitis * Chronic osteomyelitis * Chronic hemotogenous osteomyelitis * Other (please specify) * Unable to determine Use of terms such as suspected, likely, concern for, or probable (associated with a specific diagnosis that is being evaluated, monitored, or treated as if it exists) are acceptable and can be coded in the inpatient setting, when documented at the time of discharge. Thank you, Jeanie Gallo RN Extension: [phone] Please use your independent medical judgment in providing your response. THIS QUERY IS PART OF THE PERMANENT MEDICAL RECORD Provider Response: Other Other Diagnosis: acute osteo 4th toe
[2022-01-07] MEDS: Insulin Lispro 100 UNIT/ML 3 ML VIAL SUBCUT ×2 (14:00→21:18)
--- NOTE | 2022-01-07 15:46 | PC.NURSE ---
patient a&ox3, sitting at bedside watching tv, pt offers no c/o pain or discomfort, dressing c/d/i to lle, call gay within reach, will continue to monitor
[2022-01-07 16:00] VITALS: BP 158/58; PULSE 80; RESP 18; TEMP 36.6; O2SAT 98
--- NOTE | 2022-01-07 16:15 | PC.NURSE ---
pt taken to us will medicate upon his return
--- NOTE | 2022-01-07 17:42 | PC.NURSE ---
report given, awaiting transport
[2022-01-07 17:57] LABS: Glucose, Whole Blood 201 mg/dL (60-115)
[2022-01-07 20:00] VITALS: BP 146/67; PULSE 75; RESP 17; TEMP 36.4; O2SAT 96
[2022-01-07 20:35] LABS: Glucose, Whole Blood 209 mg/dL (60-115)
[2022-01-07] MEDS: vancomycin HCL 1,000 MG in 0.9 % Sodium Chloride 250 ML 270 MG IV (23:30)
[2022-01-08] VITALS: TEMP 36.5
[2022-01-08] MEDS: Piperacillin Sodium/Tazobactam 4.5 GM in 0.9 % Sodium Chloride 100 ML IV ×4 (03:49→21:16)
[2022-01-08 04:00] VITALS: BP 120/68; PULSE 80; RESP 17; TEMP 36.4; O2SAT 97
[2022-01-08 07:29] VITALS: BP 185/72; PULSE 75; RESP 18; TEMP 36.4; O2SAT 98
[2022-01-08 07:47] LABS: Creatinine Clr Calc Pharmacy 56.9; Estimated Glomerular Filt Rate > 60
[2022-01-08 07:51] LABS: Glucose, Whole Blood 184 mg/dL (60-115)
[2022-01-08] MEDS: Insulin Lispro 100 UNIT/ML 3 ML VIAL SUBCUT ×4 (08:06→19:41)
[2022-01-08] MEDS: Aspirin 81 MG TAB.CHEW PO (08:06)
[2022-01-08] MEDS: 0.9 % Sodium Chloride Flush 3 ML SYRINGE IVFLUSH ×2 (08:07→21:17)
[2022-01-08] MEDS: Lactated Ringers 1,000 ML 80 ML IVCONT (08:07)
[2022-01-08 11:17] VITALS: BP 139/65; PULSE 56; RESP 18; TEMP 36.9; O2SAT 100
[2022-01-08 11:34] LABS: Glucose, Whole Blood 165 mg/dL (60-115)
--- NOTE | 2022-01-08 12:34 | P.PNIM_ITS ---
Subjective Subjective Date of Service: 01/07/22 Interval History: Toe infection Review of Systems mild sloughing in the 4th toe left side, mucoid discharge ?denies any chest pain or shortness of breath or abdominal pain or chills Physical Exam Vital Signs: Vital Signs: Last Vital Signs Temp 98.4 F 01/08/22 11:17 Pulse 56 01/08/22 11:17 Resp 18 01/08/22 11:17 BP 139/65 01/08/22 11:17 Pulse Ox 100 01/08/22 11:17 O2 Del Method 01/08/22 11:17 BMI result Body Mass Index 30.4 awake alert x3, not in distress Neck supple, no JVD Regular rate and rhythm, S1-S2 heard Regular breath sounds bilaterally, no wheezing or crackles appreciated Abdomen soft nontender, no guarding, no rigidity Patient is awake, alert and oriented to place, time and person ; no focal motor deficit Extremity:? Imaging of the foot attached (h&P). Objective Data Active Medications Acetaminophen (Acetaminophen 325 Mg Tablet) 650 mg PO Q6H PRN PRN Reason: Pain, Mild (Pain Scale 1-3) Aspirin (Aspirin 81 Mg Tab.Chew) 81 mg PO DAILY [facility] Last Admin: 01/08/22 08:06 Dose: 81 mg Documented By: YINKA Dextrose (Dextrose 50 % 25 Gm/50 Ml Syringe) 25 gm IVPUSH Q15M PRN; Protocol PRN Reason: per Hypoglycemia Standing Ord. Glucose (Glucose Gel 15 Gm Gel..Gram.) 15 gm PO Q15M PRN; Protocol PRN Reason: per Hypoglycemia Standing Ord. Piperacillin Sod/Tazobactam (Sod 4.5 gm/ Sodium Chloride) 100 mls @ 200 mls/hr IV Q6H [facility] Last Infusion: 01/08/22 11:36 Dose: 0 mls/hr Documented By: YINKA Vancomycin HCl 1,000 mg/ (Sodium Chloride) 270 mls @ 270 mls/hr IV Q24H [facility] Last Infusion: 01/08/22 00:45 Dose: 0 mls/hr Documented By: MOHIT Lactated Ringer's (Lr) 1,000 mls @ 80 mls/hr IVCONT .[id number] [facility] Last Infusion: 01/08/22 11:36 Dose: 80 mls/hr Documented By: YINKA Insulin Glargine (Insulin Glargine,Hum.Rec.Anlog 100 Unit/Ml 10 Ml Vial) 20 unit SUBCUT DAILY [facility] Last Admin: 01/07/22 08:28 Dose: Not Given Documented By: ADAN Non-Admin Reason: Physician Held Med Insulin Human Lispro (Insulin Lispro 100 Unit/Ml 3 Ml Vial) 0 unit SUBCUT QID ACHS [facility]; Protocol Last Admin: 01/08/22 11:42 Dose: 2 unit Documented By: YINKA Melatonin (Melatonin 3 Mg Tablet) 6 mg PO BEDTIME PRN PRN Reason: Insomnia Last Admin: 01/06/22 20:06 Dose: 6 mg Documented By: GEOFFREY Ondansetron HCl (Ondansetron Hcl 4 Mg/2 Ml Vial) 4 mg IVPUSH Q8H PRN PRN Reason: Nausea and Vomiting Pharmacy Consult (Consult Rx Vancomycin Dosing) 1 each MISCELLANE DAILY PRN PRN Reason: Consult order Pharmacy Consult (Consult Rx Vancomycin Dosing) 1 each MISCELLANE DAILY PRN PRN Reason: Consult order Pharmacy Consult (Consult Rx Perform Med Rec) 1 each MISCELLANE ONCE PRN PRN Reason: Consult order Sodium Chloride (0.9 % Sodium Chloride Flush 3 Ml [facility]ringe) [address] [facility] Admin: 01/08/22 08:07 Dose: 3 ml Documented By: YINKA Labs CBC & Chem 7: 01/06/22 06:14 01/08/22 05:56 Labs: Laboratory Results - last 24 hr 01/07/22 01/07/22 01/08/22 17:42 20:30 05:56 Estim Creat Clear Calc 56.9 Estimated GFR > 60 POC Glucose 201 H 209 H 01/08/22 01/08/22 07:34 11:22 Estim Creat Clear Calc Estimated GFR POC Glucose 184 H 165 H Microbiology Microbiology Results: Microbiology 01/05/22 19:36 Blood Culture - Preliminary Blood - Venous No growth after 48 hours. 01/05/22 14:08 Blood Culture - Preliminary Blood - Venous No growth after 48 hours. Assessment and Plan (1) Toe osteomyelitis, left: Status: Acute (2) Acute osteomyelitis: Status: Acute (3) IDDM (insulin dependent diabetes mellitus): Status: Acute (4) HTN (hypertension): Status: Acute Plan 81-year-old male with pertinent history of insulin-dependent diabetes mellitus, peripheral artery disease status post toe amputations, essential hypertension who presents to the emergency department for evaluation of left 4rd toe redness/swelling/drainage. #. Left fourth toe osteomyelitis with cellulitis of left foot -patient received vancomycin and Zosyn in the ER, continue broad-spectrum empiric IV antibiotics.? Consulted vascular surgery and Infectious Disease, appreciate assistance. #.? Insulin-dependent diabetes mellitus with hyperglycemia -continue glargine at reduced dosage while in the hospital.? Initiate Accu-Cheks and sliding scale insulin.? Hold home metformin. #.? Peripheral arterial disease status post toe amputations -hold Plavix until surgical evaluation.? Not on statin #.? Essential hypertension -hold lisinopril until surgical evaluation to prevent postop hypotension Med rec pending DVT prophylaxis: Holding Lovenox until vascular surgery evaluation Diabetic diet Full code Admit as inpatient and will require two night minimum hospital stay for IV antibiotics.? ? Vascular evaluation pending. Quality Stroke Does the patient have a stroke diagnosis?: No VTE Prior VTE?: No VTE Risk Level:: Medical - moderate - high VTE Device Contraindication: Treatment Not Indicated VTE Drug Contraindication: Treatment Not Indicated
--- NOTE | 2022-01-08 12:39 | P.PNIM_ITS ---
Subjective Subjective Date of Service: 01/08/22 Interval History: Toe infection Review of Systems mild sloughing in the 4th toe left side, mucoid discharge ?denies any chest pain or shortness of breath or abdominal pain or chills Physical Exam Vital Signs: Vital Signs: Last Vital Signs Temp 98.4 F 01/08/22 11:17 Pulse 56 01/08/22 11:17 Resp 18 01/08/22 11:17 BP 139/65 01/08/22 11:17 Pulse Ox 100 01/08/22 11:17 O2 Del Method 01/08/22 11:17 BMI result Body Mass Index 30.4 ?? awake alert x3, not in distress Neck supple, no JVD Regular rate and rhythm, S1-S2 heard Regular breath sounds bilaterally, no wheezing or crackles appreciated Abdomen soft nontender, no guarding, no rigidity Patient is awake, alert and oriented to place, time and person ; no focal motor deficit Extremity:? Imaging of the foot attached as below ? please see images from H&P. Objective Data Active Medications Acetaminophen (Acetaminophen 325 Mg Tablet) 650 mg PO Q6H PRN PRN Reason: Pain, Mild (Pain Scale 1-3) Aspirin (Aspirin 81 Mg Tab.Chew) 81 mg PO DAILY [facility] Last Admin: 01/08/22 08:06 Dose: 81 mg Documented By: YINKA Dextrose (Dextrose 50 % 25 Gm/50 Ml Syringe) 25 gm IVPUSH Q15M PRN; Protocol PRN Reason: per Hypoglycemia Standing Ord. Glucose (Glucose Gel 15 Gm Gel..Gram.) 15 gm PO Q15M PRN; Protocol PRN Reason: per Hypoglycemia Standing Ord. Piperacillin Sod/Tazobactam (Sod 4.5 gm/ Sodium Chloride) 100 mls @ 200 mls/hr IV Q6H [facility] Last Infusion: 01/08/22 11:36 Dose: 0 mls/hr Documented By: YINKA Vancomycin HCl 1,000 mg/ (Sodium Chloride) 270 mls @ 270 mls/hr IV Q24H [facility] Last Infusion: 01/08/22 00:45 Dose: 0 mls/hr Documented By: MOHIT Lactated Ringer's (Lr) 1,000 mls @ 80 mls/hr IVCONT .[id number] [facility] Last Infusion: 01/08/22 11:36 Dose: 80 mls/hr Documented By: YINKA Insulin Glargine (Insulin Glargine,Hum.Rec.Anlog 100 Unit/Ml 10 Ml Vial) 20 unit SUBCUT DAILY [facility] Last Admin: 01/07/22 08:28 Dose: Not Given Documented By: ADAN Non-Admin Reason: Physician Held Med Insulin Human Lispro (Insulin Lispro 100 Unit/Ml 3 Ml Vial) 0 unit SUBCUT QIDACHS [facility]; Protocol Last Admin: 01/08/22 11:42 Dose: 2 unit Documented By: YINKA Melatonin (Melatonin 3 Mg Tablet) 6 mg PO BEDTIME PRN PRN Reason: Insomnia Last Admin: 01/06/22 20:06 Dose: 6 mg Documented By: GEOFFREY Ondansetron HCl (Ondansetron Hcl 4 Mg/2 Ml Vial) 4 mg IVPUSH Q8H PRN PRN Reason: Nausea and Vomiting Pharmacy Consult (Consult Rx Vancomycin Dosing) 1 each MISCELLANE DAILY PRN PRN Reason: Consult order Pharmacy Consult (Consult Rx Vancomycin Dosing) 1 each MISCELLANE DAILY PRN PRN Reason: Consult order Pharmacy Consult (Consult Rx Perform Med Rec) 1 each MISCELLANE ONCE PRN PRN Reason: Consult order Sodium Chloride (0.9 % Sodium Chloride Flush 3 Ml [facility]ringe) [facility] Admin: 01/08/22 08:07 Dose: 3 ml Documented By: YINKA Labs CBC & Chem 7: 01/06/22 06:14 01/08/22 05:56 Labs: Laboratory Results - last 24 hr 01/07/22 01/07/22 01/08/22 17:42 20:30 05:56 Estim Creat Clear Calc 56.9 Estimated GFR > 60 POC Glucose 201 H 209 H 01/08/22 01/08/22 07:34 11:22 Estim Creat Clear Calc Estimated GFR POC Glucose 184 H 165 H Microbiology Microbiology Results: Microbiology 01/05/22 19:36 Blood Culture - Preliminary Blood - Venous No growth after 48 hours. 01/05/22 14:08 Blood Culture - Preliminary Blood - Venous No growth after 48 hours. Assessment and Plan (1) Toe osteomyelitis, left: Status: Acute (2) Acute osteomyelitis: Status: Acute (3) IDDM (insulin dependent diabetes mellitus): Status: Acute (4) HTN (hypertension): Status: Acute Plan 81-year-old male with pertinent history of insulin-dependent diabetes mellitus, peripheral artery disease status post toe amputations, essential hypertension who presents to the emergency department for evaluation of left 4rd toe redness/swelling/drainage. #. acute Left fourth toe osteomyelitis with cellulitis of left foot -patient received vancomycin and Zosyn in the ER, continue broad-spectrum empiric IV antibiotics.? Consulted vascular surgery and Infectious Disease, appreciate assistance. last vanco trough was 13.4 on 01/06-next trough today vascular followin #.? Insulin-dependent diabetes mellitus with hyperglycemia -continue glargine at reduced dosage while in the hospital.? Initiate Accu-Cheks and sliding scale insulin.? Hold home metformin. #.? Peripheral arterial disease status post toe amputations -hold Plavix until surgical evaluation.? Not on statin #.? Essential hypertension -hold lisinopril until surgical evaluation to prevent postop hypotension Med rec pending DVT prophylaxis: Holding Lovenox until vascular surgery evaluation Diabetic diet Full code d/w patient and his daughter in detail. Admit as inpatient and will require two night minimum hospital stay for IV antibiotics.? ? Vascular evaluation pending. Quality Stroke Does the patient have a stroke diagnosis?: No VTE Prior VTE?: No VTE Risk Level:: Medical - moderate - high VTE Device Contraindication: Treatment Not Indicated VTE Drug Contraindication: Treatment Not Indicated
--- NOTE | 2022-01-08 13:14 | HO.VASCPN ---
Subjective Subjective Date of Service: 01/08/22 Patient reports: no new complaints Interval history: Very pleasant 81-year-old gentleman for follow-up for nonhealing left foot ulcer. He has history of peripheral vascular disease and has undergone prior toe amputations nearly 3-4 months ago. He has nonhealing toe ulcers that have been present for a significant period of time. He has had an outpatient trial of p.o. antibiotics which had failed. He subsequently was admitted needed. He had significant cellulitis in the foot. It has gone on to improve with IV antibiotics through his admission. He now presents for vascular follow-up. Physical Exam Vital Signs: Vital Signs: Last Vital Signs Temp 98.4 F 01/08/22 11:17 Pulse 56 01/08/22 11:17 Resp 18 01/08/22 11:17 BP 139/65 01/08/22 11:17 Pulse Ox 100 01/08/22 11:17 O2 Del Method 01/08/22 11:17 BMI result Body Mass Index 30.4 Const: General: cooperative, healthy appearing and no acute distress Orientation/consciousness: oriented to person, oriented to place and oriented to time HEENT: Head: Yes normal to inspection Neck: Carotids: no bruits Chest: Chest palpation & inspection: normal inspection of the chest Resp: Effort & Inspection: normal respiratory effort and able to speak in complete sentences Auscultation: clear to auscultation bilaterally Cardio: Rate: regular rate Heart sounds: S1 normal heart sound present and S2 normal heart sound present GI: Inspection: Yes normal to inspection Skin: General skin exam: no rashes or lesions noted Wounds: wounds noted (Left foot toe ulcer moist) Neuro: General: oriented to person, oriented to place, oriented to time and CN's II-XI intact bilaterally Extrem: General: Yes normal to inspection, Yes full ROM and Yes no clubbing, cyanosis or edema Psych: Appearance: grossly normal and well kempt Speech and movement: Normal speech and movement present Affect: normal affect Progress Note: A&P Assessment and plan (1) Toe osteomyelitis, left: Status: Acute Assessment and Plan: In short patient has nonhealing left toe ulcers. Due to his prior amputation and the current status of his foot will require left foot transmetatarsal amputation. This was discussed in detail with the patient. He was in agreement and would like to move forward. In addition I did have a 3 way telephone conversation with and daughter present as well. We spent a significant amount of time discussing the complications and the outcome of this. He does have a history of severe peripheral vascular disease. Due to the overall status of the foot would like to amputate that so infection will not progress. Once again he is in agreement and will schedule as soon as possible. (2) PAD (peripheral artery disease): Status: Acute Time Spent With Patient Time: Total time spent is greater than 50% in coordination of care (as documented) at patient's floor/unit and/or counseling patient: Procedures Date of Service Date of Service: 01/08/22 Quality Stroke Does the patient have a stroke diagnosis?: No VTE Prior VTE?: No VTE Risk Level:: Medical - moderate - high VTE Device Contraindication: Treatment Not Indicated VTE Drug Contraindication: Treatment Not Indicated
[2022-01-08 15:28] VITALS: BP 151/66; PULSE 62; RESP 18; TEMP 36.6; O2SAT 99
[2022-01-08 16:23] LABS: Glucose, Whole Blood 194 mg/dL (60-115)
[2022-01-08 19:10] VITALS: BP 151/64; PULSE 63; RESP 20; TEMP 36.6; O2SAT 98
[2022-01-08 19:40] LABS: Glucose, Whole Blood 220 mg/dL (60-115)
[2022-01-08 21:36] LABS: Vancomycin Trough 7.4 mcg/mL (10.0-20.0)
--- NOTE | 2022-01-08 22:07 | HE.PHANOTE ---
VANCOMYCIN DOSING ADJUSTMENT TROUGH OF 7.4. SCR INCREASED BY 15%. INCREASED DOSE TO 1250 Q 24 FOR AUC OF 437. WILL REASSES IN AM IF SCR RETURNS TO NORMAL DOSE MAY BE INCREASED TO 1500Q 24. LAST TIME HERE IN SEPTEMBER 1499 Q 24 GAVE TROUGH OF AROUND 13
[2022-01-08] MEDS: vancomycin HCL 1,250 MG in 0.9 % Sodium Chloride 250 ML 166.67 MG IV (22:30)
[2022-01-09] VITALS (12 sets, daily range): BP systolic 94–167; BP diastolic 32–79; PULSE 63–84; RESP 16–19; TEMP 36.3–37.1; O2SAT 95–99
[2022-01-09] MEDS: Piperacillin Sodium/Tazobactam 4.5 GM in 0.9 % Sodium Chloride 100 ML IV ×4 (03:38→21:22)
[2022-01-09 07:03] LABS: Creatinine Clr Calc Pharmacy 68.9; Estimated Glomerular Filt Rate > 60
--- NOTE | 2022-01-09 08:03 | HE.PHANOTE ---
RE: vanco Creatinine improved, increased dose to 1500mg Q24H with predicted AUC 448mg/L. Level to be drawn 01/10 @2100
[2022-01-09 08:13] LABS: Glucose, Whole Blood 130 mg/dL (60-115)
[2022-01-09] MEDS: Aspirin 81 MG TAB.CHEW PO (08:34)
[2022-01-09] MEDS: 0.9 % Sodium Chloride Flush 3 ML SYRINGE IVFLUSH ×3 (08:35→21:22)
[2022-01-09] MEDS: Lactated Ringers 1,000 ML 80 ML IVCONT ×2 (08:35→19:33)
--- NOTE | 2022-01-09 10:37 | HO.ANESPROP2 ---
HPI - Anesthesia Eval Consult details Narrative: 81 yo male patient for Left foot transmetatarsal amputation PMFSH Active Problems Active Problems: All Active Problems (Updated 01/08/22 @ 12:38 by Radha Jackman MD) Acute osteomyelitis (Acute) HTN (hypertension) (Acute) IDDM (insulin dependent diabetes mellitus) (Acute) Toe osteomyelitis, left (Acute) PAD (peripheral artery disease) (Acute) 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 (Acute) Past Medical History Medical History Diabetes History of amputation of great toe History of amputation of great toe HTN (hypertension) Hx of osteomyelitis 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 PAD (peripheral artery disease) Family History Family History Other No family history of coronary artery disease Family history of problems with anesthesia: No Surgical History Surgical History History of angioplasty of peripheral vessel History of Problems with Anesthesia: No Social History Social History Household Members: Significant Other Housing: House Are you a primary resident caregiver to a significant other at home: No Do you presently have visiting nurse or other home services: Yes (olman kumar) Alcohol intake: current Alcohol intake frequency: does not drink Patient Tobacco Use Status: Former Tobacco user Quit Date: 20 years ago Second Hand Smoke Exposure: No Advance Directives Date on File: 10/01/21 service: No Current occupational status: retired Meds Allergies Allergy/AdvReac Type Severity Reaction Status Date / Time No Known Allergies Allergy Verified 12/30/21 11:33 [No Known Allergies*] Active Medications: Current Medications Acetaminophen (Acetaminophen 325 Mg Tablet) 650 mg PO Q6H PRN PRN Reason: Pain, Mild (Pain Scale 1-3) Aspirin (Aspirin 81 Mg Tab.Chew) 81 mg PO DAILY JOSE E Last Admin: 01/09/22 08:34 Dose: 81 mg Dextrose (Dextrose 50 % 25 Gm/50 Ml Syringe) 25 gm IVPUSH Q15M PRN; Protocol PRN Reason: per Hypoglycemia Standing Ord. Glucose (Glucose Gel 15 Gm Gel..Gram.) 15 gm PO Q15M PRN; Protocol PRN Reason: per Hypoglycemia Standing Ord. Piperacillin Sod/Tazobactam (Sod 4.5 gm/ Sodium Chloride) 100 mls @ 200 mls/hr IV Q6H [facility] Last Admin: 01/09/22 09:55 Dose: 200 mls/hr Lactated Ringer's (Lr) 1,000 mls @ 80 mls/hr IVCONT .[id number] [facility] Last Infusion: 01/09/22 09:55 Dose: 0 mls/hr Vancomycin HCl 1,500 mg/ (Sodium Chloride) 500 mls @ 333.333 mls/hr IV Q24H [facility] Insulin Glargine (Insulin Glargine,Hum.Rec.Anlog 100 Unit/Ml 10 Ml Vial) 20 unit SUBCUT DAILY [facility] Last Admin: 01/07/22 08:28 Dose: Not Given Insulin Human Lispro (Insulin Lispro 100 Unit/Ml 3 Ml Vial) 0 unit SUBCUT QIDACHS [facility]; Protocol Last Admin: 01/09/22 08:13 Dose: Not Given Melatonin (Melatonin 3 Mg Tablet) 6 mg PO BEDTIME PRN PRN Reason: Insomnia Last Admin: 01/06/22 20:06 Dose: 6 mg Ondansetron HCl (Ondansetron Hcl 4 Mg/2 Ml Vial) 4 mg IVPUSH Q8H PRN PRN Reason: Nausea and Vomiting Pharmacy Consult (Consult Rx Vancomycin Dosing) 1 each MISCELLANE DAILY PRN PRN Reason: Consult order Pharmacy Consult (Consult Rx Perform Med Rec) 1 each MISCELLANE ONCE PRN PRN Reason: Consult order Sodium Chloride (0.9 % Sodium Chloride Flush 3 Ml Syringe) 3 ml IVFLUSH QSHIFT [facility] Last Admin: 01/09/22 08:35 Dose: 3 ml Home Medications Medication Instructions Recorded Confirmed Last Taken Type lisinopril 20 mg tablet 20 mg PO DAILY 11/22/19 01/06/22 1 Day Ago History ~09/30/21 metformin 1,000 mg tablet 1,000 mg PO BID 12/05/19 01/06/22 1 Day Ago History ~09/30/21 Exam Exam Date and Time: January 09, 2022 1037 Height,Weight and Vital Signs: Height 5 ft 8 in Weight 90.718 kg Last Vital Signs Temp 98.0 F 01/09/22 10:22 Pulse 76 01/09/22 10:22 Resp 18 01/09/22 10:22 BP 94/74 01/09/22 10:22 Pulse Ox 99 01/09/22 10:22 O2 Del Method 01/09/22 10:22 Pertinent Lab Results Pertinent Lab Results: Laboratory Tests 01/05/22 01/05/22 01/05/22 14:08 14:08 14:08 WBC 12.8 H RBC 3.63 L Hgb 11.2 L Hct 33.6 L MCV 92.6 MCH 30.9 MCHC 33.3 RDW 11.9 Plt Count 412 H MPV 9.7 Immature Gran % (Auto) 0.5 H Neut % (Auto) 82.0 H Lymph % (Auto) 6.6 L [place] % (Auto) 10.5 Eos % (Auto) 0.2 Baso % (Auto) 0.2 Lymph # (Auto) 0.9 L [place] # (Auto) 1.4 H Eos # (Auto) 0.0 Baso # (Auto) 0.0 Abs Immat Gran (auto) 0.06 H Absolute Neuts (auto) 10.5 H Absolute Nucleated RBC 0.000 Nucleated RBC % (auto) 0.0 Smear Tech's Comments ESR 86 H PT 11.8 INR 1.0 APTT 25.8 L Sodium Potassium Chloride Carbon Dioxide Anion Gap BUN Creatinine Estim Creat Clear Calc Estimated GFR POC Glucose Random Glucose Lactic Acid Calcium Magnesium Total Bilirubin Direct Bilirubin AST ALT Alkaline Phosphatase C-Reactive Protein Total Protein Albumin Urine Color Urine Appearance Urine pH Ur Specific [place] Urine Protein Urine Glucose (UA) Urine Ketones Urine Blood Urine Nitrite Ur Leukocyte Esterase Urine RBC Urine WBC Ur Squamous Epith Cells Urine Bacteria Hyaline Casts Vancomycin Trough COVID-19 (SANDRINE) COVID-19 Clin Com 01/05/22 01/05/22 01/05/22 14:08 14:08 14:08 WBC RBC Hgb Hct MCV MCH MCHC RDW Plt Count MPV Immature Gran % (Auto) Neut % (Auto) Lymph % (Auto) [place] % (Auto) Eos % (Auto) Baso % (Auto) Lymph # (Auto) [place] # (Auto) Eos # (Auto) Baso # (Auto) Abs Immat Gran (auto) Absolute Neuts (auto) Absolute Nucleated RBC Nucleated RBC % (auto) Smear Tech's Comments ESR PT INR APTT Sodium 136 Potassium 4.9 Chloride 100 Carbon Dioxide 24 Anion Gap 17 BUN 21 H Creatinine 1.01 Estim Creat Clear Calc 64.8 Estimated GFR > 60 POC Glucose Random Glucose 181 H Lactic Acid 1.8 Calcium 9.6 D Magnesium 1.7 Total Bilirubin 0.5 Direct Bilirubin 0.2 AST 17 ALT 16 Alkaline Phosphatase 120 H C-Reactive Protein 15.16 H Total Protein 7.1 Albumin 4.1 Urine Color Urine Appearance Urine pH Ur Specific [place] Urine Protein Urine Glucose (UA) Urine Ketones Urine Blood Urine Nitrite Ur Leukocyte Esterase Urine RBC Urine WBC Ur Squamous Epith Cells Urine Bacteria Hyaline Casts Vancomycin Trough COVID-19 (SANDRINE) Negative COVID-19 Clin Com See Note 01/05/22 01/06/22 01/06/22 14:18 06:14 06:14 WBC 11.4 H RBC 3.50 L Hgb 10.8 L Hct 33.0 L MCV 94.3 MCH 30.9 MCHC 32.7 RDW 11.9 Plt Count 384 MPV 9.6 Immature Gran % (Auto) 0.4 Neut % (Auto) 73.7 H Lymph % (Auto) 10.2 L [place] % (Auto) 14.5 H Eos % (Auto) 0.8 Baso % (Auto) 0.4 Lymph # (Auto) 1.2 [place] # (Auto) 1.7 H Eos # (Auto) 0.1 Baso # (Auto) 0.1 Abs Immat Gran (auto) 0.05 H Absolute Neuts (auto) 8.4 H Absolute Nucleated RBC 0.000 Nucleated RBC % (auto) 0.0 Smear Tech's Comments VERIFIED ESR PT INR APTT Sodium 136 Potassium 4.5 Chloride 102 Carbon Dioxide 25 Anion Gap 14 BUN 24 H Creatinine 1.05 Estim Creat Clear Calc 62.3 Estimated GFR > 60 POC Glucose Random Glucose 151 H Lactic Acid Calcium 9.1 Magnesium Total Bilirubin Direct Bilirubin AST ALT Alkaline Phosphatase C-Reactive Protein Total Protein Albumin Urine Color Yellow Urine Appearance Clear Urine pH 5.0 Ur Specific [place] 1.020 Urine Protein 30 (1+) H Urine Glucose (UA) 500 H Urine Ketones Negative Urine Blood Negative Urine Nitrite Negative Ur Leukocyte Esterase Negative Urine RBC 0-2 Urine WBC 0-5 Ur Squamous Epith Cells 0-2 Urine Bacteria None Seen Hyaline Casts 0-2 Vancomycin Trough COVID-19 (SANDRINE) COVID-19 Clin Com 01/06/22 01/06/2222 07:24 08:53 12:33 WBC RBC Hgb Hct MCV MCH MCHC RDW Plt Count MPV Immature Gran % (Auto) Neut % (Auto) Lymph % (Auto) [place] % (Auto) Eos % (Auto) Baso % (Auto) Lymph # (Auto) [place] # (Auto) Eos # (Auto) Baso # (Auto) Abs Immat Gran (auto) Absolute Neuts (auto) Absolute Nucleated RBC Nucleated RBC % (auto) Smear Tech's Comments ESR PT INR APTT Sodium Potassium Chloride Carbon Dioxide Anion Gap BUN Creatinine Estim Creat Clear Calc Estimated GFR POC Glucose 151 H 236 H 200 H Random Glucose Lactic Acid Calcium Magnesium Total Bilirubin Direct Bilirubin AST ALT Alkaline Phosphatase C-Reactive Protein Total Protein Albumin Urine Color Urine Appearance Urine pH Ur Specific [place] Urine Protein Urine Glucose (UA) Urine Ketones Urine Blood Urine Nitrite Ur Leukocyte Esterase Urine RBC Urine WBC Ur Squamous Epith Cells Urine Bacteria Hyaline Casts Vancomycin Trough COVID-19 (SANDRINE) COVID-19 Accupal 01/06/22 01/06/22 01/07/22 17:44 20:59 07:01 WBC RBC Hgb Hct MCV MCH MCHC RDW Plt Count MPV Immature Gran % (Auto) Neut % (Auto) Lymph % (Auto) [place] % (Auto) Eos % (Auto) Baso % (Auto) Lymph # (Auto) [place] # (Auto) Eos # (Auto) Baso # (Auto) Abs Immat Gran (auto) Absolute Neuts (auto) Absolute Nucleated RBC Nucleated RBC % (auto) Smear Tech's Comments ESR PT INR APTT Sodium Potassium Chloride Carbon Dioxide Anion Gap BUN Creatinine 0.99 Estim Creat Clear Calc 66.1 Estimated GFR > 60 POC Glucose 228 H 167 H Random Glucose Lactic Acid Calcium Magnesium Total Bilirubin Direct Bilirubin AST ALT Alkaline Phosphatase C-Reactive Protein Total Protein Albumin Urine Color Urine Appearance Urine pH Ur Specific [place] Urine Protein Urine Glucose (UA) Urine Ketones Urine Blood Urine Nitrite Ur Leukocyte Esterase Urine RBC Urine WBC Ur Squamous Epith Cells Urine Bacteria Hyaline Casts Vancomycin Trough COVID-19 (SANDRINE) COVID-19 Clin Com 01/07/22 01/07/22 01/07/22 07:24 11:50 17:42 WBC RBC Hgb Hct MCV MCH MCHC RDW Plt Count MPV Immature Gran % (Auto) Neut % (Auto) Lymph % (Auto) [place] % (Auto) Eos % (Auto) Baso % (Auto) Lymph # (Auto) [place] # (Auto) Eos # (Auto) Baso # (Auto) Abs Immat Gran (auto) Absolute Neuts (auto) Absolute Nucleated RBC Nucleated RBC % (auto) Smear Tech's Comments ESR PT INR APTT Sodium Potassium Chloride Carbon Dioxide Anion Gap BUN Creatinine Estim Creat Clear Calc Estimated GFR POC Glucose 139 H 268 H 201 H Random Glucose Lactic Acid Calcium Magnesium Total Bilirubin Direct Bilirubin AST ALT Alkaline Phosphatase C-Reactive Protein Total Protein Albumin Urine Color Urine Appearance Urine pH Ur Specific [place] Urine Protein Urine Glucose (UA) Urine Ketones Urine Blood Urine Nitrite Ur Leukocyte Esterase Urine RBC Urine WBC Ur Squamous Epith Cells Urine Bacteria Hyaline Casts Vancomycin Trough COVID-19 (SANDRINE) COVID-19 Clin Com 01/07/22 01/08/22 01/08/22 20:30 05:56 07:34 WBC RBC Hgb Hct MCV MCH MCHC RDW Plt Count MPV Immature Gran % (Auto) Neut % (Auto) Lymph % (Auto) [place] % (Auto) Eos % (Auto) Baso % (Auto) Lymph # (Auto) [place] # (Auto) Eos # (Auto) Baso # (Auto) Abs Immat Gran (auto) Absolute Neuts (auto) Absolute Nucleated RBC Nucleated RBC % (auto) Smear Tech's Comments ESR PT INR APTT Sodium Potassium Chloride Carbon Dioxide Anion Gap BUN Creatinine 1.15 Estim Creat Clear Calc 56.9 Estimated GFR > 60 POC Glucose 209 H 184 H Random Glucose Lactic Acid Calcium Magnesium Total Bilirubin Direct Bilirubin AST ALT Alkaline Phosphatase C-Reactive Protein Total Protein Albumin Urine Color Urine Appearance Urine pH Ur Specific [place] Urine Protein Urine Glucose (UA) Urine Ketones Urine Blood Urine Nitrite Ur Leukocyte Esterase Urine RBC Urine WBC Ur Squamous Epith Cells Urine Bacteria Hyaline Casts Vancomycin Trough COVID-19 (SANDRINE) COVID-19 Clin Com 01/08/22 01/08/22 01/08/22 11:22 15:32 19:28 WBC RBC Hgb Hct MCV MCH MCHC RDW Plt Count MPV Immature Gran % (Auto) Neut % (Auto) Lymph % (Auto) [place] % (Auto) Eos % (Auto) Baso % (Auto) Lymph # (Auto) [place] # (Auto) Eos # (Auto) Baso # (Auto) Abs Immat Gran (auto) Absolute Neuts (auto) Absolute Nucleated RBC Nucleated RBC % (auto) Smear Tech's Comments ESR PT INR APTT Sodium Potassium Chloride Carbon Dioxide Anion Gap BUN Creatinine Estim Creat Clear Calc Estimated GFR POC Glucose 165 H 194 H 220 H Random Glucose Lactic Acid Calcium Magnesium Total Bilirubin Direct Bilirubin AST ALT Alkaline Phosphatase C-Reactive Protein Total Protein Albumin Urine Color Urine Appearance Urine pH Ur Specific [place] Urine Protein Urine Glucose (UA) Urine Ketones Urine Blood Urine Nitrite Ur Leukocyte Esterase Urine RBC Urine WBC Ur Squamous Epith Cells Urine Bacteria Hyaline Casts Vancomycin Trough COVID-19 (SANDRINE) COVID-19 Clin Com 01/08/22 01/09/22 01/09/22 21:04 06:18 08:08 WBC RBC Hgb Hct MCV MCH MCHC RDW Plt Count MPV Immature Gran % (Auto) Neut % (Auto) Lymph % (Auto) [place] % (Auto) Eos % (Auto) Baso % (Auto) Lymph # (Auto) [place] # (Auto) Eos # (Auto) Baso # (Auto) Abs Immat Gran (auto) Absolute Neuts (auto) Absolute Nucleated RBC Nucleated RBC % (auto) Smear Tech's Comments ESR PT INR APTT Sodium Potassium Chloride Carbon Dioxide Anion Gap BUN Creatinine 0.95 Estim Creat Clear Calc 68.9 Estimated GFR > 60 POC Glucose 130 H Random Glucose Lactic Acid Calcium Magnesium Total Bilirubin Direct Bilirubin AST ALT Alkaline Phosphatase C-Reactive Protein Total Protein Albumin Urine Color Urine Appearance Urine pH Ur Specific [place] Urine Protein Urine Glucose (UA) Urine Ketones Urine Blood Urine Nitrite Ur Leukocyte Esterase Urine RBC Urine WBC Ur Squamous Epith Cells Urine Bacteria Hyaline Casts Vancomycin Trough 7.4 L COVID-19 (SANDRINE) COVID-19 Clin Com Airway Mallampati Class: II TM Dist: >3cm Neck ROM: Full Denture: Upper Loose/Missing/Broken Teeth: Yes (No teeth bottom) Heart: RRR Lungs: CTAB Assessment and Plan Assessment Anesthesia Assessment: Anesthesia Plan Discussed and Chart Reviewed Final Anesthetic Review Family History of Problems with Anesthesia: No History of Problems with Anesthesia: No NPO: Yes ASA Class: III Final Preanesthetic Review: No Changes in Pt Med Stat, Meds/Allgs Chart Reviewed, Consent Obtained/Reviewed and Anes Risks/Benef Reviewed Patient Risk: Intermediate Procedure Risk: Low Assessment/Block/Sedation in SS: Assess/Block/Sedation- Anesthetic Plan Anesthetic Plan: GA Disposition: Standard PACU
--- NOTE | 2022-01-09 12:58 | MHC.SHP ---
Pre-Procedural Eval Section A Date of Service: 01/09/22 The patient is an INPATIENT: Yes Changes since office visit: Yes Patient answered all questions The History & Physical has been completed within 30 days and I have reviewed it.: Yes Section B Chief Complaint: Left toe infection Allergies: Allergies Allergy/AdvReac Type Severity Reaction Status Date / Time No Known Allergies Allergy Verified 12/30/21 11:33 [No Known Allergies*] Plan I have reviewed the history and physical and performed a pertinent physical examination on my patient. No changes have occurred unless specified.
--- NOTE | 2022-01-09 12:58 | W.PM.OPN ---
Operative Note Operative Note Date of Service: 01/09/22 Narrative: Operative note by [facility] Preoperative diagnosis:1. Nonhealing left foot diabetic ulcer 2. osteomyelitis Postoperative diagnosis: same Procedure: left foot transmetatarsal amputation Surgeon:Shaq Johnson M.D. Regulatory Compliance Director: none Anesthesia: general Specimens: 1 Drains: non Estimated blood loss: 50 mL Indications: 81-year-old diabetic gentleman with prior toe amputations had a nonhealing toe. This was treated conservatively with outpatient p.o. antibiotics. He had been admitted with IV antibiotics and has been nonhealing. His discovered that he had underlying osteomyelitis. He has had a prior trial of conservative management which has failed. Now presents for transmetatarsal amputation. The procedure was discussed in detail with the patient and the day before with the patients and the daughter. The patient has signed the informed consent after reviewing risks, complications, benefits, and alternatives previously discussed with the patient. The patient was given the opportunity to ask any additional questions or voice any concerns. All questions were answered to the patient's satisfaction. Procedure in detail: Patient was brought to the operating room prior to which timeout was called for patient identification site verification. Left foot was prepped and draped in standard surgical fashion. Curvilinear incision was made over the dorsum of the foot. This was taken down through skin subcu fascia down to the metatarsals. We curved the incision posteriorly to create a posterior flap. Once this was dissected. We identified the dorsalis pedis artery and this was tied off with a 2-0 silk tie. We E then used a power saw to transect across the metatarsals. This was done in its entirety all the way down and then dissected off with electrocautery to create this posterior flap. Once this was all accomplished we irrigated the wound out thoroughly. We filed down the sharp edges with bony rasp. We then brought in the flap to the dorsal foot fascia with 2-0 Polysorb. Skin was closed with mattress 3-0 nylon and skin clips. Xeroform and a sterile dressing were applied. At the end the case sponge instrument counts were correct. Patient tile the procedure well. Returned to recovery with stable vitals. This note is constructed using voice recognition software. While every effort has been made to ensure accuracy, cost accounting analyst errors may have been included. Thank you for allowing me to participate in the care of your patient. Yours sincerely, Shaq Johnson MD, FACS, R.P.V.I.
--- NOTE | 2022-01-09 14:13 | MHC.CM.PN ---
PER MD ROUNDS, PLAN FOR SURGERY CONSULT TODAY DC PLAN REMAINS HOME WITH [facility] S/O WILL TRANSPORT
[2022-01-09 14:21] LABS: Glucose, Whole Blood 139 mg/dL (60-115)
--- NOTE | 2022-01-09 16:28 | HO.PM.IMPN ---
Subjective Subjective Date of Service: 01/09/22 Interval History: Toe infection Review of Systems mild sloughing in the 4th toe left side, mucoid discharge ?denies any chest pain or shortness of breath or abdominal pain or chills Physical Exam Vital Signs: Vital Signs: Last Vital Signs Temp 98.8 F 01/09/22 14:00 Pulse 73 01/09/22 14:00 Resp 19 01/09/22 14:00 BP 160/59 H 01/09/22 14:00 Pulse Ox 99 01/09/22 14:00 O2 Del Method 01/09/22 14:00 BMI result Body Mass Index 30.4 awake alert x3, not in distress Neck supple, no JVD Regular rate and rhythm, S1-S2 heard Regular breath sounds bilaterally, no wheezing or crackles appreciated Abdomen soft nontender, no guarding, no rigidity Patient is awake, alert and oriented to place, time and person ; no focal motor deficit Extremity:? Imaging of the foot attached as below ? please see images from H&P. Objective Data Active Medications Acetaminophen (Acetaminophen 325 Mg Tablet) 650 mg PO Q6H PRN PRN Reason: Pain, Mild (Pain Scale 1-3) Aspirin (Aspirin 81 Mg Tab.Chew) 81 mg PO DAILY [facility] Last Admin: 01/09/22 08:34 Dose: 81 mg Documented By: YINKA Dextrose (Dextrose 50 % 25 Gm/50 Ml Syringe) 25 gm IVPUSH Q15M PRN; Protocol PRN Reason: per Hypoglycemia Standing Ord. Fentanyl (Fentanyl Citrate/Pf 100 Mcg/2 Ml Vial) 25 mcg IVPUSH Q5M PRN; Protocol PRN Reason: Pain, Moderate (Pain Scale 4-6 Glucose (Glucose Gel 15 Gm Gel..Gram.) 15 gm PO Q15M PRN; Protocol PRN Reason: per Hypoglycemia Standing Ord. Hydromorphone HCl (Hydromorphone Hcl 0.5 Mg/0.5 Ml Syringe) 0.25 mg IVPUSH Q5M PRN; Protocol PRN Reason: Pain, Severe (Pain Scale 7-10) Piperacillin Sod/Tazobactam (Sod 4.5 gm/ Sodium Chloride) 100 mls @ 200 mls/hr IV Q6H [facility] Last Admin: 01/09/22 15:53 Dose: 200 mls/hr Documented By: YINKA Lactated Ringer's (Lr) 1,000 mls @ 80 mls/hr IVCONT .[id number] [facility] Last Infusion: 01/09/22 15:53 Dose: 0 mls/hr Documented By: YINKA Vancomycin HCl 1,500 mg/ (Sodium Chloride) 500 mls @ 333.333 mls/hr IV Q24H [facility] Insulin Glargine (Insulin Glargine,Hum.Rec.Anlog 100 Unit/Ml 10 Ml Vial) 20 unit SUBCUT DAILY [facility] Last Admin: 01/07/22 08:28 Dose: Not Given Documented By: ADAN Non-Admin Reason: Physician Held Med Insulin Human Lispro (Insulin Lispro 100 Unit/Ml 3 Ml Vial) 0 unit SUBCUT QIDACHS [facility]; Protocol Last Admin: 01/09/22 13:17 Dose: Not Given Documented By: YINKA Non-Admin Reason: Off Unit: Surgery Melatonin (Melatonin 3 Mg Tablet) 6 mg PO BEDTIME PRN PRN Reason: Insomnia Last Admin: 01/06/22 20:06 Dose: 6 mg Documented By: GEOFFREY Ondansetron HCl (Ondansetron Hcl 4 Mg/2 Ml Vial) 4 mg IVPUSH Q8H PRN PRN Reason: Nausea and Vomiting Ondansetron HCl (Ondansetron Hcl 4 Mg/2 Ml Vial) 4 mg IVPUSH ONCE PRN PRN Reason: Nausea and Vomiting Oxycodone HCl (Oxycodone Hcl Immed Release 5 Mg Tablet) 5 mg PO ONCE PRN PRN Reason: Pain, Severe (Pain Scale 7-10) Pharmacy Consult (Consult Rx Vancomycin Dosing) 1 each MISCELLANE DAILY PRN PRN Reason: Consult order Pharmacy Consult (Consult Rx Perform Med Rec) 1 each MISCELLANE ONCE PRN PRN Reason: Consult order Sodium Chloride (0.9 % Sodium Chloride Flush 3 Ml Syringe) 3 ml IVFLUSH QSHIFT [facility] Last Admin: 01/09/22 08:35 Dose: 3 ml Documented By: YINKA Labs CBC & Chem 7: 01/06/22 06:14 01/09/22 06:18 Labs: Laboratory Results - last 24 hr 01/08/22 01/08/22 01/09/22 19:28 21:04 06:18 Estim Creat Clear Calc 68.9 Estimated GFR > 60 POC Glucose 220 H Vancomycin Trough 7.4 L 01/09/22 01/09/22 08:08 14:11 Estim Creat Clear Calc Estimated GFR POC Glucose 130 H 139 H Vancomycin Trough Assessment and Plan (1) Acute osteomyelitis: Status: Acute (2) IDDM (insulin dependent diabetes mellitus): Status: Acute Plan 81-year-old male with pertinent history of insulin-dependent diabetes mellitus, peripheral artery disease status post toe amputations, essential hypertension who presents to the emergency department for evaluation of left 4rd toe redness/swelling/drainage. #. acute Left fourth toe osteomyelitis with cellulitis of left foot -patient received vancomycin and Zosyn in the ER, continue broad-spectrum empiric IV antibiotics.? Consulted vascular surgery and Infectious Disease, appreciate assistance. last vanco trough was 7.4 vascular followin-will be going for amputation #.? Insulin-dependent diabetes mellitus with hyperglycemia -continue glargine at reduced dosage while in the hospital.? Initiate Accu-Cheks and sliding scale insulin.? Hold home metformin. #.? Peripheral arterial disease status post toe amputations -hold Plavix until surgical evaluation.? Not on statin #.? Essential hypertension -hold lisinopril until surgical evaluation to prevent postop hypotension Med rec pending DVT prophylaxis: Holding Lovenox until vascular surgery evaluation Diabetic diet Full code d/w patient and his daughter in detail. Admit as inpatient and will require two night minimum hospital stay for IV antibiotics.? ? Vascular evaluation pending Quality Stroke Does the patient have a stroke diagnosis?: No VTE Prior VTE?: No VTE Risk Level:: Medical - moderate - high VTE Device Contraindication: Treatment Not Indicated VTE Drug Contraindication: Treatment Not Indicated
[2022-01-09 16:35] LABS: Glucose, Whole Blood 218 mg/dL (60-115)
[2022-01-09] MEDS: Insulin Lispro 100 UNIT/ML 3 ML VIAL SUBCUT ×2 (16:38→21:21)
[2022-01-09] MEDS: oxyCODONE HCl Immed Release 5 MG TABLET PO (19:33)
[2022-01-09] MEDS: Acetaminophen 325 MG TABLET 650 MG PO (19:34)
[2022-01-09 19:55] LABS: Glucose, Whole Blood 184 mg/dL (60-115)
--- NOTE | 2022-01-09 21:28 | PC.NURSE ---
Patient was complaining of discomfort from the sequentials. MD was asked to remove for the night. approved
[2022-01-09] MEDS: vancomycin HCL 1,500 MG in 0.9 % Sodium Chloride 500 ML 333.33 MG IV (22:42)
[2022-01-09] MEDS: Melatonin 3 MG TABLET 6 MG PO (22:43)
[2022-01-10] MEDS: Morphine Sulfate 2 MG/ML CARTRIDGE IVPUSH (00:58)
[2022-01-10 03:00] VITALS: BP 161/72; PULSE 77; RESP 17; TEMP 36.9; O2SAT 97
[2022-01-10] MEDS: Piperacillin Sodium/Tazobactam 4.5 GM in 0.9 % Sodium Chloride 100 ML IV ×4 (03:14→21:27)
[2022-01-10 06:39] LABS: Creatinine Clr Calc Pharmacy 64.8; Estimated Glomerular Filt Rate > 60
[2022-01-10 07:21] VITALS: BP 147/69; PULSE 78; RESP 18; O2SAT 96
[2022-01-10 07:22] VITALS: TEMP 36.9
[2022-01-10 07:55] LABS: Glucose, Whole Blood 195 mg/dL (60-115)
[2022-01-10] MEDS: Insulin Lispro 100 UNIT/ML 3 ML VIAL SUBCUT ×4 (08:36→21:37)
[2022-01-10] MEDS: Aspirin 81 MG TAB.CHEW PO (08:36)
[2022-01-10] MEDS: Acetaminophen 325 MG TABLET 650 MG PO (10:05)
[2022-01-10] MEDS: oxyCODONE HCl Immed Release 5 MG TABLET 10 MG PO ×2 (10:06→19:39)
[2022-01-10] MEDS: 0.9 % Sodium Chloride Flush 3 ML SYRINGE IVFLUSH ×2 (10:09→18:24)
[2022-01-10 11:25] LABS: Glucose, Whole Blood 218 mg/dL (60-115)
--- NOTE | 2022-01-10 11:31 | HO.POSTANES ---
Post Anesthesia Evaluation Post Anesthesia Evaluation Vital Signs: Vital Signs Temp Pulse Resp BP Pulse Ox O2 Del Method 01/10/22 07:22 98.5 F 01/10/22 07:21 78 18 147/69 H 96 01/10/22 03:00 98.5 F 77 17 161/72 H 97 Room Air Anesthesia: General Mental Status: Awake Pain Control: Satisfactory Nausea/Vomiting: None Hydration: Adequate Anesthesia-Related Issues: No Anes. Related Issues
--- NOTE | 2022-01-10 11:51 | HO.PM.IMPN ---
Subjective Subjective Date of Service: 01/10/22 Interval History: Toe infection Review of Systems mild sloughing in the 4th toe left side, mucoid discharge ?denies any chest pain or shortness of breath or abdominal pain or chills Physical Exam Vital Signs: Vital Signs: Last Vital Signs Temp 98.5 F 01/10/22 07:22 Pulse 78 01/10/22 07:21 Resp 18 01/10/22 07:21 BP 147/69 H 01/10/22 07:21 Pulse Ox 96 01/10/22 07:21 O2 Del Method 01/10/22 03:00 BMI result Body Mass Index 30.4 ? awake alert x3, not in distress Neck supple, no JVD Regular rate and rhythm, S1-S2 heard Regular breath sounds bilaterally, no wheezing or crackles appreciated Abdomen soft nontender, no guarding, no rigidity Patient is awake, alert and oriented to place, time and person ; no focal motor deficit Extremity:? Imaging of the foot attached as below ? please see images from H&P. Objective Data Active Medications Acetaminophen (Acetaminophen 325 Mg Tablet) 650 mg PO Q6H PRN PRN Reason: Pain, Mild (Pain Scale 1-3) Last Admin: 01/10/22 10:05 Dose: 650 mg Documented By: TOMI Aspirin (Aspirin 81 Mg Tab.Chew) 81 mg PO DAILY [facility] Last Admin: 01/10/22 08:36 Dose: 81 mg Documented By: TOMI Dextrose (Dextrose 50 % 25 Gm/50 Ml Syringe) 25 gm IVPUSH Q15M PRN; Protocol PRN Reason: per Hypoglycemia Standing Ord. Fentanyl (Fentanyl Citrate/Pf 100 Mcg/2 Ml Vial) 25 mcg IVPUSH Q5M PRN; Protocol PRN Reason: Pain, Moderate (Pain Scale 4-6 Glucose (Glucose Gel 15 Gm Gel..Gram.) 15 gm PO Q15M PRN; Protocol PRN Reason: per Hypoglycemia Standing Ord. Hydromorphone HCl (Hydromorphone Hcl 0.5 Mg/0.5 Ml Syringe) 0.25 mg IVPUSH Q5M PRN; Protocol PRN Reason: Pain, Severe (Pain Scale 7-10) Piperacillin Sod/Tazobactam (Sod 4.5 gm/ Sodium Chloride) 100 mls @ 200 mls/hr IV Q6H [facility] Last Admin: 01/10/22 10:08 Dose: 200 mls/hr Documented By: TOMI Vancomycin HCl 1,500 mg/ (Sodium Chloride) 500 mls @ 333.333 mls/hr IV Q24H [facility] Last Infusion: 01/10/22 00:14 Dose: 0 mls/hr Documented By: CHANTAL Insulin Glargine (Insulin Glargine,Hum.Rec.Anlog 100 Unit/Ml 10 Ml Vial) 20 unit SUBCUT DAILY [facility] Last Admin: 01/07/22 08:28 Dose: Not Given Documented By: ADAN Non-Admin Reason: Physician Held Med Insulin Human Lispro (Insulin Lispro 100 Unit/Ml 3 Ml Vial) 0 unit SUBCUT QIDACHS [facility]; Protocol Last Admin: 01/10/22 11:48 Dose: 4 unit Documented By: TOMI Melatonin (Melatonin 3 Mg Tablet) 6 mg PO BEDTIME PRN PRN Reason: Insomnia Last Admin: 01/09/22 22:43 Dose: 6 mg Documented By: CHANTAL Ondansetron HCl (Ondansetron Hcl 4 Mg/2 Ml Vial) 4 mg IVPUSH Q8H PRN PRN Reason: Nausea and Vomiting Ondansetron HCl (Ondansetron Hcl 4 Mg/2 Ml Vial) 4 mg IVPUSH ONCE PRN PRN Reason: Nausea and Vomiting Oxycodone HCl (Oxycodone Hcl Immed Release 5 Mg Tablet) 10 mg PO Q4H PRN PRN Reason: Pain, Mild (Pain Scale 1-3) Last Admin: 01/10/22 10:06 Dose: 10 mg Documented By: TOMI Pharmacy Consult (Consult Rx Vancomycin Dosing) 1 each MISCELLANE DAILY PRN PRN Reason: Consult order Pharmacy Consult (Consult Rx Perform Med Rec) 1 each MISCELLANE ONCE PRN PRN Reason: Consult order Sodium Chloride (0.9 % Sodium Chloride Flush 3 Ml Syringe) [facility] Last Admin: 01/10/22 10:09 Dose: 3 ml Documented By: TOMI Labs CBC & Chem 7: 01/06/22 06:14 01/10/22 05:38 Labs: Laboratory Results - last 24 hr 01/09/22 01/09/22 01/09/22 14:11 16:30 19:51 Estim Creat Clear Calc Estimated GFR POC Glucose 139 H 218 H 184 H 01/10/22 01/10/22 01/10/22 05:38 07:21 11:20 Estim Creat Clear Calc 64.8 Estimated GFR > 60 POC Glucose 195 H 218 H Assessment and Plan (1) Acute osteomyelitis: Status: Acute (2) IDDM (insulin dependent diabetes mellitus): Status: Acute Plan 81-year-old male with pertinent history of insulin-dependent diabetes mellitus, peripheral artery disease status post toe amputations, essential hypertension who presents to the emergency department for evaluation of left 4rd toe redness/swelling/drainage. #. acute Left fourth toe osteomyelitis with cellulitis of left foot -patient received vancomycin and Zosyn in the ER, continue broad-spectrum empiric IV antibiotics.? Consulted vascular surgery and Infectious Disease, appreciate assistance. last vanco trough was 7.4 yesterday, vascular followin-s/p amputation #.? Insulin-dependent diabetes mellitus with hyperglycemia: fs 180-200 range -continue glargine at reduced dosage while in the hospital.? Initiate Accu-Cheks and sliding scale insulin.? Hold home metformin. #.? Peripheral arterial disease status post toe amputations -hold Plavix until surgical evaluation.? Not on statin #.? Essential hypertension -hold lisinopril until surgical evaluation to prevent postop hypotension Med rec pending DVT prophylaxis: Holding Lovenox until vascular surgery evaluation Diabetic diet Full code d/w patient and his daughter in detail. Admit as inpatient and will require two night minimum hospital stay for IV antibiotics.? ? Vascular evaluation pending Quality Stroke Does the patient have a stroke diagnosis?: No VTE Prior VTE?: No VTE Risk Level:: Medical - moderate - high VTE Device Contraindication: Treatment Not Indicated VTE Drug Contraindication: Treatment Not Indicated
[2022-01-10 15:35] VITALS: BP 153/77; PULSE 75; RESP 17; TEMP 36.6; O2SAT 99
[2022-01-10 15:51] LABS: Glucose, Whole Blood 195 mg/dL (60-115)
[2022-01-10 19:46] VITALS: BP 138/54; PULSE 83; RESP 18; TEMP 37.3; O2SAT 94
[2022-01-10 20:28] LABS: Glucose, Whole Blood 332 mg/dL (60-115)
--- NOTE | 2022-01-10 21:53 | HE.PHANOTE ---
TROUGH 11, TREATING SKIN. KEEP SAME DOSE. AUC EXPECTED 484
[2022-01-10] MEDS: vancomycin HCL 1,500 MG in 0.9 % Sodium Chloride 500 ML 333.3 MG IV (22:22)
[2022-01-11] MEDS: oxyCODONE HCl Immed Release 5 MG TABLET 10 MG PO ×3 (00:41→19:57)
[2022-01-11] MEDS: Melatonin 3 MG TABLET 6 MG PO (00:41)
[2022-01-11 03:39] VITALS: BP 141/63; PULSE 69; RESP 16; TEMP 36.6; O2SAT 94
[2022-01-11] MEDS: Piperacillin Sodium/Tazobactam 4.5 GM in 0.9 % Sodium Chloride 100 ML IV (03:43)
--- NOTE | 2022-01-11 03:55 | PC.NURSE ---
Patient is refusing SCD.
[2022-01-11 06:41] LABS: Creatinine Clr Calc Pharmacy 61.2; Estimated Glomerular Filt Rate > 60
[2022-01-11 07:19] LABS: Glucose, Whole Blood 146 mg/dL (60-115)
[2022-01-11] MEDS: 0.9 % Sodium Chloride Flush 3 ML SYRINGE IVFLUSH ×2 (07:37→15:33)
[2022-01-11] MEDS: Aspirin 81 MG TAB.CHEW PO (07:37)
[2022-01-11 08:17] VITALS: BP 153/69; PULSE 76; RESP 17; TEMP 36.8; O2SAT 97
--- NOTE | 2022-01-11 10:10 | HE.PHANOTE ---
Vancomycin Dosing Addendum Patient's renal function is stable. Continue 1500 mg Q24H next level to be drawn 01/12 @1999
--- NOTE | 2022-01-11 10:37 | HO.PM.IMPN ---
Subjective Subjective Date of Service: 01/11/22 Interval History: Toe infection Review of Systems s/p amputation less pain Denies any chest pain or shortness of breath or fever or chills or cough or phlegm Physical Exam Vital Signs: Vital Signs: Last Vital Signs Temp 98.3 F 01/11/22 08:17 Pulse 76 01/11/22 08:17 Resp 17 01/11/22 08:17 BP 153/69 H 01/11/22 08:17 Pulse Ox 97 01/11/22 08:17 O2 Del Method 01/11/22 08:17 BMI result Body Mass Index 30.4 ? awake alert x3, not in distress Neck supple, no JVD Regular rate and rhythm, S1-S2 heard Regular breath sounds bilaterally, no wheezing or crackles appreciated Abdomen soft nontender, no guarding, no rigidity Patient is awake, alert and oriented to place, time and person ; no focal motor deficit Extremity:?s/p amputation day2-left foot is wrapped , move discharge or swelling around the foot. Objective Data Active Medications Acetaminophen (Acetaminophen 325 Mg Tablet) 650 mg PO Q6H PRN PRN Reason: Pain, Mild (Pain Scale 1-3) Last Admin: 01/10/22 10:05 Dose: 650 mg Documented By: TOMI Amoxicillin/Clavulanate Potassium (Amoxicillin/Potassium Clav 875 Mg Tablet) 875 mg PO Q12H [facility] Aspirin (Aspirin 81 Mg Tab.Chew) 81 mg PO DAILY [facility] Last Admin: 01/11/22 07:37 Dose: 81 mg Documented By: TOMI Dextrose (Dextrose 50 % 25 Gm/50 Ml Syringe) 25 gm IVPUSH Q15M PRN; Protocol PRN Reason: per Hypoglycemia Standing Ord. Doxycycline Monohydrate (Doxycycline Monohydrate 100 Mg Capsule) 100 mg PO Q12H JOSE E Fentanyl (Fentanyl Citrate/Pf 100 Mcg/2 Ml Vial) 25 mcg IVPUSH Q5M PRN; Protocol PRN Reason: Pain, Moderate (Pain Scale 4-6 Glucose (Glucose Gel 15 Gm Gel..Gram.) 15 gm PO Q15M PRN; Protocol PRN Reason: per Hypoglycemia Standing Ord. Hydromorphone HCl (Hydromorphone Hcl 0.5 Mg/0.5 Ml Syringe) 0.25 mg IVPUSH Q5M PRN; Protocol PRN Reason: Pain, Severe (Pain Scale 7-10) Insulin Glargine (Insulin Glargine,Hum.Rec.Anlog 100 Unit/Ml 10 Ml Vial) 20 unit SUBCUT DAILY [facility] Last Admin: 01/07/22 08:28 Dose: Not Given Documented By: ADAN Non-Admin Reason: Physician Held Med Insulin Human Lispro (Insulin Lispro 100 Unit/Ml 3 Ml Vial) 0 unit SUBCUT QIDACHS [facility]; Protocol Last Admin: 01/11/22 07:38 Dose: Not Given Documented By: TOMI Non-Admin Reason: No Insulin Coverage Melatonin (Melatonin 3 Mg Tablet) 6 mg PO BEDTIME PRN PRN Reason: Insomnia Last Admin: 01/11/22 00:41 Dose: 6 mg Documented By: SUE Ondansetron HCl (Ondansetron Hcl 4 Mg/2 Ml Vial) 4 mg IVPUSH Q8H PRN PRN Reason: Nausea and Vomiting Ondansetron HCl (Ondansetron Hcl 4 Mg/2 Ml Vial) 4 mg IVPUSH ONCE PRN PRN Reason: Nausea and Vomiting Oxycodone HCl (Oxycodone Hcl Immed Release 5 Mg Tablet) 10 mg PO Q4H PRN PRN Reason: Pain, Mild (Pain Scale 1-3) Last Admin: 01/11/22 07:36 Dose: 10 mg Documented By: TOMI Pharmacy Consult (Consult Rx Vancomycin Dosing) 1 each MISCELLANE DAILY PRN PRN Reason: Consult order Pharmacy Consult (Consult Rx Perform Med Rec) 1 each MISCELLANE ONCE PRN PRN Reason: Consult order Sodium Chloride (0.9 % Sodium Chloride Flush 3 Ml Syringe) 3 ml IVFLUSH QSHIFT [facility] Last Admin: 01/11/22 07:37 Dose: 3 ml Documented By: TOMI Labs CBC & Chem 7: 01/06/22 06:14 01/11/22 05:44 Labs: Laboratory Results - last 24 hr 01/10/22 01/10/22 01/10/22 11:20 15:40 20:20 Estim Creat Clear Calc Estimated GFR POC Glucose 218 H 195 H 332 H Random Vancomycin 01/10/22 01/11/22 01/11/22 21:10 05:44 07:14 Estim Creat Clear Calc 61.2 Estimated GFR > 60 POC Glucose 146 H Random Vancomycin 11.0 L Microbiology Microbiology Results: Microbiology 01/05/22 19:36 Blood Culture - Final Blood - Venous No growth after 5 days. 01/05/22 14:08 Blood Culture - Final Blood - Venous No growth after 5 days. Assessment and Plan (1) Acute osteomyelitis: Status: Acute (2) IDDM (insulin dependent diabetes mellitus): Status: Acute Plan 81-year-old male with pertinent history of insulin-dependent diabetes mellitus, peripheral artery disease status post toe amputations, essential hypertension who presents to the emergency department for evaluation of left 4rd toe redness/swelling/drainage. #. acute Left fourth toe osteomyelitis with cellulitis of left foot vascular followin-s/p amputation day2 will switch to po antibiotics since already had amputation #.? Insulin-dependent diabetes mellitus with hyperglycemia: -continue glargine adjusted and sliding scale insulin.? Hold home metformin. #.? Peripheral arterial disease status post toe amputations start Plavix until surgical evaluation.? Not on statin #.? Essential hypertension: stable start lisinopril until surgical evaluation to prevent postop hypotension Med rec pending DVT prophylaxis: Holding Lovenox until vascular surgery evaluation Diabetic diet Full code d/w patient and his daughter in detail. Admit as inpatient and will require two night minimum hospital stay for IV antibiotics.? ? Vascular evaluation pending Quality Stroke Does the patient have a stroke diagnosis?: No VTE Prior VTE?: No VTE Risk Level:: Medical - moderate - high VTE Device Contraindication: Treatment Not Indicated VTE Drug Contraindication: Treatment Not Indicated
[2022-01-11 11:07] LABS: Glucose, Whole Blood 279 mg/dL (60-115)
[2022-01-11] MEDS: Doxycycline Monohydrate 100 MG CAPSULE PO ×2 (11:19→19:58)
[2022-01-11] MEDS: Amoxicillin/Potassium Clav 875 MG TABLET PO ×2 (11:19→19:57)
[2022-01-11] MEDS: Insulin Lispro 100 UNIT/ML 3 ML VIAL SUBCUT ×3 (11:37→19:58)
[2022-01-11 15:03] VITALS: BP 173/78; PULSE 75; RESP 16; TEMP 36.1; O2SAT 99
[2022-01-11] MEDS: Acetaminophen 325 MG TABLET 650 MG PO (15:37)
[2022-01-11 16:13] LABS: Glucose, Whole Blood 183 mg/dL (60-115)
[2022-01-11 19:17] VITALS: BP 170/72; PULSE 73; RESP 16; TEMP 36.1; O2SAT 96
[2022-01-11 19:59] LABS: Glucose, Whole Blood 224 mg/dL (60-115)
[2022-01-11 21:31] VITALS: BP 160/68
[2022-01-12] MEDS: 0.9 % Sodium Chloride Flush 3 ML SYRINGE IVFLUSH ×2 (00:21→08:28)
[2022-01-12 04:00] VITALS: BP 160/72; PULSE 78; RESP 17; TEMP 36.6; O2SAT 96
[2022-01-12] MEDS: oxyCODONE HCl Immed Release 5 MG TABLET 10 MG PO (06:40)
[2022-01-12 07:29] LABS: Glucose, Whole Blood 163 mg/dL (60-115)
[2022-01-12 08:00] VITALS: BP 182/69; PULSE 70; RESP 17; TEMP 36.7; O2SAT 99
[2022-01-12] MEDS: Insulin Lispro 100 UNIT/ML 3 ML VIAL SUBCUT ×2 (08:27→11:14)
[2022-01-12] MEDS: Aspirin 81 MG TAB.CHEW PO (08:27)
[2022-01-12] MEDS: lisinopriL 20 MG TABLET PO (08:27)
[2022-01-12] MEDS: Clopidogrel Bisulfate 75 MG TABLET PO (08:27)
--- NOTE | 2022-01-12 10:26 | HO.VASCPN ---
Subjective Subjective Date of Service: 01/12/22 Patient reports: no new complaints and feels better Interval history: 81-year-old status post transmetatarsal amputation postop day 3. No events over the weekend. Doing relatively well. No significant pain or discomfort. Physical Exam Vital Signs: Vital Signs: Last Vital Signs Temp 98.0 F 01/12/22 08:00 Pulse 70 01/12/22 08:00 Resp 17 01/12/22 08:00 BP 182/69 H 01/12/22 08:00 Pulse Ox 99 01/12/22 08:00 O2 Del Method 01/12/22 08:00 BMI result Body Mass Index 30.4 Const: General: cooperative, healthy appearing and no acute distress Orientation/consciousness: oriented to person, oriented to place and oriented to time HEENT: Head: Yes normal to inspection Neck: Carotids: no bruits Chest: Chest palpation & inspection: normal inspection of the chest Resp: Effort & Inspection: normal respiratory effort and able to speak in complete sentences Auscultation: clear to auscultation bilaterally Cardio: Rate: regular rate Heart sounds: S1 normal heart sound present and S2 normal heart sound present GI: Inspection: Yes normal to inspection Skin: General skin exam: no rashes or lesions noted Wounds: amputation site (Amp site healing well does have some erythema.) Neuro: General: oriented to person, oriented to place, oriented to time and CN's II-XI intact bilaterally Extrem: General: Yes normal to inspection, Yes full ROM and Yes no clubbing, cyanosis or edema Psych: Appearance: grossly normal and well kempt Speech and movement: Normal speech and movement present Affect: normal affect Progress Note: A&P Assessment and plan (1) PAD (peripheral artery disease): Status: Acute Assessment and Plan: Patient is status post left transmetatarsal amputation. Appears to be doing relatively well. Stable from my perspective for discharge. Can see me in 2 weeks in the office for suture and staple removal. Will require 10 days p.o. antibiotics of Keflex as he does have mild cellulitis. Thank you for allowing us to assist in his care. If there are questions or concerns please do not hesitate to contact us. Time Spent With Patient Time: Total time spent is greater than 50% in coordination of care (as documented) at patient's floor/unit and/or counseling patient: Procedures Date of Service Date of Service: 01/12/22 Quality Stroke Does the patient have a stroke diagnosis?: No VTE Prior VTE?: No VTE Risk Level:: Medical - moderate - high VTE Device Contraindication: Treatment Not Indicated VTE Drug Contraindication: Treatment Not Indicated
[2022-01-12 11:06] LABS: Glucose, Whole Blood 243 mg/dL (60-115)
[2022-01-12] MEDS: cephALEXin 500 MG CAPSULE PO (11:14)
[2022-01-12] MEDS: amLODIPine Besylate 2.5 MG TABLET PO (11:57)
--- NOTE | 2022-01-12 12:11 | W.MHC.F2F ---
Service Date Service Date: 01/12/22 Encounter Date of encounter: 01/12/22 Encounter: Toe infection Reasons for Services Signs and symptoms assessed: Forefoot wound, fever or any new changes. Reason for mcc: wound care, medication management, medication treatment and teach disease management MD Overseeing Care: Keaton Santana Homebound: Leaving the home is medically contraindicated at this time without the asist of a device and/or another person due th the listed conditions above and below. Reason homebound: weakness related to hospital stay Homebound supporting statement: Foot osteomyelitis status post amputation, generalized weak post hospitalization has multiple comorbidities -need helps with appointments and medical management. Certification: Based on the above findings, I certify that this patient is confined to the home and needs intermittent mcc care, physical therapy and/or speech therapy, or continues to need occupational therapy. The patient is under my care, and I have initiated the establishment of the plan of care. The patient will be followed by a physician who will periodically review the plan of care.
--- NOTE | 2022-01-12 12:16 | PM.DS ---
DS: Providers Provider Date of Service: 01/12/22 Date of admission: 01/05/22 22:55 Primary care physician: Keaton Santana MD Consults: 01/05/22 22:59 Consult to Infectious Diseases Routine Consulting Provider: Cristina Mayberry Reason for consultation: fourth toe osteomyelitis Consult to Vascular Surgery Routine Consulting Provider: Shaq Johnson Reason for consultation: fourth toe osteomyelitis DS: Diagnosis Discharge Diagnosis (1) PAD (peripheral artery disease): Status: Acute (2) Acute osteomyelitis: Status: Acute (3) HTN (hypertension): Status: Acute DS: Summary Hospital Course Hospital Course: 81-year-old male with pertinent history of insulin-dependent diabetes mellitus, peripheral artery disease status post toe amputations, essential hypertension who presents to the emergency department for evaluation of left 4rd toe redness/swelling/drainage.? Patient states it started about 4 days prior to presentation, persistent and progressive.? The drainage is foul smelling.? There is also redness along the left foot and huitron.? It is associated with pain and warmth.? Patient denies fever, chills, nausea, vomiting, chest pain, shortness of breath, palpitations, abdominal pain, changes in urinary or bowel habits.? Of note, he was admitted recently and discharged on 10/09 with left 3rd toe osteomyelitis for which he underwent amputation with Dr. Johnson. In the emergency department, imaging concerning for left 4th toe osteomyelitis. hospital course: Patient came to the hospital because of foot osteomyelitis-started on IV antibiotics, subsequently seen by vascular surgery and had amputation of status post left transmetatarsal amputation. Subsequently discussed with vascular and ID since patient had amputation already does not need IV antibiotic, going home with p.o. antibiotic for 10 days. Follow up outpatient with vascular. In addition blood pressure is slightly suboptimal probably has component related to pain: Added oxycodone limited supply. In addition will add small dose of amlodipine for blood pressure control. Above management discussed with patient detail and he understand in agreement the plan.time spent 50 min. Time Spent with Patient Time attestation: Total time spent providing and/or coordinating discharge services: Discharge coordination time: Greater than 30 minutes Quality: Safe Use of Opioids Does Pt have an Active Cancer Diagnosis on the Problem List?: No Quality: Stroke Does the patient have a stroke diagnosis?: No Physical Exam Vital Signs: Vital Signs: Last Vital Signs Temp 98.0 F 01/12/22 08:00 Pulse 70 01/12/22 08:00 Resp 17 01/12/22 08:00 BP 182/69 H 01/12/22 08:00 Pulse Ox 99 01/12/22 08:00 O2 Del Method 01/12/22 08:00 BMI result Body Mass Index 30.4 ? awake alert x3, not in distress Neck supple, no JVD Regular rate and rhythm, S1-S2 heard Regular breath sounds bilaterally, no wheezing or crackles appreciated Abdomen soft nontender, no guarding, no rigidity Patient is awake, alert and oriented to place, time and person ; no focal motor deficit Extremity:?s/p amputation(amputation site (Amp site healing well does have some erythema.) DS: Data Data Completed and Pending Completed studies during hospitalization [Text1]: Procedures Detachment at Left 3rd Toe, Complete, Open Approach (10/01/21) Dilation of Right Anterior Tibial Artery using Drug-Coated Balloon, Percutaneous Approach (10/01/21) Pending studies at discharge: Pending at discharge 01/09/22 11:55 Surgical [PTH] Routine Labs on day of discharge: Laboratory Results - last 24 hr 01/11/22 01/11/22 01/12/22 16:03 19:48 07:23 POC Glucose 183 H 224 H 163 H 01/12/22 11:02 POC Glucose 243 H Imaging Chest x-ray: Radiologist's impression: ITS Impressions Foot X-Ray 01/05/22 12:40 IMPRESSION: 1. Possible acute osteomyelitis of the distal phalanx of the fourth toe. Further evaluation can be obtained with MRI imaging if clinically indicated. 2. Postsurgical changes of the first and third toes. Abd US [id number] 01/07/22 17:50 IMPRESSION: RIGHT LEG: Moderate peripheral arterial disease. LEFT LEG: Moderate peripheral arterial disease with monophasic flow throughout the left lower extremity. There is a stent in the left proximal superficial femoral artery with monophasic flow and elevated velocities suggesting stenosis. Duplex Scan Lower Extremity Artery 01/07/22 17:50 IMPRESSION: RIGHT LEG: Moderate peripheral arterial disease. LEFT LEG: Moderate peripheral arterial disease with monophasic flow throughout the left lower extremity. There is a stent in the left proximal superficial femoral artery with monophasic flow and elevated velocities suggesting stenosis. Discharge Plan Discharge Anticipated Discharge Date/Time: 01/12/22 11:46 Patient Disposition: Home Health Service Discharge Diagnosis: foot oseto, htn Referrals: [facility] [Outside] - 1 Week Keaton Santana MD [Primary Care Provider] - 1 Week Discharge Medications: New cephalexin 500 mg Capsule 500 mg PO Q12H Qty: 20 0RF oxycodone 5 mg Tablet 10 mg PO Q4H PRN (Reason: Pain, Mild (Pain Scale 1-3)) Qty: 10 0RF Rx Instructions: Partial Fill upon patient request. amlodipine 2.5 mg tablet 2.5 mg PO DAILY Qty: 30 0RF (DME) walker Misc See Rx Instructions .ROUTE .MEDSUPPLY Qty: 1 0RF Rx Instructions: As directed (DME) Shower Chair Misc See Rx Instructions .Route Qty: 1 0RF Rx Instructions: As directed Continued clopidogrel 75 mg Tablet 75 mg PO DAILY Qty: 30 0RF aspirin 81 mg Tablet,Chewable 81 mg PO DAILY Qty: 30 0RF insulin glargine 100 unit/mL (3 mL) insulin pen 25 unit subcut QAM Qty: 15 0RF lisinopril 20 mg tablet 20 mg PO DAILY metformin 1,000 mg tablet 1,000 mg PO BID Discharge Orders: Discharge Order (Routine); Ordered 01/12/22 Ordered By: Radha Jackman Diet: Advance to usual diet Activity on Discharge: As tolerated Stand Alone Forms: Patient Portal Discharge page Activity Restrictions/Additional Instructions: Wound care upon discharge: xeroform, 4x4 and Kerlix wrap to be changed daily. Please call Dr. Johnson at [phone] for 2 week follow up for suture and staple removal Care Plan Goals: Patient came to the hospital because of foot osteomyelitis-started on IV antibiotics, subsequently seen by vascular surgery and had amputation of status post left transmetatarsal amputation. Subsequently discussed with vascular and ID since patient had amputation already does not need IV antibiotic, going home with p.o. antibiotic for 10 days. Follow up outpatient with vascular. In addition blood pressure is slightly suboptimal probably has component related to pain: Added oxycodone limited supply. In addition will add small dose of amlodipine for blood pressure control. Above management discussed with patient detail and he understand in agreement the plan. Health Concerns: As above. Plan of Treatment: As above. Assessment: As above.
--- NOTE | 2022-01-12 12:17 | MHC.CM.PN ---
PATIENT DC HOME TODAY WITH RESUMPTION OF HIS [facility] IMM 01/11/22 IN CHART
--- NOTE | 2022-01-12 15:23 | MHC.CM.PN ---
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 AND RN SKILLS AND THAT PATIENT DID NOT WANT TO REMAIN AT [facility] OR GO TO SNF. T/W ALSO ASKED PATIENT IF HE WANTED TO STAY ANOTHER NIGHT AND HE REFUSED, STATING SHE TAKES GOOD CARE OF ME REFERRING TO GIRLFRIEND IN ROOM. HUMPHREY STATES PATIENT MAY RETURN BECAUSE HE IS BLEEDING FROM HIS AMP SITE.
== END 2022-01-12 14:11 | disposition home health service (06) | DRG 617 ==
LOC: HO.ED 21:42 → HO.EDOVER 23:35 → HO.S3 01-07 16:19
PROVIDERS: Physician Assistant; Surgery Vascular Surgery; Admitting Provider Student in an Organized Health Care Education/Training Program; Emergency Provider Internal Medicine; PCP Internal Medicine; Visit Provider Internal Medicine
PROC: 0Y6S0Z0 Detachment at Left 2nd Toe, Complete, Open Approach (ICD-10-PCS; CPT 28805; principal; 2022-01-09 11:00)
DX: E11.69 Type 2 diabetes mellitus with other specified complication (principal); L03.116 Cellulitis of left lower limb; M86.172 Other acute osteomyelitis, left ankle and foot; E11.51 Type 2 diabetes mellitus with diabetic peripheral angiopathy without gangrene; E11.65 Type 2 diabetes mellitus with hyperglycemia; E11.621 Type 2 diabetes mellitus with foot ulcer; L97.529 Non-pressure chronic ulcer of other part of left foot with unspecified severity; Z20.822 Contact with and (suspected) exposure to COVID-19; Z79.02 Long term (current) use of antithrombotics/antiplatelets; Z79.82 Long term (current) use of aspirin; Z79.84 Long term (current) use of oral hypoglycemic drugs; Z79.899 Other long term (current) drug therapy
CPT/HCPCS: 36415; 73630; 80048; 80076; 80202; 81001; 82565; 82947; 83605; 83735; 85025; 85610; 85652; 85730; 86140; 87040; 87635; 88307; 88311; 93923; 93925; 99285; C1776; J0131; J2270; J2405; J2543; J3010; J3370

== ENCOUNTER 2022-01-12 16:36 | Emergency (ER) | payer MEDICARE, OTHER, SELFPAY ==
[2022-01-12 16:44] VITALS: BP 166/58; PULSE 77; RESP 18; TEMP 36.9; O2SAT 100
[2022-01-12 17:10] VITALS: BP 130/68; BP 132/70; PULSE 72; PULSE 75; RESP 18; TEMP 36.9; O2SAT 98; O2SAT 99; BMI 31.4
--- NOTE | 2022-01-12 17:10 | ED.GENADULT ---
HPI - General Adult General Chief complaint: General Medical Stated complaint: seeking re-hab Time Seen by Provider: 01/12/22 16:49 Source: patient, family (Daughter Sapphire Gaytan Health Care Proxy at [phone] and [phone]) and EMS Mode of arrival: EMS Limitations: no limitations History of Present Illness HPI narrative: 81yoM c PMHx of insulin-dependent diabetes mellitus, peripheral artery disease status post toe amputations, central hypertension who was just discharged today after he was admitted for acute osteomyelitis, then was seen by vascular surgery and is now status post amputation of left transmetatarsals. Was seen by infectious disease and was placed on IV antibiotics and sent home with 10 days of p.o. Keflex antibiotics today after he refused short-term rehab. Apparently the patient was discharged home and his healthcare proxy his daughter was not aware that he refuse rehab and when he showed up he was unable to get into his house therefore he dragged himself up his own driveway and eventually got into his house although was unable to walk. Therefore his daughter was very upset about this along with his girlfriend and they called EMS and sent him here to go to rehab. Apparently patient was really upset with them although he is agreeable to go to rehab at this time. Patient denies any fevers, chills, dizziness, headaches, neck pain/stiffness, trouble swallowing or breathing, cough, sore throat, nasal congestion/rhinorrhea, chest pain or shortness of breath, dyspnea on exertion, orthopnea, palpitations on paresthesias, nausea/vomiting/diarrhea constipation, black or bloody stools or any other injuries complaints or concerns at this time. Daughter Sapphire Gaytan Health Care Proxy at [phone] and [phone] complaint: Requesting short-term rehab. Related Data Home Medications Medication Instructions Recorded Confirmed lisinopril 20 mg tablet 20 mg PO DAILY 11/22/19 01/06/22 metformin 1,000 mg tablet 1,000 mg PO BID 12/05/19 01/06/22 Previous Rx's Medication Instructions Recorded aspirin 81 mg chewable tablet 81 mg PO DAILY #30 tabs 10/09/21 clopidogrel 75 mg tablet 75 mg PO DAILY #30 tabs 10/09/21 insulin glargine 100 unit/mL (3 25 unit (0.25 mL) subcut QAM #15 mL 10/09/21 mL) subcutaneous pen Shower Chair #1 ea 01/12/22 amlodipine 2.5 mg tablet 2.5 mg PO DAILY #30 tabs 01/12/22 cephalexin 500 mg capsule 500 mg PO Q12H #20 caps 01/12/22 docusate sodium 100 mg capsule 100 mg PO DAILY #30 caps 01/12/22 (Colace) oxycodone 5 mg tablet 10 mg PO Q4H PRN Pain, Mild (Pain 01/12/22 Scale 1-3) #10 tabs walker #1 ea 01/12/22 Allergies Allergy/AdvReac Type Severity Reaction Status Date / Time No Known Allergies Allergy Verified 12/30/21 11:33 [No Known Allergies*] Review of Systems Review of Systems: Constitutional : No Weight loss, No Fever, No Chills, No Night Sweats, No Fatigue, No Malaise ENT/Mouth : No Hearing loss, No Ear Pain, No Nasal Congestion, No Sinus Pain, No Hoarseness, No sore throat, No Rhinorrhea, No Swallowing Difficulty Eyes: No Eye Pain, No Swelling, No Redness, No Foreign Body, No Discharge, No Vision Changes Cardiovascular : No Chest Pain, No SOB, No Dyspnea on Exertion, No Orthopnea, No Edema, No Palpitations Respiratory : No Cough, No Sputum, No Wheezing, No Smoke Exposure, No Dyspnea Gastrointestinal : No Nausea, No Vomiting, No Diarrhea, No Constipation, No abdominal Pain, No Hematochezia, No Melena Genitourinary : no irregular bleeding, No Dysuria, No Urinary Frequency, No Hematuria, No Urinary Incontinence, No Urgency, No Flank Pain, No Urinary Flow Changes, No Hesitancy Musculoskeletal : No Myalgias Skin : + improving left foot osteomyelitis, no addition Skin Lesions, No rash Neuro : No Weakness, No Numbness, No Paresthesias, No Loss of Consciousness, No Dizziness, No Headache Psych : No Anxiety/Panic, No Depression, No SI/HI/AH/VH, No Social Issues, Heme/Lymph: No Bruising, No Bleeding,No Lymphadenopathy Endocrine : No Polyuria, No Polydipsia, No Temperature Intolerance Yes all other systems are reviewed and are negative PMFSH Past Medical History Attestation statement: The following information was validated with the patient. Source: old records reviewed, obtained from family and nursing notes reviewed Medical History Diabetes History of amputation of great toe History of amputation of great toe HTN (hypertension) Hx of osteomyelitis 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 PAD (peripheral artery disease) Surgical History History of angioplasty of peripheral vessel Family History Family History Other No family history of coronary artery disease Social History Social History Household Members: Significant Other Housing: House Are you a primary patient care assistant to a significant other at home: No Do you presently have visiting nurse or other home services: Yes (olman kumar) Alcohol intake: current Alcohol intake frequency: does not drink Patient Tobacco Use Status: Former Tobacco user Quit Date: 20 years ago Second Hand Smoke Exposure: No Advance Directives: Yes Advance Directives on File: Yes Advance Directives Date on File: 10/01/21 service: No Current occupational status: retired Physical Exam ED Vital Signs: Vital Signs - 24 hr 01/12/22 16:44 01/12/22 17:10 Temperature 98.4 F 98.4 F Pulse Rate 77 75 Respiratory Rate 18 18 Blood Pressure 166/58 H 130/68 Pulse Oximetry 100 98 Oxygen Delivery Method Room Air Room Air BMI result Body Mass Index 31.4 vital signs have been reviewed as normal and appeared to be correct. Blood pressure 166/58. Heart rate normal. Respiration rate normal. Temperature normal. Oxygen saturation normal. Appearance: Alert. Oriented X3. No acute distress. Head: Normal external exam. Normocephalic. Atraumatic. Eyes: PERRLA. EOMI. Conjunctiva and sclera normal. Eyelids normal. ENT: Pharynx normal. Uvula midline. Moist mucous membranes. Normal voice. No trismus noted. No drooling noted. No muffled voice noted. Neck: Normal inspection. Neck supple. FROM. No adenopathy. Thyroid Normal. No meningeal signs. CVS: Normal heart rate and rhythm. Heart sound normal. Pulses normal throughout. No murmurs/rales/gallops. Respiratory: No respiratory distress. Painless inspiration. Breath sounds normal. No wheezes/rales/rhonchi noted. Chest nontender. No crepitus is noted. No signs of trauma noted. No accessory muscle usage noted or decreased air movement noted. No signs of trauma. Abdomen: Soft and nontender. Bowel sounds normal in all 4 quadrants. No distention noted. No organomegaly noted. No visible injury noted. Back: Full range of motion noted. Nontender. Skin: Skin warm and dry. Normal skin color. Normal skin turgor. Patient what left lower extremity metatarsal amputation see below for imaging. No additional rashes/lesions/lacerations noted. Extremities: +2 LLE edema noted. No RLE noted. No calf tenderness noted bilaterally. Extremities exhibit normal range of motion and nontender. Neuro: Oriented X 3. No motor deficit. No sensory deficit. Reflexes normal. Normal steady gait. No focal neuro deficits noted. CN's II-XII intact bilaterally? Vascular: + radial pulses/+ 2 distal pedal pulses/+2 dorsalis pedis b/l. Normal cap refill to upper extremities and right lower extremity. No cyanosis noted to upper extremity nails and right lower extremity toenails. Course Course Course Narrative: 17:20pm - 81yoM c PMHx of insulin-dependent diabetes mellitus, peripheral artery disease status post toe amputations, central hypertension who was just discharged today after he was admitted for acute osteomyelitis, then was seen by vascular surgery and is now status post amputation of left transmetatarsals. Was seen by infectious disease and was placed on IV antibiotics and sent home with 10 days of p.o. Keflex antibiotics today after he refused short-term rehab. Apparently the patient was discharged home and his healthcare proxy his daughter was not aware that he refuse rehab and when he showed up he was unable to get into his house therefore he dragged himself up his own driveway and eventually got into his house although was unable to walk. Therefore his daughter was very upset about this along with his girlfriend and they called EMS and sent him here to go to rehab. Apparently patient was really upset with them although he is agreeable to go to rehab at this time. Daughter Sapphire Gaytan Health Care Proxy at [phone] and [phone] who wants to be contacted for all decision making. She is also a nurse. Father is agreeable to this. Plan: Will repeat the patient's labs, blood cultures. Start the patient back on his Keflex that he was discharged on. Provide pain control. Order med rec. Ordered physical therapy evaluation and case management evaluation. Reevaluation(s) Reevaluation #1: Sign Out to KIRA Pepe pending labs. Time: 17:51 Critical Care Time Critical Care Time Critical Care Time: Yes Total Critical Care Time: 60 Attestation: I personally attest to this time spent taking care of the patient Discharge Plan Discharge Clinical Impression: Encounter for rehabilitation evaluation, PAD (peripheral artery disease), Osteomyelitis, HTN (hypertension) Patient Disposition: Still a Patient Prescriptions: No Action cephalexin 500 mg Capsule 500 mg PO Q12H Qty: 20 0RF oxycodone 5 mg Tablet 10 mg PO Q4H PRN (Reason: Pain, Mild (Pain Scale 1-3)) Qty: 10 0RF Rx Instructions: Partial Fill upon patient request. amlodipine 2.5 mg tablet 2.5 mg PO DAILY Qty: 30 0RF (DME) walker Misc See Rx Instructions .ROUTE .MEDSUPPLY Qty: 1 0RF Rx Instructions: As directed (DME) Shower Chair Misc See Rx Instructions .Route Qty: 1 0RF Rx Instructions: As directed docusate sodium [Colace] 100 mg capsule 100 mg PO DAILY Qty: 30 0RF clopidogrel 75 mg Tablet 75 mg PO DAILY Qty: 30 0RF aspirin 81 mg Tablet,Chewable 81 mg PO DAILY Qty: 30 0RF insulin glargine 100 unit/mL (3 mL) insulin pen 25 unit subcut QAM Qty: 15 0RF lisinopril 20 mg tablet 20 mg PO DAILY metformin 1,000 mg tablet 1,000 mg PO BID
[2022-01-12 17:33] LABS: MANUAL DIFF FLAG NO
--- NOTE | 2022-01-12 17:38 | PC.NURSE ---
patient a/ox4 . pearrla , patient wears glasses . heart rate regular at 77 betas per minute . breathing even and unlabored . lungs clear throughout . skin has bruising noted ion right hand . pink warm and dry in other areas . patient had amputation of left toes this past Wednesday .area is clean and approximated with shane and stitches intact . abdomen is soft . not tender positive bowel sounds throughout . labs obtained and sent . patient is requesting placement in a facility for PT /rehab . case management aware . patient aware of plan of care .
[2022-01-12 17:40] LABS: INTERNATIONAL NORM RATIO 1.1 (0.9-1.1); Prothrombin Time 12.6 SEC (10.0-13.1)
[2022-01-12 17:52] LABS: COVID-19 Test Negative (Negative); IDNOW Serial# 16C4AD1C
[2022-01-12 17:57] LABS: Basophils Percent Auto 0.3 % (0-2); Eosinophils Absolute Auto 0.2 X10*3/uL (0.0-0.4); Eosinophils Percent Auto 1.4 % (0-4); Hematocrit 29.1 % (42.0-52.0); Hemoglobin 9.6 g/dl (14.0-18.0); Imm Gran Abs Auto 0.07 X10*3/uL (0.00-0.03); Imm Gran Pct Auto 0.6 % (0.0-0.4); Lymphocytes Absolute Auto 1.3 X10*3/uL (1.2-4.9); Lymphocytes Percent Auto 10.5 % (20-40); Mean Corpuscular Hemoglobin 30.5 pg (27.0-33.0); Mean Corpuscular Volume 92.4 fL (80.0-98.0); Mean Platelet Volume 9.6 fL (9.4-12.4); Monocytes Percent Auto 8.4 % (2-11); Neutrophils Absolute Auto 9.7 x10*3/uL (2.0-8.3); Neutrophils Percent Auto 78.8 % (45-73); Platelet Count 554 X10*3/uL (160-400); Red Blood Count 3.15 X10*6/uL (4.60-5.80); Red Cell Distribution Width 12.2 % (11.0-16.0); White Blood Count 12.3 X10*3/uL (4.8-10.8)
[2022-01-12 18:01] LABS: Alanine Aminotransferase 23 U/L (0-40); Albumin Level 3.5 g/dL (3.5-5.0); Alkaline Phosphatase 106 U/L (39-117); Anion Gap 16 (12-20); Aspartate Amino Transferase 19 U/L (5-37); Bilirubin Total 0.2 mg/dL (0.0-1.0); Blood Urea Nitrogen 22 mg/dL (9-16); Calcium 8.8 mg/dL (8.4-10.2); Carbon Dioxide 25 mmol/L (22-29); Chloride 101 mmol/L (96-108); Creatinine Clr Calc Pharmacy 64.4; Estimated Glomerular Filt Rate > 60; Glucose Random 250 mg/dL (60-115); Magnesium 1.6 mg/dL (1.6-2.6); Potassium 4.7 mmol/L (3.3-5.1); Sodium 137 mmol/L (135-145); Total Protein 6.4 g/dL (6.5-8.0)
[2022-01-12 18:12] LABS: Appearance Urine Clear; Color Urine Yellow; Glucose Urine UA 250 mg/dL (Negative); Leukocyte Esterase Urine Negative (Negative); Nitrite Urine Negative (Negative); PH 5.5 (5.0-9.0); Specific Gravity - Urine 1.015 (1.005-1.025); UMIC TRIGGER UACC YES; Urine Blood Negative (Negative); Urine Ketones Trace mg/dL (Negative); Urine Protein 30 (1+) mg/dL (Neg-Trace)
[2022-01-12 18:17] LABS: Bacteria Urine None Seen (None Seen); Hyaline Casts Urine 0-2 /LPF (0-2); Squamous Epithelial Cell Urine 0-2 /HPF (0-2); WBC Urine 0-5 /HPF (0-5)
--- NOTE | 2022-01-12 18:53 | MHC.CM.ED ---
Addendum entered by Alpa Curry 01/12/22 19:14: Lexx aguilar x3. [facility] of first choice. Original Note: Pt was d/c from [facility] today S/P L transmetatarsal amputation. Pt d/c plan per patient was to d/c home with home PT. Pt is active with [facility]. Pt was unable to ambulate at home and unable to navigate stairs. Met with patient. He is now agreeable to STR, reluctantly. Would rather be home or come and go. Explained that if he cannot walk, he cannot go home. Explained to patient that his amputation is new and it is the rest of his toes, so his balance is off and the wounds are new and need to heal. Pt is agreeable to local referrals. Pt HCP is his daughter, Sapphire Gaytan ([phone]). She requests to be called in the morning with STR choices. Pt uses a walker. PCP is Dr. Ramin Santana. PT pending. Will refer locally. CM will follow for d/c planning.
[2022-01-12 19:55] VITALS: BP 129/66; PULSE 63; RESP 18; TEMP 36.7; O2SAT 96
--- NOTE | 2022-01-12 21:05 | PHA.MEDREC ---
med rec complete, patient was discharged just this morning Pharmacy Consult ? Medication Reconciliation Pharmacy has completed the medication reconciliation.
[2022-01-12 22:34] VITALS: BP 162/63; PULSE 76; RESP 18; TEMP 37.1; O2SAT 98
[2022-01-13] VITALS (7 sets, daily range): BP systolic 145–191; BP diastolic 61–88; PULSE 72–82; RESP 16–18; TEMP 36.5–37.1; O2SAT 97–99
[2022-01-13 08:06] LABS: Glucose, Whole Blood 194 mg/dL (60-115)
[2022-01-13] MEDS: Clopidogrel Bisulfate 75 MG TABLET PO (09:51)
[2022-01-13] MEDS: metFORMIN HCl 1,000 MG TABLET 1000 MG PO (09:51)
[2022-01-13] MEDS: Aspirin 81 MG TAB.CHEW PO (09:51)
[2022-01-13] MEDS: cephALEXin 500 MG CAPSULE PO (09:52)
[2022-01-13] MEDS: Docusate Sodium 100 MG CAPSULE PO (09:52)
[2022-01-13] MEDS: Insulin Glargine,Hum.rec.anlog 100 UNIT/ML 10 ML VIAL 25 UNIT SUBCUT (09:52)
[2022-01-13] MEDS: amLODIPine Besylate 2.5 MG TABLET PO (09:52)
[2022-01-13] MEDS: lisinopriL 20 MG TABLET PO (09:52)
--- NOTE | 2022-01-13 11:22 | PC.NURSE ---
pt daughter is HCP. daughter Sapphire Lukas
--- NOTE | 2022-01-13 12:10 | MHC.CM.ED ---
Addendum entered by Aleida Rodriguez 01/13/22 12:34: [facility] made aware. Original Note: Patient remains in ER. Physical therapy eval completed. Short term rehab is recommended. Clinical updates sent to [facility] because they are 1st choice facility. [facility] is able to offer a bed. Patient can leave at 2pm. Patient, sig other Tabby, daughter AnalyAllyn RN and Giuliana VERONICA aware. Med nec with chart. Continue to monitor for d/c needs.
== END 2022-01-13 14:55 | disposition skilled nursing facility (03) ==
PROVIDERS: Physician Assistant Medical; Emergency Provider Emergency Medicine; PCP Internal Medicine
DX: I73.9 Peripheral vascular disease, unspecified (principal); M86.9 Osteomyelitis, unspecified; R26.2 Difficulty in walking, not elsewhere classified; I10 Essential (primary) hypertension; Z20.822 Contact with and (suspected) exposure to COVID-19; Z87.891 Personal history of nicotine dependence; Z79.899 Other long term (current) drug therapy
CPT/HCPCS: 80053; 81001; 82550; 82947; 83735; 85025; 85610; 87040; 87635; 97162; 99284; 99285

== ENCOUNTER → 2022-01-20 14:38 | Outpatient (BNVA) | payer MEDICARE, OTHER, SELFPAY | PROVIDERS: PCP Internal Medicine; Visit Provider Surgery Vascular Surgery | DX: I73.9 Peripheral vascular disease, unspecified (principal); E11.65 Type 2 diabetes mellitus with hyperglycemia; E11.69 Type 2 diabetes mellitus with other specified complication; M86.8X7 Other osteomyelitis, ankle and foot; Z89.432 Acquired absence of left foot; Z09 Encounter for follow-up examination after completed treatment for conditions other than malignant neoplasm | CPT/HCPCS: 99212 ==

== ENCOUNTER → 2022-02-03 10:39 | Outpatient (BNVA) | payer MEDICARE, OTHER, SELFPAY | PROVIDERS: PCP Internal Medicine; Visit Provider Surgery Vascular Surgery | DX: Z47.81 Encounter for orthopedic aftercare following surgical amputation (principal); I73.9 Peripheral vascular disease, unspecified; Z89.432 Acquired absence of left foot | CPT/HCPCS: 99212 ==

== ENCOUNTER → 2022-02-17 10:15 | Outpatient (BNVA) | payer MEDICARE, OTHER, SELFPAY | PROVIDERS: PCP Internal Medicine; Visit Provider Surgery Vascular Surgery | DX: Z48.1 Encounter for planned postprocedural wound closure (principal); L97.529 Non-pressure chronic ulcer of other part of left foot with unspecified severity; T87.89 Other complications of amputation stump; I73.9 Peripheral vascular disease, unspecified; Z89.422 Acquired absence of other left toe(s) | CPT/HCPCS: 99212 ==

== ENCOUNTER → 2022-03-19 09:38 | Outpatient (BNVA) | payer MEDICARE, OTHER, SELFPAY | PROVIDERS: PCP Internal Medicine; Visit Provider Surgery Vascular Surgery | DX: I73.9 Peripheral vascular disease, unspecified (principal) | CPT/HCPCS: 99212 ==

== ENCOUNTER 2022-04-02 12:36 | Outpatient (RCR) | payer MEDICARE, OTHER, SELFPAY | END 2022-04-14 16:00 | disposition home or self-care (01) | LOC: HO.WCC 12:36 | PROVIDERS: PCP Internal Medicine; Visit Provider Surgery | DX: E11.621 Type 2 diabetes mellitus with foot ulcer (principal); E11.51 Type 2 diabetes mellitus with diabetic peripheral angiopathy without gangrene; L97.523 Non-pressure chronic ulcer of other part of left foot with necrosis of muscle; T87.89 Other complications of amputation stump; L08.89 Other specified local infections of the skin and subcutaneous tissue; E11.40 Type 2 diabetes mellitus with diabetic neuropathy, unspecified; I10 Essential (primary) hypertension; Z89.422 Acquired absence of other left toe(s); Z87.891 Personal history of nicotine dependence; Z79.4 Long term (current) use of insulin; Z79.84 Long term (current) use of oral hypoglycemic drugs; Z79.2 Long term (current) use of antibiotics; Z79.899 Other long term (current) drug therapy | CPT/HCPCS: 11043; 87070; 87077; 87147; 87186; 87205 ==

== ENCOUNTER 2022-04-04 14:40 | Inpatient (IN) | payer MEDICARE, OTHER, SELFPAY ==
[2022-04-04] VITALS (12 sets, daily range): BP systolic 79–138; BP diastolic 34–84; PULSE 63–88; RESP 15–20; TEMP 36.6–37.4; O2SAT 94–100; BMI 31.3
--- NOTE | ~2022-04-04 | US_ITS ---
EXAMINATION: US VENOUS ULTRASOUND WITH DOPPLER LOWER EXTREMITY, LEFT CLINICAL INFORMATION: Left lower extremity swelling COMPARISON: 04/04/2022 TECHNIQUE: Ultrasound of the deep veins is performed from the hip to the calf with compression sonography and color and pulse Doppler assessment. Spectral analysis with color-flow imaging is performed. FINDINGS: There is normal venous compression and respiratory variation and augmented flow. The visualized common femoral vein, superficial femoral vein, profunda femoral vein, popliteal vein, and the trifurcation region shows no evidence of deep venous thrombosis. 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 The natural resource economist also suggests at the level of the knee joint medially question of a joint effusion only 2 images are submitted of this area. If the patient's symptoms persist, followup ultrasound in 5 days 7 days might be of value to exclude proximal propagation from a non-visualized calf vein. US/US venous duplex LE IMPRESSION: No DVT demonstrated in the left lower extremity. There is a Almanzar's cyst demonstrated and also the natural resource economist suggests joint effusion in the medial aspect at the level of the knee joint. Only 2 images are submitted here. If further evaluation is warranted recommend MR
--- NOTE | ~2022-04-04 | US_ITS ---
EXAMINATION: US VENOUS ULTRASOUND WITH DOPPLER LOWER EXTREMITY, LEFT CLINICAL INFORMATION: Left lower extremity edema and pain. COMPARISON: None TECHNIQUE: Ultrasound of the deep veins is performed from the hip to the calf with compression sonography and color and pulse Doppler assessment. Spectral analysis with color-flow imaging is performed. FINDINGS: There is normal venous compression and respiratory variation and augmented flow. The visualized common femoral vein, superficial femoral vein, profunda femoral vein, popliteal vein, and the trifurcation region shows no evidence of deep venous thrombosis. Visualized segments of the posterior tibial and peroneal calf veins appear patent. If the patient's symptoms persist, followup ultrasound in 5 days 7 days might be of value to exclude proximal propagation from a non-visualized calf vein. US/US venous duplex LE IMPRESSION: No DVT demonstrated in the left lower extremity.
--- NOTE | ~2022-04-04 | CT_ITS ---
EXAMINATION: CTA ABDOMEN AND PELVIS with IV contrast CLINICAL INFORMATION: Hematochezia, ischemic colitis. COMPARISON: CTA abdomen and pelvis 04/09/2022. TECHNIQUE: Multidetector volumetric imaging was performed from the lung bases to the pubic symphysis after the administration of: Intravenous contrast: 80 mL Omnipaque 350 No contrast reaction reported MIP coronal, sagittal and coronal reformatted images were obtained on the technologist workstation. This CT examination was performed using dose optimization techniques as appropriate, variously including the following: *Automated exposure control *Adjustment of mA and/or kV according to patient size (this includes techniques or standardized protocols for targeted exams where dose is matched to indication/reason for exam; i.e. extremities or head) *Use of iterative reconstruction technique Total exam dose-length product 594 mGy-cm FINDINGS: VASCULAR: Scattered atherosclerotic disease. The abdominal aorta is of normal diameter. The celiac trunk, SMA, TEMO and main renal arteries are patent. No evidence of dissection. Evaluation of the solid organs is limited by the early phase of intravenous contrast. LUNG BASES: Redemonstration of small bilateral pleural effusions. LIVER, GALLBLADDER, AND BILIARY TREE: Decreased attenuation of liver parenchyma suggestive of hepatic steatosis. Otherwise, the liver is normal in size and shape. There is a 1.2 cm arterially hyperenhancing observation in the right hepatic lobe (5:20), not definitely identified on recent examination from yesterday likely due to differences in technique and stable compared to 04/04/2022. The gallbladder is distended with no cholelithiasis or findings to suspect acute cholecystitis. No biliary ductal dilatation. PANCREAS: Normal; no mass or surrounding fluid. SPLEEN: Normal size. No focal lesion. ADRENAL GLANDS: Unchanged 1.1 cm left adrenal observation, measuring less than 10 Hounsfield units, favoring to represent an adenoma. KIDNEYS AND URETERS: Redemonstration of a few too small to characterize cortical hypodensities that statistically are likely to represent simple cysts for which no imaging follow-up is recommended. Symmetric nephrograms. No hydronephrosis. GASTROINTESTINAL TRACT: Limited evaluation of GI bleeding in the absence of a noncontrast portion of the study and in the absence of delayed postcontrast images. Only arterial phases were provided. Accounting for these limitations, no accumulation of luminal contrast is noted to suspect an active GI bleeding. The stomach and the small bowel are nondilated. Colonic diverticulosis. No significant colonic wall thickening or pericolonic inflammatory changes. No bowel obstruction. ABDOMINAL WALL: Anasarca. Small fat-containing bilateral inguinal hernias. LYMPHATIC STRUCTURES: Retroperitoneal and iliac chain lymphadenopathy, not significantly changed. BLADDER: Opacified with contrast with mild diffuse reticulation of the wall. No focal abnormality. No perivesical fat stranding. PELVIC VISCERA: Enlarged prostate. OSSEOUS STRUCTURES: Degenerative changes of the spine. No acute or aggressive appearing osseous abnormalities. CT/CT angio abdomen pelvis IMPRESSION: 1. Limited evaluation of GI bleeding in the absence of a noncontrast portion of the study and in the absence of delayed postcontrast images. Accounting for these limitations, no definite accumulation of contrast is noted to suspect an active GI bleeding. 2. Diverticulosis but no evidence of acute diverticulitis. 3. Redemonstration of an indeterminate arterially hyperenhancing observation in the right hepatic lobe, incompletely characterized in this examination. Recommend correlation with an MR of the abdomen with and without IV contrast. 4. Again noted retroperitoneal and iliac chain lymphadenopathy; a malignancy such as metastatic disease from unknown primary or lymphoproliferative disorder is not excluded. Recommend correlation with PSA values, oncology consultation, and a short-term follow-up, tissue sampling or PET/CT. 5. Enlarged prostate. 6. Small bilateral pleural effusions and anasarca.
--- NOTE | ~2022-04-04 | XR_ITS ---
EXAMINATION: XR FOOT, LEFT CLINICAL INFORMATION: Question osteomyelitis COMPARISON: Left foot 01/05/2022 TECHNIQUE: 2 views of the left foot. FINDINGS: Since the prior study, the patient has undergone a trans tarsal amputation of the foot with narrowing of the metatarsals remaining with only portions of the cuboid and other anterior tarsal bones. There is some bony demineralization but no definite bone destruction. Please correlate with the time of prior surgery. Some air may be present in the subcutaneous tissues as well which may correlate with recent surgery. XR/XR foot LT 2V IMPRESSION: Status post trans tarsal amputation. No definite evidence of osteomyelitis. If there is continued clinical concern, MRI would be more sensitive.
--- NOTE | ~2022-04-04 | XR_ITS ---
EXAMINATION: XR chest 1V CLINICAL INFORMATION: Shortness of breath COMPARISON: None TECHNIQUE: XR chest 1V Tubes and lines: None Lungs and pleura: Minimal prominence of the pulmonary vasculature without socrates failure. Blunting of costophrenic angles possibly small pleural effusion or pleural thickening. Heart and mediastinum: Cardiac silhouette is enlarged, this is exaggerated by AP technique.. Bones/soft tissue: Skeletal structures included are normal for patient's age. XR/XR chest 1V IMPRESSION: * Mild vascular congestion without socrates failure. * Blunting of costophrenic angles possibly small pleural effusions. * Cardiac silhouette is enlarged, this is exaggerated by AP technique.
--- NOTE | ~2022-04-04 | CT_ITS ---
EXAMINATION: CT ABDOMEN AND PELVIS WITHOUT AND WITH CONTRAST CLINICAL INFORMATION: GI bleeding COMPARISON: CT angiogram abdomen 04/04/2022 TECHNIQUE: Multidetector volumetric imaging was performed from the superior aspect of the liver through the pubic symphysis without intravenous contrast. The scan was then repeated during the administration of 85 mL of Omnipaque 350. A third CT scan was performed after a 2 minute delay. Sagittal and coronal reformatted images were obtained on the technologist's workstation. This CT examination was performed using dose optimization techniques as appropriate, variously including the following: *Automated exposure control *Adjustment of mA and/or kV according to patient size (this includes techniques or standardized protocols for targeted exams where dose is matched to indication/reason for exam; i.e. extremities or head) *Use of iterative reconstruction technique DLP: 2405 mGy-cm FINDINGS: LUNG BASES: Coronary calcification is present. Small bilateral pleural effusions are seen. LIVER, GALLBLADDER, AND BILIARY TREE: The liver is normal in size, shape, and attenuation. No focal hepatic lesion or biliary ductal dilatation is present. The gallbladder is unremarkable with no evidence of radiopaque gallstones, gallbladder wall thickening, or obvious pericholecystic inflammatory changes. PANCREAS: Unremarkable. SPLEEN: Unremarkable. ADRENAL GLANDS: Again seen is a fat density left adrenal mass consistent with a benign adenoma, unchanged. KIDNEYS AND URETERS: The kidneys are normal in size, shape, and attenuation. No hydronephrosis, hydroureter, or calculi seen. No perinephric stranding. BLADDER: Unremarkable. GASTROINTESTINAL TRACT: The small and large bowel are unremarkable. The appendix is unremarkable. ABDOMINAL WALL: No significant hernia is appreciated. LYMPH NODES: Again noted is left para-aortic adenopathy along with some prominent left external iliac lymph nodes unchanged when compared to the study from 03/15/2022. 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 No bony destructive or sclerotic lesions. CT/CT gi bleed abd pel wo/w IVcon IMPRESSION: A source for the patient's GI bleeding has not been found. Incidental note made of: 1. Small bilateral pleural effusions. 2. Benign left adrenal adenoma. 3. Left para-aortic and left external iliac adenopathy. 4. Moderate BPH. 5. Marked degenerative changes L4-L5. Fleischner guidelines were followed.
--- NOTE | ~2022-04-04 | MR_ITS ---
EXAMINATION: MR FOOT WITHOUT AND WITH CONTRAST, LEFT CLINICAL INFORMATION: Infection. Evaluate for osteomyelitis. COMPARISON: Most recent left foot radiographs dated 04/04/2022 and MRI dated 07/18/2019. TECHNIQUE: Multisequence MR imaging of the left foot was obtained before and after the IV administration of 10 mL Gadavist contrast on a high-field strength scanner. FINDINGS: Redemonstration of a tarsometatarsal amputation. Soft tissue ulceration along the lateral aspect of the cuboid with underlying subcutaneous edema and mild enhancement as well as adjacent skin thickening, consistent with cellulitis. No organized fluid collection or abscess formation. There is significantly increased T2 and decreased T1 signal within the adjacent cuboid with prominent postcontrast enhancement, consistent with acute osteomyelitis. More mild findings within the adjacent lateral cuneiform. No acute fracture or dislocation. Osteochondral lesion at the medial aspect of the talar dome measuring up to 1.2 cm in AP dimension without evidence of fragmentation or instability. Mild degenerative arthritis within the visualized midfoot. Edema and atrophy within the visualized musculature, which can be seen in diabetic patients. Circumferential subcutaneous edema. MR/MR foot LT wo/w con IMPRESSION: 1. Soft tissue ulceration and cellulitis along the lateral aspect of the cuboid with underlying acute osteomyelitis within the cuboid. More mild findings within the adjacent lateral cuneiform. 2. Osteochondral lesion at the medial aspect of the talar dome measuring up to 1.2 cm without evidence of fragmentation or instability. Mild degenerative arthritis within the visualized midfoot. 3. Edema and atrophy of the visualized musculature, which can be seen in diabetic patients. 4. Circumferential subcutaneous edema.
--- NOTE | ~2022-04-04 | CT_ITS ---
STUDY PERFORMED: CTA OF THE CHEST, ABDOMEN AND PELVIS WITH AND WITHOUT CONTRAST CLINICAL INFORMATION: Reason for Exam r/o dissection. Back pain. SOB. Weakness DESCRIPTION: Initial noncontrast CT of the chest was performed. Contrast timing was performed at the level of the distal descending thoracic aorta. Subsequently, arterial phase multidetector volumetric imaging was performed through the chest, abdomen and pelvis following the administration of 65 mL Omnipaque 350 intravenous contrast No contrast reaction reported Sagittal and coronal reformatted images were obtained on the technologist workstation. Three-dimensional MIP reformatted imaging was performed and reviewed. This CT examination was performed using dose optimization techniques as appropriate, variously including the following: *Automated exposure control *Adjustment of mA and/or kV according to patient size (this includes techniques or standardized protocols for targeted exams where dose is matched to indication/reason for exam; i.e. extremities or head) *Use of iterative reconstruction technique Total exam dose-length product 719 mGy-cm COMPARISON: None FINDINGS: VASCULAR FINDINGS: 1. 3 cusped aortic valve. Normal origins of the main coronary arteries. The ascending thoracic aorta is normal in course and caliber without dissection. 2. The aortic arch is normal in course and caliber without dissection. Normal 3 vessel branching configuration. Arch origins are patent. Mild to moderate vascular calcifications. 3. The descending thoracic aorta is normal in course and caliber without dissection. 4. Normal caliber abdominal aorta. No aneurysm or dissection. Moderate vascular calcifications. Common iliac arteries patent with moderate vascular calcification. Hypogastric artery origins patent. Moderate stenosis the right hypogastric artery due to mixed calcified noncalcified plaque. External iliac arteries are patent without significant stenosis. Mild to moderate calcified noncalcified plaque. Common femoral arteries are patent with mild luminal narrowing bilaterally. Left SFA stent noted. 5. The celiac axis, superior mesenteric artery, and inferior mesenteric artery origins are widely patent. 6. Single bilateral renal arteries are patent. 7. Although not tailored for evaluation of the pulmonary arteries, there is no central pulmonary embolism. NONVASCULAR FINDINGS: CHEST: Lungs: Minimal bibasilar subsegmental atelectasis. No airspace consolidation. Small 1.3 x 1.1 cm groundglass/solid nodule in the posterior right lower lobe series 7 image 244. Couple tiny sub-4 mm calcified granulomas noted as well. No other pulmonary nodules. Small amount of mucus or secretions in the trachea. Central through segmental airways otherwise clear. Pleura and pericardium: No pleural or pericardial effusions. No pneumothorax. Heart: No cardiomegaly or pericardial effusion. Extensive three-vessel coronary artery vascular calcifications. Mild to moderate aortic valvular calcifications. Lymph nodes:No mediastinal, hilar, or axillary lymphadenopathy. Chest Wall: Approximately 7.6 x 4 cm fat attenuation lipoma within or immediately deep to the left latissimus dorsi muscle in the lateral left chest wall series 9 image 33. ABDOMEN/PELVIS: Liver: 0.9 cm hypervascular focus in the anterior segment right liver lobe series 9 image 62. No other liver lesion. No morphologic features of advanced cirrhosis or evidence of steatosis. Gallbladder and bile ducts:No calcified gallstones, mural thickening, or pericholecystic fluid/inflammatory change. No biliary ductal dilation. Pancreas: No pancreatic lesion, ductal dilation, or peripancreatic inflammatory change. Spleen: Normal size. No splenic lesion. Adrenal Glands: 1.5 cm left adrenal nodule with attenuation values of 9 Hounsfield units consistent with a lipid rich adenoma. Diffuse thickening of bilateral adrenal glands suggesting underlying hyperplasia. Kidneys and Ureters: Symmetric nephrograms. No renal calculi or hydronephrosis. Small low-density lesions likely cysts in the posterior right midpole and left midpole. No imaging follow-up recommended. No enhancing renal lesions seen. Mild symmetric perirenal fascial stranding bilaterally, nonspecific finding. Lymph nodes: There are several periaortic lymph nodes, largest borderline enlarged measuring approximately 1 cm in short axis. Mild left iliac chain lymphadenopathy with several nodes measuring up to 1 cm in short axis. Slightly prominent though not pathologically enlarged left inguinal lymph nodes. No mesenteric lymphadenopathy. Gastrointestinal Tract: Mild colonic diverticulosis. No evidence of acute diverticulitis. No dilated bowel loops. No bowel wall thickening. Small to moderate amount formed stool throughout colon. Normal appendix. Peritoneum: No ascites or intra-abdominal free air. Abdominal wall: Fat-containing bilateral inguinal hernias. Bladder: Unremarkable. Pelvic Viscera: Prostate gland is enlarged mildly indenting into the base of the bladder measures approximately 5.3 x 4.9 x 5.9 cm in size. Bones: No acute fracture or suspicious osseous lesion. Multilevel thoracolumbar spondylosis most advanced in the lumbar spine at L4-L5. Multilevel lumbar facet arthrosis. CT/CT angio abd aorta runoff IMPRESSION: 1. No evidence of aortic dissection, aneurysm, or other acute aortic syndrome. 2. No airspace consolidation, effusions, or pneumothorax. 3. 1.3 cm groundglass/subsolid nodule in the posterior right lower lobe. Suggest follow-up chest CT in 6-12 months per Fleischner Society guidelines. 4. 0.9 cm hypervascular focus in the anterior segment right liver lobe, indeterminate possibly flash filling hemangioma versus other hypervascular lesion. Consider further evaluation with multiphase liver MRI. 5. 1.5 cm left adrenal nodule consistent with a lipid rich adenoma. 6. Mild retroperitoneal and left iliac chain lymphadenopathy, nonspecific and raises the possibility of santiago metastasis of unknown primary or lymphoproliferative process//developing lymphoma. Would suggest correlation with PSA. Would also suggest follow-up CT in 3 months to confirm stability or alternatively PET CT. 7. Enlarged prostate gland.
--- NOTE | 2022-04-04 15:05 | ECG_ITS ---
Test Reason : SHORTNESS OF BREATH Blood Pressure : / mmHG Vent. Rate : 089 BPM Atrial Rate : 089 BPM P-R Int : 000 ms QRS Dur : 128 ms QT Int : 374 ms P-R-T Axes : 000 040 039 degrees QTc Int : 455 ms Normal sinus rhythm with possibly run of atrial tachycardia Right bundle branch block Abnormal ECG No previous ECGs available Referred By: Norma Medley Electronically Signed By:URSULA JIM
--- NOTE | 2022-04-04 15:39 | PC.NURSE ---
IV j loop changed for CTA, IV placed by EMS, tech at bedside for EKG.
[2022-04-04] MEDS: iohexoL 350 MG/ML 100 ML INFUS..BTL IV (16:00)
[2022-04-04 16:23] LABS: Basophils Absolute Auto 0.1 X10*3/uL (0.0-0.2); Basophils Percent Auto 0.2 % (0-2); Eosinophils Absolute Auto 0.1 X10*3/uL (0.0-0.4); Eosinophils Percent Auto 0.2 % (0-4); Imm Gran Abs Auto 0.46 X10*3/uL (0.00-0.03); Imm Gran Pct Auto 1.4 % (0.0-0.4); Lymphocytes Absolute Auto 0.3 X10*3/uL (1.2-4.9); Lymphocytes Percent Auto 0.9 % (20-40); MANUAL DIFF FLAG SCAN; Mean Corpuscular HGB Conc 30.5 g/dl (31.0-36.0); Mean Corpuscular Hemoglobin 22.2 pg (27.0-33.0); Mean Corpuscular Volume 72.8 fL (80.0-98.0); Mean Platelet Volume 9.2 fL (9.4-12.4); Monocytes Absolute Auto 1.9 X10*3/uL (0.1-1.2); NRBC Pct Auto 0.1 /100WBC (0.0-0.2); Neutrophils Absolute Auto 29.7 x10*3/uL (2.0-8.3); Neutrophils Percent Auto 91.3 % (45-73); Platelet Count 590 X10*3/uL (160-400); Red Blood Count 2.39 X10*6/uL (4.60-5.80); Red Cell Distribution Width 16.5 % (11.0-16.0); SCAN SMEAR FLAG 1
[2022-04-04 16:25] LABS: Appearance Urine Clear; Color Urine Yellow; Glucose Urine UA Negative (Negative); Leukocyte Esterase Urine Negative (Negative); Nitrite Urine Negative (Negative); Specific Gravity - Urine 1.015 (1.005-1.025); UMIC TRIGGER UACC YES; Urine Blood Moderate (2+) (Negative); Urine Ketones Negative (Negative); Urine Protein Trace mg/dL (Neg-Trace)
--- NOTE | 2022-04-04 16:25 | ED.SOB ---
HPI - SOB/Dyspnea General Chief Complaint: Dyspnea Stated Complaint: SOB,LOW SAT 84% RA,100% 15LPM NRB PER EMS Time Seen by Provider: 04/04/22 14:52 Source: patient and EMS Mode of arrival: EMS History of Present Illness HPI Narrative: 81-year-old male with past medical history of diabetes, HTN, osteomyelitis s/p amputations [facility], PAD, presenting to the ED via EMS complaining of increasing generalized fatigue / weakness and SOB x few days. Denies cough, chest pain, abdominal pain, nausea/ vomiting, pedal edema the calf pain. Per EMS patient was satting 84% on RA on their arrival increased to 100% on non-rebreather MD elicited complaint: shortness of breath Related Data Home Medications Medication Instructions Recorded Confirmed lisinopril 20 mg tablet 20 mg PO DAILY 11/22/19 01/12/22 metformin 1,000 mg tablet 1,000 mg PO BID 12/05/19 01/12/22 Previous Rx's Medication Instructions Recorded aspirin 81 mg chewable tablet 81 mg PO DAILY #30 tabs 10/09/21 clopidogrel 75 mg tablet 75 mg PO DAILY #30 tabs 10/09/21 insulin glargine 100 unit/mL (3 25 unit (0.25 mL) subcut QAM #15 mL 10/09/21 mL) subcutaneous pen Shower Chair #1 ea 01/12/22 amlodipine 2.5 mg tablet 2.5 mg PO DAILY #30 tabs 01/12/22 cephalexin 500 mg capsule 500 mg PO Q12H #20 caps 01/12/22 docusate sodium 100 mg capsule 100 mg PO DAILY #30 caps 01/12/22 (Colace) oxycodone 5 mg tablet 10 mg PO Q4H PRN Pain, Mild (Pain 01/12/22 Scale 1-3) #10 tabs walker #1 ea 01/12/22 oxycodone 5 mg tablet 5 mg PO BID PRN pain #14 tabs 01/13/22 ciprofloxacin HCl 500 mg tablet 500 mg PO BID #20 tabs 02/03/22 ciprofloxacin HCl 500 mg tablet 500 mg PO BID #20 tabs 03/20/22 Allergies Allergy/AdvReac Type Severity Reaction Status Date / Time No Known Allergies Allergy Verified 03/19/22 09:45 [No Known Allergies*] Review of Systems Review of Systems: Constitutional: No Fever, No Chills, + Fatigue, + Malaise ENT/Mouth: No Ear Pain, No Nasal Congestion, No sore throat, No Rhinorrhea, No Swallowing Difficulty Eyes: No Eye Pain, No Swelling, No Redness,No Vision Changes Cardiovascular: No Chest Pain, + SOB, No Dyspnea on Exertion, No Orthopnea, No Edema, No Palpitations Respiratory: No Cough, No Sputum, +Dyspnea Gastrointestinal: No Nausea, No Vomiting, No Diarrhea, No Constipation, No Abdominal pain, No Hematochezia, No Melena Genitourinary: No irregular bleeding, No Dysuria, No Hematuria, No Flank Pain Musculoskeletal: No joint pain, No Myalgias, No Joint Swelling Skin: No Skin Lesions, No rash Neuro: + Weakness, No Loss of Consciousness, No Dizziness, No Headache Yes all other systems are reviewed and are negative Constitutional: Constitutional: Reports as per [facility] Past Medical History Attestation statement: The following information was validated with the patient. Medical History Diabetes History of amputation of great toe History of amputation of great toe HTN (hypertension) Hx of osteomyelitis 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 PAD (peripheral artery disease) Surgical History History of angioplasty of peripheral vessel Family History Family History Other No family history of coronary artery disease Social History Social History Household Members: Significant Other Housing: House Are you a primary career transition specialist to a significant other at home: No Do you presently have visiting nurse or other home services: Yes (olman kumar) Alcohol intake: current Alcohol intake frequency: does not drink Patient Tobacco Use Status: Former Tobacco user Quit Date: 20 years ago Second Hand Smoke Exposure: No Advance Directives: Yes Advance Directives on File: Yes Advance Directives Date on File: 10/01/21 service: No Current occupational status: retired Physical Exam Vital Signs: Vital Signs: Last Vital Signs Temp 99.4 F 04/04/22 16:01 Pulse 84 04/04/22 16:01 Resp 15 04/04/22 16:01 BP 119/47 L 04/04/22 16:01 Pulse Ox 100 04/04/22 16:01 O2 Del Method 04/04/22 16:01 O2 Flow Rate 2 04/04/22 16:01 BMI result Body Mass Index 31.3 Const: General: cooperative, no acute distress, alert and awake Orientation/consciousness: patient oriented x3 Limitations: no limitations HEENT: Head: Yes normal to inspection and Yes atraumatic Ears: hearing grossly normal bilaterally General nose exam: Normal external nose present Face and sinus: Yes normal facial exam Throat: Yes posterior oropharynx normal Eyes: General: appearance normal, both eyes and all related structures EOM: EOMs intact bilaterally Neck: Neck: Yes normal visual inspection and Yes no meningeal signs Resp: Effort & Inspection: normal respiratory effort and no respiratory distress Auscultation: clear to auscultation bilaterally, no rhonchi and no wheezes Cardio: Rate: regular rate Heart sounds: S1 normal heart sound present and S2 normal heart sound present GI: Inspection: Yes normal to inspection Palpation (GI): Soft to palpation, nontender, no guarding and not rigid : General: Yes no CVA tenderness Back/Spine/Pelvis: Back: no CVA tenderness Skin: Rashes: no rashes Wounds: no wounds Neuro: General: patient oriented x3, tone normal, moves all extremities and no meningeal signs Extrem: Other: + left lower extremity pitting edema. Amputation site appears with appropriate wound healing. No erythema/ warmth or drainage. General: Yes normal to inspection Course Course Course Narrative: -164-- patient with leukocytosis of 32.5. Anemic 5.3 / 17.4 > Patient denies melena/bloody stools or hematuria. > Blood consent signed and in patient's chart, will transfuse 2 units. Concern for malignancy > empiric IV Rocephin ordered. Magnesium low 1.4 > 2g IV repletion ordered. Troponin elevated 61.3 > likely demand will obtain 3hr repeat XR chest 1V IMPRESSION: *? Mild vascular congestion without socrates failure. *? Blunting of costophrenic angles possibly small pleural effusions. *? Cardiac silhouette is enlarged, this is exaggerated by AP technique. - COVID/influenza/RSV negative 1723--CT angio chest aorta/CT angio abd aorta runoff IMPRESSION: 1.? No evidence of aortic dissection, aneurysm, or other acute aortic syndrome. 2.? No airspace consolidation, effusions, or pneumothorax. 3.? 1.3 cm groundglass/subsolid nodule in the posterior right lower lobe. Suggest follow-up chest CT in 6-12 months per Fleischner Society guidelines. 4.? 0.9 cm hypervascular focus in the anterior segment right liver lobe, indeterminate possibly flash filling hemangioma versus other hypervascular lesion. Consider further evaluation with multiphase liver MRI. 5.? 1.5 cm left adrenal nodule consistent with a lipid rich adenoma. 6.? Mild retroperitoneal and left iliac chain lymphadenopathy, nonspecific and raises the possibility of santiago metastasis of unknown primary or lymphoproliferative process//developing lymphoma. Would suggest correlation with PSA. Would also suggest follow-up CT in 3 months to confirm stability or alternatively PET CT. 7.? Enlarged prostate gland. ? >> plan to admit for further management Medications Administered Generic Name Dose Route Start Last Admin Trade Name Freq PRN Reason Stop Dose Admin Magnesium Sulfate 2 gm in 50 mls @ 25 mls/hr 04/04/22 16:46 04/04/22 16:49 Magnesium Sulfate/H2o IV 04/04/22 18:45 25 mls/hr ONCE ONE Administration Discontinued Medications Generic Name Dose Route Start Last Admin Trade Name Freq PRN Reason Stop Dose Admin Iohexol 100 ml 04/04/22 15:59 04/04/22 16:00 Iohexol 350 Mg/Ml 100 Ml Infus..Btl IV 04/04/22 16:00 80 ml ONCE ONE Administration Medical Decision Making Medical Decision Making [facility] Narrative: 81-year-old male with past medical history of diabetes, HTN, osteomyelitis s/p amputations followed by [facility], PAD, presenting to the ED via EMS complaining of increasing generalized fatigue / weakness and SOB x few days. On exam patient satting 97% on RA on this writers eval, blood pressures notably different in bilateral upper extremities, lungs CTA, abdomen soft/ nontender, LLE pitting edema noted. Concern for dissection with blood pressure deltas vs viral syndrome vs pneumonia vs CHF. PE on differential but lower at this time. lower suspicion for ACS. Low suspicion for severe sepsis at this time. Rule out metabolic/ infectious etiology plan: EKG, labs, UA, CXR, CTA, venous duplex ultrasound, re-evaluate Please refer to course for remaining clinical decision making, interpretation of labs/imaging results, and discussions with consultants and/or family members. Differential Diagnosis Differential Diagnoses: The differential diagnosis associated with the presentation includes as above Admission/Observation Consideration of admission/observation: Escalation of care including admission/observation considered Consult Healthcare Provider Management of the patient was discussed with: Hospitalist Lab Data MDM Lab Attestation statement: I reviewed the patient's lab results. 04/04/22 16:11 04/04/22 16:11 Labs: Lab Results 04/04/22 04/04/22 04/04/22 Range/Units 16:11 16:11 16:11 WBC 32.5 H* (4.8-10.8) X10*3/uL RBC 2.39 L D (4.60-5.80) X10*6/uL Hgb 5.3 L* D (14.0-18.0) g/dl Hct 17.4 L* D (42.0-52.0) % MCV 72.8 L (80.0-98.0) fL MCH 22.2 L (27.0-33.0) pg MCHC 30.5 L (31.0-36.0) g/dl RDW 16.5 H (11.0-16.0) % Plt Count 590 H (160-400) X10*3/uL MPV 9.2 L (9.4-12.4) fL Immature Gran % (Auto) 1.4 H (0.0-0.4) % Neut % (Auto) 91.3 H (45-73) % Lymph % (Auto) 0.9 L (20-40) % [place] % (Auto) 6.0 (2-11) % Eos % (Auto) 0.2 (0-4) % Baso % (Auto) 0.2 (0-2) % Lymph # (Auto) 0.3 L (1.2-4.9) X10*3/uL [place] # (Auto) 1.9 H (0.1-1.2) X10*3/uL Eos # (Auto) 0.1 (0.0-0.4) X10*3/uL Baso # (Auto) 0.1 (0.0-0.2) X10*3/uL Abs Immat Gran (auto) 0.46 H (0.00-0.03) X10*3/uL Absolute Neuts (auto) 29.7 H (2.0-8.3) x10*3/uL Absolute Nucleated RBC 0.040 H (0.0-0.012) X10*3/uL Nucleated RBC % (auto) 0.1 (0.0-0.2) /100WBC Smear Tech's Comments VERIFIED PT 14.8 H (10.0-13.1) SEC INR 1.3 H (0.9-1.1) Sodium 133 L (135-145) mmol/L Potassium 5.1 (3.3-5.1) mmol/L Chloride 103 (96-108) mmol/L Carbon Dioxide 18 L (22-29) mmol/L Anion Gap 17 (12-20) BUN 55 H (9-16) mg/dL Creatinine 1.34 (0.5-1.4) mg/dL Estim Creat Clear Calc 48.0 Estimated GFR 51 Random Glucose 190 H (60-115) mg/dL Calcium 8.3 L (8.4-10.2) mg/dL Magnesium 1.4 L* (1.6-2.6) mg/dL Total Bilirubin 0.3 (0.0-1.0) mg/dL Direct Bilirubin < 0.2 (0.0-0.5) mg/dL AST 24 (5-37) U/L ALT 23 (0-40) U/L Alkaline Phosphatase 123 H (39-117) U/L Troponin I High Sens (<3.5-35.0) ng/L B-Natriuretic Peptide (<100) pg/mL Total Protein 5.7 L (6.5-8.0) g/dL Albumin 2.9 L (3.5-5.0) g/dL Urine Color Urine Appearance Urine pH (5.0-9.0) Ur Specific [place] (1.005-1.025) Urine Protein (Neg-Trace) mg/dL Urine Glucose (UA) (Negative) mg/dL Urine Ketones (Negative) mg/dL Urine Blood (Negative) Urine Nitrite (Negative) Ur Leukocyte Esterase (Negative) Urine RBC (0-2) /HPF Urine WBC (0-5) /HPF Ur Squamous Epith Cells (0-2) /HPF Urine Bacteria (None Seen) Hyaline Casts (0-2) /LPF Influenza Type A (PCR) (Negative) Influenza Type B (PCR) (Negative) RSV RNA Qual (PCR) (Negative) SARS-CoV-2 RNA (RT-PCR) (Negative) 04/04/22 04/04/22 04/04/22 Range/Units 16:11 16:11 16:13 WBC (4.8-10.8) X10*3/uL RBC (4.60-5.80) X10*6/uL Hgb (14.0-18.0) g/dl Hct (42.0-52.0) % MCV (80.0-98.0) fL MCH (27.0-33.0) pg MCHC (31.0-36.0) g/dl RDW (11.0-16.0) % Plt Count (160-400) X10*3/uL MPV (9.4-12.4) fL Immature Gran % (Auto) (0.0-0.4) % Neut % (Auto) (45-73) % Lymph % (Auto) (20-40) % Ballard % (Auto) (2-11) % Eos % (Auto) (0-4) % Baso % (Auto) (0-2) % Lymph # (Auto) (1.2-4.9) X10*3/uL [place] # (Auto) (0.1-1.2) X10*3/uL Eos # (Auto) (0.0-0.4) X10*3/uL Baso # (Auto) (0.0-0.2) X10*3/uL Abs Immat Gran (auto) (0.00-0.03) X10*3/uL Absolute Neuts (auto) (2.0-8.3) x10*3/uL Absolute Nucleated RBC (0.0-0.012) X10*3/uL Nucleated RBC % (auto) (0.0-0.2) /100WBC Smear Tech's Comments PT (10.0-13.1) SEC INR (0.9-1.1) Sodium (135-145) mmol/L Potassium (3.3-5.1) mmol/L Chloride (96-108) mmol/L Carbon Dioxide (22-29) mmol/L Anion Gap (12-20) BUN (9-16) mg/dL Creatinine (0.5-1.4) mg/dL Estim Creat Clear Calc Estimated GFR Random Glucose (60-115) mg/dL Calcium (8.4-10.2) mg/dL Magnesium (1.6-2.6) mg/dL Total Bilirubin (0.0-1.0) mg/dL Direct Bilirubin (0.0-0.5) mg/dL AST (5-37) U/L ALT (0-40) U/L Alkaline Phosphatase (39-117) U/L Troponin I High Sens 61.3 H (<3.5-35.0) ng/L B-Natriuretic Peptide < 10 (<100) pg/mL Total Protein (6.5-8.0) g/dL Albumin (3.5-5.0) g/dL Urine Color Urine Appearance Urine pH (5.0-9.0) Ur Specific [place] (1.005-1.025) Urine Protein (Neg-Trace) mg/dL Urine Glucose (UA) (Negative) mg/dL Urine Ketones (Negative) mg/dL Urine Blood (Negative) Urine Nitrite (Negative) Ur Leukocyte Esterase (Negative) Urine RBC (0-2) /HPF Urine WBC (0-5) /HPF Ur Squamous Epith Cells (0-2) /HPF Urine Bacteria (None Seen) Hyaline Casts (0-2) /LPF Influenza Type A (PCR) NEGATIVE (Negative) Influenza Type B (PCR) NEGATIVE (Negative) RSV RNA Qual (PCR) NEGATIVE (Negative) SARS-CoV-2 RNA (RT-PCR) NEGATIVE (Negative) 04/04/22 Range/Units 16:16 WBC (4.8-10.8) X10*3/uL RBC (4.60-5.80) X10*6/uL Hgb (14.0-18.0) g/dl Hct (42.0-52.0) % MCV (80.0-98.0) fL MCH (27.0-33.0) pg MCHC (31.0-36.0) g/dl RDW (11.0-16.0) % Plt Count (160-400) X10*3/uL MPV (9.4-12.4) fL Immature Gran % (Auto) (0.0-0.4) % Neut % (Auto) (45-73) % Lymph % (Auto) (20-40) % Ballard % (Auto) (2-11) % Eos % (Auto) (0-4) % Baso % (Auto) (0-2) % Lymph # (Auto) (1.2-4.9) X10*3/uL [place] # (Auto) (0.1-1.2) X10*3/uL Eos # (Auto) (0.0-0.4) X10*3/uL Baso # (Auto) (0.0-0.2) X10*3/uL Abs Immat Gran (auto) (0.00-0.03) X10*3/uL Absolute Neuts (auto) (2.0-8.3) x10*3/uL Absolute Nucleated RBC (0.0-0.012) X10*3/uL Nucleated RBC % (auto) (0.0-0.2) /100WBC Smear Tech's Comments PT (10.0-13.1) SEC INR (0.9-1.1) Sodium (135-145) mmol/L Potassium (3.3-5.1) mmol/L Chloride (96-108) mmol/L Carbon Dioxide (22-29) mmol/L Anion Gap (12-20) BUN (9-16) mg/dL Creatinine (0.5-1.4) mg/dL Estim Creat Clear Calc Estimated GFR Random Glucose (60-115) mg/dL Calcium (8.4-10.2) mg/dL Magnesium (1.6-2.6) mg/dL Total Bilirubin (0.0-1.0) mg/dL Direct Bilirubin (0.0-0.5) mg/dL AST (5-37) U/L ALT (0-40) U/L Alkaline Phosphatase (39-117) U/L Troponin I High Sens (<3.5-35.0) ng/L B-Natriuretic Peptide (<100) pg/mL Total Protein (6.5-8.0) g/dL Albumin (3.5-5.0) g/dL Urine Color Yellow Urine Appearance Clear Urine pH 5.0 (5.0-9.0) Ur Specific [place] 1.015 (1.005-1.025) Urine Protein Trace (Neg-Trace) mg/dL Urine Glucose (UA) Negative (Negative) mg/dL Urine Ketones Negative (Negative) mg/dL Urine Blood Moderate (2+) H (Negative) Urine Nitrite Negative (Negative) Ur Leukocyte Esterase Negative (Negative) Urine RBC 11-20 H (0-2) /HPF Urine WBC 0-5 (0-5) /HPF Ur Squamous Epith Cells 0-2 (0-2) /HPF Urine Bacteria None Seen (None Seen) Hyaline Casts 0-2 (0-2) /LPF Influenza Type A (PCR) (Negative) Influenza Type B (PCR) (Negative) RSV RNA Qual (PCR) (Negative) SARS-CoV-2 RNA (RT-PCR) (Negative) Independent Interpretation I performed an independent interpretation of an: EKG and CT Scan Interpretation: my interpretation EKG with right bundle-branch block at a rate of 89. QTC 455. No STEMI. Radiology Impression Discussion of test interpretation with radiology: I have reviewed the radiologist's reading. External Record Review External record reviewed: Outpatient record, Prior outpatient labs, Prior outpatient radiology and Outside ED record Critical Care Time Critical Care Time Critical Care Time: Yes Total Critical Care Time: 45 Attestation: I have personally provided critical care time exclusive of time spent on separately billable procedures. Time includes review of lab data, radiology results, discussion with consultants, and monitoring for potential decompensation. Intervention performed as documented. Discharge Plan Discharge Clinical Impression: Anemia, Leukocytosis Patient Disposition: Admitted As Inpatient
[2022-04-04 16:30] LABS: Bacteria Urine None Seen (None Seen); Hyaline Casts Urine 0-2 /LPF (0-2); Squamous Epithelial Cell Urine 0-2 /HPF (0-2); WBC Urine 0-5 /HPF (0-5)
[2022-04-04 16:33] LABS: INTERNATIONAL NORM RATIO 1.3 (0.9-1.1); Prothrombin Time 14.8 SEC (10.0-13.1)
[2022-04-04 16:43] LABS: B Type Natriuretic Peptide < 10 pg/mL (<100)
[2022-04-04 16:44] LABS: Alanine Aminotransferase 23 U/L (0-40); Albumin Level 2.9 g/dL (3.5-5.0); Alkaline Phosphatase 123 U/L (39-117); Anion Gap 17 (12-20); Aspartate Amino Transferase 24 U/L (5-37); Bilirubin Direct < 0.2 mg/dL (0.0-0.5); Bilirubin Total 0.3 mg/dL (0.0-1.0); Blood Urea Nitrogen 55 mg/dL (9-16); Calcium 8.3 mg/dL (8.4-10.2); Carbon Dioxide 18 mmol/L (22-29); Chloride 103 mmol/L (96-108); Estimated Glomerular Filt Rate 51; Glucose Random 190 mg/dL (60-115); Potassium 5.1 mmol/L (3.3-5.1); Sodium 133 mmol/L (135-145); Total Protein 5.7 g/dL (6.5-8.0); Troponin-I High Sensitivity 61.3 ng/L (<3.5-35.0)
[2022-04-04] MEDS: Magnesium Sulfate/H2O 2 GM/50 ML PIGGYBACK IV (16:49)
[2022-04-04 16:50] LABS: Magnesium 1.4 mg/dL (1.6-2.6); White Blood Count 32.5 X10*3/uL (4.8-10.8)
[2022-04-04 16:51] LABS: Hematocrit 17.4 % (42.0-52.0); Hemoglobin 5.3 g/dl (14.0-18.0)
[2022-04-04 17:00] LABS: SLIDE REVIEW VERIFIED
[2022-04-04 17:00] LABS: Influenza A PCR NEGATIVE (Negative); Influenza B PCR NEGATIVE (Negative); Resp Syncy Virus RNA Qual PCR NEGATIVE (Negative); SARS COV2 PCR INHOUSE NEGATIVE (Negative)
[2022-04-04] MEDS: cefTRIAXone sodium 1 GM in 0.9 % Sodium Chloride 50 ML IV (17:22)
[2022-04-04 17:45] LABS: Lactic Acid 2.8 mmol/L (0.5-2.0)
--- NOTE | 2022-04-04 17:46 | P.HPHOSP_ITS ---
History of Present Illness Date of Service: 04/04/22 Attending physician on admission: Giuseppe Hunter Chief Complaint: Left leg swelling and pain Pt is a 81-year-old male with a PMH significant for?HTN, insulin-dependent diabetes, PAD s/p toe amputations followed by wound clinic, and hx of oste omyelitis who presents to the ED with?left lower leg swelling, redness of foot, and generalized weakness. Pt states that he has been feeling SOB, weak, shaky, lightheaded for the past 1-2 weeks. Has been particularly SOB and weak the past 2-3 days, saying he can hardly get himself up or move around. Pt has been experiencing a lot of pain in his left foot, leg, and upper left hip when he stands up or attempts to walk x1 week. Notes increased bloody, prurulent drainage from chronic wound to left foot. Pt last went to wound care clinic on , where they cleaned and cultured wound, and yohana boundary around erythema of left foot. Erythema now seen extending outside of markered area. Pt denies chest pain/pressure, palpitations. No fever, nausea, vomiting, diarrhea. No abdominal pain. In the ED patient was afebrile but hypotensive as low as 79/61. Labs were significant for leukocytosis of 32.5, H&H of 5.3/17.4, MCV of 72.8, platelets of 590, sodium of 133, elevated BUN of 55, creatinine 1.34 (baseline 1.00), lactic acid of 2.8, magnesium of 1.4, troponin elevated at 61.3. UA negative for UTI. Stool occult blood negative. CXR showed mild vascular congestion without socrates failure and possible small pleural effusions. Chest and aorta CTA found no evidence of aortic dissection, aneurysm or other acute aortic syndrome, but did find retroperitoneal and left iliac chain lymphadenopathy, nonspecific but concerning for santiago metastasis of lymphoma. Other findings include: posterior right lower lobe 1.3 cm nodule, enlarged prostate, adrenal nodule, and liver hypervascular focus. Initial EKG concerning for ST changes, repeat pending. Pt was treated with magnesium and ceftriaxone and received 2 units of packed red blood cells. Pt will be admitted to the hospital for treatment and further workup of anemia and cellulitis. Review of Systems Review of Systems: Generalized weakness, shakiness x1-2 weeks Shortness of breath Lightheadedness, dizziness Left foot, leg, upper hip pain Bloody, purulent discharge from chronic wound to left foot Denies chest pain/pressure, palpitations No fever, chills, nausea, vomiting, diarrhea, abdominal pain Yes all other systems are reviewed and are negative [facility] Medical History Diabetes History of amputation of great toe History of amputation of great toe HTN (hypertension) Hx of osteomyelitis 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 PAD (peripheral artery disease) Family History Other No family history of coronary artery disease Surgical History History of angioplasty of peripheral vessel Social History Household Members: Significant Other Housing: House Are you a primary career information specialist to a significant other at home: No Do you presently have visiting nurse or other home services: Yes (olman kumar) Alcohol intake: never Patient Tobacco Use Status: Former Tobacco user Quit Date: 20 years ago Smoked in Last 30 Days: No Second Hand Smoke Exposure: No Use of substances other than those prescribed or required for medical reasons: No Advance Directives: Yes Advance Directives on File: Yes Advance Directives Date on File: 10/01/21 Nutrition Risks: No Nutritional Risk service: No Current occupational status: retired [employer] Allergies Allergy/AdvReac Type Severity Reaction Status Date / Time No Known Allergies Allergy Verified 03/19/22 09:45 [No Known Allergies*] Active Medications: Current Medications Magnesium Sulfate (Magnesium Sulfate/H2o) 2 gm in 50 mls @ 25 mls/hr IV ONCE ONE Stop: 04/04/22 18:45 Last Admin: 04/04/22 16:49 Dose: 25 mls/hr Pharmacy Consult (Consult Rx Perform Med Rec) 1 each MISCELLANE ONCE STA Stop: 04/04/22 17:15 Home Medications Medication Instructions Recorded Confirmed Last Taken Type metformin 1,000 mg tablet 1,000 mg PO BIDWM 12/05/19 04/04/22 04/04/22 09:00 History acetaminophen 325 mg capsule 650 mg PO Q6H PRN Pain 04/04/22 04/04/22 Unknown History (Tylenol) doxycycline monohydrate 100 mg 1 tab PO BID 04/04/22 04/04/22 04/04/22 09:00 History tablet hydrocodone 5 mg-acetaminophen 325 1 tab PO Q6H PRN Severe Pain 04/04/22 04/04/22 Unknown History mg tablet (Scale Score 7-10) insulin glargine 100 unit/mL (3 25 unit subcut DAILY 04/04/22 04/04/22 04/04/22 09:00 History mL) subcutaneous pen lisinopril 10 mg tablet 1 tab PO DAILY 04/04/22 04/04/22 04/04/22 09:00 History lorazepam 0.5 mg tablet 1 tab PO DAILY PRN Anxiety 04/04/22 04/04/22 Unknown History Physical Exam Vital Signs and Narrative: Vital Signs: Last Vital Signs Temp 99.4 F 04/04/22 16:01 Pulse 84 04/04/22 16:01 Resp 15 04/04/22 16:01 BP 119/47 L 04/04/22 16:01 Pulse Ox 100 04/04/22 16:01 O2 Del Method 04/04/22 16:01 O2 Flow Rate 2 04/04/22 16:01 BMI result Body Mass Index 31.3 Constitutional: Alert, in no acute distress. Mental Status: Oriented to person, place and time. Eyes: Pupils are equal, round, and reactive to light. Ear, Nose, and Throat: Oropharynx clear, mucous membranes moist. Ears and nose without deformities. Trachea midline. Respiratory: Clear to auscultation bilaterally. No wheezing, rales, or rhonchi. Cardiovascular: S1, S2 regular. No murmurs, rubs, or gallops. Gastrointestinal: Abdomen soft, non-tender, non-distended. Normal bowel sounds. Neurologic: Cranial nerves II-XII are grossly intact. No focal neurological deficits. Moves all extremities spontaneously. Extremities: Erythema of left foot and swelling of lower left leg as noted in pictures below. Psychiatric: Normal mood and affect. Results Labs 04/04/22 16:11 04/04/22 16:11 Labs: Laboratory Results - last 24 hr 04/04/22 04/04/22 04/04/22 16:11 16:11 16:11 MCV 72.8 L MCH 22.2 L MCHC 30.5 L RDW 16.5 H Plt Count 590 H MPV 9.2 L Immature Gran % (Auto) 1.4 H Neut % (Auto) 91.3 H Lymph % (Auto) 0.9 L Ness % (Auto) 6.0 Eos % (Auto) 0.2 Baso % (Auto) 0.2 Lymph # (Auto) 0.3 L Ness # (Auto) 1.9 H Eos # (Auto) 0.1 Baso # (Auto) 0.1 Abs Immat Gran (auto) 0.46 H Absolute Neuts (auto) 29.7 H Absolute Nucleated RBC 0.040 H Nucleated RBC % (auto) 0.1 Smear Tech's Comments VERIFIED PT 14.8 H INR 1.3 H Anion Gap 17 Estim Creat Clear Calc 48.0 Estimated GFR 51 Random Glucose 190 H Lactic Acid Calcium 8.3 L Magnesium 1.4 L* Total Bilirubin 0.3 Direct Bilirubin < 0.2 AST 24 ALT 23 Alkaline Phosphatase 123 H Troponin I High Sens B-Natriuretic Peptide Total Protein 5.7 L Albumin 2.9 L Urine Color Urine Appearance Urine pH Ur Specific [place] Urine Protein Urine Glucose (UA) Urine Ketones Urine Blood Urine Nitrite Ur Leukocyte Esterase Urine RBC Urine WBC Ur Squamous Epith Cells Urine Bacteria Hyaline Casts Influenza Type A (PCR) Influenza Type B (PCR) RSV RNA Qual (PCR) SARS-CoV-2 RNA (RT-PCR) 04/04/22 04/04/22 04/04/22 16:11 16:11 16:13 MCV MCH MCHC RDW Plt Count MPV Immature Gran % (Auto) Neut % (Auto) Lymph % (Auto) Ness % (Auto) Eos % (Auto) Baso % (Auto) Lymph # (Auto) Ness # (Auto) Eos # (Auto) Baso # (Auto) Abs Immat Gran (auto) Absolute Neuts (auto) Absolute Nucleated RBC Nucleated RBC % (auto) Smear Tech's Comments PT INR Anion Gap Estim Creat Clear Calc Estimated GFR Random Glucose Lactic Acid Calcium Magnesium Total Bilirubin Direct Bilirubin AST ALT Alkaline Phosphatase Troponin I High Sens 61.3 H B-Natriuretic Peptide < 10 Total Protein Albumin Urine Color Urine Appearance Urine pH Ur Specific [place] Urine Protein Urine Glucose (UA) Urine Ketones Urine Blood Urine Nitrite Ur Leukocyte Esterase Urine RBC Urine WBC Ur Squamous Epith Cells Urine Bacteria Hyaline Casts Influenza Type A (PCR) NEGATIVE Influenza Type B (PCR) NEGATIVE RSV RNA Qual (PCR) NEGATIVE SARS-CoV-2 RNA (RT-PCR) NEGATIVE 04/04/22 04/04/22 16:16 17:14 MCV MCH MCHC RDW Plt Count MPV Immature Gran % (Auto) Neut % (Auto) Lymph % (Auto) Ness % (Auto) Eos % (Auto) Baso % (Auto) Lymph # (Auto) Ness # (Auto) Eos # (Auto) Baso # (Auto) Abs Immat Gran (auto) Absolute Neuts (auto) Absolute Nucleated RBC Nucleated RBC % (auto) Smear Tech's Comments PT INR Anion Gap Estim Creat Clear Calc Estimated GFR Random Glucose Lactic Acid 2.8 H* Calcium Magnesium Total Bilirubin Direct Bilirubin AST ALT Alkaline Phosphatase Troponin I High Sens B-Natriuretic Peptide Total Protein Albumin Urine Color Yellow Urine Appearance Clear Urine pH 5.0 Ur Specific [place] 1.015 Urine Protein Trace Urine Glucose (UA) Negative Urine Ketones Negative Urine Blood Moderate (2+) H Urine Nitrite Negative Ur Leukocyte Esterase Negative Urine RBC 11-20 H Urine WBC 0-5 Ur Squamous Epith Cells 0-2 Urine Bacteria None Seen Hyaline Casts 0-2 Influenza Type A (PCR) Influenza Type B (PCR) RSV RNA Qual (PCR) SARS-CoV-2 RNA (RT-PCR) Imaging Radiologist's Impressions: Impressions Chest X-Ray 04/04/22 15:18 IMPRESSION: * Mild vascular congestion without socrates failure. * Blunting of costophrenic angles possibly small pleural effusions. * Cardiac silhouette is enlarged, this is exaggerated by AP technique. Aorta w/Runoff CTA 04/04/22 16:25 IMPRESSION: 1. No evidence of aortic dissection, aneurysm, or other acute aortic syndrome. 2. No airspace consolidation, effusions, or pneumothorax. 3. 1.3 cm groundglass/subsolid nodule in the posterior right lower lobe. Suggest follow-up chest CT in 6-12 months per Fleischner Society guidelines. 4. 0.9 cm hypervascular focus in the anterior segment right liver lobe, indeterminate possibly flash filling hemangioma versus other hypervascular lesion. Consider further evaluation with multiphase liver MRI. 5. 1.5 cm left adrenal nodule consistent with a lipid rich adenoma. 6. Mild retroperitoneal and left iliac chain lymphadenopathy, nonspecific and raises the possibility of santiago metastasis of unknown primary or lymphoproliferative process//developing lymphoma. Would suggest correlation with PSA. Would also suggest follow-up CT in 3 months to confirm stability or alternatively PET CT. 7. Enlarged prostate gland. Chest CTA 04/04/22 16:25 IMPRESSION: 1. No evidence of aortic dissection, aneurysm, or other acute aortic syndrome. 2. No airspace consolidation, effusions, or pneumothorax. 3. 1.3 cm groundglass/subsolid nodule in the posterior right lower lobe. Suggest follow-up chest CT in 6-12 months per Fleischner Society guidelines. 4. 0.9 cm hypervascular focus in the anterior segment right liver lobe, indeterminate possibly flash filling hemangioma versus other hypervascular lesion. Consider further evaluation with multiphase liver MRI. 5. 1.5 cm left adrenal nodule consistent with a lipid rich adenoma. 6. Mild retroperitoneal and left iliac chain lymphadenopathy, nonspecific and raises the possibility of santiago metastasis of unknown primary or lymphoproliferative process//developing lymphoma. Would suggest correlation with PSA. Would also suggest follow-up CT in 3 months to confirm stability or alternatively PET CT. 7. Enlarged prostate gland. Assessment and Plan (1) Anemia: Status: Acute (2) Cellulitis: Status: Acute Plan Pt is a 81-year-old male with a PMH significant for?HTN, insulin-dependent diabetes, PAD s/p toe amputations followed by wound clinic, and hx of osteomy elitis who presents to the ED with?left lower leg swelling, redness of foot, and generalized weakness. Pt will be admitted to the hospital for treatment and further workup of anemia and cellulitis. Acute on chronic anemia H&H 5.3/17.4, markedly lower than baseline anemia in 01/2022 Etiology unclear, CT scan suggestive of possible lymphoma Stool negative for occult blood, patient denies hematochezia, melena, hematemesis, hematuria Patient received 2 units of packed red blood cells in the ED Monitor CBC Cellulitis of lower left foot Pt followed by wound care clinic, last seen on where they cleaned and cultured wound, and yohana boundary around erythema of left foot Erythema now seen extending outside of markered area Hold doxycycline IV abx: vanco and Zosyn Check CRP, ESR, X-ray of foot ID consult Wound care consult Venous duplex negative for DVT Elevated troponins Initial troponin 61.3 with repeat increased to 82.[address] changes Patient denies chest pain/pressure, palpitations Repeat troponin in the morning Repeat EKG in the morning Admit to telemetry Possible cardiology consult, pending morning results Insulin-dependent diabetes Hold home meds SSI, lantus HTN Continue lisinopril PAD Continue aspirin, clopidogrel Full Code Attending:?Dr. Hunter DVT Prophylaxis: Lovenox Pt will require a hospitalization of at least two nights for treatment of?anemia and cellulitis with IV abx. Time Spent With Patient Time: Total time managing care of this patient today ____ minutes. Quality Stroke Does the patient have a stroke diagnosis?: No VTE Prior VTE?: No VTE Risk Level:: Medical - moderate - high VTE Device Contraindication: Treatment Not Indicated VTE Drug Contraindication: N/A - Med Ordered
[2022-04-04 17:55] LABS: OBS Int Ctl Valid YES; OBS1 NEGATIVE (NEGATIVE)
--- NOTE | 2022-04-04 18:16 | PHA.MEDREC ---
Pharmacy Consult ? Medication Reconciliation Pharmacy has completed the medication reconciliation. Patient poor historian of medications. Called Evie ([phone]) on patient's contact list to confirm meds.
[2022-04-04 19:19] LABS: Reflex Lactate? Lactic Acid Added
[2022-04-04 19:50] LABS: C Reactive Protein 27.64 mg/dL (< or = 0.50)
[2022-04-04] MEDS: Piperacillin Sodium/Tazobactam 3.375 GM in 0.9 % Sodium Chloride 50 ML IV (20:55)
[2022-04-04] MEDS: Enoxaparin Sodium 40 MG/0.4 ML SYRINGE SUBCUT (20:56)
--- NOTE | 2022-04-04 20:58 | PC.NURSE ---
phlebotomy contacted - admitted pt w overdue labs. pt medicated per provider order.
[2022-04-04 21:59] LABS: PSA,Total (Free>4and<10) 3.39 ng/mL (0.00-4.00)
[2022-04-04 22:26] LABS: C Reactive Protein 27.18 mg/dL (< or = 0.50)
--- NOTE | 2022-04-04 22:43 | PC.NURSE ---
spoke w daughter, updated w treatment plan/test results.
[2022-04-04 22:53] LABS: Erythrocyte Sedimentation Rate 75 MM/HR (0-15)
--- NOTE | 2022-04-04 23:32 | PC.NURSE ---
Took of care at 11:00pm from MARK abreu, Pt on second unit of blood, pt repositioned in bed for comfort. Will continue to monitor.
[2022-04-04] MEDS: HYDROcodone Bit/Acetam 5/325 TABLET 1 TAB PO (23:48)
--- NOTE | 2022-04-04 23:51 | PC.NURSE ---
medicated pt for pain. Will continue to monitor.
[2022-04-05] VITALS (10 sets, daily range): BP systolic 93–169; BP diastolic 39–74; PULSE 62–81; RESP 11–18; TEMP 36.6–37.1; O2SAT 94–100
--- NOTE | 2022-04-05 00:33 | PC.NURSE ---
pt completed second unit of blood, pt tolerated transfusion fine.
[2022-04-05] MEDS: Piperacillin Sodium/Tazobactam 3.375 GM in 0.9 % Sodium Chloride 50 ML IV ×4 (02:41→19:52)
[2022-04-05] MEDS: LORazepam 0.5 MG TABLET PO (04:28)
--- NOTE | 2022-04-05 04:44 | PC.NURSE ---
pt restless, medication with Ativan PRN. pt redirected back to bed and bed alarm placed.
--- NOTE | 2022-04-05 05:00 | ECG_ITS ---
Test Reason : SOB Blood Pressure : / mmHG Vent. Rate : 065 BPM Atrial Rate : 065 BPM P-R Int : 138 ms QRS Dur : 124 ms QT Int : 438 ms P-R-T Axes : 119 005 036 degrees QTc Int : 455 ms Normal sinus rhythm Right bundle branch block Abnormal ECG When compared with ECG of 04-APR-2022 15:37, No significant changes seen Referred By: Lizbeth Salamanca Electronically Signed By:URSULA JIM
[2022-04-05 06:49] LABS: Hematocrit 22.8 % (42.0-52.0); Hemoglobin 7.1 g/dl (14.0-18.0); Mean Corpuscular HGB Conc 31.1 g/dl (31.0-36.0); Mean Corpuscular Hemoglobin 23.7 pg (27.0-33.0); Mean Corpuscular Volume 76.3 fL (80.0-98.0); Mean Platelet Volume 9.4 fL (9.4-12.4); NRBC Pct Auto 0.1 /100WBC (0.0-0.2); Platelet Count 554 X10*3/uL (160-400); Red Blood Count 2.99 X10*6/uL (4.60-5.80); Red Cell Distribution Width 17.8 % (11.0-16.0)
[2022-04-05 06:54] LABS: White Blood Count 34.1 X10*3/uL (4.8-10.8)
--- NOTE | 2022-04-05 07:13 | PC.NURSE ---
Notified Dr. Hodgson, of critical lab of wbc count.
[2022-04-05 07:14] LABS: Glucose, Whole Blood 65 mg/dL (60-115)
[2022-04-05] MEDS: Aspirin 81 MG TAB.CHEW PO (08:28)
[2022-04-05] MEDS: Clopidogrel Bisulfate 75 MG TABLET PO (08:29)
[2022-04-05] MEDS: lisinopriL 10 MG TABLET PO (08:29)
[2022-04-05] MEDS: 0.9 % Sodium Chloride Flush 3 ML SYRINGE IVFLUSH ×2 (08:30→15:30)
[2022-04-05 08:39] LABS: Anion Gap 16 (12-20); Blood Urea Nitrogen 50 mg/dL (9-16); Calcium 8.4 mg/dL (8.4-10.2); Carbon Dioxide 17 mmol/L (22-29); Chloride 108 mmol/L (96-108); Creatinine Clr Calc Pharmacy 60.1; Estimated Glomerular Filt Rate > 60; Glucose Random 45 mg/dL (60-115); Potassium 5.4 mmol/L (3.3-5.1); Sodium 136 mmol/L (135-145)
[2022-04-05 08:40] LABS: Troponin-I High Sensitivity 225.2 ng/L (<3.5-35.0)
--- NOTE | 2022-04-05 08:56 | HE.PHANOTE ---
VANCO DOSING ADJUSTMENT BASED ON SCR DOSE CONTINUED AT [id number], NEXT TROUGH 04/06 1999
[2022-04-05 09:08] LABS: Hematocrit 24.4 % (42.0-52.0); Hemoglobin 7.6 g/dl (14.0-18.0); INTERNATIONAL NORM RATIO 1.1 (0.9-1.1); Mean Corpuscular HGB Conc 31.1 g/dl (31.0-36.0); Mean Corpuscular Hemoglobin 23.5 pg (27.0-33.0); Mean Corpuscular Volume 75.3 fL (80.0-98.0); Mean Platelet Volume 9.3 fL (9.4-12.4); NRBC Pct Auto 0.1 /100WBC (0.0-0.2); Platelet Count 589 X10*3/uL (160-400); Prothrombin Time 12.9 SEC (10.0-13.1); Red Blood Count 3.24 X10*6/uL (4.60-5.80); Red Cell Distribution Width 17.4 % (11.0-16.0)
[2022-04-05 09:10] LABS: PTT Heparin Drip 27.3 SEC (53-77.9)
[2022-04-05 09:12] LABS: White Blood Count 31.3 X10*3/uL (4.8-10.8)
[2022-04-05] MEDS: Heparin Sodium,Porcine/1/2NS 25,000 UNIT/250 ML IV.SOLN 10.89 UNIT IVCONT (09:15)
[2022-04-05 09:34] LABS: Glucose, Whole Blood 92 mg/dL (60-115)
--- NOTE | 2022-04-05 10:04 | PM.CNCAR ---
History of Present Illness History of Present Illness Date of Service: 04/05/22 Chief complaint: left leg pain, swelling, generalized weakness Narrative: This is a cardiology consultation regarding elevated troponins. Patient with multiple medical comorbidities including hypertension, diabetes, peripheral arterial disease, presenting with left lower leg swelling, redness and generalized weakness. Some shortness of breath as well for the last few weeks. He is being treated for cellulitis. In this context, troponins have been found to be elevated. Patient denies any history of coronary disease or myocardial infarction or cardiomyopathy or in fact any other cardiac issues in the past. He states that he has never had been told to have cardiac problems. However, has significant vascular disease. Currently, denies anginal-type chest pains and has never had them before. Not clear if shortness of breath is anginal equivalent rather. Review of Systems Review of Systems: Yes all other systems are reviewed and are negative Constitutional: Constitutional: Reports as per HPI, Reports no additional constitutional complaints, Reports fatigue, Reports malaise and Reports weakness Eyes: Eyes: Reports as per HPI and Denies no additional eye complaints ENT: Denies system reviewed and no additional complaints, except as documented and Reports as per HPI Cardiovascular: Cardiovascular: Reports as per HPI, Reports no additional cardiovascular complaints, Denies acrocyanosis, Denies cool extremities, Denies chest pain, Denies leg edema, Denies lightheadedness, Denies palpitations and Reports dyspnea Respiratory: Respiratory: Reports as per HPI, Denies no additional respiratory complaints and Reports dyspnea Gastrointestinal: Gastrointestinal: Reports as per HPI and Denies no additional gastrointestinal complaints Genitourinary: Genitourinary: Reports no additional male genitourinary complaints and Reports as per HPI Musculoskeletal: Musculoskeletal: Reports no additional musculoskeletal complaints and Reports as per HPI Integumentary/Breasts: Skin/Breast: Reports system reviewed and no additional complaints, except as docu Neurologic: Reports system reviewed and no additional complaints, except as documented, Reports as per HPI and Reports weakness Psychiatric: Psychiatric: Reports no additional psychiatric complaints and Reports as per HPI Endocrine: Endocrine: Reports no additional endocrine complaints, Reports as per HPI, Reports fatigue and Denies palpitations Hematologic/Lymphatic: Hematologic/Lymphatic: Reports no additional hematologic/lymphatic complaints and Reports as per HPI Allergic/Immunologic: Allergic/Immunologic: Reports no additional allergic/immunologic complaints and Reports as per HPI [facility] Past Medical History Medical History Diabetes History of amputation of great toe History of amputation of great toe HTN (hypertension) Hx of osteomyelitis 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 PAD (peripheral artery disease) Family History Family History Other No family history of coronary artery disease Pertinent family history: Patient denies any major medical issues in his family. Surgical History Surgical History History of angioplasty of peripheral vessel Social History Social History Household Members: Significant Other Housing: House Are you a primary child care supervisor to a significant other at home: No Do you presently have visiting nurse or other home services: Yes (olman kumar) Alcohol intake: never Patient Tobacco Use Status: Former Tobacco user Quit Date: 20 years ago Smoked in Last 30 Days: No Second Hand Smoke Exposure: No Use of substances other than those prescribed or required for medical reasons: No Advance Directives: Yes Advance Directives on File: Yes Advance Directives Date on File: 10/01/21 Nutrition Risks: No Nutritional Risk service: No Current occupational status: retired Meds Allergies Allergy/AdvReac Type Severity Reaction Status Date / Time No Known Allergies Allergy Verified 03/19/22 09:45 [No Known Allergies*] Active Medications: Current Medications Acetaminophen (Acetaminophen 325 Mg Tablet) 650 mg PO Q6H PRN PRN Reason: Pain, Mild (Pain Scale 1-3) Hydrocodone Bitart/Acetaminophen (Hydrocodone Bit/Acetam 5/325 Tablet) 1 tab PO Q6H PRN PRN Reason: Severe Pain (Scale Score 7-10) Last Admin: 04/04/22 23:48 Dose: 1 tab Aspirin (Aspirin 81 Mg Tab.Chew) 81 mg PO DAILY [facility] Last Admin: 04/05/22 08:28 Dose: 81 mg Clopidogrel Bisulfate (Clopidogrel Bisulfate 75 Mg Tablet) 75 mg PO DAILY [facility] Last Admin: 04/05/22 08:29 Dose: 75 mg Dextrose (Dextrose 50 % 25 Gm/50 Ml Syringe) 25 gm IVPUSH Q15M PRN; Protocol PRN Reason: per Hypoglycemia Standing Ord. Docusate Sodium (Docusate Sodium 100 Mg Capsule) 100 mg PO DAILY PRN PRN Reason: Constipation Glucose (Glucose Gel 15 Gm Gel..Gram.) 15 gm PO Q15M PRN; Protocol PRN Reason: per Hypoglycemia Standing Ord. Heparin Sodium (Porcine) (Heparin Sodium,Porcine 5,000 Unit/Ml Vial) 3,600 unit 40 unit/kg (3600 unit) IVPUSH PROTOCOL BOLUS PRN; Protocol PRN Reason: 40 unit/kg - Heparin Protocol Heparin Sodium (Porcine) (Heparin Sodium,Porcine 5,000 Unit/Ml Vial) 7,300 unit 80 unit/kg (7300 unit) IVPUSH PROTOCOL BOLUS PRN; Protocol PRN Reason: 80 unit/kg - Heparin Protocol Piperacillin Sod/Tazobactam (Sod 3.375 gm/ Sodium Chloride) 50 mls @ 100 mls/hr IV Q6H [facility] Last Infusion: 04/05/22 08:59 Dose: Infused Vancomycin HCl 1,250 mg/ (Sodium Chloride) 250 mls @ 166.667 mls/hr IV Q24H [facility] Heparin Sodium/Sodium Chloride (Heparin Sodium,Porcine/1/2ns) 25,000 unit in 250 mls @ 0 mls/hr IVCONT .Q0M [facility]; Protocol Last Admin: 04/05/22 09:15 Dose: 12 units/kg/hr, 10.89 mls/hr Insulin Glargine (Insulin Glargine,Hum.Rec.Anlog 100 Unit/Ml 10 Ml Vial) 17 unit SUBCUT DAILY [facility] Last Admin: 04/05/22 09:32 Dose: Not Given Insulin Human Lispro (Insulin Lispro 100 Unit/Ml 3 Ml Vial) 0 unit SUBCUT QIDACHS [facility]; Protocol Last Admin: 04/05/22 07:26 Dose: Not Given Lisinopril (Lisinopril 10 Mg Tablet) 10 mg PO DAILY [facility]; Protocol Last Admin: 04/05/22 08:29 Dose: 10 mg Lorazepam (Lorazepam 0.5 Mg Tablet) 0.5 mg PO DAILY PRN PRN Reason: Anxiety Last Admin: 04/05/22 04:28 Dose: 0.5 mg Ondansetron HCl (Ondansetron Hcl 4 Mg/2 Ml Vial) 4 mg IVPUSH Q8H PRN PRN Reason: Nausea and Vomiting Pharmacy Consult (Consult Rx Vancomycin Dosing) 1 each MISCELLANE DAILY PRN PRN Reason: Consult order Sodium Chloride (0.9 % Sodium Chloride Flush 3 Ml Syringe) [facility] Last Admin: 04/05/22 08:30 Dose: 3 ml Home Medications Medication Instructions Recorded Confirmed Last Taken Type metformin 1,000 mg tablet 1,000 mg PO BIDWM 12/05/19 04/04/22 04/04/22 09:00 History acetaminophen 325 mg capsule 650 mg PO Q6H PRN Pain 04/04/22 04/04/22 Unknown History (Tylenol) doxycycline monohydrate 100 mg 1 tab PO BID 04/04/22 04/04/22 04/04/22 09:00 History tablet hydrocodone 5 mg-acetaminophen 325 1 tab PO Q6H PRN Severe Pain 04/04/22 04/04/22 Unknown History mg tablet (Scale Score 7-10) insulin glargine 100 unit/mL (3 25 unit subcut DAILY 04/04/22 04/04/22 04/04/22 09:00 History mL) subcutaneous pen lisinopril 10 mg tablet 1 tab PO DAILY 04/04/22 04/04/22 04/04/22 09:00 History lorazepam 0.5 mg tablet 1 tab PO DAILY PRN Anxiety 04/04/22 04/04/22 Unknown History Physical Exam Vital Signs: Vital Signs: Last Vital Signs Temp 98.0 F 04/05/22 06:59 Pulse 81 04/05/22 07:30 Resp 18 04/05/22 07:30 BP 103/48 L 04/05/22 08:30 Pulse Ox 95 04/05/22 07:30 O2 Del Method 04/05/22 07:30 O2 Flow Rate 2 04/04/22 16:01 BMI result Body Mass Index 31.3 Const: General: comfortable, no acute distress and ill appearing Orientation/consciousness: patient oriented x3 HEENT: Other: Unremarkable Head: Yes normal to inspection Neck: Neck: Yes normal visual inspection Chest: Chest palpation & inspection: normal inspection of the chest Resp: Auscultation: clear to auscultation bilaterally Cardio: Palpation: normal PMI Heart sounds: S1 normal heart sound present, S2 normal heart sound present, no gallops, Murmur heart sound present systolic II/ and at the right sternal border and no rubs GI: Palpation (GI): Soft to palpation Back/Spine/Pelvis: Other: unremarkable Skin: General skin exam: no rashes or lesions noted Neuro: General: patient oriented x3 Extrem: Other: Amputation in left foot noted but there is dressing on top of it. Psych: Mental Status: mental status grossly normal Objective Labs and Meds 04/05/22 08:54 04/05/22 06:07 Lab results: Laboratory Results - last 24 hr 04/04/22 04/04/22 04/04/22 16:11 16:11 16:11 WBC 32.5 H* RBC 2.39 L D Hgb 5.3 L* D Hct 17.4 L* D MCV 72.8 L MCH 22.2 L MCHC 30.5 L RDW 16.5 H Plt Count 590 H MPV 9.2 L Immature Gran % (Auto) 1.4 H Neut % (Auto) 91.3 H Lymph % (Auto) 0.9 L [place] % (Auto) 6.0 Eos % (Auto) 0.2 Baso % (Auto) 0.2 Lymph # (Auto) 0.3 L [place] # (Auto) 1.9 H Eos # (Auto) 0.1 Baso # (Auto) 0.1 Abs Immat Gran (auto) 0.46 H Absolute Neuts (auto) 29.7 H Absolute Nucleated RBC 0.040 H Nucleated RBC % (auto) 0.1 Smear Tech's Comments VERIFIED ESR PT 14.8 H INR 1.3 H aPTT Heparin Protocol Sodium 133 L Potassium 5.1 Chloride 103 Carbon Dioxide 18 L Anion Gap 17 BUN 55 H Creatinine 1.34 Estim Creat Clear Calc 48.0 Estimated GFR 51 POC Glucose Random Glucose 190 H Lactic Acid Lactic Acid F/U @ 2Hr Calcium 8.3 L Magnesium 1.4 L* Total Bilirubin 0.3 Direct Bilirubin < 0.2 AST 24 ALT 23 Alkaline Phosphatase 123 H Troponin I High Sens C-Reactive Protein 27.64 H C-React Prot High Sens B-Natriuretic Peptide Total Protein 5.7 L Albumin 2.9 L Total PSA Urine Color Urine Appearance Urine pH Ur Specific [place] Urine Protein Urine Glucose (UA) Urine Ketones Urine Blood Urine Nitrite Ur Leukocyte Esterase Urine RBC Urine WBC Ur Squamous Epith Cells Urine Bacteria Hyaline Casts Stool Occult Blood Influenza Type A (PCR) Influenza Type B (PCR) RSV RNA Qual (PCR) SARS-CoV-2 RNA (RT-PCR) Blood Type Antibody Screen Crossmatch 04/04/22 04/04/22 04/04/22 16:11 16:11 16:13 WBC RBC Hgb Hct MCV MCH MCHC RDW Plt Count MPV Immature Gran % (Auto) Neut % (Auto) Lymph % (Auto) [place] % (Auto) Eos % (Auto) Baso % (Auto) Lymph # (Auto) [place] # (Auto) Eos # (Auto) Baso # (Auto) Abs Immat Gran (auto) Absolute Neuts (auto) Absolute Nucleated RBC Nucleated RBC % (auto) Smear Tech's Comments ESR PT INR aPTT Heparin Protocol Sodium Potassium Chloride Carbon Dioxide Anion Gap BUN Creatinine Estim Creat Clear Calc Estimated GFR POC Glucose Random Glucose Lactic Acid Lactic Acid F/U @ 2Hr Calcium Magnesium Total Bilirubin Direct Bilirubin AST ALT Alkaline Phosphatase Troponin I High Sens 61.3 H C-Reactive Protein C-React Prot High Sens B-Natriuretic Peptide < 10 Total Protein Albumin Total PSA Urine Color Urine Appearance Urine pH Ur Specific [place] Urine Protein Urine Glucose (UA) Urine Ketones Urine Blood Urine Nitrite Ur Leukocyte Esterase Urine RBC Urine WBC Ur Squamous Epith Cells Urine Bacteria Hyaline Casts Stool Occult Blood Influenza Type A (PCR) NEGATIVE Influenza Type B (PCR) NEGATIVE RSV RNA Qual (PCR) NEGATIVE SARS-CoV-2 RNA (RT-PCR) NEGATIVE Blood Type Antibody Screen Crossmatch 04/04/22 04/04/22 04/04/22 16:16 17:03 17:14 WBC RBC Hgb Hct MCV MCH MCHC RDW Plt Count MPV Immature Gran % (Auto) Neut % (Auto) Lymph % (Auto) [place] % (Auto) Eos % (Auto) Baso % (Auto) Lymph # (Auto) [place] # (Auto) Eos # (Auto) Baso # (Auto) Abs Immat Gran (auto) Absolute Neuts (auto) Absolute Nucleated RBC Nucleated RBC % (auto) Smear Tech's Comments ESR PT INR aPTT Heparin Protocol Sodium Potassium Chloride Carbon Dioxide Anion Gap BUN Creatinine Estim Creat Clear Calc Estimated GFR POC Glucose Random Glucose Lactic Acid 2.8 H* Lactic Acid F/U @ 2Hr Calcium Magnesium Total Bilirubin Direct Bilirubin AST ALT Alkaline Phosphatase Troponin I High Sens C-Reactive Protein C-React Prot High Sens B-Natriuretic Peptide Total Protein Albumin Total PSA Urine Color Yellow Urine Appearance Clear Urine pH 5.0 Ur Specific [place] 1.015 Urine Protein Trace Urine Glucose (UA) Negative Urine Ketones Negative Urine Blood Moderate (2+) H Urine Nitrite Negative Ur Leukocyte Esterase Negative Urine RBC 11-20 H Urine WBC 0-5 Ur Squamous Epith Cells 0-2 Urine Bacteria None Seen Hyaline Casts 0-2 Stool Occult Blood NEGATIVE Influenza Type A (PCR) Influenza Type B (PCR) RSV RNA Qual (PCR) SARS-CoV-2 RNA (RT-PCR) Blood Type Antibody Screen Crossmatch 04/04/22 04/04/22 04/04/22 17:21 17:21 21:18 WBC RBC Hgb Hct MCV MCH MCHC RDW Plt Count MPV Immature Gran % (Auto) Neut % (Auto) Lymph % (Auto) [place] % (Auto) Eos % (Auto) Baso % (Auto) Lymph # (Auto) [place] # (Auto) Eos # (Auto) Baso # (Auto) Abs Immat Gran (auto) Absolute Neuts (auto) Absolute Nucleated RBC Nucleated RBC % (auto) Smear Tech's Comments ESR PT INR aPTT Heparin Protocol Sodium Potassium Chloride Carbon Dioxide Anion Gap BUN Creatinine Estim Creat Clear Calc Estimated GFR POC Glucose Random Glucose Lactic Acid Lactic Acid F/U @ 2Hr Calcium Magnesium Total Bilirubin Direct Bilirubin AST ALT Alkaline Phosphatase Troponin I High Sens 82.0 H C-Reactive Protein 27.18 H C-React Prot High Sens B-Natriuretic Peptide Total Protein Albumin Total PSA 3.39 Urine Color Urine Appearance Urine pH Ur Specific [place] Urine Protein Urine Glucose (UA) Urine Ketones Urine Blood Urine Nitrite Ur Leukocyte Esterase Urine RBC Urine WBC Ur Squamous Epith Cells Urine Bacteria Hyaline Casts Stool Occult Blood Influenza Type A (PCR) Influenza Type B (PCR) RSV RNA Qual (PCR) SARS-CoV-2 RNA (RT-PCR) Blood Type O Negative Antibody Screen NEGATIVE Crossmatch See Detail 04/04/22 04/04/22 04/04/22 21:18 21:18 21:18 WBC RBC Hgb Hct MCV MCH MCHC RDW Plt Count MPV Immature Gran % (Auto) Neut % (Auto) Lymph % (Auto) [place] % (Auto) Eos % (Auto) Baso % (Auto) Lymph # (Auto) [place] # (Auto) Eos # (Auto) Baso # (Auto) Abs Immat Gran (auto) Absolute Neuts (auto) Absolute Nucleated RBC Nucleated RBC % (auto) Smear Tech's Comments ESR 75 H PT INR aPTT Heparin Protocol Sodium Potassium Chloride Carbon Dioxide Anion Gap BUN Creatinine Estim Creat Clear Calc Estimated GFR POC Glucose Random Glucose Lactic Acid Lactic Acid F/U @ 2Hr 2.0 Calcium Magnesium Total Bilirubin Direct Bilirubin AST ALT Alkaline Phosphatase Troponin I High Sens C-Reactive Protein C-React Prot High Sens Cancelled B-Natriuretic Peptide Total Protein Albumin Total PSA Urine Color Urine Appearance Urine pH Ur Specific [place] Urine Protein Urine Glucose (UA) Urine Ketones Urine Blood Urine Nitrite Ur Leukocyte Esterase Urine RBC Urine WBC Ur Squamous Epith Cells Urine Bacteria Hyaline Casts Stool Occult Blood Influenza Type A (PCR) Influenza Type B (PCR) RSV RNA Qual (PCR) SARS-CoV-2 RNA (RT-PCR) Blood Type Antibody Screen Crossmatch 04/05/22 04/05/22 04/05/22 06:07 06:07 06:07 WBC 34.1 H* RBC 2.99 L D Hgb 7.1 L D Hct 22.8 L D MCV 76.3 L MCH 23.7 L MCHC 31.1 RDW 17.8 H Plt Count 554 H MPV 9.4 Immature Gran % (Auto) Neut % (Auto) Lymph % (Auto) [place] % (Auto) Eos % (Auto) Baso % (Auto) Lymph # (Auto) [place] # (Auto) Eos # (Auto) Baso # (Auto) Abs Immat Gran (auto) Absolute Neuts (auto) Absolute Nucleated RBC 0.040 H Nucleated RBC % (auto) 0.1 Smear Tech's Comments ESR PT INR aPTT Heparin Protocol Sodium 136 Potassium 5.4 H Chloride 108 Carbon Dioxide 17 L Anion Gap 16 BUN 50 H Creatinine 1.07 Estim Creat Clear Calc 60.1 Estimated GFR > 60 POC Glucose Random Glucose 45 L* Lactic Acid Lactic Acid F/U @ 2Hr Calcium 8.4 Magnesium 2.0 Total Bilirubin Direct Bilirubin AST ALT Alkaline Phosphatase Troponin I High Sens 225.2 H* D C-Reactive Protein C-React Prot High Sens B-Natriuretic Peptide Total Protein Albumin Total PSA Urine Color Urine Appearance Urine pH Ur Specific [place] Urine Protein Urine Glucose (UA) Urine Ketones Urine Blood Urine Nitrite Ur Leukocyte Esterase Urine RBC Urine WBC Ur Squamous Epith Cells Urine Bacteria Hyaline Casts Stool Occult Blood Influenza Type A (PCR) Influenza Type B (PCR) RSV RNA Qual (PCR) SARS-CoV-2 RNA (RT-PCR) Blood Type Antibody Screen Crossmatch 04/05/22 04/05/22 04/05/22 07:09 08:54 08:54 WBC 31.3 H* RBC 3.24 L Hgb 7.6 L Hct 24.4 L MCV 75.3 L MCH 23.5 L MCHC 31.1 RDW 17.4 H Plt Count 589 H MPV 9.3 L Immature Gran % (Auto) Neut % (Auto) Lymph % (Auto) [place] % (Auto) Eos % (Auto) Baso % (Auto) Lymph # (Auto) [place] # (Auto) Eos # (Auto) Baso # (Auto) Abs Immat Gran (auto) Absolute Neuts (auto) Absolute Nucleated RBC 0.030 H Nucleated RBC % (auto) 0.1 Smear Tech's Comments ESR PT 12.9 INR 1.1 aPTT Heparin Protocol 27.3 L Sodium Potassium Chloride Carbon Dioxide Anion Gap BUN Creatinine Estim Creat Clear Calc Estimated GFR POC Glucose 65 Random Glucose Lactic Acid Lactic Acid F/U @ 2Hr Calcium Magnesium Total Bilirubin Direct Bilirubin AST ALT Alkaline Phosphatase Troponin I High Sens C-Reactive Protein C-React Prot High Sens B-Natriuretic Peptide Total Protein Albumin Total PSA Urine Color Urine Appearance Urine pH Ur Specific [place] Urine Protein Urine Glucose (UA) Urine Ketones Urine Blood Urine Nitrite Ur Leukocyte Esterase Urine RBC Urine WBC Ur Squamous Epith Cells Urine Bacteria Hyaline Casts Stool Occult Blood Influenza Type A (PCR) Influenza Type B (PCR) RSV RNA Qual (PCR) SARS-CoV-2 RNA (RT-PCR) Blood Type Antibody Screen Crossmatch 04/05/22 09:31 WBC RBC Hgb Hct MCV MCH MCHC RDW Plt Count MPV Immature Gran % (Auto) Neut % (Auto) Lymph % (Auto) [place] % (Auto) Eos % (Auto) Baso % (Auto) Lymph # (Auto) [place] # (Auto) Eos # (Auto) Baso # (Auto) Abs Immat Gran (auto) Absolute Neuts (auto) Absolute Nucleated RBC Nucleated RBC % (auto) Smear Tech's Comments ESR PT INR aPTT Heparin Protocol Sodium Potassium Chloride Carbon Dioxide Anion Gap BUN Creatinine Estim Creat Clear Calc Estimated GFR POC Glucose 92 Random Glucose Lactic Acid Lactic Acid F/U @ 2Hr Calcium Magnesium Total Bilirubin Direct Bilirubin AST ALT Alkaline Phosphatase Troponin I High Sens C-Reactive Protein C-React Prot High Sens B-Natriuretic Peptide Total Protein Albumin Total PSA Urine Color Urine Appearance Urine pH Ur Specific [place] Urine Protein Urine Glucose (UA) Urine Ketones Urine Blood Urine Nitrite Ur Leukocyte Esterase Urine RBC Urine WBC Ur Squamous Epith Cells Urine Bacteria Hyaline Casts Stool Occult Blood Influenza Type A (PCR) Influenza Type B (PCR) RSV RNA Qual (PCR) SARS-CoV-2 RNA (RT-PCR) Blood Type Antibody Screen Crossmatch ECG Interpretation: EKG with sinus rhythm at 65/Min; right bundle-branch block. Imaging Radiologist's impression: Impressions Chest X-Ray 04/04/22 15:18 IMPRESSION: * Mild vascular congestion without socrates failure. * Blunting of costophrenic angles possibly small pleural effusions. * Cardiac silhouette is enlarged, this is exaggerated by AP technique. Aorta w/Runoff CTA 04/04/22 16:25 IMPRESSION: 1. No evidence of aortic dissection, aneurysm, or other acute aortic syndrome. 2. No airspace consolidation, effusions, or pneumothorax. 3. 1.3 cm groundglass/subsolid nodule in the posterior right lower lobe. Suggest follow-up chest CT in 6-12 months per Fleischner Society guidelines. 4. 0.9 cm hypervascular focus in the anterior segment right liver lobe, indeterminate possibly flash filling hemangioma versus other hypervascular lesion. Consider further evaluation with multiphase liver MRI. 5. 1.5 cm left adrenal nodule consistent with a lipid rich adenoma. 6. Mild retroperitoneal and left iliac chain lymphadenopathy, nonspecific and raises the possibility of santiago metastasis of unknown primary or lymphoproliferative process//developing lymphoma. Would suggest correlation with PSA. Would also suggest follow-up CT in 3 months to confirm stability or alternatively PET CT. 7. Enlarged prostate gland. Chest CTA 04/04/22 16:25 IMPRESSION: 1. No evidence of aortic dissection, aneurysm, or other acute aortic syndrome. 2. No airspace consolidation, effusions, or pneumothorax. 3. 1.3 cm groundglass/subsolid nodule in the posterior right lower lobe. Suggest follow-up chest CT in 6-12 months per Fleischner Society guidelines. 4. 0.9 cm hypervascular focus in the anterior segment right liver lobe, indeterminate possibly flash filling hemangioma versus other hypervascular lesion. Consider further evaluation with multiphase liver MRI. 5. 1.5 cm left adrenal nodule consistent with a lipid rich adenoma. 6. Mild retroperitoneal and left iliac chain lymphadenopathy, nonspecific and raises the possibility of santiago metastasis of unknown primary or lymphoproliferative process//developing lymphoma. Would suggest correlation with PSA. Would also suggest follow-up CT in 3 months to confirm stability or alternatively PET CT. 7. Enlarged prostate gland. Venous Duplex 04/04/22 18:41 IMPRESSION: No DVT demonstrated in the left lower extremity. Foot X-Ray 04/04/22 19:40 IMPRESSION: Status post trans tarsal amputation. No definite evidence of osteomyelitis. If there is continued clinical concern, MRI would be more sensitive. Assessment and Plan (1) NSTEMI (non-ST elevated myocardial infarction): Status: Acute (2) Cellulitis: Status: Acute (3) PAD (peripheral artery disease): Status: Acute Plan High sensitivity troponins are 61 followed by 82 and 225. Markedly elevated white cell count of 31.3. Anemic at 7.6. ESR and CRP are quite high as well. Potassium 5.4. BUN is 15 creatinine is 1.07. Lactic acid is also increased. Abdomen diminished at 2.9. Overall, likely demand related NSTEMI. Based on his comorbidities, high pretest probability of significant coronary disease. At this time, treat IV heparin, aspirin, high dose statins. Echocardiogram. When medically stable infection is cleared, diagnostic angiogram. Discussed with Dr. Hunter. Time Spent With Patient Time: Total time managing care of this patient today 75 minutes. Procedures Date of Service Date of Service: 04/05/22
[2022-04-05] MEDS: Atorvastatin Calcium 80 MG TABLET PO ×2 (11:16→19:51)
[2022-04-05 11:27] LABS: Glucose, Whole Blood 140 mg/dL (60-115)
--- NOTE | 2022-04-05 12:54 | MHC.CM.PN ---
PT REPORTS HE LIVES WITH HIS S/O, JESSIKA, AND IS INDEPENDENT WITH CARE HE REPORTS HE USES A CANE SOMETIMES BUT NOT RECENTLY PT SAYS HE IS ACTIVE WITH A VNA, HE DOES NOT KNOW THE NAME PER EMR, HE WAS WITH [facility] LAST ADMISSION PT IS COVID VAX X 3 HE HAS A HCP ON FILE PCP: CATHY VALLE IMM DELIVERED, COPY SENT TO [facility] CURRENT DC PLAN IS HOME WITH RESUMPTION OF VNA JESSIKA TO TRANSPORT
[2022-04-05 13:11] LABS: Troponin-I High Sensitivity 228.3 ng/L (<3.5-35.0)
--- NOTE | 2022-04-05 14:26 | HO.PM.IMPN ---
Subjective Subjective Date of Service: 04/05/22 Interval History: develop some mild retrosternal chest pain this a.m.. Troponins elevated at 226. Review of Systems Admits to chest pain Admits to mild shortness of breath Denies nausea vomiting diarrhea Denies f Physical Exam Vital Signs: Vital Signs: Last Vital Signs Temp 98.0 F 04/05/22 10:21 Pulse 65 04/05/22 10:21 Resp 11 L 04/05/22 10:21 BP 108/54 L 04/05/22 10:21 Pulse Ox 99 04/05/22 10:21 O2 Del Method 04/05/22 10:21 O2 Flow Rate 2 04/04/22 16:01 BMI result Body Mass Index 31.3 Const: Other: awake alert no acute distress Neck: Other: no JVD Resp: Other: clear to auscultation bilaterally no rales rhonchi or wheezes Cardio: Other: no S4; positive S1-S2; no S3 2/6 systolic murmur best heard on the right sternal border Extrem: Other: no edema bilaterally Objective Data Active Medications Acetaminophen (Acetaminophen 325 Mg Tablet) 650 mg PO Q6H PRN PRN Reason: Pain, Mild (Pain Scale 1-3) Hydrocodone Bitart/Acetaminophen (Hydrocodone Bit/Acetam 5/325 Tablet) 1 tab PO Q6H PRN PRN Reason: Severe Pain (Scale Score 7-10) Last Admin: 04/04/22 23:48 Dose: 1 tab Documented By: ANTHONY Aspirin (Aspirin 81 Mg Tab.Chew) 81 mg PO DAILY [facility] Last Admin: 04/05/22 08:28 Dose: 81 mg Documented By: LUKE Atorvastatin Calcium (Atorvastatin Calcium 80 Mg Tablet) 80 mg PO BEDTIME [facility] Clopidogrel Bisulfate (Clopidogrel Bisulfate 75 Mg Tablet) 75 mg PO DAILY [facility] Last Admin: 04/05/22 08:29 Dose: 75 mg Documented By: LUKE Dextrose (Dextrose 50 % 25 Gm/50 Ml Syringe) 25 gm IVPUSH Q15M PRN; Protocol PRN Reason: per Hypoglycemia Standing Ord. Docusate Sodium (Docusate Sodium 100 Mg Capsule) 100 mg PO DAILY PRN PRN Reason: Constipation Glucose (Glucose Gel 15 Gm Gel..Gram.) 15 gm PO Q15M PRN; Protocol PRN Reason: per Hypoglycemia Standing Ord. Heparin Sodium (Porcine) (Heparin Sodium,Porcine 5,000 Unit/Ml Vial) 3,600 unit 40 unit/kg (3600 unit) IVPUSH PROTOCOL BOLUS PRN; Protocol PRN Reason: 40 unit/kg - Heparin Protocol Heparin Sodium (Porcine) (Heparin Sodium,Porcine 5,000 Unit/Ml Vial) 7,300 unit 80 unit/kg (7300 unit) IVPUSH PROTOCOL BOLUS PRN; Protocol PRN Reason: 80 unit/kg - Heparin Protocol Piperacillin Sod/Tazobactam (Sod 3.375 gm/ Sodium Chloride) 50 mls @ 100 mls/hr IV Q6H [facility] Last Admin: 04/05/22 14:24 Dose: 100 mls/hr Documented By: LUKE Vancomycin HCl 1,250 mg/ (Sodium Chloride) 250 mls @ 166.667 mls/hr IV Q24H [facility] Heparin Sodium/Sodium Chloride (Heparin Sodium,Porcine/1/2ns) 25,000 unit in 250 mls @ 0 mls/hr IVCONT .Q0M [facility]; Protocol Last Admin: 04/05/22 09:15 Dose: 12 units/kg/hr, 10.89 mls/hr Documented By: LUKE Co-signed By: JOCELYN Insulin Glargine (Insulin Glargine,Hum.Rec.Anlog 100 Unit/Ml 10 Ml Vial) 17 unit SUBCUT DAILY [facility] Last Admin: 04/05/22 09:32 Dose: Not Given Documented By: LUKE Non-Admin Reason: No Insulin Coverage Insulin Human Lispro (Insulin Lispro 100 Unit/Ml 3 Ml Vial) 0 unit SUBCUT QIDACHS [facility]; Protocol Last Admin: 04/05/22 11:30 Dose: Not Given Documented By: LUKE Non-Admin Reason: No Insulin Coverage Lisinopril (Lisinopril 10 Mg Tablet) 10 mg PO DAILY [facility]; Protocol Last Admin: 04/05/22 08:29 Dose: 10 mg Documented By: LUKE Lorazepam (Lorazepam 0.5 Mg Tablet) 0.5 mg PO DAILY PRN PRN Reason: Anxiety Last Admin: 04/05/22 04:28 Dose: 0.5 mg Documented By: ANTHONY Ondansetron HCl (Ondansetron Hcl 4 Mg/2 Ml Vial) 4 mg IVPUSH Q8H PRN PRN Reason: Nausea and Vomiting Pharmacy Consult (Consult Rx Vancomycin Dosing) 1 each MISCELLANE DAILY PRN PRN Reason: Consult order Sodium Chloride (0.9 % Sodium Chloride Flush 3 Ml Syringe) 3 ml IVFLUSH QSHIFT [facility] Last Admin: 04/05/22 08:30 Dose: 3 ml Documented By: LUKE Labs 04/05/22 08:54 04/05/22 06:07 Labs: Laboratory Results - last 24 hr 04/04/22 04/04/22 04/04/22 16:11 16:11 16:11 MCV 72.8 L MCH 22.2 L MCHC 30.5 L RDW 16.5 H Plt Count 590 H MPV 9.2 L Immature Gran % (Auto) 1.4 H Neut % (Auto) 91.3 H Lymph % (Auto) 0.9 L Long % (Auto) 6.0 Eos % (Auto) 0.2 Baso % (Auto) 0.2 Lymph # (Auto) 0.3 L Long # (Auto) 1.9 H Eos # (Auto) 0.1 Baso # (Auto) 0.1 Abs Immat Gran (auto) 0.46 H Absolute Neuts (auto) 29.7 H Absolute Nucleated RBC 0.040 H Nucleated RBC % (auto) 0.1 Smear Tech's Comments VERIFIED ESR PT 14.8 H INR 1.3 H aPTT Heparin Protocol Anion Gap 17 Estim Creat Clear Calc 48.0 Estimated GFR 51 POC Glucose Random Glucose 190 H Lactic Acid Lactic Acid F/U @ 2Hr Calcium 8.3 L Magnesium 1.4 L* Total Bilirubin 0.3 Direct Bilirubin < 0.2 AST 24 ALT 23 Alkaline Phosphatase 123 H Troponin I High Sens C-Reactive Protein 27.64 H C-React Prot High Sens B-Natriuretic Peptide Total Protein 5.7 L Albumin 2.9 L Total PSA Urine Color Urine Appearance Urine pH Ur Specific [place] Urine Protein Urine Glucose (UA) Urine Ketones Urine Blood Urine Nitrite Ur Leukocyte Esterase Urine RBC Urine WBC Ur Squamous Epith Cells Urine Bacteria Hyaline Casts Stool Occult Blood Influenza Type A (PCR) Influenza Type B (PCR) RSV RNA Qual (PCR) SARS-CoV-2 RNA (RT-PCR) Blood Type Antibody Screen Crossmatch 04/04/22 04/04/22 04/04/22 16:11 16:11 16:13 MCV MCH MCHC RDW Plt Count MPV Immature Gran % (Auto) Neut % (Auto) Lymph % (Auto) Long % (Auto) Eos % (Auto) Baso % (Auto) Lymph # (Auto) Long # (Auto) Eos # (Auto) Baso # (Auto) Abs Immat Gran (auto) Absolute Neuts (auto) Absolute Nucleated RBC Nucleated RBC % (auto) Smear Tech's Comments ESR PT INR aPTT Heparin Protocol Anion Gap Estim Creat Clear Calc Estimated GFR POC Glucose Random Glucose Lactic Acid Lactic Acid F/U @ 2Hr Calcium Magnesium Total Bilirubin Direct Bilirubin AST ALT Alkaline Phosphatase Troponin I High Sens 61.3 H C-Reactive Protein C-React Prot High Sens B-Natriuretic Peptide < 10 Total Protein Albumin Total PSA Urine Color Urine Appearance Urine pH Ur Specific [place] Urine Protein Urine Glucose (UA) Urine Ketones Urine Blood Urine Nitrite Ur Leukocyte Esterase Urine RBC Urine WBC Ur Squamous Epith Cells Urine Bacteria Hyaline Casts Stool Occult Blood Influenza Type A (PCR) NEGATIVE Influenza Type B (PCR) NEGATIVE RSV RNA Qual (PCR) NEGATIVE SARS-CoV-2 RNA (RT-PCR) NEGATIVE Blood Type Antibody Screen Crossmatch 04/04/22 04/04/22 04/04/22 16:16 17:03 17:14 MCV MCH MCHC RDW Plt Count MPV Immature Gran % (Auto) Neut % (Auto) Lymph % (Auto) Long % (Auto) Eos % (Auto) Baso % (Auto) Lymph # (Auto) Long # (Auto) Eos # (Auto) Baso # (Auto) Abs Immat Gran (auto) Absolute Neuts (auto) Absolute Nucleated RBC Nucleated RBC % (auto) Smear Tech's Comments ESR PT INR aPTT Heparin Protocol Anion Gap Estim Creat Clear Calc Estimated GFR POC Glucose Random Glucose Lactic Acid 2.8 H* Lactic Acid F/U @ 2Hr Calcium Magnesium Total Bilirubin Direct Bilirubin AST ALT Alkaline Phosphatase Troponin I High Sens C-Reactive Protein C-React Prot High Sens B-Natriuretic Peptide Total Protein Albumin Total PSA Urine Color Yellow Urine Appearance Clear Urine pH 5.0 Ur Specific [place] 1.015 Urine Protein Trace Urine Glucose (UA) Negative Urine Ketones Negative Urine Blood Moderate (2+) H Urine Nitrite Negative Ur Leukocyte Esterase Negative Urine RBC 11-20 H Urine WBC 0-5 Ur Squamous Epith Cells 0-2 Urine Bacteria None Seen Hyaline Casts 0-2 Stool Occult Blood NEGATIVE Influenza Type A (PCR) Influenza Type B (PCR) RSV RNA Qual (PCR) SARS-CoV-2 RNA (RT-PCR) Blood Type Antibody Screen Crossmatch 04/04/22 04/04/22 04/04/22 17:21 17:21 21:18 MCV MCH MCHC RDW Plt Count MPV Immature Gran % (Auto) Neut % (Auto) Lymph % (Auto) Long % (Auto) Eos % (Auto) Baso % (Auto) Lymph # (Auto) Long # (Auto) Eos # (Auto) Baso # (Auto) Abs Immat Gran (auto) Absolute Neuts (auto) Absolute Nucleated RBC Nucleated RBC % (auto) Smear Tech's Comments ESR PT INR aPTT Heparin Protocol Anion Gap Estim Creat Clear Calc Estimated GFR POC Glucose Random Glucose Lactic Acid Lactic Acid F/U @ 2Hr Calcium Magnesium Total Bilirubin Direct Bilirubin AST ALT Alkaline Phosphatase Troponin I High Sens 82.0 H C-Reactive Protein 27.18 H C-React Prot High Sens B-Natriuretic Peptide Total Protein Albumin Total PSA 3.39 Urine Color Urine Appearance Urine pH Ur Specific [place] Urine Protein Urine Glucose (UA) Urine Ketones Urine Blood Urine Nitrite Ur Leukocyte Esterase Urine RBC Urine WBC Ur Squamous Epith Cells Urine Bacteria Hyaline Casts Stool Occult Blood Influenza Type A (PCR) Influenza Type B (PCR) RSV RNA Qual (PCR) SARS-CoV-2 RNA (RT-PCR) Blood Type O Negative Antibody Screen NEGATIVE Crossmatch See Detail 04/04/22 04/04/22 04/04/22 21:18 21:18 21:18 MCV MCH MCHC RDW Plt Count MPV Immature Gran % (Auto) Neut % (Auto) Lymph % (Auto) Long % (Auto) Eos % (Auto) Baso % (Auto) Lymph # (Auto) Long # (Auto) Eos # (Auto) Baso # (Auto) Abs Immat Gran (auto) Absolute Neuts (auto) Absolute Nucleated RBC Nucleated RBC % (auto) Smear Tech's Comments ESR 75 H PT INR aPTT Heparin Protocol Anion Gap Estim Creat Clear Calc Estimated GFR POC Glucose Random Glucose Lactic Acid Lactic Acid F/U @ 2Hr 2.0 Calcium Magnesium Total Bilirubin Direct Bilirubin AST ALT Alkaline Phosphatase Troponin I High Sens C-Reactive Protein C-React Prot High Sens Cancelled B-Natriuretic Peptide Total Protein Albumin Total PSA Urine Color Urine Appearance Urine pH Ur Specific [place] Urine Protein Urine Glucose (UA) Urine Ketones Urine Blood Urine Nitrite Ur Leukocyte Esterase Urine RBC Urine WBC Ur Squamous Epith Cells Urine Bacteria Hyaline Casts Stool Occult Blood Influenza Type A (PCR) Influenza Type B (PCR) RSV RNA Qual (PCR) SARS-CoV-2 RNA (RT-PCR) Blood Type Antibody Screen Crossmatch 04/05/22 04/05/22 04/05/22 06:07 06:07 06:07 MCV 76.3 L MCH 23.7 L MCHC 31.1 RDW 17.8 H Plt Count 554 H MPV 9.4 Immature Gran % (Auto) Neut % (Auto) Lymph % (Auto) Long % (Auto) Eos % (Auto) Baso % (Auto) Lymph # (Auto) Long # (Auto) Eos # (Auto) Baso # (Auto) Abs Immat Gran (auto) Absolute Neuts (auto) Absolute Nucleated RBC 0.040 H Nucleated RBC % (auto) 0.1 Smear Tech's Comments ESR PT INR aPTT Heparin Protocol Anion Gap 16 Estim Creat Clear Calc 60.1 Estimated GFR > 60 POC Glucose Random Glucose 45 L* Lactic Acid Lactic Acid F/U @ 2Hr Calcium 8.4 Magnesium 2.0 Total Bilirubin Direct Bilirubin AST ALT Alkaline Phosphatase Troponin I High Sens 225.2 H* D C-Reactive Protein C-React Prot High Sens B-Natriuretic Peptide Total Protein Albumin Total PSA Urine Color Urine Appearance Urine pH Ur Specific [place] Urine Protein Urine Glucose (UA) Urine Ketones Urine Blood Urine Nitrite Ur Leukocyte Esterase Urine RBC Urine WBC Ur Squamous Epith Cells Urine Bacteria Hyaline Casts Stool Occult Blood Influenza Type A (PCR) Influenza Type B (PCR) RSV RNA Qual (PCR) SARS-CoV-2 RNA (RT-PCR) Blood Type Antibody Screen Crossmatch 04/05/22 04/05/22 04/05/22 07:09 08:54 08:54 MCV 75.3 L MCH 23.5 L MCHC 31.1 RDW 17.4 H Plt Count 589 H MPV 9.3 L Immature Gran % (Auto) Neut % (Auto) Lymph % (Auto) Long % (Auto) Eos % (Auto) Baso % (Auto) Lymph # (Auto) Long # (Auto) Eos # (Auto) Baso # (Auto) Abs Immat Gran (auto) Absolute Neuts (auto) Absolute Nucleated RBC 0.030 H Nucleated RBC % (auto) 0.1 Smear Tech's Comments ESR PT 12.9 INR 1.1 aPTT Heparin Protocol 27.3 L Anion Gap Estim Creat Clear Calc Estimated GFR POC Glucose 65 Random Glucose Lactic Acid Lactic Acid F/U @ 2Hr Calcium Magnesium Total Bilirubin Direct Bilirubin AST ALT Alkaline Phosphatase Troponin I High Sens C-Reactive Protein C-React Prot High Sens B-Natriuretic Peptide Total Protein Albumin Total PSA Urine Color Urine Appearance Urine pH Ur Specific [place] Urine Protein Urine Glucose (UA) Urine Ketones Urine Blood Urine Nitrite Ur Leukocyte Esterase Urine RBC Urine WBC Ur Squamous Epith Cells Urine Bacteria Hyaline Casts Stool Occult Blood Influenza Type A (PCR) Influenza Type B (PCR) RSV RNA Qual (PCR) SARS-CoV-2 RNA (RT-PCR) Blood Type Antibody Screen Crossmatch 04/05/22 04/05/22 04/05/22 09:31 11:23 12:31 MCV MCH MCHC RDW Plt Count MPV Immature Gran % (Auto) Neut % (Auto) Lymph % (Auto) Long % (Auto) Eos % (Auto) Baso % (Auto) Lymph # (Auto) Long # (Auto) Eos # (Auto) Baso # (Auto) Abs Immat Gran (auto) Absolute Neuts (auto) Absolute Nucleated RBC Nucleated RBC % (auto) Smear Tech's Comments ESR PT INR aPTT Heparin Protocol Anion Gap Estim Creat Clear Calc Estimated GFR POC Glucose 92 140 H Random Glucose Lactic Acid Lactic Acid F/U @ 2Hr Calcium Magnesium Total Bilirubin Direct Bilirubin AST ALT Alkaline Phosphatase Troponin I High Sens 228.3 H* C-Reactive Protein C-React Prot High Sens B-Natriuretic Peptide Total Protein Albumin Total PSA Urine Color Urine Appearance Urine pH Ur Specific [place] Urine Protein Urine Glucose (UA) Urine Ketones Urine Blood Urine Nitrite Ur Leukocyte Esterase Urine RBC Urine WBC Ur Squamous Epith Cells Urine Bacteria Hyaline Casts Stool Occult Blood Influenza Type A (PCR) Influenza Type B (PCR) RSV RNA Qual (PCR) SARS-CoV-2 RNA (RT-PCR) Blood Type Antibody Screen Crossmatch Assessment and Plan (1) NSTEMI (non-ST elevated myocardial infarction): Status: Acute (2) Cellulitis: Status: Acute (3) Anemia: Status: Acute Plan Pt is a 81-year-old male with a PMH significant for?HTN, insulin-dependent diabetes, PAD s/p toe amputations followed by wound clinic, and hx of osteomyelitis who presents to the ED with?left lower leg swelling, redness of foot, and generalized weakness. Pt will be admitted to the hospital for treatment and further workup of anemia and cellulitis. 1.NSTEMI - heparin drip/ high-dose statin/aspirin - 2D echo in a.m. - as per Cardiology will need catheterization 1 infection cleared 2. Cellulitis question osteomyelitis - empirical vanco and Zosyn - ID consult - hold on further imaging given past history of osteomyelitis; ID to decide further workup 3.Acute on chronic anemia - transfuse 2 additional units goal hemoglobin 10 - follow daily CBCs 4.Insulin-dependent diabetes -acceptable control off home therapies -lispro correctional scale -adjust as indicated 5.PAD -Continue aspirin, clopidogrel Full Code Lovenox patient will require ongoing hospitalization to treat suspected osteomyelitis in the backdrop of an STEMI on heparin Time Spent With Patient Time: Total time managing care of this patient today ____ minutes. Quality Stroke Does the patient have a stroke diagnosis?: No VTE Prior VTE?: No VTE Risk Level:: Medical - moderate - high VTE Device Contraindication: Treatment Not Indicated VTE Drug Contraindication: N/A - Med Ordered
[2022-04-05 15:28] LABS: PTT Heparin Drip 37.8 SEC (53-77.9)
[2022-04-05] MEDS: Heparin Sodium,Porcine 5,000 UNIT/ML VIAL 3600 UNIT IVPUSH (15:55)
--- NOTE | 2022-04-05 16:17 | PC.NURSE ---
pTT repeat of 37.8. Heparin bolus given per protocol, rate change to 14units/kg/hour per protocol. Provider made aware.
--- NOTE | 2022-04-05 19:31 | PC.NURSE ---
pt alertb and oriented x2-3 but can confused and forgetful. Pt admitted to rm [id number] with a diagnosis of NSTEMI, Left foot cellulitis and anemia. Pt has Heprin drip running at 14units/kg. Next aptt is at 10pm.
[2022-04-05] MEDS: Insulin Lispro 100 UNIT/ML 3 ML VIAL SUBCUT (19:51)
[2022-04-05 19:58] LABS: Glucose, Whole Blood 156 mg/dL (60-115)
[2022-04-05] MEDS: HYDROcodone Bit/Acetam 5/325 TABLET 1 TAB PO (20:06)
[2022-04-05 22:31] LABS: PTT Heparin Drip 34.7 SEC (53-77.9)
[2022-04-05] MEDS: Heparin Sodium,Porcine 5,000 UNIT/ML VIAL 7300 UNIT IVPUSH (22:56)
[2022-04-05] MEDS: vancomycin HCL 1,250 MG in 0.9 % Sodium Chloride 250 ML 166.67 MG IV (23:00)
[2022-04-06] VITALS (10 sets, daily range): BP systolic 140–179; BP diastolic 56–88; PULSE 57–80; RESP 16–20; TEMP 36.2–37.1; O2SAT 94–100
[2022-04-06] MEDS: HYDROcodone Bit/Acetam 5/325 TABLET 1 TAB PO (03:59)
[2022-04-06] MEDS: 0.9 % Sodium Chloride Flush 3 ML SYRINGE IVFLUSH ×3 (04:47→19:05)
[2022-04-06] MEDS: Heparin Sodium,Porcine/1/2NS 25,000 UNIT/250 ML IV.SOLN 16.33 UNIT IVCONT (04:52)
[2022-04-06] MEDS: Piperacillin Sodium/Tazobactam 3.375 GM in 0.9 % Sodium Chloride 50 ML IV ×4 (05:01→20:12)
[2022-04-06] MEDS: LORazepam 0.5 MG TABLET PO ×2 (05:05→20:22)
--- NOTE | 2022-04-06 07:00 | CA_ITS ---
Transthoracic Echocardiogram Patient (Last, First, Middle): Vj Galicia C Gender: Male Date of : 1940 Age: 81 Procedure Date: 04/06/2022 Procedure Type: Transthoracic Echocardiogram [place] [facility] [place]: 170.18 cm Weight: 90.72 kg BSA: 2.02 m2 Heart Rate: 65 bpm BP: 154 / 67 mmHg Assembler Dc Field Yoke: Referring MD: Wayne Law MD Symptoms: NSTEMI Study Quality: Adequate w contrast ECG Rhythm: Sinus Conclusions: - 1. Mildly reduced LV ejection fraction 45-50% with mild LVH with regional wall motion abnormalities just of underlying coronary artery disease with impaired relaxation filling pattern 2. Mildly dilated left atrium 3. Mild aortic stenosis 4. Upper limits of normal RV systolic pressure 5. No pericardial effusion Findings Procedure Information Contrast agent, definity, is being given per protocol without apparent complications. Left Ventricle Normal left ventricular cavity size. There is mildly increased left ventricular wall thickness. The left ventricular systolic function is mildly decreased. The visually estimated ejection fraction is between 45-50%. Spectral Doppler is indicative of an impaired relaxation filling pattern. E/E prime ratio is between 8 and 15 consistent with indeterminate filling pressures. Wall Motion Rest Echo Findings The basal inferior, mid inferior, and basal inferoseptal segments are hypokinetic. All other scored wall segments showed normal motion. Right Ventricle The right ventricle was not well visualized. Atria The left atrium is mildly dilated. There is no evidence of interatrial shunt. The right atrium is likely dilated. Aortic Valve There is mild calcification of the aortic valve. There is mild thickening of the aortic valve. There is mild aortic valve stenosis. The peak aortic gradient is 29 mmHg.The mean gradient is 13 mmHg. The aortic valve area is 1.63 cm2. There is no aortic valve regurgitation. Mitral Valve There is mild anterior and posterior mitral leaflet thickening. There is mild mitral annular calcification. There is trace mitral valve regurgitation. There is no mitral valve stenosis. Pulmonic Valve The pulmonic valve was not well visualized. Tricuspid Valve Likely normal tricuspid valve structure and function. There is mild tricuspid valve regurgitation. Normal right atrial pressure. Great Vessels All visible segments of the aorta are normal in size. The pulmonary artery was not well visualized. Venous The inferior vena cava is normal in size and collapses greater than 50% with inspiration. Pericardium/Pleural There is no evidence of pericardial effusion. Prior Study Comparison No prior study available for comparison. Measurements 2D Linear Measurements IVSd: 1.32 0.6-0.9/0.6-1.0 cm LVIDd: 5.42 3.9-5.3/4.2-5.9 cm LVIDd Index: 2.68 2.4-3.2/2.2-3.1 cm/m2 LVIDs: 3.58 2.0-3.6 cm LVPWd: 1.36 0.7-1.1 cm LA Diam: 4.40 2.7-3.8/3.0-4.0 cm LAIDs Index: 2.18 1.5-2.3 cm/m2 LV Mass: 387.11 67-162/88-224 g LV Mass Index: 191.64 43-95/49-115 g/m2 LVOT Diam: 2.30 3.0+(-)1.3 cm 2D Systolic Function EF 4C: 49.30 >55% EF 2C: 43.80 >55% EF BiP: 45.90 >55% Mitral Valve MV Pk E: 1.17 MV PK A: 1.01 MV Decel Time: 233.00 E/A: 1.20 E'Lateral: 7.72 E'Medial: 6.53 E/E' Med: 17.90 E/E' Lat: 15.20 PHT: 68.00 MVA PHT: 3.24 Decel [place]: 5.03 Aortic Valve AoV Pk Asher: 2.68 AoV Mn Asher: 1.63 AoV VTI: 0.68 AoV Pk Grad: 29.00 Aov Mn Grad: 13.00 ALEA Cont.VTI: 1.63 LVOT LVOT Pk Asher: 1.07 LVOT Mn Asher: 0.62 LVOT VTI: 0.27 LVOT Pk Grad: 5.00 LVOT Mn Grad: 2.00 LVOT Diam: 2.30 LVOT Area: 4.15 Diastolic Function MV Pk E: 1.17 MV Pk A: 1.01 E/A: 1.20 E'Medial: 6.53 E/E' Med: 17.90 E' Laterial: 7.72 E/E' Lat: 15.20 Right Ventricle TAPSE (mm): 32.00 TVS' Asher: 18.00 Tricuspid Valve TR Pk Asher: 2.98 TR Pk Grad: 36.00 RA Press: 3.00 RVSP: 39.00 Great Vessels Aorta Sinus of Valsalva: 3.40 2.0-3.5 cm Ao Asc: 3.30 2.1-3.4 cm Pulmonary Valve PV Pk Asher: 1.40 Peak PV Grad: 8.00 Updated in Other Vendor System with Status of Final Artemio Leach MD electronically signed on 04/06/2022 12:11:28 PM with status of Final
[2022-04-06 07:15] LABS: INTERNATIONAL NORM RATIO 1.1 (0.9-1.1); Prothrombin Time 13.2 SEC (10.0-13.1)
[2022-04-06 07:18] LABS: PTT Heparin Drip 73.8 SEC (53-77.9)
[2022-04-06 07:20] LABS: Creatinine Clr Calc Pharmacy 64.3; Estimated Glomerular Filt Rate > 60
[2022-04-06 07:22] LABS: Mean Corpuscular HGB Conc 31.3 g/dl (31.0-36.0); Mean Corpuscular Hemoglobin 23.9 pg (27.0-33.0); Mean Corpuscular Volume 76.5 fL (80.0-98.0); Mean Platelet Volume 9.7 fL (9.4-12.4); NRBC Pct Auto 0.1 /100WBC (0.0-0.2); Platelet Count 504 X10*3/uL (160-400); Red Blood Count 2.72 X10*6/uL (4.60-5.80); Red Cell Distribution Width 17.9 % (11.0-16.0); White Blood Count 21.4 X10*3/uL (4.8-10.8)
[2022-04-06 07:23] LABS: Hemoglobin 6.5 g/dl (14.0-18.0)
[2022-04-06 07:24] LABS: Hematocrit 20.8 % (42.0-52.0)
[2022-04-06 08:19] LABS: Glucose, Whole Blood 177 mg/dL (60-115)
--- NOTE | 2022-04-06 09:51 | P.CONWO_ITS ---
History of Present Illness Data of Consult Service Date: 04/06/22 Requesting physician: Lizbeth Salamanca Primary Care Provider: Keaton Santana MD HPI Reason for consult: left TMA ulcers [id number]: [facility] the [facility] after recent TMA in January by Dr. Johnson for clear osteomyelitis of the fourth phalanx. First and 3rd toes also with ongoing wounds so TMA was carried out. He was admitted on for cellulitis, drainage from left foot and found to be profoundly anemic. Leukocytosis 32.5, also rise is treponin. Deemed to be STEMI and awaits cardiac cath. 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 On IV Vanco/Zosyn and heparin infusion. Not clear if or how much he was walking on the foot [employer]. Plantar contusion is observed - not noted previously. Review of Systems Review of Systems: Comfortable and resting, wakens easily. Moderate foot pain reported. Denies fever/chills, chest pain and SOB. 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 PAD (peripheral artery disease) Family History Other No family history of coronary artery disease Surgical History History of angioplasty of peripheral vessel Social History Household Members: Spouse Housing: House Are you a primary healthcare administrator to a significant other at home: No Do you presently have visiting nurse or other home services: Yes Alcohol intake: never Patient Tobacco Use Status: Former Tobacco user Quit Date: 20 years ago Second Hand Smoke Exposure: No Advance Directives Date on File: 10/01/21 service: No Current occupational status: retired Meds Allergies Allergy/AdvReac Type Severity Reaction Status Date / Time No Known Allergies Allergy Verified 03/19/22 09:45 [No Known Allergies*] Active Medications: Current Medications Acetaminophen (Acetaminophen 325 Mg Tablet) 650 mg PO Q6H PRN PRN Reason: Pain, Mild (Pain Scale 1-3) Hydrocodone Bitart/Acetaminophen (Hydrocodone Bit/Acetam 5/325 Tablet) 1 tab PO Q6H PRN PRN Reason: Severe Pain (Scale Score 7-10) Last Admin: 04/06/22 03:59 Dose: 1 tab Aspirin (Aspirin 81 Mg Tab.Chew) 81 mg PO DAILY [facility] Last Admin: 04/05/22 08:28 Dose: 81 mg Atorvastatin Calcium (Atorvastatin Calcium 80 Mg Tablet) 80 mg PO BEDTIME [facility] Last Admin: 04/05/22 19:51 Dose: 80 mg Clopidogrel Bisulfate (Clopidogrel Bisulfate 75 Mg Tablet) 75 mg PO DAILY [facility] Last Admin: 04/05/22 08:29 Dose: 75 mg Dextrose (Dextrose 50 % 25 Gm/50 Ml Syringe) 25 gm IVPUSH Q15M PRN; Protocol PRN Reason: per Hypoglycemia Standing Ord. Docusate Sodium (Docusate Sodium 100 Mg Capsule) 100 mg PO DAILY PRN PRN Reason: Constipation Glucose (Glucose Gel 15 Gm Gel..Gram.) 15 gm PO Q15M PRN; Protocol PRN Reason: per Hypoglycemia Standing Ord. Heparin Sodium (Porcine) (Heparin Sodium,Porcine 5,000 Unit/Ml Vial) 3,600 unit 40 unit/kg (3600 unit) IVPUSH PROTOCOL BOLUS PRN; Protocol PRN Reason: 40 unit/kg - Heparin Protocol Last Admin: 04/05/22 15:55 Dose: 3,600 unit Heparin Sodium (Porcine) (Heparin Sodium,Porcine 5,000 Unit/Ml Vial) 7,300 unit 80 unit/kg (7300 unit) IVPUSH PROTOCOL BOLUS PRN; Protocol PRN Reason: 80 unit/kg - Heparin Protocol Last Admin: 04/05/22 22:56 Dose: 7,300 unit Piperacillin Sod/Tazobactam (Sod 3.375 gm/ Sodium Chloride) 50 mls @ 100 mls/hr IV Q6H [facility] Last Infusion: 04/06/22 05:31 Dose: Infused Vancomycin HCl 1,250 mg/ (Sodium Chloride) 250 mls @ 166.667 mls/hr IV Q24H [facility] Last Infusion: 04/06/22 00:38 Dose: Infused Heparin Sodium/Sodium Chloride (Heparin Sodium,Porcine/1/2ns) 25,000 unit in 250 mls @ 0 mls/hr IVCONT .Q0M [facility]; Protocol Last Titration: 04/06/22 07:22 Dose: 18 units/kg/hr, 16.33 mls/hr Insulin Glargine (Insulin Glargine,Hum.Rec.Anlog 100 Unit/Ml 10 Ml Vial) 17 unit SUBCUT DAILY [facility] Last Admin: 04/05/22 09:32 Dose: Not Given Insulin Human Lispro (Insulin Lispro 100 Unit/Ml 3 Ml Vial) 0 unit SUBCUT QIDA [facility]; Protocol Last Admin: 04/05/22 19:51 Dose: 2 unit Lisinopril (Lisinopril 10 Mg Tablet) 10 mg PO DAILY [facility]; Protocol Last Admin: 04/05/22 08:29 Dose: 10 mg Lorazepam (Lorazepam 0.5 Mg Tablet) 0.5 mg PO DAILY PRN PRN Reason: Anxiety Last Admin: 04/06/22 05:05 Dose: 0.5 mg Ondansetron HCl (Ondansetron Hcl 4 Mg/2 Ml Vial) 4 mg IVPUSH Q8H PRN PRN Reason: Nausea and Vomiting Pharmacy Consult (Consult Rx Vancomycin Dosing) 1 each MISCELLANE DAILY PRN PRN Reason: Consult order Sodium Chloride (0.9 % Sodium Chloride Flush 3 Ml Syringe) [facility] [place] Last Admin: 04/06/22 04:47 Dose: 3 ml Home Medications Medication Instructions Recorded Confirmed Last Taken Type metformin 1,000 mg tablet 1,000 mg PO BIDWM 12/05/19 04/04/22 04/04/22 09:00 History acetaminophen 325 mg capsule 650 mg PO Q6H PRN Pain 04/04/22 04/04/22 Unknown History (Tylenol) doxycycline monohydrate 100 mg 1 tab PO BID 04/04/22 04/04/22 04/04/22 09:00 History tablet hydrocodone 5 mg-acetaminophen 325 1 tab PO Q6H PRN Severe Pain 04/04/22 04/04/22 Unknown History mg tablet (Scale Score 7-10) insulin glargine 100 unit/mL (3 25 unit subcut DAILY 04/04/22 04/04/22 04/04/22 09:00 History mL) subcutaneous pen lisinopril 10 mg tablet 1 tab PO DAILY 04/04/22 04/04/22 04/04/22 09:00 History lorazepam 0.5 mg tablet 1 tab PO DAILY PRN Anxiety 04/04/22 04/04/22 Unknown History Physical Exam Vital Signs and Narrative: Vital Signs: Last Vital Signs Temp 98.2 F 04/06/22 08:00 Pulse 68 04/06/22 08:00 Resp 18 04/06/22 08:00 BP 151/64 H 04/06/22 08:00 Pulse Ox 100 04/06/22 08:00 O2 Del Method 04/06/22 08:00 O2 Flow Rate 2 04/04/22 16:01 BMI result Body Mass Index 31.3 No edema of LLE. Erythema is localized to plantar and medial aspect of foot/TMA. Most medial edge slightly dehisced but granulating, does not express. Plantar contusion is quite fluctuant and may support abscess or infection. Also not expressing to medial open fluctuant area. No tunneling is observed without instrumentation of the medial residual foot ulcer. Applied silver alginate to open areas described, followed by nonwoven and roller guaze. Streaking not impressive or much beyond surgical marker line while on IV Vanco/Zosyn. No particular warmth or odor observed. Results Labs 04/06/22 06:23 04/06/22 06:23 Labs: Laboratory Results - last 24 hr 04/04/22 04/05/22 04/05/22 17:21 11:23 12:31 MCV MCH MCHC RDW Plt Count MPV Absolute Nucleated RBC Nucleated RBC % (auto) PT INR aPTT Heparin Protocol Estim Creat Clear Calc Estimated GFR POC Glucose 140 H Troponin I High Sens 228.3 H* Blood Type O Negative Antibody Screen NEGATIVE Crossmatch See Detail 04/05/22 04/05/22 04/05/22 15:13 19:45 22:16 MCV MCH MCHC RDW Plt Count MPV Absolute Nucleated RBC Nucleated RBC % (auto) PT INR aPTT Heparin Protocol 37.8 L D 34.7 L Estim Creat Clear Calc Estimated GFR POC Glucose 156 H Troponin I High Sens Blood Type Antibody Screen Crossmatch 04/06/22 04/06/22 04/06/22 06:23 06:23 06:23 MCV 76.5 L MCH 23.9 L MCHC 31.3 RDW 17.9 H Plt Count 504 H MPV 9.7 Absolute Nucleated RBC 0.020 H Nucleated RBC % (auto) 0.1 PT 13.2 H INR 1.1 aPTT Heparin Protocol 73.8 D Estim Creat Clear Calc 64.3 Estimated GFR > 60 POC Glucose Troponin I High Sens Blood Type Antibody Screen Crossmatch 04/06/22 08:11 MCV MCH MCHC RDW Plt Count MPV Absolute Nucleated RBC Nucleated RBC % (auto) PT INR aPTT Heparin Protocol Estim Creat Clear Calc Estimated GFR POC Glucose 177 H Troponin I High Sens Blood Type Antibody Screen Crossmatch Assessment and Plan (1) Type 2 diabetes mellitus with foot ulcer: Status: Acute Plan 81 year old male with chronic left foot ulcer s/p TMA in January with new plantar ulcer involving medial aspect of residual foot, XR not showing definitive cortical erosion on this admission, nonspecific inflammatory markers suggest possible foot infection. Previous history of osteomyelitis in the fourth phalanx helps stratify risk but noteworthy that it was treated definitively by way of transmetatarsal amputation. As briefly discussed with hospitalist, MRI left foot TMA is indicated as well as check in with Dr. Johnson, pending cardiac status and anemia. Best dressing choices target moderate serosang drainage with alginate cut to fit ulcers, super absorber if available, reinforce with DCD daily. Time Spent With Patient Time: Total time managing care of this patient today ____ minutes.
[2022-04-06] MEDS: Insulin Lispro 100 UNIT/ML 3 ML VIAL SUBCUT ×3 (09:59→20:22)
[2022-04-06] MEDS: lisinopriL 10 MG TABLET PO (10:06)
[2022-04-06] MEDS: Clopidogrel Bisulfate 75 MG TABLET PO (10:06)
[2022-04-06] MEDS: Aspirin 81 MG TAB.CHEW PO (10:07)
[2022-04-06] MEDS: Insulin Glargine,Hum.rec.anlog 100 UNIT/ML 10 ML VIAL 17 UNIT SUBCUT (10:08)
--- NOTE | 2022-04-06 10:37 | PM.PNCARD ---
Subjective Subjective Date of Service: 04/06/22 Principal diagnosis: NSTEMI Interval history: Patient denies any chest pain. Overnight has been confused and his IVs. Noted to be significantly anemic overnight and plan for transfusions today. No evidence of heart failure. Review of Systems Review of Systems Yes Unobtainable due to mental status Physical Exam Vital Signs: Last Vital Signs Temp 98.2 F 04/06/22 08:00 Pulse 68 04/06/22 08:00 Resp 18 04/06/22 08:00 BP 151/64 H 04/06/22 08:00 Pulse Ox 100 04/06/22 08:00 O2 Del Method 04/06/22 08:00 O2 Flow Rate 2 04/04/22 16:01 BMI result Body Mass Index 31.3 Const General: comfortable, no acute distress and ill appearing HEENT Other: Unremarkable Neck Neck: Yes normal visual inspection Resp Auscultation: clear to auscultation bilaterally Cardio Palpation: normal PMI Heart sounds: S1 normal heart sound present, S2 normal heart sound present, no gallops, Murmur heart sound present systolic II/ and at the right sternal border and no rubs Back/Spine/Pelvis Other: unremarkable Skin General skin exam: no rashes or lesions noted Neuro General: no focal motor deficits Extrem Other: Amputation in left foot noted but there is dressing on top of it. Psych Mental Status: mental status grossly normal Objective Labs and Meds 04/06/22 06:23 04/06/22 06:23 Lab results: Laboratory Results - last 24 hr 04/04/22 04/04/22 04/05/22 16:11 17:21 11:23 WBC RBC Hgb Hct MCV MCH MCHC RDW Plt Count MPV Absolute Nucleated RBC Nucleated RBC % (auto) Smear Path Review SEE NOTE PT INR aPTT Heparin Protocol Creatinine Estim Creat Clear Calc Estimated GFR POC Glucose 140 H Troponin I High Sens Blood Type O Negative Antibody Screen NEGATIVE Crossmatch See Detail 04/05/22 04/05/22 04/05/22 12:31 15:13 19:45 WBC RBC Hgb Hct MCV MCH MCHC RDW Plt Count MPV Absolute Nucleated RBC Nucleated RBC % (auto) Smear Path Review PT INR aPTT Heparin Protocol 37.8 L D Creatinine Estim Creat Clear Calc Estimated GFR POC Glucose 156 H Troponin I High Sens 228.3 H* Blood Type Antibody Screen Crossmatch 04/05/22 04/06/22 04/06/22 22:16 06:23 06:23 WBC 21.4 H RBC 2.72 L Hgb 6.5 L* Hct 20.8 L* MCV 76.5 L MCH 23.9 L MCHC 31.3 RDW 17.9 H Plt Count 504 H MPV 9.7 Absolute Nucleated RBC 0.020 H Nucleated RBC % (auto) 0.1 Smear Path Review PT 13.2 H INR 1.1 aPTT Heparin Protocol 34.7 L 73.8 D Creatinine Estim Creat Clear Calc Estimated GFR POC Glucose Troponin I High Sens Blood Type Antibody Screen Crossmatch 04/06/22 04/06/22 06:23 08:11 WBC RBC Hgb Hct MCV MCH MCHC RDW Plt Count MPV Absolute Nucleated RBC Nucleated RBC % (auto) Smear Path Review PT INR aPTT Heparin Protocol Creatinine 1.00 Estim Creat Clear Calc 64.3 Estimated GFR > 60 POC Glucose 177 H Troponin I High Sens Blood Type Antibody Screen Crossmatch Progress Note: A&P Assessment and plan (1) NSTEMI (non-ST elevated myocardial infarction): Status: Acute Assessment and Plan: NSTEMI which appears to be secondary to his underlying medical condition. Unlikely to be a primary event. At this point time would stop his IV heparin as he significantly anemic to prevent further significant issues related to it. Agree with transfusion to maintain hematocrit over 30 in the setting of NSTEMI. Continue aspirin, high-intensity statin and metoprolol therapy. Continue supportive care. Once his acute medical issues or and mental status improved can be pursued with outpatient ischemic evaluation as he has high likelihood of underlying coronary artery disease. For now management be conservative. Will sign of the case at this point time. Thank you for allowing me to partake in his care Time Spent With Patient Time: Total time managing care of this patient today ____ minutes. Progress Note: Quality Stroke Does the patient have a stroke diagnosis?: No Procedures Date of Service Date of Service: 04/06/22
[2022-04-06 11:01] LABS: Glucose, Whole Blood 260 mg/dL (60-115)
--- NOTE | 2022-04-06 13:19 | PM.CNGS ---
History of Present Illness Consult details Consult date: 04/06/22 Reason for consult: wound care Narrative: Very complex 81-year-old gentleman with left foot diabetic ulcer. He had a prior transmetatarsal amputation which appear to be doing relatively well. He developed a new plantar blister. He actually presented to the hospital with some weakness and was found to be anemic. He has been subsequently transfused and appears to be doing relatively better. He now presents for follow-up regarding his left foot. Review of Systems Review of Systems: Yes all other systems are reviewed and are negative Constitutional: Constitutional: Reports no additional constitutional complaints ENT: Reports Normal hearing present Cardiovascular: Cardiovascular: Denies chest pain, Denies chest pain at rest, Denies chest pain with activity and Denies pedal edema Respiratory: Respiratory: Denies cough Gastrointestinal: Gastrointestinal: Denies abdominal pain Musculoskeletal: Musculoskeletal: Denies abnormal gait, Denies muscle cramps and Denies radiating pain into limb Integumentary/Breasts: Skin/Breast: Denies skin ulcer and Denies wounds Neurologic: Reports Normal hearing present and Denies abnormal gait Psychiatric: Psychiatric: Reports no additional psychiatric complaints [facility] Past Medical History Medical History (Updated 04/06/22 @ 13:22 by Shaq Johnson MD) Diabetes History of amputation of great toe History of amputation of great toe HTN (hypertension) Hx of osteomyelitis 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 PAD (peripheral artery disease) Family History Family History Other No family history of coronary artery disease Surgical History Surgical History History of angioplasty of peripheral vessel Social History Social History Household Members: Spouse Housing: House Are you a primary career counselor to a significant other at home: No Do you presently have visiting nurse or other home services: Yes Alcohol intake: never Patient Tobacco Use Status: Former Tobacco user Quit Date: 20 years ago Second Hand Smoke Exposure: No Advance Directives Date on File: 10/01/21 service: No Current occupational status: retired Meds Allergies Allergy/AdvReac Type Severity Reaction Status Date / Time No Known Allergies Allergy Verified 03/19/22 09:45 [No Known Allergies*] Active Medications: Current Medications Acetaminophen (Acetaminophen 325 Mg Tablet) 650 mg PO Q6H PRN PRN Reason: Pain, Mild (Pain Scale 1-3) Hydrocodone Bitart/Acetaminophen (Hydrocodone Bit/Acetam 5/325 Tablet) 1 tab PO Q6H PRN PRN Reason: Severe Pain (Scale Score 7-10) Last Admin: 04/06/22 03:59 Dose: 1 tab Aspirin (Aspirin 81 Mg Tab.Chew) 81 mg PO DAILY [facility] Last Admin: 04/06/22 10:07 Dose: 81 mg Atorvastatin Calcium (Atorvastatin Calcium 80 Mg Tablet) 80 mg PO BEDTIME [facility] Last Admin: 04/05/22 19:51 Dose: 80 mg Clopidogrel Bisulfate (Clopidogrel Bisulfate 75 Mg Tablet) 75 mg PO DAILY [facility] Last Admin: 04/06/22 10:06 Dose: 75 mg Dextrose (Dextrose 50 % 25 Gm/50 Ml Syringe) 25 gm IVPUSH Q15M PRN; Protocol PRN Reason: per Hypoglycemia Standing Ord. Docusate Sodium (Docusate Sodium 100 Mg Capsule) 100 mg PO DAILY PRN PRN Reason: Constipation Glucose (Glucose Gel 15 Gm Gel..Gram.) 15 gm PO Q15M PRN; Protocol PRN Reason: per Hypoglycemia Standing Ord. Piperacillin Sod/Tazobactam (Sod 3.375 gm/ Sodium Chloride) 50 mls @ 100 mls/hr IV Q6H [facility] Last Infusion: 04/06/22 11:35 Dose: Infused Vancomycin HCl 1,250 mg/ (Sodium Chloride) 250 mls @ 166.667 mls/hr IV Q24H [facility] Last Infusion: 04/06/22 00:38 Dose: Infused Insulin Glargine (Insulin Glargine,Hum.Rec.Anlog 100 Unit/Ml 10 Ml Vial) 17 unit SUBCUT DAILY [facility] Last Admin: 04/06/22 10:08 Dose: 17 unit Insulin Human Lispro (Insulin Lispro 100 Unit/Ml 3 Ml Vial) 0 unit SUBCUT [facility]IDACHS [facility]; Protocol Last Admin: 04/06/22 09:59 Dose: 2 unit Lisinopril (Lisinopril 10 Mg Tablet) 10 mg PO DAILY [facility]; Protocol Last Admin: 04/06/22 10:06 Dose: 10 mg Lorazepam (Lorazepam 0.5 Mg Tablet) 0.5 mg PO DAILY PRN PRN Reason: Anxiety Last Admin: 04/06/22 05:05 Dose: 0.5 mg Ondansetron HCl (Ondansetron Hcl 4 Mg/2 Ml Vial) 4 mg IVPUSH Q8H PRN PRN Reason: Nausea and Vomiting Pharmacy Consult (Consult Rx Vancomycin Dosing) 1 each MISCELLANE DAILY PRN PRN Reason: Consult order Sodium Chloride (0.9 % Sodium Chloride Flush 3 Ml Syringe) 3 ml IVFLUSH QSHIFT [facility] Last Admin: 04/06/22 10:00 Dose: 3 ml Home Medications Medication Instructions Recorded Confirmed Last Taken Type metformin 1,000 mg tablet 1,000 mg PO BIDWM 12/05/19 04/04/22 04/04/22 09:00 History acetaminophen 325 mg capsule 650 mg PO Q6H PRN Pain 04/04/22 04/04/22 Unknown History (Tylenol) doxycycline monohydrate 100 mg 1 tab PO BID 04/04/22 04/04/22 04/04/22 09:00 History tablet hydrocodone 5 mg-acetaminophen 325 1 tab PO Q6H PRN Severe Pain 04/04/22 04/04/22 Unknown History mg tablet (Scale Score 7-10) insulin glargine 100 unit/mL (3 25 unit subcut DAILY 04/04/22 04/04/22 04/04/22 09:00 History mL) subcutaneous pen lisinopril 10 mg tablet 1 tab PO DAILY 04/04/22 04/04/22 04/04/22 09:00 History lorazepam 0.5 mg tablet 1 tab PO DAILY PRN Anxiety 04/04/22 04/04/22 Unknown History Physical Exam Vital Signs: Vital Signs: Last Vital Signs Temp 98.1 F 04/06/22 13:04 Pulse 74 04/06/22 13:04 Resp 20 04/06/22 13:04 BP 178/73 H 04/06/22 13:04 Pulse Ox 100 04/06/22 08:00 O2 Del Method 04/06/22 08:00 O2 Flow Rate 2 04/04/22 16:01 BMI result Body Mass Index 31.3 Const: General: cooperative, healthy appearing and comfortable Orientation/consciousness: oriented to person, oriented to place and oriented to time HEENT: Head: Yes normal to inspection Neck: Neck: Yes normal visual inspection Carotids: no bruits Chest: Chest palpation & inspection: normal inspection of the chest Resp: Effort & Inspection: normal respiratory effort and able to speak in complete sentences Auscultation: clear to auscultation bilaterally, no crackles, no rales, no rhonchi and no wheezes Cardio: Rate: regular rate Rhythm: regular rhythm Heart sounds: S1 normal heart sound present and S2 normal heart sound present Bruits: no carotid bruits Peripheral pulses: Peripheral pulses 2+ throughout GI: Inspection: Yes normal to inspection Skin: Other: Left foot with a DP signal in addition the lateral aspect has alginate in appears to be healing relatively well the plantar aspect has a blister which was open and only had serous fluid there was no fluctuant collection underneath. Wounds: no wounds Hair: normal Neuro: General: oriented to person, oriented to place and oriented to time Cranial nerves: Yes CN's II-XII intact bilaterally and Yes Normal hearing present Cognition (Neuro): normal cognition Motor exam (neuro): 5/5 motor strength present throughout Extrem: Other: venous exam: No significant superficial varicosities or spider telangiectasias, minimal edema General: No clubbing, No cyanosis and No edema Psych: Appearance: grossly normal Mental Status: mental status grossly normal Speech and movement: Normal speech and movement present Results Labs 04/06/22 06:23 04/06/22 06:23 Labs: Abnormal lab results 04/04/22 04/05/22 04/05/22 Range/Units 17:21 15:13 19:45 WBC (4.8-10.8) X10*3/uL RBC (4.60-5.80) X10*6/uL Hgb (14.0-18.0) g/dl Hct (42.0-52.0) % MCV (80.0-98.0) fL MCH (27.0-33.0) pg RDW (11.0-16.0) % Plt Count (160-400) X10*3/uL Absolute Nucleated RBC (0.0-0.012) X10*3/uL PT (10.0-13.1) SEC aPTT Heparin Protocol 37.8 L D (53-77.9) SEC POC Glucose 156 H (60-115) mg/dL Crossmatch See Detail 04/05/22 04/06/22 04/06/22 Range/Units 22:16 06:23 06:23 WBC 21.4 H (4.8-10.8) X10*3/uL RBC 2.72 L (4.60-5.80) X10*6/uL Hgb 6.5 L* (14.0-18.0) g/dl Hct 20.8 L* (42.0-52.0) % MCV 76.5 L (80.0-98.0) fL MCH 23.9 L (27.0-33.0) pg RDW 17.9 H (11.0-16.0) % Plt Count 504 H (160-400) X10*3/uL Absolute Nucleated RBC 0.020 H (0.0-0.012) X10*3/uL PT 13.2 H (10.0-13.1) SEC aPTT Heparin Protocol 34.7 L (53-77.9) SEC POC Glucose (60-115) mg/dL Crossmatch 04/06/22 04/06/22 Range/Units 08:11 10:58 WBC (4.8-10.8) X10*3/uL RBC (4.60-5.80) X10*6/uL Hgb (14.0-18.0) g/dl Hct (42.0-52.0) % MCV (80.0-98.0) fL MCH (27.0-33.0) pg RDW (11.0-16.0) % Plt Count (160-400) X10*3/uL Absolute Nucleated RBC (0.0-0.012) X10*3/uL PT (10.0-13.1) SEC aPTT Heparin Protocol (53-77.9) SEC POC Glucose 177 H 260 H (60-115) mg/dL Crossmatch Short CBC 04/06/22 Range/Units 06:23 WBC 21.4 H (4.8-10.8) X10*3/uL Hgb 6.5 L* (14.0-18.0) g/dl Hct 20.8 L* (42.0-52.0) % Plt Count 504 H (160-400) X10*3/uL BMP 04/06/22 06:23 Creatinine 1.00 Urine 04/04/22 Range/Units 16:16 Urine Color Yellow Urine Appearance Clear Urine pH 5.0 (5.0-9.0) Ur Specific [place] 1.015 (1.005-1.025) Urine Protein Trace (Neg-Trace) mg/dL Urine Glucose (UA) Negative (Negative) mg/dL All other labs normal. Assessment and Plan (1) Ulcer of left foot due to type 2 diabetes mellitus: Status: Acute In short patient has left foot diabetic ulcer. His transmetatarsal site is slow to heal. It had been done at the beginning of January and there was only the lateral aspect of it. Now the concern is this blister on the plantar aspect. There is some surrounding an associated cellulitis. Agree with MRI and would continue with local wound care. In addition he is on IV antibiotic therapy. Transfuse as necessary. We will follow with you. Thank you for allowing us to assist in his care. (2) PAD (peripheral artery disease): Status: Acute Time Spent With Patient Time: Total time managing care of this patient today ____ minutes. Procedures Date of Service Date of Service: 04/06/22
--- NOTE | 2022-04-06 15:25 | MHC.CM.PN ---
PER MD ROUNDS, PT NOT MEDICALLY CLEARED FOR DC (NSTEMI, POSSIBLE OSTEOMYELITIS LEFT FOOT) CM WILL CONTINUE TO FOLLOW
[2022-04-06] MEDS: Acetaminophen 325 MG TABLET 650 MG PO (15:39)
[2022-04-06 15:42] LABS: Lactate Dehydrogenase 478 U/L (118-273)
--- NOTE | 2022-04-06 16:30 | W.PM.IDCN ---
History of Present Illness Data of Consult Service Date: 04/06/22 Requesting physician: Thiago Adams Primary Care Provider: Keaton Santana MD [facility] Reason for consult: left foot erythema /cellulitis He presents with three to four days worsening left foot erythema and swelling. He has erythema going up Achilles area and plantar ulcer with erythema. He reports no fever or chills. Review of Systems Review of Systems: Yes all other systems are reviewed and are negative PMFSH Past Medical History Medical History Diabetes History of amputation of great toe History of amputation of great toe HTN (hypertension) Hx of osteomyelitis 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 PAD (peripheral artery disease) Family History Family History Other No family history of coronary artery disease Family history: reviewed and not pertinent Surgical History Surgical History History of angioplasty of peripheral vessel Social History Social History Household Members: Spouse Housing: House Are you a primary primary care nurse practitioner to a significant other at home: No Do you presently have visiting nurse or other home services: Yes Alcohol intake: never Patient Tobacco Use Status: Former Tobacco user Quit Date: 20 years ago Second Hand Smoke Exposure: No Advance Directives Date on File: 10/01/21 service: No Current occupational status: retired Meds Allergies Allergy/AdvReac Type Severity Reaction Status Date / Time No Known Allergies Allergy Verified 03/19/22 09:45 [No Known Allergies*] Active Medications: Current Medications Acetaminophen (Acetaminophen 325 Mg Tablet) 650 mg PO Q6H PRN PRN Reason: Pain, Mild (Pain Scale 1-3) Last Admin: 04/06/22 15:39 Dose: 650 mg Hydrocodone Bitart/Acetaminophen (Hydrocodone Bit/Acetam 5/325 Tablet) 1 tab PO Q6H PRN PRN Reason: Severe Pain (Scale Score 7-10) Last Admin: 04/06/22 03:59 Dose: 1 tab Aspirin (Aspirin 81 Mg Tab.Chew) 81 mg PO DAILY JOSE E Last Admin: 04/06/22 10:07 Dose: 81 mg Atorvastatin Calcium (Atorvastatin Calcium 80 Mg Tablet) 80 mg PO BEDTIME [facility] Last Admin: 04/05/22 19:51 Dose: 80 mg Clopidogrel Bisulfate (Clopidogrel Bisulfate 75 Mg Tablet) 75 mg PO DAILY [facility] Last Admin: 04/06/22 10:06 Dose: 75 mg Dextrose (Dextrose 50 % 25 Gm/50 Ml Syringe) 25 gm IVPUSH Q15M PRN; Protocol PRN Reason: per Hypoglycemia Standing Ord. Docusate Sodium (Docusate Sodium 100 Mg Capsule) 100 mg PO DAILY PRN PRN Reason: Constipation Glucose (Glucose Gel 15 Gm Gel..Gram.) 15 gm PO Q15M PRN; Protocol PRN Reason: per Hypoglycemia Standing Ord. Piperacillin Sod/Tazobactam (Sod 3.375 gm/ Sodium Chloride) 50 mls @ 100 mls/hr IV Q6H [facility] Last Infusion: 04/06/22 14:43 Dose: Infused Vancomycin HCl 1,250 mg/ (Sodium Chloride) 250 mls @ 166.667 mls/hr IV Q24H [facility] Last Infusion: 04/06/22 00:38 Dose: Infused Insulin Glargine (Insulin Glargine,Hum.Rec.Anlog 100 Unit/Ml 10 Ml Vial) 17 unit SUBCUT DAILY [facility] Last Admin: 04/06/22 10:08 Dose: 17 unit Insulin Human Lispro (Insulin Lispro 100 Unit/Ml 3 Ml Vial) 0 unit SUBCUT QIDACHS [facility]; Protocol Last Admin: 04/06/22 13:21 Dose: 6 unit Lisinopril (Lisinopril 10 Mg Tablet) 10 mg PO DAILY [facility]; Protocol Last Admin: 04/06/22 10:06 Dose: 10 mg Lorazepam (Lorazepam 0.5 Mg Tablet) 0.5 mg PO DAILY PRN PRN Reason: Anxiety Last Admin: 04/06/22 05:05 Dose: 0.5 mg Metoprolol Tartrate (Metoprolol Tartrate 12.5 Mg Halftab) 12.5 mg PO BID [facility]; Protocol Ondansetron HCl (Ondansetron Hcl 4 Mg/2 Ml Vial) 4 mg IVPUSH Q8H PRN PRN Reason: Nausea and Vomiting Pharmacy Consult (Consult Rx Vancomycin Dosing) 1 each MISCELLANE DAILY PRN PRN Reason: Consult order Sodium Chloride (0.9 % Sodium Chloride Flush 3 Ml Syringe) 3 ml IVFLUSH QSHIFT JOSE E Last Admin: 04/06/22 10:00 Dose: 3 ml Home Medications Medication Instructions Recorded Confirmed Last Taken Type metformin 1,000 mg tablet 1,000 mg PO BIDWM 12/05/19 04/04/22 04/04/22 09:00 History acetaminophen 325 mg capsule 650 mg PO Q6H PRN Pain 04/04/22 04/04/22 Unknown History (Tylenol) doxycycline monohydrate 100 mg 1 tab PO BID 04/04/22 04/04/22 04/04/22 09:00 History tablet hydrocodone 5 mg-acetaminophen 325 1 tab PO Q6H PRN Severe Pain 04/04/22 04/04/22 Unknown History mg tablet (Scale Score 7-10) insulin glargine 100 unit/mL (3 25 unit subcut DAILY 04/04/22 04/04/22 04/04/22 09:00 History mL) subcutaneous pen lisinopril 10 mg tablet 1 tab PO DAILY 04/04/22 04/04/22 04/04/22 09:00 History lorazepam 0.5 mg tablet 1 tab PO DAILY PRN Anxiety 04/04/22 04/04/22 Unknown History Physical Exam Vital Signs: Vital Signs: Last Vital Signs Temp 98.8 F 04/06/22 15:41 Pulse 57 04/06/22 15:41 Resp 18 04/06/22 15:41 BP 140/73 H 04/06/22 15:41 Pulse Ox 100 04/06/22 08:00 O2 Del Method 04/06/22 08:00 O2 Flow Rate 2 04/04/22 16:01 BMI result Body Mass Index 31.3 Const: General: cooperative HEENT: Head: Yes normal to inspection Face and sinus: Yes normal facial exam Mouth: Normal oral and palatal mucosa present Teeth and gingiva: dentition normal Eyes: General: appearance normal, both eyes and all related structures Pupils: Equal, round and reactive pupils present Resp: Effort & Inspection: normal respiratory effort Cardio: Rate: regular rate Rhythm: regular rhythm GI: Palpation (GI): Soft to palpation and nontender : General: Yes no CVA tenderness Back/Spine/Pelvis: Back: no CVA tenderness Skin: General skin exam: no rashes or lesions noted Neuro: General: moves all extremities Cranial nerves: Yes Equal, round and reactive pupils present Extrem: Other: left transmetatarsal amputation,erythema plantar surface redness extending up Achilles Psych: Appearance: grossly normal Results Labs 04/06/22 06:23 04/06/22 06:23 Labs: Short CBC 04/06/22 Range/Units 06:23 WBC 21.4 H (4.8-10.8) X10*3/uL Hgb 6.5 L* (14.0-18.0) g/dl Hct 20.8 L* (42.0-52.0) % Plt Count 504 H (160-400) X10*3/uL BMP 04/06/22 06:23 Creatinine 1.00 Microbiology Microbiology Results: Microbiology 04/04/22 17:14 Blood - Venous Blood Culture - Preliminary No growth after 24 hours. 04/04/22 17:14 Blood - Venous Blood Culture - Preliminary No growth after 24 hours. Assessment and Plan (1) Ulcer of left foot due to type 2 diabetes mellitus: Status: Acute This is possibly due to staph including MRSA,strep ,anerobes He has unremarkable XRay but has TMA in past Osteomyelitis is concern. (2) Diabetes: Status: Acute Plan See Dr Johnson. Continue IV Vancomycin and Zosyn MRI if able, Duration antibiotics to be determined. Time Spent With Patient Time: Total time managing care of this patient today ____ minutes.
--- NOTE | 2022-04-06 17:05 | HO.PM.IMPN ---
Subjective Subjective Date of Service: 04/06/22 Interval History: no fever/chills swelling/redness of L TMA stump vascular surgeon drained blister at bedside, returned clear fluid and no pus no chest pain consents to transfusion; lost blood overnight after pulled out IV Review of Systems Review of Systems: Yes all other systems are reviewed and are negative Physical Exam Vital Signs: Vital Signs: Last Vital Signs Temp 98.8 F 04/06/22 15:41 Pulse 57 04/06/22 15:41 Resp 18 04/06/22 15:41 BP 140/73 H 04/06/22 15:41 Pulse Ox 100 04/06/22 08:00 O2 Del Method 04/06/22 08:00 O2 Flow Rate 2 04/04/22 16:01 BMI result Body Mass Index 31.3 Gen: in no acute distress HEENT: sclera anicteric, pale mucosa Neck: supple Lungs: clear to auscultation bilaterally Heart: regular rate and rhythm, no murmurs Abd: soft, non-tender, non-distended Ext: no edema Skin: warm/well-perfused, L TMA, erythema of plantar surface and heel Neuro: alert, mildly confused Psych: appropriate affect Objective Data Active Medications Acetaminophen (Acetaminophen 325 Mg Tablet) 650 mg PO Q6H PRN PRN Reason: Pain, Mild (Pain Scale 1-3) Last Admin: 04/06/22 15:39 Dose: 650 mg Documented By: RICKY Hydrocodone Bitart/Acetaminophen (Hydrocodone Bit/Acetam 5/325 Tablet) 1 tab PO Q6H PRN PRN Reason: Severe Pain (Scale Score 7-10) Last Admin: 04/06/22 03:59 Dose: 1 tab Documented By: BETHEL Aspirin (Aspirin 81 Mg Tab.Chew) 81 mg PO DAILY [facility] Last Admin: 04/06/22 10:07 Dose: 81 mg Documented By: RICKY Atorvastatin Calcium (Atorvastatin Calcium 80 Mg Tablet) 80 mg PO BEDTIME [facility] Last Admin: 04/05/22 19:51 Dose: 80 mg Documented By: BETHEL Clopidogrel Bisulfate (Clopidogrel Bisulfate 75 Mg Tablet) 75 mg PO DAILY [facility] Last Admin: 04/06/22 10:06 Dose: 75 mg Documented By: RICKY Dextrose (Dextrose 50 % 25 Gm/50 Ml Syringe) 25 gm IVPUSH Q15M PRN; Protocol PRN Reason: per Hypoglycemia Standing Ord. Docusate Sodium (Docusate Sodium 100 Mg Capsule) 100 mg PO DAILY PRN PRN Reason: Constipation Glucose (Glucose Gel 15 Gm Gel..Gram.) 15 gm PO Q15M PRN; Protocol PRN Reason: per Hypoglycemia Standing Ord. Piperacillin Sod/Tazobactam (Sod 3.375 gm/ Sodium Chloride) 50 mls @ 100 mls/hr IV Q6H [facility] Last Infusion: 04/06/22 14:43 Dose: 0 mls/hr Documented By: RICKY Vancomycin HCl 1,250 mg/ (Sodium Chloride) 250 mls @ 166.667 mls/hr IV Q24H [facility] Last Infusion: 04/06/22 00:38 Dose: 0 mls/hr Documented By: BETHEL Insulin Glargine (Insulin Glargine,Hum.Rec.Anlog 100 Unit/Ml 10 Ml Vial) 17 unit SUBCUT DAILY [facility] Last Admin: 04/06/22 10:08 Dose: 17 unit Documented By: RICKY Insulin Human Lispro (Insulin Lispro 100 Unit/Ml 3 Ml Vial) 0 unit SUBCUT QIDACHS [facility]; Protocol Last Admin: 04/06/22 13:21 Dose: 6 unit Documented By: RICKY Lisinopril (Lisinopril 10 Mg Tablet) 10 mg PO DAILY [facility]; Protocol Last Admin: 04/06/22 10:06 Dose: 10 mg Documented By: RICKY Lorazepam (Lorazepam 0.5 Mg Tablet) 0.5 mg PO DAILY PRN PRN Reason: Anxiety Last Admin: 04/06/22 05:05 Dose: 0.5 mg Documented By: BETHEL Metoprolol Tartrate (Metoprolol Tartrate 12.5 Mg Halftab) 12.5 mg PO BID [facility]; Protocol Ondansetron HCl (Ondansetron Hcl 4 Mg/2 Ml Vial) 4 mg IVPUSH Q8H PRN PRN Reason: Nausea and Vomiting Pharmacy Consult (Consult Rx Vancomycin Dosing) 1 each MISCELLANE DAILY PRN PRN Reason: Consult order Sodium Chloride (0.9 % Sodium Chloride Flush 3 Ml Syringe) 3 ml IVFLUSH QSHIFT [facility] Last Admin: 04/06/22 10:00 Dose: 3 ml Documented By: RICKY Labs 04/06/22 06:23 04/06/22 06:23 Labs: Laboratory Results - last 24 hr 04/04/22 04/04/22 04/05/22 16:11 17:21 19:45 MCV MCH MCHC RDW Plt Count MPV Absolute Nucleated RBC Nucleated RBC % (auto) Smear Path Review SEE NOTE PT INR aPTT Heparin Protocol Estim Creat Clear Calc Estimated GFR POC Glucose 156 H Lactate Dehydrogenase Blood Type O Negative Antibody Screen NEGATIVE Crossmatch See Detail 04/05/22 04/06/22 04/06/22 22:16 06:23 06:23 MCV 76.5 L MCH 23.9 L MCHC 31.3 RDW 17.9 H Plt Count 504 H MPV 9.7 Absolute Nucleated RBC 0.020 H Nucleated RBC % (auto) 0.1 Smear Path Review PT 13.2 H INR 1.1 aPTT Heparin Protocol 34.7 L 73.8 D Estim Creat Clear Calc Estimated GFR POC Glucose Lactate Dehydrogenase Blood Type Antibody Screen Crossmatch 04/06/22 04/06/22 04/06/22 06:23 08:11 10:58 MCV MCH MCHC RDW Plt Count MPV Absolute Nucleated RBC Nucleated RBC % (auto) Smear Path Review PT INR aPTT Heparin Protocol Estim Creat Clear Calc 64.3 Estimated GFR > 60 POC Glucose 177 H 260 H Lactate Dehydrogenase 478 H Blood Type Antibody Screen Crossmatch ITS Impressions Chest X-Ray 04/04/22 15:18 IMPRESSION: * Mild vascular congestion without socrates failure. * Blunting of costophrenic angles possibly small pleural effusions. * Cardiac silhouette is enlarged, this is exaggerated by AP technique. Aorta w/Runoff CTA 04/04/22 16:25 IMPRESSION: 1. No evidence of aortic dissection, aneurysm, or other acute aortic syndrome. 2. No airspace consolidation, effusions, or pneumothorax. 3. 1.3 cm groundglass/subsolid nodule in the posterior right lower lobe. Suggest follow-up chest CT in 6-12 months per Fleischner Society guidelines. 4. 0.9 cm hypervascular focus in the anterior segment right liver lobe, indeterminate possibly flash filling hemangioma versus other hypervascular lesion. Consider further evaluation with multiphase liver MRI. 5. 1.5 cm left adrenal nodule consistent with a lipid rich adenoma. 6. Mild retroperitoneal and left iliac chain lymphadenopathy, nonspecific and raises the possibility of santiago metastasis of unknown primary or lymphoproliferative process//developing lymphoma. Would suggest correlation with PSA. Would also suggest follow-up CT in 3 months to confirm stability or alternatively PET CT. 7. Enlarged prostate gland. Chest CTA 04/04/22 16:25 IMPRESSION: 1. No evidence of aortic dissection, aneurysm, or other acute aortic syndrome. 2. No airspace consolidation, effusions, or pneumothorax. 3. 1.3 cm groundglass/subsolid nodule in the posterior right lower lobe. Suggest follow-up chest CT in 6-12 months per Fleischner Society guidelines. 4. 0.9 cm hypervascular focus in the anterior segment right liver lobe, indeterminate possibly flash filling hemangioma versus other hypervascular lesion. Consider further evaluation with multiphase liver MRI. 5. 1.5 cm left adrenal nodule consistent with a lipid rich adenoma. 6. Mild retroperitoneal and left iliac chain lymphadenopathy, nonspecific and raises the possibility of santiago metastasis of unknown primary or lymphoproliferative process//developing lymphoma. Would suggest correlation with PSA. Would also suggest follow-up CT in 3 months to confirm stability or alternatively PET CT. 7. Enlarged prostate gland. Venous Duplex 04/04/22 18:41 IMPRESSION: No DVT demonstrated in the left lower extremity. Foot X-Ray 04/04/22 19:40 IMPRESSION: Status post trans tarsal amputation. No definite evidence of osteomyelitis. If there is continued clinical concern, MRI would be more sensitive. TTE 04/06/22 1. ?Mildly reduced LV ejection fraction 45-50% with mild LVH? ? with regional wall motion abnormalities just of underlying ? ? ? coronary artery disease with impaired relaxation filling pattern 2. Mildly dilated left atrium? 3. Mild aortic stenosis? 4. Upper limits of normal RV systolic pressure ? 5. No pericardial effusion ? Microbiology Microbiology Results: Microbiology 04/04/22 17:14 Blood Culture - Preliminary Blood - Venous No growth after 24 hours. 04/04/22 17:14 Blood Culture - Preliminary Blood - Venous No growth after 24 hours. Assessment and Plan (1) NSTEMI (non-ST elevated myocardial infarction): Status: Acute (2) Cellulitis: Status: Acute (3) Anemia: Status: Acute Plan hospital d#3 81 year-old male with a PMH significant for?HTN, insulin-dependent diabetes, PAD s/p toe amputations followed by wound clinic, and hx of osteomyelitis who presents to the ED with?left lower leg swelling, redness of foot, and generalized weakness. Admitted for DM foot infection, complicated by NSTEMI and incidental radiologic findings of inguinal adenopathy, pulmonary nodule, and liver neoplasm # NSTEMI - likely demand ischemia, d/c heparin, continue aspirin + clopidogrel + statin, add metoprolol, eventual catheterization after infection cleared # cellulitis question osteomyelitis - vanco + pip-valeria d#3, ID consultation, MRI to r/o osteomyelitis # acute/chronic ANT - FOBT negative, will give additional 2u pRBCs, recheck H+H in AM, will need Fe repletion- consider IV? consult Heme-Onc # HTN - lisinopril, metoprolol # PAD - DAPT, statin # lung nodule - 1.3 cm ground-glass/subsolid RLL nodule, repeat CT 6-12 months ? # right liver lobe hypervascular lesion 0.9 cm - hemangioma vs other hypervascular lesion; consider multiphase liver MRI # retroperitoneal + iliac LAD - LDH elevated, will consult Heme-Onc. outpt PET-CT vs repeat CT in 3 mo # DM2 - basal-bolus insulin # VTE ppx: LMWH # dispo: TBD In my clinical judgment, the patient requires continued inpatient hospitalization for the following reasons: IV ABX Updated pt's daughter at bedside Time Spent With Patient Time: Total time managing care of this patient today __55__ minutes. Quality Stroke Does the patient have a stroke diagnosis?: No VTE Prior VTE?: No VTE Risk Level:: Medical - moderate - high VTE Device Contraindication: Treatment Not Indicated VTE Drug Contraindication: N/A - Med Ordered
--- NOTE | 2022-04-06 17:08 | P.CNHO_ITS ---
Subjective - Subjective Chief complaint: None reported Patient: new to practice Consult date: 04/07/22 Primary Care Provider: Keaton Santana MD HPI - Consult Narrative Reason for consult: Anemia Narrative: Vj Galicia is a 81 year old male admitted to [facility] for probable osteomyelitis. He presented with left lower leg swelling, redness and gene ralized weakness. His past history is significant for insulin-dependent diabetes mellitus, peripheral arterial disease, status post 2 amputations and past history of osteomyelitis. Patient is somewhat of a poor historian, his main complaint is that he is not able to get out of bed and walk. He denies any history of anemia. He did not know that he received blood transfusion. Patient was hypotensive but afebrile when he arrived to the emergency department. He had significant leukocytosis with a WBC count of 32.5 and anemia with a hemoglobin of 5.3 gram/dL, microcytic with MCV of 72.8, renal insufficiency with a creatinine of 1.34. EKG showed concerning ST changes and CTA found mild retroperitoneal lymphadenopathy. Is currently being treated with IV antibiotics. He received 4 units PRBC, stool occult was negative. 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 PAD (peripheral artery disease) Family History: Family History (Last Reviewed 04/06/22 @ 16:32 by Cristina Mayberry MD) Other No family history of coronary artery disease Family history: reviewed and not pertinent Surgical History: Surgical History (Last Reviewed 04/06/22 @ 16:32 by Cristina Mayberry MD) History of angioplasty of peripheral vessel Social History: Social History (Last Reviewed 04/06/22 @ 16:32 by Cristina Mayberry MD) Living Situation History: Household Members: Spouse Housing: House Are you a primary insurance healthcare consultant to a significant other at home: No Do you presently have visiting nurse or other home services: Yes Tobacco History: Patient Tobacco Use Status: Former Tobacco user Smoke Quit Date: 20 years ago Second Hand Smoke Exposure: No Advance Directives: Advance Directives Date on File: 10/01/21 Occupation Assessmet: service: No Current occupational status: retired Home Medications and Allergies Current Medications: Current Medications Acetaminophen (Acetaminophen 325 Mg Tablet) 650 mg PO Q6H PRN PRN Reason: Pain, Mild (Pain Scale 1-3) Last Admin: 04/06/22 15:39 Dose: 650 mg Hydrocodone Bitart/Acetaminophen (Hydrocodone Bit/Acetam 5/325 Tablet) 1 tab PO Q6H PRN PRN Reason: Severe Pain (Scale Score 7-10) Last Admin: 04/06/22 03:59 Dose: 1 tab Aspirin (Aspirin 81 Mg Tab.Chew) 81 mg PO DAILY [facility] Last Admin: 04/06/22 10:07 Dose: 81 mg Atorvastatin Calcium (Atorvastatin Calcium 80 Mg Tablet) 80 mg PO BEDTIME [facility] Last Admin: 04/05/22 19:51 Dose: 80 mg Clopidogrel Bisulfate (Clopidogrel Bisulfate 75 Mg Tablet) 75 mg PO DAILY [facility] Last Admin: 04/06/22 10:06 Dose: 75 mg Dextrose (Dextrose 50 % 25 Gm/50 Ml Syringe) 25 gm IVPUSH Q15M PRN; Protocol PRN Reason: per Hypoglycemia Standing Ord. Docusate Sodium (Docusate Sodium 100 Mg Capsule) 100 mg PO DAILY PRN PRN Reason: Constipation Glucose (Glucose Gel 15 Gm Gel..Gram.) 15 gm PO Q15M PRN; Protocol PRN Reason: per Hypoglycemia Standing Ord. Piperacillin Sod/Tazobactam (Sod 3.375 gm/ Sodium Chloride) 50 mls @ 100 mls/hr IV Q6H [facility] Last Infusion: 04/06/22 14:43 Dose: Infused Vancomycin HCl 1,250 mg/ (Sodium Chloride) 250 mls @ 166.667 mls/hr IV Q24H [facility] Last Infusion: 04/06/22 00:38 Dose: Infused Insulin Glargine (Insulin Glargine,Hum.Rec.Anlog 100 Unit/Ml 10 Ml Vial) 17 unit SUBCUT DAILY [facility] Last Admin: 04/06/22 10:08 Dose: 17 unit Insulin Human Lispro (Insulin Lispro 100 Unit/Ml 3 Ml Vial) 0 unit SUBCUT QIDACHS [facility]; Protocol Last Admin: 04/06/22 13:21 Dose: 6 unit Lisinopril (Lisinopril 10 Mg Tablet) 10 mg PO DAILY [facility]; Protocol Last Admin: 04/06/22 10:06 Dose: 10 mg Lorazepam (Lorazepam 0.5 Mg Tablet) 0.5 mg PO DAILY PRN PRN Reason: Anxiety Last Admin: 04/06/22 05:05 Dose: 0.5 mg Metoprolol Tartrate (Metoprolol Tartrate 12.5 Mg Halftab) 12.5 mg PO BID [facility]; Protocol Ondansetron HCl (Ondansetron Hcl 4 Mg/2 Ml Vial) 4 mg IVPUSH Q8H PRN PRN Reason: Nausea and Vomiting Pharmacy Consult (Consult Rx Vancomycin Dosing) 1 each MISCELLANE DAILY PRN PRN Reason: Consult order Sodium Chloride (0.9 % Sodium Chloride Flush 3 Ml Syringe) 3 ml IVFLUSH QSHIFT [facility] Last Admin: 04/06/22 10:00 Dose: 3 ml Home Medications Medication Instructions Recorded Confirmed Type metformin 1,000 mg tablet 1,000 mg PO BIDWM 12/05/19 04/04/22 History acetaminophen 325 mg capsule 650 mg PO Q6H PRN Pain 04/04/22 04/04/22 History (Tylenol) doxycycline monohydrate 100 mg 1 tab PO BID 04/04/22 04/04/22 History tablet hydrocodone 5 mg-acetaminophen 325 1 tab PO Q6H PRN Severe Pain 04/04/22 04/04/22 History mg tablet (Scale Score 7-10) insulin glargine 100 unit/mL (3 25 unit subcut DAILY 04/04/22 04/04/22 History mL) subcutaneous pen lisinopril 10 mg tablet 1 tab PO DAILY 04/04/22 04/04/22 History lorazepam 0.5 mg tablet 1 tab PO DAILY PRN Anxiety 04/04/22 04/04/22 History Allergies Allergy/AdvReac Type Severity Reaction Status Date / Time No Known Allergies Allergy Verified 03/19/22 09:45 [No Known Allergies*] Physical Exam Vital signs: Vital Signs Temp 98.8 F 04/06/22 15:41 Pulse 57 04/06/22 15:41 Resp 18 04/06/22 15:41 BP 140/73 H 04/06/22 15:41 Pulse Ox 100 04/06/22 08:00 O2 Del Method 04/06/22 08:00 O2 Flow Rate 2 04/04/22 16:01 Intake & Output 04/05/22 04/06/22 04/06/22 18:59 06:59 18:59 Intake Total 172.6 / 3715.599 6522.400 / 1600.000 700.000 / 700.000 Output Total 400 / 1000 600 / 1000 400 / 400 Balance -227.4 / 600.000 827.400 / 600.000 300.000 / 300.000 Urine Output (Average ml/kg/hr) 0.37 0.55 0.37 Intake: Intake, Oral Amount 380 / 380 Intake (Blood Product) Amount 350 / 350 Red Blood Cells (E0382) Unit 350 / 350 [id number] Red Blood Cells (E0382) Unit 0 / 0 [id number] Intake, IV Amount 172.6 / 1275.714 2016.400 / 1220.000 350.000 / 350.000 Piperacillin Sodium/Tazobactam 100 / 200 100 / 200 100 / 100 3.375 gm In 0.9 % Sodium Chloride 50 ml @ 100 mls/hr IV Q6H [facility] Rx#:[id number] vancomycin HCL 1,250 mg In 0.9 250 / 250 % Sodium Chloride 250 ml @ 166. 667 mls/hr IV Q24H [facility] Rx#: [id number] vancomycin/NS 2,000 mg In 520 520 / 520 ml @ 260 mls/hr IV ONCE ONE Rx# :[id number] Heparin Sodium,Porcine/1/2NS 25 72.6 / 250.000 177.400 / 250.000 250.000 / 250.000 ,000 unit In 250 ml @ Per Protocol IVCONT .Q0M [facility] Rx#: [id number] Output: Output, Urine Amount 400 / 1000 600 / 1000 400 / 400 Other: Meal Refused No NPO No Breakfast % Eaten 75% Lunch % Eaten 75% Diabetic Snack % Eaten 100 Number of Incontinent Voids 1 Urine [place] Urine Color Yellow Last Bowel Movement 04/04/22 Weight 90.718 kg - Constitutional Present: no acute distress - Routine HEENT Exam Head: Present: normal inspection Eye: Present: EOMI - Routine Neck Exam Present: supple. Absent: lymphadenopathy - Routine Respiratory Exam Present: CTAB - Routine Cardiovascular Exam Cardiovascular: Present: S1, S2 Hem/Onc Consult Result - Labs CBC & Chem 7: 02/28/23 07:04 04/07/22 07:04 Labs: Short CBC 04/06/22 Range/Units 06:23 WBC 21.4 H (4.8-10.8) X10*3/uL Hgb 6.5 L* (14.0-18.0) g/dl Hct 20.8 L* (42.0-52.0) % Plt Count 504 H (160-400) X10*3/uL BMP 04/06/22 06:23 Creatinine 1.00 Assessment and Plan Patient Active problem list reviewed?: Yes (1) Anemia Status: Acute Assessment and plan: 1. This is a 81-year-old male multiple medical problems admitted for left foot infection, past history significant for diabetes mellitus, PVD, toe amputations and osteomyelitis who has been diagnosed with severe microcytic anemia. He received 4 units PRBC. Anemia is probably multifactorial. He does have iron deficiency along with infection which might be contributing. LDH is slightly el evated, bilirubin/liver function is normal. His kidney functions are normal. Normal vitamin B12 and folic acid levels. Hemoglobin was 9.6 gram/dL in January 2022 and prior to that it was between 11 to 13 gram/dL in 2021. He has significant reticulocytopenia which could be related to bone marrow suppression from infection as well as iron deficiency. Submit serum copper levels. He has mild retroperitoneal lymphadenopathy, probably reactive. A repeat CT abdomen/pelvis in 3 months can be considered to follow-up. I have recommended oral iron supplementation, ferrous of a 325 mg p.o. once jennie ly for now. I will be happy to follow patient upon discharge. - Time Spent With Patient Time Spent with Patient (in minutes): 20
[2022-04-06 17:09] LABS: Glucose, Whole Blood 123 mg/dL (60-115)
[2022-04-06 20:19] LABS: Glucose, Whole Blood 202 mg/dL (60-115)
[2022-04-06] MEDS: Atorvastatin Calcium 80 MG TABLET PO (20:22)
[2022-04-06] MEDS: Metoprolol Tartrate 12.5 MG HALFTAB PO (20:22)
[2022-04-06 21:07] LABS: Immature Retic Fraction 26.6 % (2.3-13.4); Retic HGB Equivalent 20.3 pg (30.0-35.0); Reticulocyte Percent 1.4 % (0.5-1.8); Reticulocytes Absolute 0.017 X10*6/uL (0.026-0.095)
[2022-04-06 21:14] LABS: Vancomycin Random 10.3 mcg/mL (15-20)
[2022-04-06 21:51] LABS: Ferritin 52 ng/mL (20-250); Folate 12.1 ng/mL (> or = 4.0); Vitamin B12 378 pg/mL (200-900)
[2022-04-06 21:54] LABS: Iron 222 mcg/dL (45-160); Percent Iron Saturation 90 % (15-50); Total Iron Binding Capacity 247 mcg/dL (228-428); Unsaturated Iron Binding < 25 ug/dL
[2022-04-06] MEDS: vancomycin HCL 1,500 MG in 0.9 % Sodium Chloride 500 ML 333.33 MG IV (23:29)
[2022-04-07] VITALS (7 sets, daily range): BP systolic 134–166; BP diastolic 70–87; PULSE 50–98; RESP 18–20; TEMP 36.4–36.7; O2SAT 96–99
[2022-04-07] MEDS: OLANZapine 10 MG VIAL IM (00:07)
[2022-04-07] MEDS: Piperacillin Sodium/Tazobactam 3.375 GM in 0.9 % Sodium Chloride 50 ML IV ×3 (02:11→21:48)
[2022-04-07] MEDS: HYDROcodone Bit/Acetam 5/325 TABLET 1 TAB PO (02:11)
--- NOTE | 2022-04-07 06:47 | PC.NURSE ---
PT was restless and becoming combative. Gave PRN Ativan, and Zyprexa per Dr. Villarreal. Pt was still restless and required a sitter all night. He did calm down around 3am but remained restless and did not sleep all night.
[2022-04-07 07:41] LABS: Glucose, Whole Blood 87 mg/dL (60-115)
[2022-04-07 07:50] LABS: Hematocrit 30.3 % (42.0-52.0); Hemoglobin 9.6 g/dl (14.0-18.0); Mean Corpuscular HGB Conc 31.7 g/dl (31.0-36.0); Mean Corpuscular Hemoglobin 25.5 pg (27.0-33.0); Mean Corpuscular Volume 80.4 fL (80.0-98.0); Mean Platelet Volume 9.7 fL (9.4-12.4); NRBC Pct Auto 0.2 /100WBC (0.0-0.2); Platelet Count 549 X10*3/uL (160-400); Red Blood Count 3.77 X10*6/uL (4.60-5.80); Red Cell Distribution Width 19.3 % (11.0-16.0); White Blood Count 17.9 X10*3/uL (4.8-10.8)
[2022-04-07 07:57] LABS: Alanine Aminotransferase 36 U/L (0-40); Albumin Level 2.8 g/dL (3.5-5.0); Alkaline Phosphatase 142 U/L (39-117); Anion Gap 14 (12-20); Anion Gap 15 (12-20); Aspartate Amino Transferase 31 U/L (5-37); Blood Urea Nitrogen 28 mg/dL (9-16); Calcium 8.4 mg/dL (8.4-10.2); Calcium 8.5 mg/dL (8.4-10.2); Carbon Dioxide 22 mmol/L (22-29); Carbon Dioxide 23 mmol/L (22-29); Chloride 106 mmol/L (96-108); Chloride 107 mmol/L (96-108); Creatinine Clr Calc Pharmacy 75.6; Creatinine Clr Calc Pharmacy 77.5; Estimated Glomerular Filt Rate > 60; Glucose Random 72 mg/dL (60-115); Potassium 4.6 mmol/L (3.3-5.1); Potassium 4.7 mmol/L (3.3-5.1); Sodium 138 mmol/L (135-145); Sodium 139 mmol/L (135-145); Total Protein 5.8 g/dL (6.5-8.0)
[2022-04-07] MEDS: Aspirin 81 MG TAB.CHEW PO (09:35)
[2022-04-07] MEDS: Clopidogrel Bisulfate 75 MG TABLET PO (09:35)
[2022-04-07] MEDS: lisinopriL 10 MG TABLET PO (09:36)
[2022-04-07] MEDS: Insulin Glargine,Hum.rec.anlog 100 UNIT/ML 10 ML VIAL 17 UNIT SUBCUT (10:25)
--- NOTE | 2022-04-07 10:59 | P.PNCA_ITS ---
Subjective Subjective Date of Service: 04/07/22 Principal diagnosis: NSTEMI Interval history: Patient remains confused. Still continues to deny any chest pain. Ech ocardiogram shows wall motion abnormality which is consistent with underlying coronary artery disease. Possibly represents hibernating/stunned myocardium or possible infarcted segment. Review of Systems Review of Systems Yes Unobtainable due to mental status Physical Exam Vital Signs: Last Vital Signs Temp 97.5 F 04/07/22 07:32 Pulse 50 04/07/22 07:32 Resp 18 04/07/22 07:32 BP 155/75 H 04/07/22 07:32 Pulse Ox 97 04/07/22 07:32 O2 Del Method 04/07/22 07:32 O2 Flow Rate 2 04/04/22 16:01 BMI result Body Mass Index 31.3 Const General: comfortable, no acute distress and ill appearing HEENT Other: Unremarkable Neck Neck: Yes normal visual inspection Resp Auscultation: clear to auscultation bilaterally Cardio Palpation: normal PMI Heart sounds: S1 normal heart sound present, S2 normal heart sound present, no gallops, Murmur heart sound present systolic II/ and at the right sternal border and no rubs Back/Spine/Pelvis Other: unremarkable Skin General skin exam: no rashes or lesions noted Neuro General: no focal motor deficits Extrem Other: Amputation in left foot noted but there is dressing on top of it. Psych Mental Status: mental status grossly normal Objective Labs and Meds 04/07/22 07:04 04/07/22 07:04 Lab results: Laboratory Results - last 24 hr 04/04/22 04/06/22 04/06/22 17:21 06:23 10:58 WBC RBC Hgb Hct MCV MCH MCHC RDW Plt Count MPV Absolute Nucleated RBC Nucleated RBC % (auto) Absolute Retic Percent Retic Immature Retic Fraction Retic Hgb Equivalent Sodium Potassium Chloride Carbon Dioxide Anion Gap BUN Creatinine Estim Creat Clear Calc Estimated GFR POC Glucose 260 H Random Glucose Calcium Iron TIBC % Saturation Unsat Iron Binding Ferritin Total Bilirubin AST ALT Alkaline Phosphatase Lactate Dehydrogenase 478 H Total Protein Albumin Vitamin B12 Folate Random Vancomycin Blood Type O Negative Antibody Screen NEGATIVE Crossmatch See Detail 04/06/22 04/06/22 04/06/22 17:05 20:15 20:22 WBC RBC Hgb Hct MCV MCH MCHC RDW Plt Count MPV Absolute Nucleated RBC Nucleated RBC % (auto) Absolute Retic Percent Retic Immature Retic Fraction Retic Hgb Equivalent Sodium Potassium Chloride Carbon Dioxide Anion Gap BUN Creatinine Estim Creat Clear Calc Estimated GFR POC Glucose 123 H 202 H Random Glucose Calcium Iron TIBC % Saturation Unsat Iron Binding Ferritin Total Bilirubin AST ALT Alkaline Phosphatase Lactate Dehydrogenase Total Protein Albumin Vitamin B12 Folate Random Vancomycin 10.3 L Blood Type Antibody Screen Crossmatch 04/06/22 04/06/22 04/07/22 20:22 20:22 07:04 WBC RBC Hgb Hct MCV MCH MCHC RDW Plt Count MPV Absolute Nucleated RBC Nucleated RBC % (auto) Absolute Retic 0.017 L Percent Retic 1.4 Immature Retic Fraction 26.6 H Retic Hgb Equivalent 20.3 L Sodium 138 Potassium 4.7 Chloride 106 Carbon Dioxide 22 Anion Gap 15 BUN 28 H Creatinine 0.85 Estim Creat Clear Calc 75.6 Estimated GFR > 60 POC Glucose Random Glucose 72 Calcium 8.4 Iron 222 H TIBC 247 % Saturation 90 H Unsat Iron Binding < 25 Ferritin 52 Total Bilirubin 1.0 AST 31 ALT 36 Alkaline Phosphatase 142 H Lactate Dehydrogenase Total Protein 5.8 L Albumin 2.8 L Vitamin B12 378 Folate 12.1 Random Vancomycin Blood Type Antibody Screen Crossmatch 04/07/22 04/07/22 04/07/22 07:04 07:04 07:35 WBC 17.9 H RBC 3.77 L D Hgb 9.6 L D Hct 30.3 L D MCV 80.4 MCH 25.5 L MCHC 31.7 RDW 19.3 H Plt Count 549 H MPV 9.7 Absolute Nucleated RBC 0.030 H Nucleated RBC % (auto) 0.2 Absolute Retic Percent Retic Immature Retic Fraction Retic Hgb Equivalent Sodium 139 Potassium 4.6 Chloride 107 Carbon Dioxide 23 Anion Gap 14 BUN 28 H Creatinine 0.83 Estim Creat Clear Calc 77.5 Estimated GFR > 60 POC Glucose 87 Random Glucose 72 Calcium 8.5 Iron TIBC % Saturation Unsat Iron Binding Ferritin Total Bilirubin AST ALT Alkaline Phosphatase Lactate Dehydrogenase Total Protein Albumin Vitamin B12 Folate Random Vancomycin Blood Type Antibody Screen Crossmatch Imaging Radiologist's impression: Impressions Foot MRI 04/06/22 16:50 IMPRESSION: 1. Soft tissue ulceration and cellulitis along the lateral aspect of the cuboid with underlying acute osteomyelitis within the cuboid. More mild findings within the adjacent lateral cuneiform. 2. Osteochondral lesion at the medial aspect of the talar dome measuring up to 1.2 cm without evidence of fragmentation or instability. Mild degenerative arthritis within the visualized midfoot. 3. Edema and atrophy of the visualized musculature, which can be seen in diabetic patients. 4. Circumferential subcutaneous edema. Progress Note: A&P Assessment and plan (1) NSTEMI (non-ST elevated myocardial infarction): Status: Acute Assessment and Plan: NSTEMI which appears to be secondary to his acute medical illness. High likelihood of underlying coronary artery disease given his troponin leak as well as wall motion abnormality. Would treat this with conservative medical management as for now given his significant cognitive impairment at current time, not sure if this is chronic and multiple medical issues. Continue treat his sepsis/cellulitis as well as anemia. Maintain hematocrit over 30. There is no indication for IV heparin at this event appears to be secondary rather than a primary acute coronary syndrome. Would give him aspirin, high-intensity statins and metoprolol. Will sign of the case at this point time. Thank you for allowing me to partake in his care Time Spent With Patient Time: Total time managing care of this patient today ____ minutes. Progress Note: Quality Stroke Does the patient have a stroke diagnosis?: No Procedures Date of Service Date of Service: 04/07/22
[2022-04-07 11:37] LABS: Glucose, Whole Blood 215 mg/dL (60-115)
[2022-04-07] MEDS: Insulin Lispro 100 UNIT/ML 3 ML VIAL SUBCUT ×2 (11:52→21:48)
[2022-04-07] MEDS: Ferrous Sulfate 324 MG TABLET.DR PO (11:53)
--- NOTE | 2022-04-07 13:32 | HO.PM.IMPN ---
Subjective Subjective Date of Service: 04/07/22 Interval History: pain controlled somewhat confused tolerated transfusion Review of Systems Review of Systems: Yes all other systems are reviewed and are negative Physical Exam Vital Signs: Vital Signs: Last Vital Signs Temp 98.1 F 04/07/22 11:12 Pulse 98 04/07/22 11:12 Resp 18 04/07/22 11:12 BP 160/87 H 04/07/22 11:12 Pulse Ox 96 04/07/22 11:12 O2 Del Method 04/07/22 11:12 O2 Flow Rate 2 04/04/22 16:01 BMI result Body Mass Index 31.3 Const: Other: Gen: in no acute distress HEENT: sclera anicteric, pale mucosa Neck: supple Lungs: clear to auscultation bilaterally Heart: regular rate and rhythm, no murmurs Abd: soft, non-tender, non-distended Ext: no edema Skin: warm/well-perfused, L TMA, erythema of plantar surface and heel Neuro: alert, mildly confused Psych: appropriate affect Objective Data Active Medications Acetaminophen (Acetaminophen 325 Mg Tablet) 650 mg PO Q6H PRN PRN Reason: Pain, Mild (Pain Scale 1-3) Last Admin: 04/06/22 15:39 Dose: 650 mg Documented By: RICKY Hydrocodone Bitart/Acetaminophen (Hydrocodone Bit/Acetam 5/325 Tablet) 1 tab PO Q6H PRN PRN Reason: Severe Pain (Scale Score 7-10) Last Admin: 04/07/22 02:11 Dose: 1 tab Documented By: MADIHA Aspirin (Aspirin 81 Mg Tab.Chew) 81 mg PO DAILY [facility] Last Admin: 04/07/22 09:35 Dose: 81 mg Documented By: ELVIN Atorvastatin Calcium (Atorvastatin Calcium 80 Mg Tablet) 80 mg PO BEDTIME [facility] Last Admin: 04/06/22 20:22 Dose: 80 mg Documented By: MADIHA Clopidogrel Bisulfate (Clopidogrel Bisulfate 75 Mg Tablet) 75 mg PO DAILY [facility] Last Admin: 04/07/22 09:35 Dose: 75 mg Documented By: ELVIN Dextrose (Dextrose 50 % 25 Gm/50 Ml Syringe) 25 gm IVPUSH Q15M PRN; Protocol PRN Reason: per Hypoglycemia Standing Ord. Docusate Sodium (Docusate Sodium 100 Mg Capsule) 100 mg PO DAILY PRN PRN Reason: Constipation Ferrous Sulfate (Ferrous Sulfate 324 Mg Tablet.) 324 mg PO DAILY [facility] Last Admin: 04/07/22 11:53 Dose: 324 mg Documented By: ELVIN Glucose (Glucose Gel 15 Gm Gel..Gram.) 15 gm PO Q15M PRN; Protocol PRN Reason: per Hypoglycemia Standing Ord. Piperacillin Sod/Tazobactam (Sod 3.375 gm/ Sodium Chloride) 50 mls @ 100 mls/hr IV Q6H [facility] Last Infusion: 04/07/22 10:06 Dose: 0 mls/hr Documented By: ELVIN Vancomycin HCl 1,500 mg/ (Sodium Chloride) 500 mls @ 333.333 mls/hr IV Q24H [facility] Last Infusion: 04/07/22 01:21 Dose: 0 mls/hr Documented By: MADIHA Insulin Glargine (Insulin Glargine,Hum.Rec.Anlog 100 Unit/Ml 10 Ml Vial) 17 unit SUBCUT DAILY [facility] Last Admin: 04/07/22 10:25 Dose: 17 unit Documented By: ELVIN Insulin Human Lispro (Insulin Lispro 100 Unit/Ml 3 Ml Vial) 0 unit SUBCUT QIDACHS [facility]; Protocol Last Admin: 04/07/22 11:52 Dose: 4 unit Documented By: ELVIN Lisinopril (Lisinopril 10 Mg Tablet) 10 mg PO DAILY [facility]; Protocol Last Admin: 04/07/22 09:36 Dose: 10 mg Documented By: ELVIN Lorazepam (Lorazepam 0.5 Mg Tablet) 0.5 mg PO DAILY PRN PRN Reason: Anxiety Last Admin: 04/06/22 05:05 Dose: 0.5 mg Documented By: BETHEL Metoprolol Tartrate (Metoprolol Tartrate 12.5 Mg Halftab) 12.5 mg PO BID [facility]; Protocol Last Admin: 04/07/22 09:37 Dose: Not Given Documented By: ELVIN Non-Admin Reason: HR below 60 Ondansetron HCl (Ondansetron Hcl 4 Mg/2 Ml Vial) 4 mg IVPUSH Q8H PRN PRN Reason: Nausea and Vomiting Pharmacy Consult (Consult Rx Vancomycin Dosing) 1 each MISCELLANE DAILY PRN PRN Reason: Consult order Sodium Chloride (0.9 % Sodium Chloride Flush 3 Ml Syringe) 3 ml IVFLUSH QSHIFT JOSE E Last Admin: 04/07/22 10:06 Dose: Not Given Documented By: ELVIN Non-Admin Reason: Previously Administered Labs 04/07/22 07:04 04/07/22 07:04 Labs: Laboratory Results - last 24 hr 04/04/22 04/06/22 04/06/22 17:21 06:23 17:05 MCV MCH MCHC RDW Plt Count MPV Absolute Nucleated RBC Nucleated RBC % (auto) Absolute Retic Percent Retic Immature Retic Fraction Retic Hgb Equivalent Anion Gap Estim Creat Clear Calc Estimated GFR POC Glucose 123 H Random Glucose Calcium Iron TIBC % Saturation Unsat Iron Binding Ferritin Total Bilirubin AST ALT Alkaline Phosphatase Lactate Dehydrogenase 478 H Total Protein Albumin Vitamin B12 Folate Random Vancomycin Blood Type O Negative Antibody Screen NEGATIVE Crossmatch See Detail 04/06/22 04/06/22 04/06/22 20:15 20:22 20:22 MCV MCH MCHC RDW Plt Count MPV Absolute Nucleated RBC Nucleated RBC % (auto) Absolute Retic 0.017 L Percent Retic 1.4 Immature Retic Fraction 26.6 H Retic Hgb Equivalent 20.3 L Anion Gap Estim Creat Clear Calc Estimated GFR POC Glucose 202 H Random Glucose Calcium Iron TIBC % Saturation Unsat Iron Binding Ferritin Total Bilirubin AST ALT Alkaline Phosphatase Lactate Dehydrogenase Total Protein Albumin Vitamin B12 Folate Random Vancomycin 10.3 L Blood Type Antibody Screen Crossmatch 04/06/22 04/07/22 04/07/22 20:22 07:04 07:04 MCV 80.4 MCH 25.5 L MCHC 31.7 RDW 19.3 H Plt Count 549 H MPV 9.7 Absolute Nucleated RBC 0.030 H Nucleated RBC % (auto) 0.2 Absolute Retic Percent Retic Immature Retic Fraction Retic Hgb Equivalent Anion Gap 15 Estim Creat Clear Calc 75.6 Estimated GFR > 60 POC Glucose Random Glucose 72 Calcium 8.4 Iron 222 H TIBC 247 % Saturation 90 H Unsat Iron Binding < 25 Ferritin 52 Total Bilirubin 1.0 AST 31 ALT 36 Alkaline Phosphatase 142 H Lactate Dehydrogenase Total Protein 5.8 L Albumin 2.8 L Vitamin B12 378 Folate 12.1 Random Vancomycin Blood Type Antibody Screen Crossmatch 04/07/22 04/07/22 04/07/22 07:04 07:35 11:13 MCV MCH MCHC RDW Plt Count MPV Absolute Nucleated RBC Nucleated RBC % (auto) Absolute Retic Percent Retic Immature Retic Fraction Retic Hgb Equivalent Anion Gap 14 Estim Creat Clear Calc 77.5 Estimated GFR > 60 POC Glucose 87 215 H Random Glucose 72 Calcium 8.5 Iron TIBC % Saturation Unsat Iron Binding Ferritin Total Bilirubin AST ALT Alkaline Phosphatase Lactate Dehydrogenase Total Protein Albumin Vitamin B12 Folate Random Vancomycin Blood Type Antibody Screen Crossmatch Impressions Foot MRI 04/06/22 16:50 IMPRESSION: 1. Soft tissue ulceration and cellulitis along the lateral aspect of the cuboid with underlying acute osteomyelitis within the cuboid. More mild findings within the adjacent lateral cuneiform. 2. Osteochondral lesion at the medial aspect of the talar dome measuring up to 1.2 cm without evidence of fragmentation or instability. Mild degenerative arthritis within the visualized midfoot. 3. Edema and atrophy of the visualized musculature, which can be seen in diabetic patients. 4. Circumferential subcutaneous edema. Microbiology Microbiology Results: Microbiology 04/04/22 17:14 Blood Culture - Preliminary Blood - Venous No growth after 48 hours. 04/04/22 17:14 Blood Culture - Preliminary Blood - Venous No growth after 48 hours. Assessment and Plan (1) NSTEMI (non-ST elevated myocardial infarction): Status: Acute (2) Cellulitis: Status: Acute (3) Anemia: Status: Acute Plan hospital d#4 81 year-old male with a PMH significant for?HTN, insulin-dependent diabetes, PAD s/p toe amputations followed by wound clinic, and hx of osteomyelitis who presents to the ED with?left lower leg swelling, redness of foot, and generalized weakness. Admitted for DM foot infection, complicated by NSTEMI and incidental radiologic findings of inguinal adenopathy, pulmonary nodule, and liver neoplasm # NSTEMI - TTE shows WMAs, possibly represents hibernating/stunned myocardium or possible infarcted segment - likely demand ischemia, d/c'ed heparin per Cardiology, continue aspirin + clopidogrel + statin, added metoprolol # DM osteomyelitis of TMA stump - vanco + pip-valeria d#4, not bacteremic, will place PICC and treat with IV ABX x 6 wk, discuss ABX choice with ID # acute/chronic ANT/ACD - FOBT negative, transfused total 4u pRBCs. PO Fe repletion. Hematology consulted. # HTN - lisinopril, metoprolol # PAD - DAPT, statin # lung nodule - 1.3 cm ground-glass/subsolid RLL nodule, repeat CT 6-12 months ? # right liver lobe hypervascular lesion 0.9 cm - hemangioma vs other hypervascular lesion; consider outpt multiphase liver MRI # retroperitoneal + iliac LAD - LDH elevated, will consult Heme-Onc. outpt PET-CT vs repeat CT in 3 mo # DM2 - basal-bolus insulin # VTE ppx: LMWH # dispo: TBD In my clinical judgment, the patient requires continued inpatient hospitalization for the following reasons: IV ABX Time Spent With Patient Time: Total time managing care of this patient today _50___ minutes. Quality Stroke Does the patient have a stroke diagnosis?: No VTE Prior VTE?: No VTE Risk Level:: Medical - moderate - high VTE Device Contraindication: Treatment Not Indicated VTE Drug Contraindication: N/A - Med Ordered
--- NOTE | 2022-04-07 17:57 | P.PICC_ITS ---
PICC Line Insertion NPICC INSERTION Diagnosis: [LEFT FOOT OSTEOMYELITIS] Indication: [WASTE [employer]LECTION [employer]IVER ANTIBX] Pertinent Labs: [REVIEWED] Technique: Following informed consent including risks, benefits and alternatives and using sterile technique including cap and mask, sterile gown, glove and drape, the [RIGHT] arm was prepped and draped in the usual sterile fashion of full barrier technique with CHG. Following completion of [place] Protocol the skin and soft tissues were anesthetized with 1% Lidocaine plain. Using ultrasound guidance, [RIGHT BASILIC] vein access was attempted by Isabela Villa Rn x 2. RIGHT BASILIC VEIN ACCESSED obtained by Dr Soliman. Over an 0.018 wire through peel-away sheath, a [4FR POWER SOLO SINGLE LUMEN] PICC line was pos itioned. Catheter length is [47CM] internal length, [1CM] external length, for a total trimmed length of [48CM]. The procedure was performed in [RM. 272]. Tip verification was performed by Javan Garduno with Sherlock 3CG. Tip located in SVC. Ultrasound was used to document vein patency and for needle entry. A formal ultrasound picture and cardiac rhythm strip was recorded. [employer] has released the line for use and it is currently dressed with a StatLock, Tegaderm, and CHG disc. Verification has been performed for blood return and line patency. Arm Circumference: [27.5CM] Equipment: [employer] POWER PICC SOLO PASV Catheter Type: [4FR SINGLE LUMEN PICC ] Lot #: [[id number]]
[2022-04-07 18:14] LABS: Glucose, Whole Blood 141 mg/dL (60-115)
[2022-04-07 20:07] LABS: Glucose, Whole Blood 214 mg/dL (60-115)
[2022-04-07 20:52] LABS: Vancomycin Random 12.5 mcg/mL (15-20)
[2022-04-07] MEDS: Metoprolol Tartrate 12.5 MG HALFTAB PO (21:49)
[2022-04-07] MEDS: 0.9 % Sodium Chloride Flush 3 ML SYRINGE IVFLUSH (21:49)
[2022-04-07] MEDS: Atorvastatin Calcium 80 MG TABLET PO (21:49)
[2022-04-07] MEDS: Heparin Sodium,Porcine Flush 50 UNITS, 0.9 % Sodium Chloride Flush 5 ML IVFLUSH (21:53)
[2022-04-07] MEDS: vancomycin HCL 1,500 MG in 0.9 % Sodium Chloride 500 ML 333.3 MG IV (23:06)
[2022-04-08] VITALS (7 sets, daily range): BP systolic 127–174; BP diastolic 63–77; PULSE 61–79; RESP 16–20; TEMP 36.1–37; O2SAT 92–100
[2022-04-08] MEDS: Piperacillin Sodium/Tazobactam 3.375 GM in 0.9 % Sodium Chloride 50 ML IV ×4 (01:49→20:51)
[2022-04-08] MEDS: HYDROcodone Bit/Acetam 5/325 TABLET 1 TAB PO ×2 (05:05→19:47)
[2022-04-08 07:24] LABS: Hemoglobin 10.1 g/dl (14.0-18.0); Mean Corpuscular HGB Conc 31.6 g/dl (31.0-36.0); Mean Corpuscular Hemoglobin 25.4 pg (27.0-33.0); Mean Corpuscular Volume 80.4 fL (80.0-98.0); Mean Platelet Volume 9.5 fL (9.4-12.4); Platelet Count 582 X10*3/uL (160-400); Red Blood Count 3.98 X10*6/uL (4.60-5.80); Red Cell Distribution Width 19.8 % (11.0-16.0)
[2022-04-08 07:27] LABS: Anion Gap 11 (12-20); Blood Urea Nitrogen 19 mg/dL (9-16); Calcium 8.4 mg/dL (8.4-10.2); Carbon Dioxide 26 mmol/L (22-29); Chloride 104 mmol/L (96-108); Creatinine Clr Calc Pharmacy 76.6; Estimated Glomerular Filt Rate > 60; Glucose Random 109 mg/dL (60-115); Potassium 4.6 mmol/L (3.3-5.1); Sodium 136 mmol/L (135-145)
[2022-04-08 07:35] LABS: Glucose, Whole Blood 117 mg/dL (60-115)
[2022-04-08] MEDS: 0.9 % Sodium Chloride Flush 10 ML SYRINGE 5 ML IVFLUSH ×3 (09:02→22:47)
[2022-04-08] MEDS: Metoprolol Tartrate 12.5 MG HALFTAB PO ×2 (09:03→19:54)
[2022-04-08] MEDS: Clopidogrel Bisulfate 75 MG TABLET PO (09:03)
[2022-04-08] MEDS: Aspirin 81 MG TAB.CHEW PO (09:03)
[2022-04-08] MEDS: Ferrous Sulfate 324 MG TABLET.DR PO (09:03)
[2022-04-08] MEDS: Insulin Glargine,Hum.rec.anlog 100 UNIT/ML 10 ML VIAL 17 UNIT SUBCUT (09:03)
[2022-04-08] MEDS: lisinopriL 10 MG TABLET PO (09:03)
[2022-04-08 11:11] LABS: Glucose, Whole Blood 261 mg/dL (60-115)
--- NOTE | 2022-04-08 13:03 | MHC.CM.PN ---
IMM 04/05 DP 6 weeks IV ABX. PT Eval qualifies Pt for STR. Patient preferences obtained and referrals have been sent. A VM was left for Pts dtr. A return call was requested for DP. CM will follow for placement.
[2022-04-08] MEDS: Insulin Lispro 100 UNIT/ML 3 ML VIAL SUBCUT (13:22)
[2022-04-08] MEDS: Enoxaparin Sodium 40 MG/0.4 ML SYRINGE SUBCUT (13:23)
--- NOTE | 2022-04-08 13:44 | HO.PM.IMPN ---
Subjective Subjective Date of Service: 04/08/22 Interval History: pain controlled no fever no chest pain Review of Systems Review of Systems: Yes all other systems are reviewed and are negative Physical Exam Vital Signs: Vital Signs: Last Vital Signs Temp 97.4 F 04/08/22 11:48 Pulse 61 04/08/22 11:48 Resp 18 04/08/22 11:48 BP 174/72 H 04/08/22 11:48 Pulse Ox 98 04/08/22 11:48 O2 Del Method 04/08/22 11:48 O2 Flow Rate 2 04/04/22 16:01 BMI result Body Mass Index 31.3 Gen: in no acute distress HEENT: sclera anicteric, pale mucosa Neck: supple Lungs: clear to auscultation bilaterally Heart: regular rate and rhythm, no murmurs Abd: soft, non-tender, non-distended Ext: no edema, RUE PICC Skin: warm/well-perfused, L TMA, erythema of plantar surface and heel, L calf swollen Neuro: alert, mildly confused Psych: appropriate affect ? Objective Data Active Medications Acetaminophen (Acetaminophen 325 Mg Tablet) 650 mg PO Q6H PRN PRN Reason: Pain, Mild (Pain Scale 1-3) Last Admin: 04/06/22 15:39 Dose: 650 mg Documented By: RICKY Hydrocodone Bitart/Acetaminophen (Hydrocodone Bit/Acetam 5/325 Tablet) 1 tab PO Q6H PRN PRN Reason: Severe Pain (Scale Score 7-10) Last Admin: 04/08/22 05:05 Dose: 1 tab Documented By: MOISES Aspirin (Aspirin 81 Mg Tab.Chew) 81 mg PO DAILY [facility] Last Admin: 04/08/22 09:03 Dose: 81 mg Documented By: BHANU Atorvastatin Calcium (Atorvastatin Calcium 80 Mg Tablet) 80 mg PO BEDTIME [facility] Last Admin: 04/07/22 21:49 Dose: 80 mg Documented By: MOISES Clopidogrel Bisulfate (Clopidogrel Bisulfate 75 Mg Tablet) 75 mg PO DAILY [facility] Last Admin: 04/08/22 09:03 Dose: 75 mg Documented By: BHANU Dextrose (Dextrose 50 % 25 Gm/50 Ml Syringe) 25 gm IVPUSH Q15M PRN; Protocol PRN Reason: per Hypoglycemia Standing Ord. Docusate Sodium (Docusate Sodium 100 Mg Capsule) 100 mg PO DAILY PRN PRN Reason: Constipation Enoxaparin Sodium (Enoxaparin Sodium 40 Mg/0.4 Ml Syringe) 40 mg SUBCUT Q24H [facility] Last Admin: 04/08/22 13:23 Dose: 40 mg Documented By: BHANU Ferrous Sulfate (Ferrous Sulfate 324 Mg Tablet.Dr) 324 mg PO DAILY [facility] Last Admin: 04/08/22 09:03 Dose: 324 mg Documented By: BHANU Glucose (Glucose Gel 15 Gm Gel..Gram.) 15 gm PO Q15M PRN; Protocol PRN Reason: per Hypoglycemia Standing Ord. Piperacillin Sod/Tazobactam (Sod 3.375 gm/ Sodium Chloride) 50 mls @ 100 mls/hr IV Q6H [facility] Last Infusion: 04/08/22 09:59 Dose: 0 mls/hr Documented By: BHANU Vancomycin HCl 1,500 mg/ (Sodium Chloride) 500 mls @ 333.333 mls/hr IV Q24H [facility] Last Infusion: 04/08/22 00:43 Dose: 0 mls/hr Documented By: MOISES Insulin Glargine (Insulin Glargine,Hum.Rec.Anlog 100 Unit/Ml 10 Ml Vial) 17 unit SUBCUT DAILY [facility] Last Admin: 04/08/22 09:03 Dose: 17 unit Documented By: BHANU Insulin Human Lispro (Insulin Lispro 100 Unit/Ml 3 Ml Vial) 0 unit SUBCUT QIDACHS [facility]; Protocol Last Admin: 04/08/22 13:22 Dose: 6 unit Documented By: BHANU Lisinopril (Lisinopril 10 Mg Tablet) 10 mg PO DAILY [facility]; Protocol Last Admin: 04/08/22 09:03 Dose: 10 mg Documented By: BHANU Lorazepam (Lorazepam 0.5 Mg Tablet) 0.5 mg PO DAILY PRN PRN Reason: Anxiety Last Admin: 04/06/22 05:05 Dose: 0.5 mg Documented By: BETHEL Metoprolol Tartrate (Metoprolol Tartrate 12.5 Mg Halftab) 12.5 mg PO BID [facility]; Protocol Last Admin: 04/08/22 09:03 Dose: 12.5 mg Documented By: BHANU Ondansetron HCl (Ondansetron Hcl 4 Mg/2 Ml Vial) 4 mg IVPUSH Q8H PRN PRN Reason: Nausea and Vomiting Pharmacy Consult (Consult Rx Vancomycin Dosing) 1 each MISCELLANE DAILY PRN PRN Reason: Consult order Sodium Chloride (0.9 % Sodium Chloride Flush 3 Ml Syringe) 3 ml IVFLUSH QSHIFT [facility] Last Admin: 04/08/22 08:52 Dose: Not Given Documented By: BHANU Non-Admin Reason: picc Sodium Chloride (0.9 % Sodium Chloride Flush 10 Ml Syringe) 5 ml IVFLUSH TID [facility] Last Admin: 04/08/22 09:02 Dose: 5 ml Documented By: BHANU Labs 04/08/22 06:51 04/08/22 06:51 Labs: Laboratory Results - last 24 hr 04/07/22 04/07/22 04/07/22 18:10 19:57 20:02 MCV MCH MCHC RDW Plt Count MPV Absolute Nucleated RBC Nucleated RBC % (auto) Anion Gap Estim Creat Clear Calc Estimated GFR POC Glucose 141 H 214 H Random Glucose Calcium Random Vancomycin 12.5 L 04/08/22 04/08/22 04/08/22 06:51 06:51 07:30 MCV 80.4 MCH 25.4 L MCHC 31.6 RDW 19.8 H Plt Count 582 H MPV 9.5 Absolute Nucleated RBC 0.000 Nucleated RBC % (auto) 0.0 Anion Gap 11 L Estim Creat Clear Calc 76.6 Estimated GFR > 60 POC Glucose 117 H Random Glucose 109 Calcium 8.4 Random Vancomycin 04/08/22 11:03 MCV MCH MCHC RDW Plt Count MPV Absolute Nucleated RBC Nucleated RBC % (auto) Anion Gap Estim Creat Clear Calc Estimated GFR POC Glucose 261 H Random Glucose Calcium Random Vancomycin Assessment and Plan (1) NSTEMI (non-ST elevated myocardial infarction): Status: Acute (2) Cellulitis: Status: Acute (3) Anemia: Status: Acute Plan hospital d#5 81 year-old male with a PMH significant for?HTN, insulin-dependent diabetes, PAD s/p toe amputations followed by wound clinic, and hx of osteomyelitis who presents to the ED with?left lower leg swelling, redness of foot, and generalized weakness. Admitted for DM foot infection, complicated by NSTEMI and incidental radiologic findings of inguinal adenopathy, pulmonary nodule, and liver neoplasm # NSTEMI - TTE shows WMAs, possibly represents hibernating/stunned myocardium or possible infarcted segment - likely demand ischemia, d/c'ed heparin per Cardiology, continue aspirin + clopidogrel + statin, added metoprolol, outpt Cardiology f/u # DM osteomyelitis of TMA stump - vanco + pip-valeria d#5, not bacteremic, PICC placed and per ID will need 6 wk of IV ABX likely daptomycin # acute/chronic ANT/ACD - FOBT negative, transfused total 4u pRBCs. PO Fe repletion. Hematology consulted. Hb now >10 # HTN - lisinopril, metoprolol # PAD - DAPT, statin # lung nodule - 1.3 cm ground-glass/subsolid RLL nodule, repeat CT 6-12 months ? # right liver lobe hypervascular lesion 0.9 cm - hemangioma vs other hypervascular lesion; consider outpt multiphase liver MRI # retroperitoneal + iliac LAD - LDH elevated, will consult Heme-Onc. outpt PET-CT vs repeat CT in 3 mo # DM2 - basal-bolus insulin # VTE ppx: LMWH # dispo: will need STR In my clinical judgment, the patient requires continued inpatient hospitalization for the following reasons: IV ABX I updated the pt's daughter Lupe by phone Time Spent With Patient Time: Total time managing care of this patient today _45___ minutes. Quality Stroke Does the patient have a stroke diagnosis?: No VTE Prior VTE?: No VTE Risk Level:: Medical - moderate - high VTE Device Contraindication: Treatment Not Indicated VTE Drug Contraindication: N/A - Med Ordered
[2022-04-08 15:51] LABS: Glucose, Whole Blood 150 mg/dL (60-115)
[2022-04-08] MEDS: LORazepam 0.5 MG TABLET PO (19:47)
[2022-04-08] MEDS: Atorvastatin Calcium 80 MG TABLET PO (19:48)
[2022-04-08 20:16] LABS: Glucose, Whole Blood 144 mg/dL (60-115)
--- NOTE | 2022-04-08 22:37 | PM.EVENT ---
Event Note Date of Service: 04/08/22 Event Note: Nurse informed me that patient had a large bloody bowel movement. Discontinuing Lovenox, aspirin and Plavix. Resuscitating with IV crystalloids and ordered IV Protonix. Consulting GI. Obtain H&H and closely monitor hemodynamics Time Spent With Patient Time: Total time managing care of this patient today ____ minutes.
--- NOTE | 2022-04-08 22:39 | PC.NURSE ---
large bloody stool with clots , DR Villarreal notified , will hold lovenox,aspirin and plavix . Labs ordered , protonix fluids
[2022-04-08 22:59] LABS: Hematocrit 24.9 % (42.0-52.0)
[2022-04-08] MEDS: Pantoprazole Sodium 40 MG/10 ML VIAL 80 MG IVPUSH (23:03)
[2022-04-08] MEDS: 0.9 % Sodium Chloride 1,000 ML 999 ML IV (23:04)
[2022-04-09] VITALS (12 sets, daily range): BP systolic 120–218; BP diastolic 61–88; PULSE 68–94; RESP 16–20; TEMP 35.9–37.1; O2SAT 96–99
[2022-04-09] MEDS: 0.9 % Sodium Chloride Flush 3 ML SYRINGE IVFLUSH ×4 (00:20→22:54)
[2022-04-09] MEDS: vancomycin HCL 1,500 MG in 0.9 % Sodium Chloride 500 ML 333.33 MG IV (00:20)
[2022-04-09] MEDS: Piperacillin Sodium/Tazobactam 3.375 GM in 0.9 % Sodium Chloride 50 ML IV ×4 (02:33→22:54)
[2022-04-09] MEDS: OLANZapine 10 MG VIAL IM (03:29)
--- NOTE | 2022-04-09 04:48 | PC.NURSE ---
Addendum entered by Andi Florentino RN 04/09/22 06:08: CONTINUED AGITATION AND COMBATIVENES--CONTINUES WITH MULTIPLE BLOODY STOOLS--MD UPDATED--ATIVAN 1 MG IV GIVEN PER MD---LABS DRAWN VIA PICC LINE AND CURRENTLY PENDING--BP/HR STABLE Original Note: CARE ASSUMED 23;15...AWAKE..DISORIENTED ..AGITATED AND COMBATIVE..ATTEMPTING TO CLIMB OOB AND/OR PULL ON PICC LINE...MULTIPLE SMALL TO MODERATE BLOODY STOOLS...PREVIOUSLY PLAVIX/LOVENOX/ASA D/C'D AND RECEIVED PROTONIX IV PER APR....HS H/H 8.0/24.9...DR ANGELO UPDATED....FOR 5AM CBC AND TYPE AND SCREEN...BP/HR STABLE OVERNIGHT...ZYPREXA 10MG IM X1 PER 03:30 TO FACILITATE PATIENT PARTICIPATION IN CARE AND TO PROTECT IV ACCESS...REMAINS AGITATED DESPITE ZYPREXA..1:1 SITTER REMAINS AT BEDSIDE FOR PATIENT/LINE SAFETY...NSR..NO ECTOPY
[2022-04-09] MEDS: LORazepam 2 MG/ML VIAL 1 MG IVPUSH ×2 (05:10→09:04)
[2022-04-09 05:46] LABS: Creatinine Clr Calc Pharmacy 79.4; Estimated Glomerular Filt Rate > 60
[2022-04-09 05:54] LABS: Basophils Percent Auto 0.2 % (0-2); Eosinophils Absolute Auto 0.3 X10*3/uL (0.0-0.4); Eosinophils Percent Auto 1.6 % (0-4); Hematocrit 25.1 % (42.0-52.0); Hemoglobin 7.9 g/dl (14.0-18.0); Imm Gran Abs Auto 0.28 X10*3/uL (0.00-0.03); Imm Gran Pct Auto 1.6 % (0.0-0.4); Lymphocytes Absolute Auto 2.7 X10*3/uL (1.2-4.9); Lymphocytes Percent Auto 15.3 % (20-40); MANUAL DIFF FLAG SCAN; Mean Corpuscular HGB Conc 31.5 g/dl (31.0-36.0); Mean Corpuscular Hemoglobin 25.6 pg (27.0-33.0); Mean Corpuscular Volume 81.2 fL (80.0-98.0); Mean Platelet Volume 9.7 fL (9.4-12.4); Monocytes Absolute Auto 1.6 X10*3/uL (0.1-1.2); Monocytes Percent Auto 9.3 % (2-11); Neutrophils Absolute Auto 12.8 x10*3/uL (2.0-8.3); Platelet Count 509 X10*3/uL (160-400); Red Blood Count 3.09 X10*6/uL (4.60-5.80); Red Cell Distribution Width 20.3 % (11.0-16.0); SCAN SMEAR FLAG 1; White Blood Count 17.7 X10*3/uL (4.8-10.8)
[2022-04-09 06:18] LABS: SLIDE REVIEW VERIFIED
[2022-04-09 07:27] LABS: Glucose, Whole Blood 104 mg/dL (60-115)
[2022-04-09] MEDS: 0.9 % Sodium Chloride Flush 10 ML SYRINGE 5 ML IVFLUSH ×2 (08:46→15:46)
[2022-04-09] MEDS: Pantoprazole Sodium 40 MG/10 ML VIAL IVPUSH ×2 (08:46→18:07)
[2022-04-09] MEDS: Insulin Glargine,Hum.rec.anlog 100 UNIT/ML 10 ML VIAL 17 UNIT SUBCUT (08:47)
--- NOTE | 2022-04-09 08:49 | PM.EVENT ---
Event Note Date of Service: 04/09/22 Event Note: GI Consult-Full note dictated-D/W RN and Hospitalist, EMR reviewed Imp: Acute GI bleeding with maroon liquid stools while on ASA, Heparin, and Plavix for underlying CAD and PVD. Diff DX: Probable lower GI bleed--Ischemic colitis, Diverticular bleed: UGI bleed less likely Rec: Hold all blood thinners, check stat PT/CBC/LFT's/BMP/Ammonia, correct any coagulopathy, CTA of abdomen, IV PPI. May need transfer to ICU if he becomes unstable. May need EGD/Colonoscopy pending clinical course. Thanks Time Spent With Patient Time: Total time managing care of this patient today ____ minutes.
[2022-04-09 09:37] LABS: Hematocrit 25.2 % (42.0-52.0); Hemoglobin 7.8 g/dl (14.0-18.0)
[2022-04-09 09:48] LABS: Ammonia 32 umol/L (13-55)
[2022-04-09 09:49] LABS: INTERNATIONAL NORM RATIO 1.1 (0.9-1.1); Prothrombin Time 13.2 SEC (10.0-13.1)
[2022-04-09 09:54] LABS: Alanine Aminotransferase 30 U/L (0-40); Albumin Level 2.4 g/dL (3.5-5.0); Alkaline Phosphatase 120 U/L (39-117); Anion Gap 12 (12-20); Aspartate Amino Transferase 29 U/L (5-37); Bilirubin Direct 0.2 mg/dL (0.0-0.5); Bilirubin Total 0.5 mg/dL (0.0-1.0); Blood Urea Nitrogen 20 mg/dL (9-16); Calcium 7.8 mg/dL (8.4-10.2); Carbon Dioxide 25 mmol/L (22-29); Chloride 106 mmol/L (96-108); Creatinine Clr Calc Pharmacy 84.6; Estimated Glomerular Filt Rate > 60; Glucose Random 109 mg/dL (60-115); Potassium 4.6 mmol/L (3.3-5.1); Sodium 138 mmol/L (135-145); Total Protein 5.3 g/dL (6.5-8.0)
[2022-04-09 11:20] LABS: Glucose, Whole Blood 131 mg/dL (60-115)
--- NOTE | 2022-04-09 11:52 | P.PNIM_ITS ---
Subjective Subjective Date of Service: 04/09/22 Interval History: large bloody BM last night; Lovenox, ASA, and Plavix discontinued; Hgb 8 another large bloody BM this morning; Hgb 7.9 pt confused, combative, agitated Review of Systems Review of Systems: Yes Unobtainable due to mental status Physical Exam Vital Signs: Vital Signs: Last Vital Signs Temp 96.9 F 04/09/22 10:12 Pulse 68 04/09/22 10:12 Resp 18 04/09/22 10:12 BP 218/88 H 04/09/22 10:12 Pulse Ox 99 04/09/22 07:35 O2 Del Method 04/09/22 07:35 O2 Flow Rate 2 04/09/22 07:35 BMI result Body Mass Index 31.3 Gen: agitated, delirious HEENT: sclera anicteric, moist mucus membranes Neck: supple Lungs: clear to auscultation bilaterally Heart: regular rate and rhythm, no murmurs Abd: soft, non-tender, non-distended, large bloody BM Ext: L calf swollen, L knee swollen, L TMA stump with dressing; erythema resolved Skin: warm/well-perfused Neuro: alert, delirious Psych: impaired insight Objective Data Active Medications Acetaminophen (Acetaminophen 325 Mg Tablet) 650 mg PO Q6H PRN PRN Reason: Pain, Mild (Pain Scale 1-3) Last Admin: 04/06/22 15:39 Dose: 650 mg Documented By: RICKY Hydrocodone Bitart/Acetaminophen (Hydrocodone Bit/Acetam 5/325 Tablet) 1 tab PO Q6H PRN PRN Reason: Severe Pain (Scale Score 7-10) Last Admin: 04/08/22 19:47 Dose: 1 tab Documented By: ROSY Atorvastatin Calcium (Atorvastatin Calcium 80 Mg Tablet) 80 mg PO BEDTIME JOSE E Last Admin: 04/08/22 19:48 Dose: 80 mg Documented By: ROSY Dextrose (Dextrose 50 % 25 Gm/50 Ml Syringe) 25 gm IVPUSH Q15M PRN; Protocol PRN Reason: per Hypoglycemia Standing Ord. Docusate Sodium (Docusate Sodium 100 Mg Capsule) 100 mg PO DAILY PRN PRN Reason: Constipation Glucose (Glucose Gel 15 Gm Gel..Gram.) 15 gm PO Q15M PRN; Protocol PRN Reason: per Hypoglycemia Standing Ord. Piperacillin Sod/Tazobactam (Sod 3.375 gm/ Sodium Chloride) 50 mls @ 100 mls/hr IV Q6H [facility] Last Infusion: 04/09/22 09:26 Dose: 0 mls/hr Documented By: THALIA Vancomycin HCl 1,500 mg/ (Sodium Chloride) 500 mls @ 333.333 mls/hr IV Q24H [facility] Last Infusion: 04/09/22 02:27 Dose: 0 mls/hr Documented By: ALEJANDRA Insulin Glargine (Insulin Glargine,Hum.Rec.Anlog 100 Unit/Ml 10 Ml Vial) 17 unit SUBCUT DAILY [facility] Last Admin: 04/09/22 08:47 Dose: 17 unit Documented By: THALIA Insulin Human Lispro (Insulin Lispro 100 Unit/Ml 3 Ml Vial) 0 unit SUBCUT QIDACHS [facility]; Protocol Last Admin: 04/09/22 07:44 Dose: Not Given Documented By: THALIA Non-Admin Reason: No Insulin Coverage Lisinopril (Lisinopril 10 Mg Tablet) 10 mg PO DAILY [facility]; Protocol Last Admin: 04/09/22 08:30 Dose: Not Given Documented By: THALIA Non-Admin Reason: NPO Lorazepam (Lorazepam 0.5 Mg Tablet) 0.5 mg PO DAILY PRN PRN Reason: Anxiety Last Admin: 04/08/22 19:47 Dose: 0.5 mg Documented By: ROSY Metoprolol Tartrate (Metoprolol Tartrate 12.5 Mg Halftab) 12.5 mg PO BID [facility]; Protocol Last Admin: 04/09/22 08:30 Dose: Not Given Documented By: THALIA Non-Admin Reason: NPO Ondansetron HCl (Ondansetron Hcl 4 Mg/2 Ml Vial) 4 mg IVPUSH Q8H PRN PRN Reason: Nausea and Vomiting Pantoprazole Sodium (Pantoprazole Sodium 40 Mg/10 Ml Vial) 40 mg IVPUSH BID@06 30,1630 [facility] Last Admin: 04/09/22 08:46 Dose: 40 mg Documented By: THALIA Pharmacy Consult (Consult Rx Vancomycin Dosing) 1 each MISCELLANE DAILY PRN PRN Reason: Consult order Sodium Chloride (0.9 % Sodium Chloride Flush 3 Ml Syringe) 3 ml IVFLUSH QSHIFT [facility] Last Admin: 04/09/22 08:46 Dose: 3 ml Documented By: THALIA Sodium Chloride (0.9 % Sodium Chloride Flush 10 Ml Syringe) 5 ml IVFLUSH TID [facility] Last Admin: 04/09/22 08:46 Dose: 5 ml Documented By: THALIA Labs 04/09/22 05:26 04/09/22 09:07 Labs: Laboratory Results - last 24 hr 04/08/22 04/08/22 04/09/22 15:24 20:12 05:26 MCV MCH MCHC RDW Plt Count MPV Immature Gran % (Auto) Neut % (Auto) Lymph % (Auto) [place] % (Auto) Eos % (Auto) Baso % (Auto) Lymph # (Auto) [place] # (Auto) Eos # (Auto) Baso # (Auto) Abs Immat Gran (auto) Absolute Neuts (auto) Absolute Nucleated RBC Nucleated RBC % (auto) Smear Tech's Comments PT INR Anion Gap Estim Creat Clear Calc 79.4 Estimated GFR > 60 POC Glucose 150 H 144 H Random Glucose Calcium Total Bilirubin Direct Bilirubin AST ALT Alkaline Phosphatase Ammonia Total Creatine Kinase 174 C-Reactive Protein 3.30 H Total Protein Albumin Blood Type Antibody Screen Crossmatch 04/09/22 04/09/22 04/09/22 05:26 05:26 07:20 MCV 81.2 MCH 25.6 L MCHC 31.5 RDW 20.3 H Plt Count 509 H MPV 9.7 Immature Gran % (Auto) 1.6 H Neut % (Auto) 72.0 Lymph % (Auto) 15.3 L [place] % (Auto) 9.3 Eos % (Auto) 1.6 Baso % (Auto) 0.2 Lymph # (Auto) 2.7 [place] # (Auto) 1.6 H Eos # (Auto) 0.3 Baso # (Auto) 0.0 Abs Immat Gran (auto) 0.28 H Absolute Neuts (auto) 12.8 H Absolute Nucleated RBC 0.000 Nucleated RBC % (auto) 0.0 Smear Tech's Comments VERIFIED PT INR Anion Gap Estim Creat Clear Calc Estimated GFR POC Glucose 104 Random Glucose Calcium Total Bilirubin Direct Bilirubin AST ALT Alkaline Phosphatase Ammonia Total Creatine Kinase C-Reactive Protein Total Protein Albumin Blood Type O Negative Antibody Screen NEGATIVE Crossmatch See Detail 04/09/22 04/09/22 04/09/22 09:07 09:07 09:07 MCV MCH MCHC RDW Plt Count MPV Immature Gran % (Auto) Neut % (Auto) Lymph % (Auto) [place] % (Auto) Eos % (Auto) Baso % (Auto) Lymph # (Auto) [place] # (Auto) Eos # (Auto) Baso # (Auto) Abs Immat Gran (auto) Absolute Neuts (auto) Absolute Nucleated RBC Nucleated RBC % (auto) Smear Tech's Comments PT 13.2 H INR 1.1 Anion Gap 12 Estim Creat Clear Calc 84.6 Estimated GFR > 60 POC Glucose Random Glucose 109 Calcium 7.8 L D Total Bilirubin 0.5 Direct Bilirubin 0.2 AST 29 ALT 30 Alkaline Phosphatase 120 H Ammonia 32 Total Creatine Kinase C-Reactive Protein Total Protein 5.3 L Albumin 2.4 L Blood Type Antibody Screen Crossmatch 04/09/22 11:15 MCV MCH MCHC RDW Plt Count MPV Immature Gran % (Auto) Neut % (Auto) Lymph % (Auto) [place] % (Auto) Eos % (Auto) Baso % (Auto) Lymph # (Auto) [place] # (Auto) Eos # (Auto) Baso # (Auto) Abs Immat Gran (auto) Absolute Neuts (auto) Absolute Nucleated RBC Nucleated RBC % (auto) Smear Tech's Comments PT INR Anion Gap Estim Creat Clear Calc Estimated GFR POC Glucose 131 H Random Glucose Calcium Total Bilirubin Direct Bilirubin AST ALT Alkaline Phosphatase Ammonia Total Creatine Kinase C-Reactive Protein Total Protein Albumin Blood Type Antibody Screen Crossmatch Assessment and Plan (1) NSTEMI (non-ST elevated myocardial infarction): Status: Acute (2) Cellulitis: Status: Acute (3) Anemia: Status: Acute Plan hospital d#6 81 year-old male with a PMH significant for?HTN, insulin-dependent diabetes, PAD s/p toe amputations followed by wound clinic, and hx of osteomyelitis who presen ts to the ED with?left lower leg swelling, redness of foot, and generalized weakness. Admitted for DM foot infection, complicated by NSTEMI. Incidental radiologic findings of inguinal adenopathy, pulmonary nodule, and liver neoplasm. Developed acute GI bleed on 04/08/22 # acute blood loss anemia due to GI bleeding - transfuse another 2u pRBCs. NPO, IV PPI, GI consulted. Plan CT angio A/P. May require EGD/C-scope. Hold all anticoagulant and antiplatelet agents. Per daughter pt has never had scope in past. # acute metabolic encephalopathy - due to GI bleeding. # DM osteomyelitis of TMA stump - vanco + pip-valeria d#6, not bacteremic, PICC placed and per ID will need 6 wk of IV ABX to cover MRSA. Probably not daptomycin due to interaction with high-dose statin, which pt needs for medical management of NSTEMI/CAD. # NSTEMI - TTE shows WMAs, possibly represents hibernating/stunned myocardium or possible infarcted segment - likely demand ischemia, d/c'ed heparin on 04/06 per Cardiology, HOLD aspirin + clopidogrel due to GIB, continue high-intensity statin + metoprolol, outpt Cardiology f/u for ischemic workup when acute medical issues resolve # acute/chronic ANT/ACD - transfused total 4u pRBCs prior to GI bleed [he was FOBT negative on 04/04/22]. transfusing another 2 units now. PO Fe repletion. Hematology consulted. goal Hb 10+ given NSTEMI # HTN - lisinopril, metoprolol # PAD - HOLD DAPT, continue statin # DM2 - basal-bolus insulin INCIDENTALOMAS: # lung nodule - 1.3 cm ground-glass/subsolid RLL nodule, repeat CT 6-12 months ? # retroperitoneal + iliac LAD - LDH elevated but likely reactive to foot infection. outpt PET-CT vs repeat CT in 3 mo. outpt Heme/Onc f/u. # right liver lobe hypervascular lesion 0.9 cm - hemangioma vs other hypervascular lesion; consider outpt multiphase liver MRI # VTE ppx: LMWH # dispo: will need STR eventually In my clinical judgment, the patient requires continued inpatient hospitalization for the following reasons: GIB, IV ABX I updated the pt's daughter Lupe by phone Time Spent With Patient Time: Total time managing care of this patient today __60__ minutes. Quality Stroke Does the patient have a stroke diagnosis?: No VTE Prior VTE?: No VTE Risk Level:: Medical - moderate - high VTE Device Contraindication: Treatment Not Indicated VTE Drug Contraindication: N/A - Med Ordered
[2022-04-09 12:44] LABS: Alanine Aminotransferase 33 U/L (0-40); Albumin Level 2.4 g/dL (3.5-5.0); Alkaline Phosphatase 130 U/L (39-117); Anion Gap 10 (12-20); Aspartate Amino Transferase 30 U/L (5-37); Bilirubin Total 1.4 mg/dL (0.0-1.0); Blood Urea Nitrogen 19 mg/dL (9-16); Calcium 7.8 mg/dL (8.4-10.2); Carbon Dioxide 26 mmol/L (22-29); Chloride 105 mmol/L (96-108); Creatinine Clr Calc Pharmacy 82.4; Estimated Glomerular Filt Rate > 60; Glucose Random 138 mg/dL (60-115); Potassium 4.8 mmol/L (3.3-5.1); Sodium 136 mmol/L (135-145); Total Protein 5.2 g/dL (6.5-8.0)
[2022-04-09] MEDS: OLANZapine 10 MG VIAL 5 MG IM (13:00)
--- NOTE | 2022-04-09 13:02 | HO.VASCPN ---
Subjective Subjective Date of Service: 04/09/22 Interval history: Complex 81-year-old gentleman presents for follow-up regarding nonhealing left foot ulcer. He has decompensated over the last day or 2. He is significantly confused. He is not wearing any clothes and Rips everything off when seen. He has been transfused blood and had an episode of a massive GI bleed. He is currently undergoing workup for this. In addition he continues to have this foot ulcer and being treated for that as well. He now presents for follow-up. Physical Exam Vital Signs: Vital Signs: Last Vital Signs Temp 97.3 F 04/09/22 12:36 Pulse 75 04/09/22 12:36 Resp 19 04/09/22 12:36 BP 146/80 H 04/09/22 12:36 Pulse Ox 99 04/09/22 07:35 O2 Del Method 04/09/22 07:35 O2 Flow Rate 2 04/09/22 07:35 BMI result Body Mass Index 31.3 Const: General: combative and confusion Orientation/consciousness: confusion Limitations: altered mental status HEENT: Head: Yes normal to inspection Neck: Carotids: no bruits Chest: Chest palpation & inspection: normal inspection of the chest Resp: Effort & Inspection: normal respiratory effort and able to speak in complete sentences Auscultation: clear to auscultation bilaterally Cardio: Rate: regular rate Heart sounds: S1 normal heart sound present and S2 normal heart sound present GI: Inspection: Yes normal to inspection Skin: Other: Transmetatarsal amputation of the foot lateral aspect appears to be healing well plantar aspect is boggy open area with surrounding cellulitis. No fluctuant areas noted. General skin exam: no rashes or lesions noted Wounds: no wounds Neuro: General: CN's II-XI intact bilaterally and confusion Extrem: General: Yes normal to inspection, Yes full ROM and Yes no clubbing, cyanosis or edema Psych: Appearance: grossly normal and well kempt Speech and movement: Normal speech and movement present Affect: normal affect Progress Note: A&P Assessment and plan (1) Ulcer of left foot due to type 2 diabetes mellitus: Status: Acute Assessment and Plan: In short patient has a diabetic foot ulcer. He is at risk of amputation of this leg. I would like to give this a conservative attempt. More importantly he has multiple issues going on right now. He has significant confusion and GI bleed. I do not think he would tolerate any sort of surgery at the current time. Would manage this as conservatively as possible. Continue with local wound care and IV antibiotic therapy. This case was discussed in detail with the patient's daughter Lupe who was quite understanding of the situation. She is awaiting results of CT angiogram. Thank you for allowing us to participate in his care. Time Spent With Patient Time: Total time managing care of this patient today ____ minutes. Procedures Date of Service Date of Service: 04/09/22 Quality Stroke Does the patient have a stroke diagnosis?: No VTE Prior VTE?: No VTE Risk Level:: Medical - moderate - high VTE Device Contraindication: Treatment Not Indicated VTE Drug Contraindication: N/A - Med Ordered
[2022-04-09 13:11] LABS: Ammonia 27 umol/L (13-55)
[2022-04-09 16:09] LABS: Glucose, Whole Blood 135 mg/dL (60-115)
[2022-04-09] MEDS: LORazepam 2 MG/ML VIAL IVPUSH (16:55)
[2022-04-09 17:00] LABS: Hematocrit 30.5 % (42.0-52.0); Hemoglobin 10.1 g/dl (14.0-18.0)
[2022-04-09] MEDS: iohexoL 350 MG/ML 100 ML INFUS..BTL IV (17:10)
[2022-04-09 19:51] LABS: Glucose, Whole Blood 118 mg/dL (60-115)
[2022-04-09 20:30] LABS: Hematocrit 29.6 % (42.0-52.0); Hemoglobin 9.8 g/dl (14.0-18.0)
[2022-04-09 20:47] LABS: Vancomycin Random 12.5 mcg/mL (15-20)
--- NOTE | 2022-04-09 20:55 | HE.PHANOTE ---
Vancomycin Dosing Level 12.5 today. Renal function is stable. Continue current regimen. Next level 3/4 @ 1999. Chana OleaD
[2022-04-09] MEDS: vancomycin HCL 1,500 MG in 0.9 % Sodium Chloride 500 ML 333.3 MG IV (23:47)
[2022-04-10] VITALS (8 sets, daily range): BP systolic 147–184; BP diastolic 62–92; PULSE 63–81; RESP 20; TEMP 35.9–36.4; O2SAT 94–99
[2022-04-10] MEDS: Piperacillin Sodium/Tazobactam 3.375 GM in 0.9 % Sodium Chloride 50 ML IV ×4 (01:50→20:37)
[2022-04-10] MEDS: OLANZapine 10 MG VIAL 5 MG IM ×2 (03:19→16:58)
[2022-04-10] MEDS: Pantoprazole Sodium 40 MG/10 ML VIAL IVPUSH (05:37)
[2022-04-10 07:23] LABS: Hematocrit 29.9 % (42.0-52.0); Hemoglobin 9.9 g/dl (14.0-18.0); Mean Corpuscular HGB Conc 33.1 g/dl (31.0-36.0); Mean Corpuscular Hemoglobin 27.1 pg (27.0-33.0); Mean Corpuscular Volume 81.9 fL (80.0-98.0); Mean Platelet Volume 9.2 fL (9.4-12.4); Platelet Count 448 X10*3/uL (160-400); Red Blood Count 3.65 X10*6/uL (4.60-5.80); Red Cell Distribution Width 19.5 % (11.0-16.0); White Blood Count 16.8 X10*3/uL (4.8-10.8)
[2022-04-10 07:25] LABS: Glucose, Whole Blood 87 mg/dL (60-115)
[2022-04-10 07:58] LABS: Anion Gap 14 (12-20); Blood Urea Nitrogen 15 mg/dL (9-16); Calcium 8.2 mg/dL (8.4-10.2); Carbon Dioxide 24 mmol/L (22-29); Chloride 105 mmol/L (96-108); Creatinine Clr Calc Pharmacy 85.7; Estimated Glomerular Filt Rate > 60; Glucose Random 93 mg/dL (60-115); Potassium 4.5 mmol/L (3.3-5.1); Sodium 138 mmol/L (135-145)
[2022-04-10] MEDS: 0.9 % Sodium Chloride Flush 3 ML SYRINGE IVFLUSH ×2 (08:07→15:03)
[2022-04-10] MEDS: Insulin Glargine,Hum.rec.anlog 100 UNIT/ML 10 ML VIAL 17 UNIT SUBCUT (08:07)
[2022-04-10] MEDS: 0.9 % Sodium Chloride Flush 10 ML SYRINGE 5 ML IVFLUSH ×3 (08:08→20:41)
[2022-04-10] MEDS: HYDROcodone Bit/Acetam 5/325 TABLET 1 TAB PO ×2 (09:47→23:26)
--- NOTE | 2022-04-10 09:58 | CONS_ITS ---
DATE OF SERVICE: 04/09/2022 REASON FOR CONSULTATION: GI bleeding. HISTORY OF PRESENT ILLNESS: This has been obtained from the patient's nurse, the hospitalist, and the medical record. The patient is a 81-year-old male with multiple underlying medical problems, who was admitted to the hospital on April 04 for problems including swelling and redness of his left lower extremity and weakness, as well as some shortness of breath. His underlying medical problem includes insulin-dependent diabetes mellitus, peripheral vascular disease for which he is followed by Dr. Johnson, and osteomyelitis. At the time of admission, he had a hemoglobin of 5.3 and did receive transfusions. At that time, his stool was hemoccult negative and there was no obvious bleeding. He does have a chronic anemia, but usually not that low. He was found to have elevated troponins on admission as well. Since admission, he has been on antibiotics and did rule in for a [id number] MS. He had been on heparin, but this was switched over to aspirin and Plavix. He was seen by Cardiology. His hemoglobin was 10.1 on April 08. He was not having any particular GI symptoms at that time. However, on the night of April 08 and into early this morning, April 09, he began having rectal bleeding with maroon liquid stool. There was no report of any vomiting nor abdominal pain. He remained hemodynamically stable, but became more confused. At the time of my assessment today, he is quite agitated and not responding to any questions. His blood thinners have been stopped as of last night. His hemoglobin was 7.9 this morning with a BUN of 20. He did have a normal PT with INR. There is no record of his having had a colonoscopy nor upper endoscopy here. His present medications had included the Plavix, low-dose aspirin, and Lovenox as of last evening but those were all stopped when the bleeding started. Other current medications include acetaminophen, atorvastatin, Colace, insulin, lisinopril, lorazepam, metoprolol, Zyprexa, IV pantoprazole, IV Zosyn, IV vancomycin. PAST MEDICAL HISTORY: Peripheral vascular disease with amputation of a portion of his left foot and vascular surgery. Insulin-dependent diabetes mellitus. Hypertension. Hyperlipidemia. Osteomyelitis. There is no reported history of stroke nor significant pulmonary disease. SOCIAL HISTORY: He is a . REVIEW OF SYSTEMS: Not obtainable due to his poor mental status at this time. PHYSICAL EXAMINATION: GENERAL: The patient is pale, elderly male. Exam was limited due to his agitation. SKIN: Warm and dry. ABDOMEN: Soft. Normal bowel sounds. Nondistended and nontender. LABORATORY DATA: Laboratories as above. He does have a CT angiogram of the abdomen that is currently still pending and has not yet been done. White blood cell count was 17.7 this morning with a hemoglobin of 7.9. His hemoglobin last evening at the onset of bleeding was 8.0 and repeat at 2 a.m. was 7.8. His hemoglobin yesterday morning before the bleeding was 10.1. Platelets 509,000 this morning. PT 13.2 with INR 1.1 this morning. Normal electrolytes BUN 19, creatinine 0.8 this afternoon. LFTs were normal.. IMPRESSION: The patient is an elderly male with multiple medical problems including peripheral vascular disease and now ruling in for an acute myocardial infarction who has been on blood thinners during the first several days of his hospitalization and now presenting with what appears to be a lower gastrointestinal bleed overnight. At the present time, the clinical history seems most suggestive of a lower gastrointestinal source given the maroon liquid stool, normal BUN, and no report of any vomiting. His abdominal exam is benign. His laboratories other than anemia looked reassuring in regard to the normal PT with INR, normal renal function, and normal LFT's. I suspect the etiology of the lower gastrointestinal bleed is that of either ischemic colitis, despite being on the blood thinners, or diverticular disease. I doubt this represents a neoplasm given the description of the bleeding. Again, I doubt this is an upper gastrointestinal bleed given the normal BUN and the report of no vomiting nor melena. At this point, I would agree with the current management of holding all blood thinners and following the hemoglobin closely. At this point, I do not think he needs any vitamin K or FFP given the normal PT with INR. If bleeding continues, he may benefit from a platelet transfusion given the fact that he had been on Plavix and aspirin. However, if there is no active bleeding, I would hold off on a platelet transfusion. I also see that he has been ordered for a CT angiogram of the abdomen in regard to the acute gastrointestinal bleed. I think that is a reasonable idea to see if that can help delineate any specific site of the bleeding. At this point, I would hold off on any endoscopic intervention given the fact that he had been on multiple blood thinners and appears to be hemodynamically stable at this time. Again, I do not think an upper endoscopy is needed given that I do not think this is an upper gastrointestinal bleed. Urgent colonoscopy during acute bleeding may be of very low yield and benefits, and therefore I would hold off on that as well. I would continue to follow his laboratories closely including a CBC, chemistries, and PT with INR. I would continue his IV PPI, even though I do not think it is an acute upper gastrointestinal bleed, to treat any component of stress induced gastritis and or ulcer disease. If he becomes more unstable in regard to his bleeding he may need to transfer to the ICU as well. Again, I will not schedule him for an upper endoscopy or colonoscopy at this point, but we may need to reassess that depending upon his clinical course going forward. Thank you for the consultation. MD YRIS Weston/KAITY / [id number] GABE
[2022-04-10 11:29] LABS: Glucose, Whole Blood 100 mg/dL (60-115)
--- NOTE | 2022-04-10 12:17 | PM.GIPN ---
Subjective Subjective Date of Service: 04/10/22 Interval History: History from RN, EMR, and patient. No reported bleeding overnight or today. Patient seems calmer than yesterday. He denies abdominal pain. Critical Care Time (minutes): 0 Physical Exam Vital Signs: Vital Signs: Last Vital Signs Temp 97.5 F 04/10/22 11:24 Pulse 68 04/10/22 11:24 Resp 20 04/10/22 11:24 BP 147/83 H 04/10/22 11:24 Pulse Ox 96 04/10/22 11:24 O2 Del Method 04/10/22 11:24 O2 Flow Rate 2 04/09/22 07:35 BMI result Body Mass Index 31.3 Const: Other: Alert, appears comfortable, denies abdominal pain GI: Other: Abd-soft, +BS, NT, Nondistended Objective Data Labs 04/10/22 07:09 04/10/22 07:09 Labs: Laboratory Results - last 24 hr 04/09/22 04/09/22 04/09/22 02:28 05:26 05:26 WBC RBC Hgb 9.8 L D 7.9 L Hct 29.6 L 25.1 L MCV MCH MCHC RDW Plt Count MPV Absolute Nucleated RBC Nucleated RBC % (auto) Sodium Potassium Chloride Carbon Dioxide Anion Gap BUN Creatinine Estim Creat Clear Calc Estimated GFR POC Glucose Random Glucose Calcium Total Bilirubin AST ALT Alkaline Phosphatase Ammonia Total Protein Albumin Random Vancomycin Blood Type O Negative Antibody Screen NEGATIVE Crossmatch See Detail 04/09/22 04/09/22 04/09/22 12:17 12:17 16:05 WBC RBC Hgb Hct MCV MCH MCHC RDW Plt Count MPV Absolute Nucleated RBC Nucleated RBC % (auto) Sodium 136 Potassium 4.8 Chloride 105 Carbon Dioxide 26 Anion Gap 10 L BUN 19 H Creatinine 0.78 Estim Creat Clear Calc 82.4 Estimated GFR > 60 POC Glucose 135 H Random Glucose 138 H Calcium 7.8 L Total Bilirubin 1.4 H AST 30 ALT 33 Alkaline Phosphatase 130 H Ammonia 27 Total Protein 5.2 L Albumin 2.4 L Random Vancomycin Blood Type Antibody Screen Crossmatch 04/09/22 04/09/22 04/09/22 16:42 19:45 19:58 WBC RBC Hgb 10.1 L D Hct 30.5 L D MCV MCH MCHC RDW Plt Count MPV Absolute Nucleated RBC Nucleated RBC % (auto) Sodium Potassium Chloride Carbon Dioxide Anion Gap BUN Creatinine Estim Creat Clear Calc Estimated GFR POC Glucose 118 H Random Glucose Calcium Total Bilirubin AST ALT Alkaline Phosphatase Ammonia Total Protein Albumin Random Vancomycin 12.5 L Blood Type Antibody Screen Crossmatch 04/10/22 04/10/22 04/10/22 07:09 07:09 07:22 WBC 16.8 H RBC 3.65 L Hgb 9.9 L Hct 29.9 L MCV 81.9 MCH 27.1 MCHC 33.1 RDW 19.5 H Plt Count 448 H MPV 9.2 L Absolute Nucleated RBC 0.000 Nucleated RBC % (auto) 0.0 Sodium 138 Potassium 4.5 Chloride 105 Carbon Dioxide 24 Anion Gap 14 BUN 15 Creatinine 0.75 Estim Creat Clear Calc 85.7 Estimated GFR > 60 POC Glucose 87 Random Glucose 93 Calcium 8.2 L Total Bilirubin AST ALT Alkaline Phosphatase Ammonia Total Protein Albumin Random Vancomycin Blood Type Antibody Screen Crossmatch 04/10/22 11:25 WBC RBC Hgb Hct MCV MCH MCHC RDW Plt Count MPV Absolute Nucleated RBC Nucleated RBC % (auto) Sodium Potassium Chloride Carbon Dioxide Anion Gap BUN Creatinine Estim Creat Clear Calc Estimated GFR POC Glucose 100 Random Glucose Calcium Total Bilirubin AST ALT Alkaline Phosphatase Ammonia Total Protein Albumin Random Vancomycin Blood Type Antibody Screen Crossmatch Microbiology Microbiology Results: Microbiology 04/04/22 17:14 Blood - Venous Blood Culture - Final No growth after 5 days. 04/04/22 17:14 Blood - Venous Blood Culture - Final No growth after 5 days. Procedures Date of Service Date of Service: 04/10/22 Progress Note: A&P Assessment and plan (1) Lower GI bleed: Status: Acute Plan Imp: Lower GI bleed-presently stable without further active bleeding and stable Hgb after transfusions yesterday. His CTA of the abdomen yesterday was negative as well. Given his associated vascular disease he may very well have had ischemic colitis. A diverticular bleed is another possibility. I don't think this was an UGI bleed. Rec: Observe, F/U CBC, diet as tolerated for now. I would recommend holding his blood thinners for as long as possible, but I'm aware of his PVD and CAD so I would leave that decision up to his medical team. Change IV PPI to po. Given his overall condition with multiple comorbidities, I would hold off on any endoscopic workup at this time. Please call me if problems or questions. [facility] is covering over the weekend. Thanks Time Spent With Patient Time: Total time managing care of this patient today ____ minutes. Quality Stroke Does the patient have a stroke diagnosis?: No VTE Prior VTE?: No VTE Risk Level:: Medical - moderate - high VTE Device Contraindication: Treatment Not Indicated VTE Drug Contraindication: N/A - Med Ordered
--- NOTE | 2022-04-10 13:42 | P.PNIM_ITS ---
Subjective Subjective Date of Service: 04/10/22 Interval History: Seen in follow-up for osteomyelitis, NSTEMI, lower GI bleed Interval history: Nursing reporting patient had another large bloody bowel movement early this afternoon. H/H this morning was stable. He has no complaints at this time. Aspirin and Plavix still on hold. Review of Systems Review of Systems: Yes all other systems are reviewed and are negative Physical Exam Vital Signs: Vital Signs: Last Vital Signs Temp 97.5 F 04/10/22 11:24 Pulse 68 04/10/22 11:24 Resp 20 04/10/22 11:24 BP 147/83 H 04/10/22 11:24 Pulse Ox 96 04/10/22 11:24 O2 Del Method 04/10/22 11:24 O2 Flow Rate 2 04/09/22 07:35 BMI result Body Mass Index 31.3 Constitutional - Awake and Alert, No apparent distress Eyes - PERRLA, EOMI Cardiovascular - S1S2, RRR, No edema Respiratory - Normal lung expansion, Normal respiratory effort, No respiratory distress, CTA bilaterally Gastrointestinal - NT / ND; +BS; No rebound or guarding Extremities - no calf tenderness bilaterally, no swelling Skin - Warm/Dry Neurological - Alert & oriented x3, CN II-XII in tact, 5/5 strength BUE and BLE Psychological - Appropriate affect Objective Data Active Medications Acetaminophen (Acetaminophen 325 Mg Tablet) 650 mg PO Q6H PRN PRN Reason: Pain, Mild (Pain Scale 1-3) Last Admin: 04/06/22 15:39 Dose: 650 mg Documented By: RICKY Hydrocodone Bitart/Acetaminophen (Hydrocodone Bit/Acetam 5/325 Tablet) 1 tab PO Q6H PRN PRN Reason: Severe Pain (Scale Score 7-10) Last Admin: 04/10/22 09:47 Dose: 1 tab Documented By: THALIA Atorvastatin Calcium (Atorvastatin Calcium 80 Mg Tablet) 80 mg PO BEDTIME JOSE E Last Admin: 04/09/22 22:51 Dose: Not Given Documented By: FARRUKH Non-Admin Reason: NPO Dextrose (Dextrose 50 % 25 Gm/50 Ml Syringe) 25 gm IVPUSH Q15M PRN; Protocol PRN Reason: per Hypoglycemia Standing Ord. Docusate Sodium (Docusate Sodium 100 Mg Capsule) 100 mg PO DAILY PRN PRN Reason: Constipation Glucose (Glucose Gel 15 Gm Gel..Gram.) 15 gm PO Q15M PRN; Protocol PRN Reason: per Hypoglycemia Standing Ord. Piperacillin Sod/Tazobactam (Sod 3.375 gm/ Sodium Chloride) 50 mls @ 100 mls/hr IV Q6H [facility] Last Admin: 04/10/22 13:05 Dose: 100 mls/hr Documented By: ANYA Vancomycin HCl 1,500 mg/ (Sodium Chloride) 500 mls @ 333.333 mls/hr IV Q24H [facility] Last Infusion: 04/10/22 01:49 Dose: 0 mls/hr Documented By: FARRUKH Insulin Glargine (Insulin Glargine,Hum.Rec.Anlog 100 Unit/Ml 10 Ml Vial) 17 unit SUBCUT DAILY [facility] Last Admin: 04/10/22 08:07 Dose: 17 unit Documented By: THALIA Insulin Human Lispro (Insulin Lispro 100 Unit/Ml 3 Ml Vial) 0 unit SUBCUT QIDACHS [facility]; Protocol Last Admin: 04/10/22 11:51 Dose: Not Given Documented By: ANYA Non-Admin Reason: No Insulin Coverage Lisinopril (Lisinopril 10 Mg Tablet) 10 mg PO DAILY [facility]; Protocol Last Admin: 04/10/22 07:55 Dose: Not Given Documented By: THALIA Non-Gibson Reason: NPO Lorazepam (Lorazepam 0.5 Mg Tablet) 0.5 mg PO DAILY PRN PRN Reason: Anxiety Last Admin: 04/08/22 19:47 Dose: 0.5 mg Documented By: ROSY Metoprolol Tartrate (Metoprolol Tartrate 12.5 Mg Halftab) 12.5 mg PO BID [facility]; Protocol Last Admin: 04/10/22 07:55 Dose: Not Given Documented By: THALIA Non-Admin Reason: NPO Olanzapine (Olanzapine 10 Mg Vial) 5 mg IM Q12H PRN PRN Reason: agitated delirium Last Admin: 04/10/22 03:19 Dose: 5 mg Documented By: FARRUKH Ondansetron HCl (Ondansetron Hcl 4 Mg/2 Ml Vial) 4 mg IVPUSH Q8H PRN PRN Reason: Nausea and Vomiting Pantoprazole Sodium (Pantoprazole Sodium 40 Mg/10 Ml Vial) 40 mg IVPUSH BID@1209,3178 [facility] Last Admin: 04/10/22 05:37 Dose: 40 mg Documented By: FARRUKH Pharmacy Consult (Consult Rx Vancomycin Dosing) 1 each MISCELLANE DAILY PRN PRN Reason: Consult order Sodium Chloride (0.9 % Sodium Chloride Flush 3 Ml Syringe) 3 ml IVFLUSH QSHIFT [facility] Last Admin: 04/10/22 08:07 Dose: 3 ml Documented By: THALIA Sodium Chloride (0.9 % Sodium Chloride Flush 10 Ml Syringe) 5 ml IVFLUSH TID [facility] Last Admin: 04/10/22 08:08 Dose: 5 ml Documented By: THALIA Labs 04/10/22 07:09 04/10/22 07:09 Labs: Laboratory Results - last 24 hr 04/09/22 04/09/22 04/09/22 05:26 16:05 19:45 MCV MCH MCHC RDW Plt Count MPV Absolute Nucleated RBC Nucleated RBC % (auto) Anion Gap Estim Creat Clear Calc Estimated GFR POC Glucose 135 H 118 H Random Glucose Calcium Random Vancomycin Crossmatch See Detail 04/09/22 04/10/22 04/10/22 19:58 07:09 07:09 MCV 81.9 MCH 27.1 MCHC 33.1 RDW 19.5 H Plt Count 448 H MPV 9.2 L Absolute Nucleated RBC 0.000 Nucleated RBC % (auto) 0.0 Anion Gap 14 Estim Creat Clear Calc 85.7 Estimated GFR > 60 POC Glucose Random Glucose 93 Calcium 8.2 L Random Vancomycin 12.5 L Crossmatch 04/10/22 04/10/22 07:22 11:25 MCV MCH MCHC RDW Plt Count MPV Absolute Nucleated RBC Nucleated RBC % (auto) Anion Gap Estim Creat Clear Calc Estimated GFR POC Glucose 87 100 Random Glucose Calcium Random Vancomycin Crossmatch Microbiology Microbiology Results: Microbiology 04/04/22 17:14 Blood Culture - Final Blood - Venous No growth after 5 days. 04/04/22 17:14 Blood Culture - Final Blood - Venous No growth after 5 days. Assessment and Plan (1) NSTEMI (non-ST elevated myocardial infarction): Status: Acute (2) Cellulitis: Status: Acute (3) Anemia: Status: Acute Plan hospital d#7 81 year-old male with a PMH significant for?HTN, insulin-dependent diabetes, PAD s/p toe amputations followed by wound clinic, and hx of osteomyelitis who prese nts to the ED with?left lower leg swelling, redness of foot, and generalized weakness. Admitted for DM foot infection, complicated by NSTEMI. Incidental radiologic findings of inguinal adenopathy, pulmonary nodule, and liver neoplasm. Developed acute GI bleed on 04/08/22 # acute blood loss anemia due to GI bleeding -Continue PPI, changed to p.o. -per GI, given comorbidities, hold off on any endoscopic workup at this time -patient with large bloody bowel movement this afternoon. Check H/H now. Change to NPO, CTA abd/pelvis ordered per GI -continue holding aspirin and Plavix -Appreciate GI input # acute metabolic encephalopathy - due to GI bleeding. # DM osteomyelitis of TMA stump - vanco + pip-valeria d#7, not bacteremic, PICC placed and per ID will need 6 wk of IV ABX to cover MRSA. Probably not daptomycin due to interaction with high-dose statin, which pt needs for medical management of NSTEMI/CAD. # NSTEMI - TTE shows WMAs, possibly represents hibernating/stunned myocardium or possible infarcted segment - likely demand ischemia, d/c'ed heparin on 04/06 per Cardiology, HOLD aspirin + clopidogrel due to GIB, continue high-intensity statin + metoprolol, outpt Cardiology f/u for ischemic workup when acute medical issues resolve # acute/chronic ANT/ACD - transfused total 4u pRBCs prior to GI bleed [he was FOBT negative on 04/04/22]. Received addl 2 units. PO Fe repletion. Hematology consulted and will follow up on discharge. goal Hb 10+ given NSTEMI # HTN - lisinopril, metoprolol # PAD - HOLD DAPT, continue statin # DM2 - basal-bolus insulin INCIDENTALOMAS: # lung nodule - 1.3 cm ground-glass/subsolid RLL nodule, repeat CT 6-12 months ? # retroperitoneal + iliac LAD - LDH elevated but likely reactive to foot infection. outpt PET-CT vs repeat CT in 3 mo. outpt Heme/Onc f/u. # right liver lobe hypervascular lesion 0.9 cm - hemangioma vs other hypervascular lesion; consider outpt multiphase liver MRI # VTE ppx: LMWH # dispo: will need STR eventually In my clinical judgment, the patient requires continued inpatient hospitalization for the following reasons: GIB, IV ABX I updated the pt's daughter Lupe by phone Time Spent With Patient Time: Total time managing care of this patient today ____ minutes. Quality Stroke Does the patient have a stroke diagnosis?: No VTE Prior VTE?: No VTE Risk Level:: Medical - moderate - high VTE Device Contraindication: Treatment Not Indicated VTE Drug Contraindication: N/A - Med Ordered
[2022-04-10] MEDS: Metoprolol Tartrate 12.5 MG HALFTAB PO ×2 (16:23→20:43)
[2022-04-10] MEDS: Omeprazole 40 MG CAPSULE.DR PO (16:23)
[2022-04-10 16:32] LABS: Glucose, Whole Blood 123 mg/dL (60-115)
[2022-04-10 16:38] LABS: Hematocrit 30.2 % (42.0-52.0)
[2022-04-10] MEDS: lisinopriL 10 MG TABLET PO (16:50)
[2022-04-10] MEDS: iohexoL 350 MG/ML 100 ML INFUS..BTL IV (17:56)
[2022-04-10 20:12] LABS: Glucose, Whole Blood 102 mg/dL (60-115)
[2022-04-10] MEDS: vancomycin HCL 1,500 MG in 0.9 % Sodium Chloride 500 ML 333.3 MG IV (20:42)
[2022-04-10] MEDS: Atorvastatin Calcium 80 MG TABLET PO (20:43)
[2022-04-10 20:52] LABS: Hematocrit 29.5 % (42.0-52.0); Hemoglobin 9.8 g/dl (14.0-18.0)
[2022-04-10 21:37] LABS: Copper, serum 111 mcg/dL (70-175)
[2022-04-10] MEDS: LORazepam 0.5 MG TABLET PO (23:26)
[2022-04-10] MEDS: Acetaminophen 325 MG TABLET 650 MG PO (23:26)
[2022-04-11 04:00] VITALS: TEMP 36.1
[2022-04-11] MEDS: Omeprazole 40 MG CAPSULE.DR PO ×2 (06:06→16:47)
[2022-04-11] MEDS: Piperacillin Sodium/Tazobactam 3.375 GM in 0.9 % Sodium Chloride 50 ML IV ×4 (06:06→19:34)
[2022-04-11 06:25] LABS: MANUAL DIFF FLAG NO
--- NOTE | 2022-04-11 06:30 | PC.NURSE ---
Addendum entered by Daksha Arguello RN 04/11/22 06:36: supervisor coffee also notified. Original Note: Patient has been experiencing bloody stools 6x this shift, his BP is elevated, confused at baseline unable to maintain telemonitor on patient. Patient with known GI bleed from previous shifts, and MD aware, and hospitalist also made aware. H&H being drawn now and low from previous reading. Patient also unable to maintain antibiotic treatments, pulling on PICC line and observed by nurse and sitter intermittently to prevent. Restarted antibiotic treatment throughout shift to allow for most amount to be infused.
[2022-04-11 06:36] LABS: Basophils Percent Auto 0.2 % (0-2); Eosinophils Absolute Auto 0.2 X10*3/uL (0.0-0.4); Eosinophils Percent Auto 1.2 % (0-4); Hematocrit 31.1 % (42.0-52.0); Hemoglobin 10.2 g/dl (14.0-18.0); Imm Gran Abs Auto 0.15 X10*3/uL (0.00-0.03); Lymphocytes Absolute Auto 1.6 X10*3/uL (1.2-4.9); Lymphocytes Percent Auto 11.4 % (20-40); Mean Corpuscular HGB Conc 32.8 g/dl (31.0-36.0); Mean Corpuscular Hemoglobin 27.2 pg (27.0-33.0); Mean Corpuscular Volume 82.9 fL (80.0-98.0); Mean Platelet Volume 9.6 fL (9.4-12.4); Monocytes Absolute Auto 1.3 X10*3/uL (0.1-1.2); Monocytes Percent Auto 8.8 % (2-11); Neutrophils Absolute Auto 11.2 x10*3/uL (2.0-8.3); Neutrophils Percent Auto 77.4 % (45-73); Platelet Count 493 X10*3/uL (160-400); Red Blood Count 3.75 X10*6/uL (4.60-5.80); Red Cell Distribution Width 19.9 % (11.0-16.0); White Blood Count 14.4 X10*3/uL (4.8-10.8)
[2022-04-11 06:43] LABS: Anion Gap 13 (12-20); Blood Urea Nitrogen 13 mg/dL (9-16); Calcium 7.9 mg/dL (8.4-10.2); Carbon Dioxide 24 mmol/L (22-29); Chloride 106 mmol/L (96-108); Creatinine Clr Calc Pharmacy 93.2; Estimated Glomerular Filt Rate > 60; Glucose Random 61 mg/dL (60-115); Potassium 4.4 mmol/L (3.3-5.1); Sodium 139 mmol/L (135-145)
[2022-04-11] MEDS: Glucose Gel 15 GM GEL..GRAM. PO (07:20)
[2022-04-11 07:23] LABS: Glucose, Whole Blood 53 mg/dL (60-115)
[2022-04-11 07:55] LABS: Glucose, Whole Blood 55 mg/dL (60-115)
[2022-04-11 08:00] VITALS: BP 149/77; PULSE 58; RESP 18; TEMP 36.7; O2SAT 96
[2022-04-11] MEDS: Lactated Ringers 1,000 ML 80 ML IVCONT ×2 (08:11→19:34)
[2022-04-11] MEDS: 0.9 % Sodium Chloride Flush 3 ML SYRINGE IVFLUSH ×3 (08:15→23:57)
[2022-04-11 08:54] LABS: Glucose, Whole Blood 130 mg/dL (60-115)
--- NOTE | 2022-04-11 09:00 | PC.NURSE ---
0728. POC 53. Glucogel given, JEREMÍAS Nelson notified. Repeated POC 55. Gave D50. JEREMÍAS notified and started LR 80ml/ hr. Repeated POC 130.
[2022-04-11] MEDS: lisinopriL 10 MG TABLET PO (09:16)
[2022-04-11] MEDS: Metoprolol Tartrate 12.5 MG HALFTAB PO ×2 (09:16→21:19)
[2022-04-11 11:05] LABS: Glucose, Whole Blood 133 mg/dL (60-115)
[2022-04-11 12:00] VITALS: BP 150/72; PULSE 78; RESP 18; TEMP 36.7; O2SAT 96
--- NOTE | 2022-04-11 12:26 | P.PNIM_ITS ---
Subjective Subjective Date of Service: 04/11/22 Interval History: Seen in follow-up for osteomyelitis, NSTEMI, lower GI bleed Interval history: Pt had another large blood bm overnight. Blood is dark. CTA abd negative for active GI bleed or ischemic colitis. H/H continues to improve. He has no complaints at this time. Aspirin and Plavix still on hold. Review of Systems Review of Systems: Yes all other systems are reviewed and are negative Physical Exam Vital Signs: Vital Signs: Last Vital Signs Temp 98.0 F 04/11/22 08:00 Pulse 58 04/11/22 08:00 Resp 18 04/11/22 08:00 BP 149/77 H 04/11/22 08:00 Pulse Ox 96 04/11/22 08:00 O2 Del Method 04/10/22 23:29 O2 Flow Rate 2 04/09/22 07:35 BMI result Body Mass Index 31.3 Constitutional - Awake and Alert, No apparent distress Eyes - PERRLA, EOMI Cardiovascular - S1S2, RRR, No edema Respiratory - Normal lung expansion, Normal respiratory effort, No respiratory distress, CTA bilaterally Gastrointestinal - NT / ND; +BS; No rebound or guarding Rectal: Weak rectal tone. Small nonthrombosed external hemorrhoid without obvious bleeding. No palpable internal hemorrhoids.No stool in rectal vault. Significant dark maroon blood appreciated on glove and bedding Extremities - no calf tenderness bilaterally, no swelling Skin - Warm/Dry Neurological - Alert & oriented x2 Psychological - Appropriate affect Objective Data Active Medications Acetaminophen (Acetaminophen 325 Mg Tablet) 650 mg PO Q6H PRN PRN Reason: Pain, Mild (Pain Scale 1-3) Last Admin: 04/10/22 23:26 Dose: 650 mg Documented By: LUC Hydrocodone Bitart/Acetaminophen (Hydrocodone Bit/Acetam 5/325 Tablet) 1 tab PO Q6H PRN PRN Reason: Severe Pain (Scale Score 7-10) Last Admin: 04/10/22 23:26 Dose: 1 tab Documented By: LUC Atorvastatin Calcium (Atorvastatin Calcium 80 Mg Tablet) 80 mg PO BEDTIME JOSE E Last Admin: 04/10/22 20:43 Dose: 80 mg Documented By: LUC Dextrose (Dextrose 50 % 25 Gm/50 Ml Vial) 25 gm IVPUSH Q15M PRN; Protocol PRN Reason: per Hypoglycemia Standing Ord. Last Admin: 04/11/22 08:12 Dose: 25 gm Documented By: MODESTO Docusate Sodium (Docusate Sodium 100 Mg Capsule) 100 mg PO DAILY PRN PRN Reason: Constipation Glucose (Glucose Gel 15 Gm Gel..Gram.) 15 gm PO Q15M PRN; Protocol PRN Reason: per Hypoglycemia Standing Ord. Last Admin: 04/11/22 07:20 Dose: 15 gm Documented By: MODESTO Lactated Ringer's (Lr) 1,000 mls @ 80 mls/hr IVCONT .[id number] [facility] Last Infusion: 04/11/22 10:14 Dose: 0 mls/hr Documented By: MODESTO Piperacillin Sod/Tazobactam (Sod 3.375 gm/ Sodium Chloride) 50 mls @ 100 mls/hr IV Q6H [facility] Last Infusion: 04/11/22 09:46 Dose: 0 mls/hr Documented By: MODESTO Vancomycin HCl 1,500 mg/ (Sodium Chloride) 500 mls @ 333.333 mls/hr IV Q24H [facility] Last Infusion: 04/11/22 00:02 Dose: 0 mls/hr Documented By: LUC Insulin Glargine (Insulin Glargine,Hum.Rec.Anlog 100 Unit/Ml 10 Ml Vial) 17 unit SUBCUT DAILY [facility] Last Admin: 04/11/22 08:01 Dose: Not Given Documented By: MODESTO Non-Admin Reason: POC 55- PA notified- held med Insulin Human Lispro (Insulin Lispro 100 Unit/Ml 3 Ml Vial) 0 unit SUBCUT QIDACHS [facility]; Protocol Last Admin: 04/11/22 11:15 Dose: Not Given Documented By: MODESTO Non-Admin Reason: No Insulin Coverage Lisinopril (Lisinopril 10 Mg Tablet) 10 mg PO DAILY [facility]; Protocol Last Admin: 04/11/22 09:16 Dose: 10 mg Documented By: MODESTO Lorazepam (Lorazepam 0.5 Mg Tablet) 0.5 mg PO DAILY PRN PRN Reason: Anxiety Last Admin: 04/10/22 23:26 Dose: 0.5 mg Documented By: LUC Metoprolol Tartrate (Metoprolol Tartrate 12.5 Mg Halftab) 12.5 mg PO BID [facility]; Protocol Last Admin: 04/11/22 09:16 Dose: 12.5 mg Documented By: MODESTO Olanzapine (Olanzapine 10 Mg Vial) 5 mg IM Q12H PRN PRN Reason: agitated delirium Last Admin: 04/10/22 16:58 Dose: 5 mg Documented By: THALIA Omeprazole (Omeprazole 40 Mg Capsule.Dr) 40 mg PO BID@0630,1630 [facility] Last Admin: 04/11/22 06:06 Dose: 40 mg Documented By: LUC Ondansetron HCl (Ondansetron Hcl 4 Mg/2 Ml Vial) 4 mg IVPUSH Q8H PRN PRN Reason: Nausea and Vomiting Pharmacy Consult (Consult Rx Vancomycin Dosing) 1 each MISCELLANE DAILY PRN PRN Reason: Consult order Sodium Chloride (0.9 % Sodium Chloride Flush 3 Ml Syringe) 3 ml IVFLUSH QSHIFT [facility] Last Admin: 04/11/22 08:15 Dose: 3 ml Documented By: MODESTO Sodium Chloride (0.9 % Sodium Chloride Flush 10 Ml Syringe) 5 ml IVFLUSH TID [facility] Last Admin: 04/11/22 08:16 Dose: Not Given Documented By: MODESTO Non-Admin Reason: Previously Administered Labs 04/11/22 06:21 04/11/22 06:21 Labs: Laboratory Results - last 24 hr 04/08/22 04/10/22 04/10/22 11:32 16:25 20:06 MCV MCH MCHC RDW Plt Count MPV Immature Gran % (Auto) Neut % (Auto) Lymph % (Auto) [place] % (Auto) Eos % (Auto) Baso % (Auto) Lymph # (Auto) [place] # (Auto) Eos # (Auto) Baso # (Auto) Abs Immat Gran (auto) Absolute Neuts (auto) Absolute Nucleated RBC Nucleated RBC % (auto) Anion Gap Estim Creat Clear Calc Estimated GFR POC Glucose 123 H 102 Random Glucose Calcium Serum [place]pper 111 04/11/22 04/11/22 04/11/22 06:21 06:21 07:15 MCV 82.9 MCH 27.2 MCHC 32.8 RDW 19.9 H Plt Count 493 H MPV 9.6 Immature Gran % (Auto) 1.0 H Neut % (Auto) 77.4 H Lymph % (Auto) 11.4 L [place] % (Auto) 8.8 Eos % (Auto) 1.2 Baso % (Auto) 0.2 Lymph # (Auto) 1.6 [place] # (Auto) 1.3 H Eos # (Auto) 0.2 Baso # (Auto) 0.0 Abs Immat Gran (auto) 0.15 H Absolute Neuts (auto) 11.2 H Absolute Nucleated RBC 0.000 Nucleated RBC % (auto) 0.0 Anion Gap 13 Estim Creat Clear Calc 93.2 Estimated GFR > 60 POC Glucose 53 L* Random Glucose 61 Calcium 7.9 L Serum Copper 04/11/22 04/11/22 04/11/22 07:51 08:51 10:58 MCV MCH MCHC RDW Plt Count MPV Immature Gran % (Auto) Neut % (Auto) Lymph % (Auto) [place] % (Auto) Eos % (Auto) Baso % (Auto) Lymph # (Auto) [place] # (Auto) Eos # (Auto) Baso # (Auto) Abs Immat Gran (auto) Absolute Neuts (auto) Absolute Nucleated RBC Nucleated RBC % (auto) Anion Gap Estim Creat Clear Calc Estimated GFR POC Glucose 55 L* 130 H 133 H Random Glucose Calcium Serum [place] Assessment and Plan (1) NSTEMI (non-ST elevated myocardial infarction): Status: Acute (2) Cellulitis: Status: Acute (3) Anemia: Status: Acute Plan hospital d#8 81 year-old male with a PMH significant for?HTN, insulin-dependent diabetes, PAD s/p toe amputations followed by wound clinic, and hx of osteomyelitis who presents to the ED with?left lower leg swelling, redness of foot, and generalized weakness. Admitted for DM foot infection, complicated by NSTEMI. Incidental radiologic findings of inguinal adenopathy, pulmonary nodule, and liver neoplasm. Developed acute GI bleed on 04/08/22 # acute blood loss anemia due to GI bleeding -Continue PPI, changed to p.o. -per GI, given comorbidities, hold off on any endoscopic workup at this time -Despite ongoing bloody BMs and blood noted on rectal exam, H/H continues to improve. This is likely old blood -CTA abd/pelvis repeated yesterday without acute findingsChange to NPO, CTA abd/pelvis ordered per GI -continue holding aspirin and Plavix -Appreciate GI input # acute metabolic encephalopathy - due to GI bleeding. # DM osteomyelitis of TMA stump - vanco + pip-valeria d#8, not bacteremic, PICC placed and per ID will need 6 wk of IV ABX to cover MRSA. Probably not daptomycin due to interaction with high-dose statin, which pt needs for medical management of NSTEMI/CAD. # NSTEMI - TTE shows WMAs, possibly represents hibernating/stunned myocardium or possible infarcted segment - likely demand ischemia, d/c'ed heparin on 04/06 per Cardiology, HOLD aspirin + clopidogrel due to GIB, continue high-intensity statin + metoprolol, outpt Cardiology f/u for ischemic workup when acute medical issues resolve # acute/chronic ANT/ACD - transfused total 4u pRBCs prior to GI bleed [he was FOBT negative on 04/04/22]. Received addl 2 units. PO Fe repletion. Hematology consulted and will follow up on discharge. goal Hb 10+ given NSTEMI # HTN - lisinopril, metoprolol # PAD - HOLD DAPT, continue statin # DM2 - basal-bolus insulin INCIDENTALOMAS: # lung nodule - 1.3 cm ground-glass/subsolid RLL nodule, repeat CT 6-12 months ? # retroperitoneal + iliac LAD - LDH elevated but likely reactive to foot infection. outpt PET-CT vs repeat CT in 3 mo. PSA normal. outpt Heme/Onc f/u. # right liver lobe hypervascular lesion 0.9 cm - hemangioma vs other hypervascular lesion; consider outpt multiphase liver MRI # VTE ppx: LMWH # dispo: will need STR eventually In my clinical judgment, the patient requires continued inpatient hospitalization for the following reasons: GIB, IV ABX I updated the pt's daughter Lupe by phone Time Spent With Patient Time: Total time managing care of this patient today ____ minutes. Quality Stroke Does the patient have a stroke diagnosis?: No VTE Prior VTE?: No VTE Risk Level:: Medical - moderate - high VTE Device Contraindication: Treatment Not Indicated VTE Drug Contraindication: N/A - Med Ordered
[2022-04-11] MEDS: HYDROcodone Bit/Acetam 5/325 TABLET 1 TAB PO (13:51)
[2022-04-11] MEDS: 0.9 % Sodium Chloride Flush 10 ML SYRINGE 5 ML IVFLUSH ×2 (14:28→19:34)
[2022-04-11 15:31] VITALS: BP 186/77; PULSE 64; RESP 18; TEMP 36.2; O2SAT 96
[2022-04-11 16:26] LABS: Glucose, Whole Blood 104 mg/dL (60-115)
[2022-04-11] MEDS: amLODIPine Besylate 5 MG TABLET PO (16:47)
[2022-04-11 17:30] LABS: Hematocrit 32.1 % (42.0-52.0); Hemoglobin 10.5 g/dl (14.0-18.0)
[2022-04-11 19:21] VITALS: BP 153/67; PULSE 87; RESP 18; TEMP 36.5; O2SAT 97
[2022-04-11] MEDS: Atorvastatin Calcium 80 MG TABLET PO (19:37)
[2022-04-11 20:24] LABS: Glucose, Whole Blood 87 mg/dL (60-115)
[2022-04-11 20:43] LABS: Vancomycin Trough 11.1 mcg/mL (10.0-20.0)
--- NOTE | 2022-04-11 20:52 | HE.PHANOTE ---
vancomycin addendum tonights level came back at 11.1, predicted AUC is still 421 so is still therapeutic. Ordered new level in 2 days, if it further decreases can increase dose.
[2022-04-11] MEDS: vancomycin HCL 1,500 MG in 0.9 % Sodium Chloride 500 ML 333.3 MG IV (21:17)
[2022-04-11 23:17] VITALS: BP 166/72; PULSE 95; RESP 18; TEMP 36.7; O2SAT 95
[2022-04-12] VITALS (8 sets, daily range): BP systolic 142–182; BP diastolic 62–80; PULSE 58–90; RESP 14–20; TEMP 36.1–36.8; O2SAT 90–99
[2022-04-12] MEDS: Acetaminophen 325 MG TABLET 650 MG PO (00:22)
[2022-04-12] MEDS: LORazepam 0.5 MG TABLET PO (00:22)
--- NOTE | 2022-04-12 01:50 | PC.NURSE ---
incontinent maroon brown stool moderate
[2022-04-12] MEDS: Piperacillin Sodium/Tazobactam 3.375 GM in 0.9 % Sodium Chloride 50 ML IV ×4 (04:03→22:15)
[2022-04-12] MEDS: Omeprazole 40 MG CAPSULE.DR PO ×2 (05:52→17:06)
[2022-04-12 06:11] LABS: MANUAL DIFF FLAG NO
[2022-04-12 06:13] LABS: Basophils Percent Auto 0.3 % (0-2); Eosinophils Absolute Auto 0.2 X10*3/uL (0.0-0.4); Eosinophils Percent Auto 1.4 % (0-4); Hemoglobin 9.9 g/dl (14.0-18.0); Imm Gran Pct Auto 0.8 % (0.0-0.4); Lymphocytes Absolute Auto 1.4 X10*3/uL (1.2-4.9); Lymphocytes Percent Auto 11.7 % (20-40); Mean Corpuscular HGB Conc 31.9 g/dl (31.0-36.0); Mean Corpuscular Volume 84.5 fL (80.0-98.0); Mean Platelet Volume 9.6 fL (9.4-12.4); Monocytes Absolute Auto 0.8 X10*3/uL (0.1-1.2); Monocytes Percent Auto 6.9 % (2-11); Neutrophils Absolute Auto 9.3 x10*3/uL (2.0-8.3); Neutrophils Percent Auto 78.9 % (45-73); Platelet Count 568 X10*3/uL (160-400); Red Blood Count 3.67 X10*6/uL (4.60-5.80); Red Cell Distribution Width 20.6 % (11.0-16.0); White Blood Count 11.8 X10*3/uL (4.8-10.8)
[2022-04-12 06:31] LABS: Anion Gap 14 (12-20); Blood Urea Nitrogen 12 mg/dL (9-16); Carbon Dioxide 26 mmol/L (22-29); Chloride 104 mmol/L (96-108); Creatinine Clr Calc Pharmacy 94.6; Estimated Glomerular Filt Rate > 60; Glucose Random 68 mg/dL (60-115); Potassium 4.1 mmol/L (3.3-5.1); Sodium 140 mmol/L (135-145)
[2022-04-12] MEDS: Metoprolol Tartrate 12.5 MG HALFTAB PO ×2 (07:31→22:15)
[2022-04-12] MEDS: lisinopriL 10 MG TABLET PO (07:31)
[2022-04-12] MEDS: 0.9 % Sodium Chloride Flush 10 ML SYRINGE 5 ML IVFLUSH ×3 (07:32→22:17)
[2022-04-12] MEDS: 0.9 % Sodium Chloride Flush 3 ML SYRINGE IVFLUSH ×2 (07:32→16:06)
[2022-04-12 07:45] LABS: Glucose, Whole Blood 64 mg/dL (60-115)
[2022-04-12] MEDS: Lactated Ringers 1,000 ML 80 ML IVCONT (10:42)
[2022-04-12 11:21] LABS: Glucose, Whole Blood 68 mg/dL (60-115)
[2022-04-12 12:03] LABS: Hematocrit 29.1 % (42.0-52.0); Hemoglobin 9.5 g/dl (14.0-18.0)
--- NOTE | 2022-04-12 12:37 | P.PNIM_ITS ---
Subjective Subjective Date of Service: 04/12/22 Interval History: Seen in follow-up for osteomyelitis, NSTEMI, lower GI bleed Interval history: Multiple blood BMs yesterday, dark maroon, one this am. Pt has no complaints, unaware of bloody bms. Slight drop in h/h. Aspirin and Plavix still on hold. Review of Systems Review of Systems: Yes all other systems are reviewed and are negative Physical Exam Vital Signs: Vital Signs: Last Vital Signs Temp 96.9 F 04/12/22 07:10 Pulse 70 04/12/22 07:10 Resp 19 04/12/22 07:10 BP 142/72 H 04/12/22 07:10 Pulse Ox 95 04/12/22 07:10 O2 Del Method 04/12/22 07:10 O2 Flow Rate 2 04/09/22 07:35 BMI result Body Mass Index 31.3 Constitutional - Awake and Alert, No apparent distress Eyes - PERRLA, EOMI Cardiovascular - S1S2, RRR, No edema Respiratory - Normal lung expansion, Normal respiratory effort, No respiratory distress, CTA bilaterally Gastrointestinal - NT / ND; +BS; No rebound or guarding Extremities - no calf tenderness bilaterally, no swelling Skin - Warm/Dry Neurological - Alert & oriented to self, place, time. However, confused about situation unaware what brought him to hospital or rectal bleeding Psychological - Appropriate affect Objective Data Active Medications Acetaminophen (Acetaminophen 325 Mg Tablet) 650 mg PO Q6H PRN PRN Reason: Pain, Mild (Pain Scale 1-3) Last Admin: 04/12/22 00:22 Dose: 650 mg Documented By: KANDI Hydrocodone Bitart/Acetaminophen (Hydrocodone Bit/Acetam 5/325 Tablet) 1 tab PO Q6H PRN PRN Reason: Severe Pain (Scale Score 7-10) Last Admin: 04/11/22 13:51 Dose: 1 tab Documented By: MODESTO Atorvastatin Calcium (Atorvastatin Calcium 80 Mg Tablet) 80 mg PO BEDTIME JOSE E Last Admin: 04/11/22 19:37 Dose: 80 mg Documented By: KHUSHBU Dextrose (Dextrose 50 % 25 Gm/50 Ml Vial) 25 gm IVPUSH Q15M PRN; Protocol PRN Reason: per Hypoglycemia Standing Ord. Last Admin: 04/11/22 08:12 Dose: 25 gm Documented By: MODESTO Docusate Sodium (Docusate Sodium 100 Mg Capsule) 100 mg PO DAILY PRN PRN Reason: Constipation Glucose (Glucose Gel 15 Gm Gel..Gram.) 15 gm PO Q15M PRN; Protocol PRN Reason: per Hypoglycemia Standing Ord. Last Admin: 04/11/22 07:20 Dose: 15 gm Documented By: MODESTO Lactated Ringer's (Lr) 1,000 mls @ 80 mls/hr IVCONT .[id number] [facility] Last Admin: 04/12/22 10:42 Dose: 80 mls/hr Documented By: MODESTO Piperacillin Sod/Tazobactam (Sod 3.375 gm/ Sodium Chloride) 50 mls @ 100 mls/hr IV Q6H [facility] Last Infusion: 04/12/22 08:30 Dose: 0 mls/hr Documented By: MODESTO Vancomycin HCl 1,500 mg/ (Sodium Chloride) 500 mls @ 333.333 mls/hr IV Q24H [facility] Last Infusion: 04/11/22 23:04 Dose: 0 mls/hr Documented By: KHUSHBU Insulin Glargine (Insulin Glargine,Hum.Rec.Anlog 100 Unit/Ml 10 Ml Vial) 17 unit SUBCUT DAILY [facility] Last Admin: 04/12/22 07:48 Dose: Not Given Documented By: MODESTO Non-Admin Reason: [id number] notified-held med Insulin Human Lispro (Insulin Lispro 100 Unit/Ml 3 Ml Vial) 0 unit SUBCUT QIDACHS [facility]; Protocol Last Admin: 04/12/22 11:38 Dose: Not Given Documented By: MODESTO Non-Admin Reason: No Insulin Coverage Lisinopril (Lisinopril 10 Mg Tablet) 10 mg PO DAILY [facility]; Protocol Last Admin: 04/12/22 07:31 Dose: 10 mg Documented By: MODESTO Lorazepam (Lorazepam 0.5 Mg Tablet) 0.5 mg PO DAILY PRN PRN Reason: Anxiety Last Admin: 04/12/22 00:22 Dose: 0.5 mg Documented By: KANDI Metoprolol Tartrate (Metoprolol Tartrate 12.5 Mg Halftab) 12.5 mg PO BID [facility]; Protocol Last Admin: 04/12/22 07:31 Dose: 12.5 mg Documented By: MODESTO Olanzapine (Olanzapine 10 Mg Vial) 5 mg IM Q12H PRN PRN Reason: agitated delirium Last Admin: 04/10/22 16:58 Dose: 5 mg Documented By: THALIA Omeprazole (Omeprazole 40 Mg Capsule.) 40 mg PO BID@0630,1630 [facility] Last Admin: 04/12/22 05:52 Dose: 40 mg Documented By: KANDI Ondansetron HCl (Ondansetron Hcl 4 Mg/2 Ml Vial) 4 mg IVPUSH Q8H PRN PRN Reason: Nausea and Vomiting Pharmacy Consult (Consult Rx Vancomycin Dosing) 1 each MISCELLANE DAILY PRN PRN Reason: Consult order Sodium Chloride (0.9 % Sodium Chloride Flush 3 Ml Syringe) 3 ml IVFLUSH QSHIFT [facility] Last Admin: 04/12/22 07:32 Dose: 3 ml Documented By: MODESTO Sodium Chloride (0.9 % Sodium Chloride Flush 10 Ml Syringe) 5 ml IVFLUSH TID [facility] Last Admin: 04/12/22 07:32 Dose: 5 ml Documented By: MODESTO Labs 04/12/22 11:35 04/12/22 06:02 Labs: Laboratory Results - last 24 hr 04/11/22 04/11/22 04/11/22 16:22 20:11 20:21 MCV MCH MCHC RDW Plt Count MPV Immature Gran % (Auto) Neut % (Auto) Lymph % (Auto) [place] % (Auto) Eos % (Auto) Baso % (Auto) Lymph # (Auto) [place] # (Auto) Eos # (Auto) Baso # (Auto) Abs Immat Gran (auto) Absolute Neuts (auto) Absolute Nucleated RBC Nucleated RBC % (auto) Anion Gap Estim Creat Clear Calc Estimated GFR POC Glucose 104 87 Random Glucose Calcium Vancomycin Trough 11.1 04/12/22 04/12/22 04/12/22 06:02 06:02 07:13 MCV 84.5 MCH 27.0 MCHC 31.9 RDW 20.6 H Plt Count 568 H MPV 9.6 Immature Gran % (Auto) 0.8 H Neut % (Auto) 78.9 H Lymph % (Auto) 11.7 L [place] % (Auto) 6.9 Eos % (Auto) 1.4 Baso % (Auto) 0.3 Lymph # (Auto) 1.4 [place] # (Auto) 0.8 Eos # (Auto) 0.2 Baso # (Auto) 0.0 Abs Immat Gran (auto) 0.10 H Absolute Neuts (auto) 9.3 H Absolute Nucleated RBC 0.000 Nucleated RBC % (auto) 0.0 Anion Gap 14 Estim Creat Clear Calc 94.6 Estimated GFR > 60 POC Glucose 64 Random Glucose 68 Calcium 8.0 L Vancomycin Trough 04/12/22 11:07 MCV MCH MCHC RDW Plt Count MPV Immature Gran % (Auto) Neut % (Auto) Lymph % (Auto) [place] % (Auto) Eos % (Auto) Baso % (Auto) Lymph # (Auto) [place] # (Auto) Eos # (Auto) Baso # (Auto) Abs Immat Gran (auto) Absolute Neuts (auto) Absolute Nucleated RBC Nucleated RBC % (auto) Anion Gap Estim Creat Clear Calc Estimated GFR POC Glucose 68 Random Glucose Calcium Vancomycin Trough Assessment and Plan (1) NSTEMI (non-ST elevated myocardial infarction): Status: Acute (2) Cellulitis: Status: Acute (3) Anemia: Status: Acute Plan hospital d#9 81 year-old male with a PMH significant for?HTN, insulin-dependent diabetes, PAD s/p toe amputations followed by wound clinic, and hx of osteomyelitis who presents to the ED with?left lower leg swelling, redness of foot, and generalized weakness. Admitted for DM foot infection, complicated by NSTEMI. Incidental radiologic findings of inguinal adenopathy, pulmonary nodule, and liver neoplasm. Developed acute GI bleed on 04/08/22 # acute blood loss anemia due to GI bleeding -Continue PPI, changed to p.o. -per GI, given comorbidities, hold off on any endoscopic workup at this time -Slight drop in H/H to 9.5/29.1%, but stable overall. Goal Hgb >10 with recent NSTEMI, tansfuse 1 unit -CTA abd/pelvis repeated yesterday without acute findingsChange to NPO, CTA abd/pelvis ordered per GI -continue holding aspirin and Plavix -Appreciate GI input -Follow CBC # acute metabolic encephalopathy - due to GI bleeding. # DM osteomyelitis of TMA stump - vanco + pip-valeria d#9, not bacteremic, PICC placed and per ID will need 6 wk of IV ABX to cover MRSA. Probably not daptomycin due to interaction with high-dose statin, which pt needs for medical management of NSTEMI/CAD. # NSTEMI - TTE shows WMAs, possibly represents hibernating/stunned myocardium or possible infarcted segment - likely demand ischemia, d/c'ed heparin on 04/06 per Cardiology, HOLD aspirin + clopidogrel due to GIB, continue high-intensity statin + metoprolol, outpt Cardiology f/u for ischemic workup when acute medical issues resolve # acute/chronic ANT/ACD - transfused total 4u pRBCs prior to GI bleed [he was FOBT negative on 04/04/22]. Received addl 2 units. PO Fe repletion. Hematology consulted and will follow up on discharge. goal Hb 10+ given NSTEMI, transfuse 1 unit today # HTN - lisinopril, metoprolol # PAD - HOLD DAPT, continue statin # DM2 - basal-bolus insulin INCIDENTALOMAS: # lung nodule - 1.3 cm ground-glass/subsolid RLL nodule, repeat CT 6-12 months ? # retroperitoneal + iliac LAD - LDH elevated but likely reactive to foot infection. outpt PET-CT vs repeat CT in 3 mo. PSA normal. outpt Heme/Onc f/u. # right liver lobe hypervascular lesion 0.9 cm - hemangioma vs other hypervascular lesion; consider outpt multiphase liver MRI # VTE ppx: LMWH # dispo: will need STR eventually In my clinical judgment, the patient requires continued inpatient hospitalization for the following reasons: GIB, IV ABX I updated the pt's daughter Lupe by phone Time Spent With Patient Time: Total time managing care of this patient today ____ minutes. Quality Stroke Does the patient have a stroke diagnosis?: No VTE Prior VTE?: No VTE Risk Level:: Medical - moderate - high VTE Device Contraindication: Treatment Not Indicated VTE Drug Contraindication: N/A - Med Ordered
--- NOTE | 2022-04-12 12:55 | PM.EVENT ---
Event Note Date of Service: 04/12/22 Event Note: 81 YM with HTN, insulin-dependent diabetes, PAD s/p toe amputations followed by wound clinic, and hx of osteomyelitis admitted to [facility] on 04/04/22 with?left lower leg swelling, redness of foot, and generalized weakness.? 04/09/22 GI was consulted for acute GI bleeding with maroon liquid stools while on ASA, Heparin, and Plavix for underlying CAD and PVD.FU of LGIB 04/10/22 patient had another large bloody bowel movement?CT negative for active GI bleeding. He was transfused 2 U PRBC 04/11/22 Per pt's nurse, pt had 5 burgundy stools (mostly blood) during the day and 2 BMs at night 04/12/22 Pt had 1 small dark red/maroon BM which was soft to mucousy and contained some stool Labs showed H & H of 10.5 & 32.1 yesterday and 9.9 & 31 at 6 am today and 9.5 & 29 at noon today. LGIB - possibly diverticular versus AVM versus large polyp. Bleeding appears to be resolving. Pt denies having a colonoscopy in the past and appears unwilling to have one. Pt's daughter/HCP is concerned regarding source of bleeding Pt had elevated Troponins on admission concerning for NSTEMI and Echocardiogram shows wall motion abnormality which is consistent with underlying coronary artery disease and possibly represented hibernating/stunned myocardium or possible infarcted segment. RECOMMENDATIONS: 1. Agree with trasnfusing 1 U of PRBC today and to maintain hemoglobin at 10. 2. Repeat CBC 2 hrs post transfusion 3. Clear liquid diet. 4. Hold off endoscopic intervention for now since pt is high risk due to recent NSTEMI and multiple comorbidities. Dr Lee to follow on 04/13/22 Time Spent With Patient Time: Total time managing care of this patient today ____ minutes.
[2022-04-12] MEDS: HYDROcodone Bit/Acetam 5/325 TABLET 1 TAB PO ×2 (14:48→22:21)
[2022-04-12 17:01] LABS: Glucose, Whole Blood 66 mg/dL (60-115)
[2022-04-12 17:53] LABS: Basophils Percent Auto 0.2 % (0-2); Eosinophils Absolute Auto 0.1 X10*3/uL (0.0-0.4); Eosinophils Percent Auto 0.5 % (0-4); Hematocrit 32.8 % (42.0-52.0); Hemoglobin 10.6 g/dl (14.0-18.0); Imm Gran Abs Auto 0.06 X10*3/uL (0.00-0.03); Imm Gran Pct Auto 0.5 % (0.0-0.4); Lymphocytes Absolute Auto 1.2 X10*3/uL (1.2-4.9); Lymphocytes Percent Auto 9.3 % (20-40); MANUAL DIFF FLAG NO; Mean Corpuscular HGB Conc 32.3 g/dl (31.0-36.0); Mean Corpuscular Hemoglobin 27.3 pg (27.0-33.0); Mean Corpuscular Volume 84.5 fL (80.0-98.0); Mean Platelet Volume 9.4 fL (9.4-12.4); Monocytes Absolute Auto 0.8 X10*3/uL (0.1-1.2); Monocytes Percent Auto 5.7 % (2-11); Neutrophils Percent Auto 83.8 % (45-73); Platelet Count 575 X10*3/uL (160-400); Red Blood Count 3.88 X10*6/uL (4.60-5.80); Red Cell Distribution Width 20.1 % (11.0-16.0); White Blood Count 13.1 X10*3/uL (4.8-10.8)
[2022-04-12 20:31] LABS: Glucose, Whole Blood 209 mg/dL (60-115)
[2022-04-12] MEDS: Atorvastatin Calcium 80 MG TABLET PO (22:15)
[2022-04-12] MEDS: Insulin Lispro 100 UNIT/ML 3 ML VIAL SUBCUT (22:15)
[2022-04-12] MEDS: vancomycin HCL 1,500 MG in 0.9 % Sodium Chloride 500 ML 333.3 MG IV (23:35)
[2022-04-13] VITALS (7 sets, daily range): BP systolic 135–174; BP diastolic 53–79; PULSE 54–86; RESP 16–20; TEMP 36.3–37.2; O2SAT 94–97
[2022-04-13] MEDS: Piperacillin Sodium/Tazobactam 3.375 GM in 0.9 % Sodium Chloride 50 ML IV ×4 (01:23→21:24)
[2022-04-13] MEDS: LORazepam 0.5 MG TABLET PO (01:54)
[2022-04-13] MEDS: Omeprazole 40 MG CAPSULE.DR PO ×2 (05:06→17:25)
[2022-04-13 07:16] LABS: Creatinine Clr Calc Pharmacy 91.9; Estimated Glomerular Filt Rate > 60
[2022-04-13 07:45] LABS: Glucose, Whole Blood 120 mg/dL (60-115)
[2022-04-13] MEDS: 0.9 % Sodium Chloride Flush 3 ML SYRINGE IVFLUSH ×2 (09:09→14:43)
[2022-04-13] MEDS: lisinopriL 10 MG TABLET PO (09:10)
[2022-04-13] MEDS: Metoprolol Tartrate 12.5 MG HALFTAB PO ×2 (09:10→21:26)
[2022-04-13] MEDS: 0.9 % Sodium Chloride Flush 10 ML SYRINGE 5 ML IVFLUSH ×3 (09:11→21:27)
--- NOTE | 2022-04-13 10:17 | MHC.CM.PN ---
Per ROUNDS discussion, Patient is not yet medically cleared for dc. PT is recommending STR and CM will continue to follow.
[2022-04-13] MEDS: HYDROcodone Bit/Acetam 5/325 TABLET 1 TAB PO ×2 (11:37→21:53)
[2022-04-13] MEDS: Insulin Lispro 100 UNIT/ML 3 ML VIAL SUBCUT ×3 (11:37→21:26)
[2022-04-13 11:43] LABS: MANUAL DIFF FLAG NO
[2022-04-13 11:50] LABS: Glucose, Whole Blood 170 mg/dL (60-115)
[2022-04-13 12:00] LABS: Basophils Percent Auto 0.1 % (0-2); Eosinophils Percent Auto 0.2 % (0-4); Hematocrit 33.4 % (42.0-52.0); Hemoglobin 10.8 g/dl (14.0-18.0); Imm Gran Abs Auto 0.11 X10*3/uL (0.00-0.03); Lymphocytes Absolute Auto 0.9 X10*3/uL (1.2-4.9); Mean Corpuscular HGB Conc 32.3 g/dl (31.0-36.0); Mean Corpuscular Hemoglobin 27.7 pg (27.0-33.0); Mean Corpuscular Volume 85.6 fL (80.0-98.0); Mean Platelet Volume 9.5 fL (9.4-12.4); Monocytes Absolute Auto 0.6 X10*3/uL (0.1-1.2); Monocytes Percent Auto 5.8 % (2-11); Neutrophils Absolute Auto 9.4 x10*3/uL (2.0-8.3); Neutrophils Percent Auto 84.9 % (45-73); Platelet Count 590 X10*3/uL (160-400); Red Cell Distribution Width 20.3 % (11.0-16.0); White Blood Count 11.1 X10*3/uL (4.8-10.8)
--- NOTE | 2022-04-13 13:44 | P.PNIM_ITS ---
Subjective Subjective Date of Service: 04/13/22 Interval History: remains confused with no further bleeding Review of Systems unable to obtain Physical Exam Vital Signs: Vital Signs: Last Vital Signs Temp 98.0 F 04/13/22 08:00 Pulse 71 04/13/22 08:00 Resp 18 04/13/22 08:00 BP 174/66 H 04/13/22 08:00 Pulse Ox 97 04/13/22 08:00 O2 Del Method 04/13/22 08:00 O2 Flow Rate 2 04/09/22 07:35 BMI result Body Mass Index 31.3 Const: Other: awake alert no acute distress Neck: Other: no JVD Resp: Other: clear to auscultation bilaterally no rales rhonchi or wheezes Cardio: Other: no S4; positive S1-S2; no S3 2/6 systolic murmur best heard on the right sternal border Extrem: Other: no edema bilaterally Objective Data Active Medications Acetaminophen (Acetaminophen 325 Mg Tablet) 650 mg PO Q6H PRN PRN Reason: Pain, Mild (Pain Scale 1-3) Last Admin: 04/12/22 00:22 Dose: 650 mg Documented By: KANDI Hydrocodone Bitart/Acetaminophen (Hydrocodone Bit/Acetam 5/325 Tablet) 1 tab PO Q6H PRN PRN Reason: Severe Pain (Scale Score 7-10) Last Admin: 04/13/22 11:37 Dose: 1 tab Documented By: ALEXEY Atorvastatin Calcium (Atorvastatin Calcium 80 Mg Tablet) 80 mg PO BEDTIME [facility] Last Admin: 04/12/22 22:15 Dose: 80 mg Documented By: NEELA Docusate Sodium (Docusate Sodium 100 Mg Capsule) 100 mg PO DAILY PRN PRN Reason: Constipation Glucose (Glucose Gel 15 Gm Gel..Gram.) 15 gm PO Q15M PRN; Protocol PRN Reason: per Hypoglycemia Standing Ord. Last Admin: 04/11/22 07:20 Dose: 15 gm Documented By: MODESTO Dextrose (D10) 250 mls @ 750 mls/hr IV Q15M PRN; Protocol PRN Reason: per Hypoglycemia Standing Ord. Piperacillin Sod/Tazobactam (Sod 3.375 gm/ Sodium Chloride) 50 mls @ 100 mls/hr IV Q6H [facility] Last Infusion: 04/13/22 09:49 Dose: 0 mls/hr Documented By: ROSA Vancomycin HCl 1,500 mg/ (Sodium Chloride) 500 mls @ 333.333 mls/hr IV Q24H [facility] Last Infusion: 04/13/22 01:12 Dose: 0 mls/hr Documented By: MAHESH Insulin Glargine (Insulin Glargine,Hum.Rec.Anlog 100 Unit/Ml 10 Ml Vial) 17 unit SUBCUT DAILY [facility] Last Admin: 04/13/22 09:29 Dose: Not Given Documented By: ROSA Non-Admin Reason: blood sugar 120, pt not eating Insulin Human Lispro (Insulin Lispro 100 Unit/Ml 3 Ml Vial) 0 unit SUBCUT QIDACHS [facility]; Protocol Last Admin: 04/13/22 11:37 Dose: 2 unit Documented By: ALEXEY Lisinopril (Lisinopril 10 Mg Tablet) 10 mg PO DAILY [facility]; Protocol Last Admin: 04/13/22 09:10 Dose: 10 mg Documented By: ROSA Lorazepam (Lorazepam 0.5 Mg Tablet) 0.5 mg PO DAILY PRN PRN Reason: Anxiety Last Admin: 04/13/22 01:54 Dose: 0.5 mg Documented By: MAHESH Metoprolol Tartrate (Metoprolol Tartrate 12.5 Mg Halftab) 12.5 mg PO BID [facility]; Protocol Last Admin: 04/13/22 09:10 Dose: 12.5 mg Documented By: ROSA Olanzapine (Olanzapine 10 Mg Vial) 5 mg IM Q12H PRN PRN Reason: agitated delirium Last Admin: 04/10/22 16:58 Dose: 5 mg Documented By: THALIA Omeprazole (Omeprazole 40 Mg Capsule.) 40 mg PO BID@0630,1630 [facility] Last Admin: 04/13/22 05:06 Dose: 40 mg Documented By: NEELA Ondansetron HCl (Ondansetron Hcl 4 Mg/2 Ml Vial) 4 mg IVPUSH Q8H PRN PRN Reason: Nausea and Vomiting Pharmacy Consult (Consult Rx Vancomycin Dosing) 1 each MISCELLANE DAILY PRN PRN Reason: Consult order Sodium Chloride (0.9 % Sodium Chloride Flush 3 Ml Syringe) 3 ml IVFLUSH QSHIFT [facility] Last Admin: 04/13/22 09:09 Dose: 3 ml Documented By: ROSA Sodium Chloride (0.9 % Sodium Chloride Flush 10 Ml Syringe) 5 ml IVFLUSH TID [facility] Last Admin: 04/13/22 09:11 Dose: 5 ml Documented By: ROSA Labs 04/13/22 11:39 04/13/22 06:41 Labs: Laboratory Results - last 24 hr 04/12/22 04/12/22 04/12/22 12:46 16:56 17:47 MCV 84.5 MCH 27.3 MCHC 32.3 RDW 20.1 H Plt Count 575 H MPV 9.4 Immature Gran % (Auto) 0.5 H Neut % (Auto) 83.8 H Lymph % (Auto) 9.3 L [place] % (Auto) 5.7 Eos % (Auto) 0.5 Baso % (Auto) 0.2 Lymph # (Auto) 1.2 [place] # (Auto) 0.8 Eos # (Auto) 0.1 Baso # (Auto) 0.0 Abs Immat Gran (auto) 0.06 H Absolute Neuts (auto) 11.0 H Absolute Nucleated RBC 0.000 Nucleated RBC % (auto) 0.0 Estim Creat Clear Calc Estimated GFR POC Glucose 66 Blood Type O Negative Antibody Screen NEGATIVE Crossmatch See Detail 04/12/22 04/13/22 04/13/22 19:48 06:41 07:41 MCV MCH MCHC RDW Plt Count MPV Immature Gran % (Auto) Neut % (Auto) Lymph % (Auto) [place] % (Auto) Eos % (Auto) Baso % (Auto) Lymph # (Auto) [place] # (Auto) Eos # (Auto) Baso # (Auto) Abs Immat Gran (auto) Absolute Neuts (auto) Absolute Nucleated RBC Nucleated RBC % (auto) Estim Creat Clear Calc 91.9 Estimated GFR > 60 POC Glucose 209 H 120 H Blood Type Antibody Screen Crossmatch 04/13/22 04/13/22 11:25 11:39 MCV 85.6 MCH 27.7 MCHC 32.3 RDW 20.3 H Plt Count 590 H MPV 9.5 Immature Gran % (Auto) 1.0 H Neut % (Auto) 84.9 H Lymph % (Auto) 8.0 L [place] % (Auto) 5.8 Eos % (Auto) 0.2 Baso % (Auto) 0.1 Lymph # (Auto) 0.9 L [place] # (Auto) 0.6 Eos # (Auto) 0.0 Baso # (Auto) 0.0 Abs Immat Gran (auto) 0.11 H Absolute Neuts (auto) 9.4 H Absolute Nucleated RBC 0.000 Nucleated RBC % (auto) 0.0 Estim Creat Clear Calc Estimated GFR POC Glucose 170 H Blood Type Antibody Screen Crossmatch Assessment and Plan (1) Anemia: Status: Acute (2) Lower GI bleed: Status: Acute (3) Toe osteomyelitis: Status: Acute (4) Acute osteomyelitis: Status: Acute Plan 81 year-old male with a PMH significant for?HTN, insulin-dependent diabetes, PAD s/p toe amputations followed by wound clinic, and hx of osteomyelitis who presents to the ED with?left lower leg swelling, redness of foot, and generalized weakness. Admitted for DM foot infection, complicated by NSTEMI. Incidental radiologic findings of inguinal adenopathy, pulmonary nodule, and liver neoplasm. Developed acute GI bleed on 04/08/22 1.Acute blood loss anemia secondary to LGIB -Continue PPI, changed to p.o. - hemoglobin remains stable. . . Transfuse to greater than 10 g - followed daily CBC - no immediate plans for scoping secondary to cardiac issues 2.Acute metabolic encephalopathy - due to GI bleeding. - moments of clarity today; will follow clinically 3.Osteomyelitis of TMA stump - vanco/zosyn (10) - 6 weeks total of therapy via PICC 4.NSTEMI - off heparin drip secondary to GI bleed - Plavix and aspirin also held. - High-intensity statin/beta-brunilda - outpatient cardiac workup when bacteremia resolved 5.Acute/chronic anemia - transfused total 7u pRBCs total - no active bleeding. . . Follow-up clinically 6.HTN - acceptable control on current therapies - continue lisinopril/metoprolol - adjust as indicated 7.DM2 - acceptable control on current therapies - basal insulin -lispro correctional scale LMWH Full code patient requires ongoing hospitalization for IV antibiotics for osteomyelitis. Will need placement for 6 weeks total therapies Time Spent With Patient Time: Total time managing care of this patient today ____ minutes. Quality Stroke Does the patient have a stroke diagnosis?: No VTE Prior VTE?: No VTE Risk Level:: Medical - moderate - high VTE Device Contraindication: Treatment Not Indicated VTE Drug Contraindication: N/A - Med Ordered
--- NOTE | 2022-04-13 14:32 | PM.EVENT ---
Event Note Date of Service: 04/13/22 Event Note: examined again this afternoon. Patient remains confused and unable to make decisions regarding his health and safety. At this point in time I believe it prudent to invoke the healthcare proxy who is his daughter and how S with presents at the bedside. She is comfortable with this decision Time Spent With Patient Time: Total time managing care of this patient today ____ minutes.
[2022-04-13] MEDS: Acetaminophen 325 MG TABLET 650 MG PO (14:43)
[2022-04-13 16:18] LABS: Glucose, Whole Blood 215 mg/dL (60-115)
--- NOTE | 2022-04-13 16:23 | PM.EVENT ---
Event Note Date of Service: 04/13/22 Event Note: GI Followup-Course noted-Chart reviewed. D/W Dr. Hidalgo. At the present time, given the patient's history and stable Hgb after transfusions, he does not appear to be having any active bleeding. Therefore, I would continue conservative measures in this regard and hold off on a colonoscopy given his comorbidities and probable inability to do an adequate prep. If stable, I would recommend his diet be advanced in the morning, 04/14. I would hold all blood thinners for at least a week. At that point, if stable, I would recommend Cardiology and Vascular Surgery use as minimal a combination of blood thinners as possible. Please contact me if I can be of any further assistance during the hospitalization. Thanks. Time Spent With Patient Time: Total time managing care of this patient today ____ minutes.
[2022-04-13 19:51] LABS: Glucose, Whole Blood 155 mg/dL (60-115)
[2022-04-13 20:30] LABS: Vancomycin Trough 14.7 mcg/mL (10.0-20.0)
[2022-04-13] MEDS: vancomycin HCL 1,500 MG in 0.9 % Sodium Chloride 500 ML 333.3 MG IV (21:25)
[2022-04-13] MEDS: Atorvastatin Calcium 80 MG TABLET PO (21:26)
[2022-04-14] MEDS: 0.9 % Sodium Chloride Flush 3 ML SYRINGE IVFLUSH ×2 (00:12→08:28)
[2022-04-14] MEDS: Piperacillin Sodium/Tazobactam 3.375 GM in 0.9 % Sodium Chloride 50 ML IV ×2 (02:00→08:16)
[2022-04-14 03:35] VITALS: BP 158/65; PULSE 56; RESP 20; TEMP 36.8
[2022-04-14] MEDS: Omeprazole 40 MG CAPSULE.DR PO (06:15)
[2022-04-14 06:49] LABS: MANUAL DIFF FLAG NO
[2022-04-14 06:58] LABS: Basophils Percent Auto 0.1 % (0-2); Eosinophils Absolute Auto 0.1 X10*3/uL (0.0-0.4); Eosinophils Percent Auto 0.4 % (0-4); Hemoglobin 10.7 g/dl (14.0-18.0); Imm Gran Abs Auto 0.09 X10*3/uL (0.00-0.03); Imm Gran Pct Auto 0.6 % (0.0-0.4); Lymphocytes Absolute Auto 1.1 X10*3/uL (1.2-4.9); Lymphocytes Percent Auto 7.6 % (20-40); Mean Corpuscular HGB Conc 32.4 g/dl (31.0-36.0); Mean Corpuscular Hemoglobin 27.9 pg (27.0-33.0); Mean Corpuscular Volume 85.9 fL (80.0-98.0); Monocytes Percent Auto 6.8 % (2-11); Neutrophils Absolute Auto 12.2 x10*3/uL (2.0-8.3); Neutrophils Percent Auto 84.5 % (45-73); Platelet Count 599 X10*3/uL (160-400); Red Blood Count 3.84 X10*6/uL (4.60-5.80); Red Cell Distribution Width 20.2 % (11.0-16.0); White Blood Count 14.5 X10*3/uL (4.8-10.8)
[2022-04-14 07:28] LABS: Alanine Aminotransferase 30 U/L (0-40); Albumin Level 2.5 g/dL (3.5-5.0); Alkaline Phosphatase 110 U/L (39-117); Anion Gap 15 (12-20); Aspartate Amino Transferase 27 U/L (5-37); Bilirubin Total 0.6 mg/dL (0.0-1.0); Blood Urea Nitrogen 11 mg/dL (9-16); Calcium 7.9 mg/dL (8.4-10.2); Carbon Dioxide 24 mmol/L (22-29); Chloride 105 mmol/L (96-108); Creatinine Clr Calc Pharmacy 89.3; Estimated Glomerular Filt Rate > 60; Glucose Fasting 122 mg/dL (60-99); Sodium 140 mmol/L (135-145); Total Protein 5.7 g/dL (6.5-8.0)
[2022-04-14 07:37] LABS: Glucose, Whole Blood 132 mg/dL (60-115)
[2022-04-14 07:48] VITALS: PULSE 63; RESP 20; TEMP 36.3; O2SAT 97
[2022-04-14] MEDS: Metoprolol Tartrate 12.5 MG HALFTAB PO (08:16)
[2022-04-14] MEDS: lisinopriL 10 MG TABLET PO (08:16)
[2022-04-14] MEDS: 0.9 % Sodium Chloride Flush 10 ML SYRINGE 5 ML IVFLUSH (08:28)
[2022-04-14] MEDS: Insulin Glargine,Hum.rec.anlog 100 UNIT/ML 10 ML VIAL 17 UNIT SUBCUT (08:38)
[2022-04-14 08:46] VITALS: BP 158/70
[2022-04-14 10:15] VITALS: BP 158/70
[2022-04-14 11:31] VITALS: BP 157/66; PULSE 51; RESP 20; O2SAT 92
[2022-04-14 11:41] LABS: Glucose, Whole Blood 282 mg/dL (60-115)
[2022-04-14] MEDS: Insulin Lispro 100 UNIT/ML 3 ML VIAL SUBCUT (11:42)
--- NOTE | 2022-04-14 14:02 | MHC.CM.PN ---
Patient has been medically cleared for dc to SNF/STR today. Patient will dc to [facility] today at 3:30 PM, via [facility]. HCP is invoked; CM spoke with Daughter/HCP/Lupe @ [phone], who is aware of and in agreement with the dc plan. IMM addressed with Lupe and the original will be mailed certified mail to Lupe and a copy has been placed on the chart.
--- NOTE | 2022-04-14 14:05 | PM.DS ---
DS: Providers Provider Date of Service: 04/14/22 Date of admission: 04/04/22 19:10 Date of discharge: 04/14/22 Primary care physician: Keaton Santana MD Consults: 04/04/22 19:19 Consult to Infectious Diseases Routine Consulting Provider: Cristina Mayberry Reason for consultation: Right foot cellulitis Consult to Wound Care Routine Consulting Provider: [facility] Wound Care Management Reason for consultation: Chronic left foot wound 04/05/22 08:45 Consult to Cardiology Stat Consulting Provider: Wayne Law Reason for consultation: NSTEMI Has provider been notified: Yes 04/06/22 11:04 Consult to Vascular Surgery Routine Consulting Provider: Shaq Johnson Reason for consultation: TMA infection? 04/06/22 14:56 Consult to Hematology / Oncology Routine Consulting Provider: [facility] Oncology/Hematology Reason for consultation: Mild retroperitoneal and left iliac chain lymphadenopathy 04/08/22 22:36 Consult to Gastroenterology Routine Consulting Provider: Reggie Lee Reason for consultation: GI bleed DS: Diagnosis Discharge Diagnosis (1) Anemia: Status: Acute (2) Lower GI bleed: Status: Acute (3) Toe osteomyelitis: Status: Acute (4) Acute osteomyelitis: Status: Acute DS: Summary Hospital Course Hospital Course: Pt is a 81-year-old male with a PMH significant for?HTN, insulin-dependent diabetes, PAD s/p toe amputations followed by wound clinic, and hx of osteomyelitis who presents to the ED with?left lower leg swelling, redness of foot, and generalized weakness. Pt states that he has been feeling SOB, weak, shaky, lightheaded for the past 1-2 weeks. Has been particularly SOB and weak the past 2-3 days, saying he can hardly get himself up or move around. Pt has been experiencing a lot of pain in his left foot, leg, and upper left hip when he stands up or attempts to walk x1 week. Notes increased bloody, prurulent drainage from chronic wound to left foot. Pt last went to wound care clinic on , where they cleaned and cultured wound, and yhoana boundary around erythema of left foot. Erythema now seen extending outside of markered area. Pt denies chest pain/pressure, palpitations.? No fever, nausea, vomiting, diarrhea. No abdominal pain. In the ED patient was afebrile but hypotensive as low as 79/61. Labs were significant for leukocytosis of 32.5, H&H of 5.3/17.4, MCV of 72.8, platelets of 590, sodium of 133, elevated BUN of 55, creatinine 1.34 (baseline 1.00), lactic acid of 2.8, magnesium of 1.4, troponin elevated at 61.3. UA negative for UTI. Stool occult blood negative. CXR showed mild vascular congestion without socrates failure and possible small pleural effusions. Chest and aorta CTA found no evidence of aortic dissection, aneurysm or other acute aortic syndrome, but did find retroperitoneal and left iliac chain lymphadenopathy, nonspecific but concerning for santiago metastasis of lymphoma. Other findings include: posterior right lower lobe 1.3 cm nodule, enlarged prostate, adrenal nodule, and liver hypervascular focus. Initial EKG concerning for ST changes, repeat pending. Pt was treated with magnesium and ceftriaxone and received 2 units of packed red blood cells. Pt will be admitted to the hospital for treatment and further workup of anemia and cellulitis. Hospiatal Course Patient noted to have increased troponins without occult ST T wave changes. Seen by Cardiology; NSTEMI. started on heparin in addition to his Plavix and aspirin however developed a GI bleed. Over the course of his hospitalization he received 7 units of packed red cells however was not stable enough from a cardiac standpoint to undergo endoscopy. In light of his osteomyelitis, the patient was started on vancomycin 1.5 g daily and continues on same. Of note his workup demonstrated a liver lesion as well as periaortic lymph nodes. Concern for these was discussed at length with the daughter who is the proxy. At this point patient will be DNR DNI ; further treatments and investigations based on his clinical course. Should things continue without issue, he will need to be taken for catheterization after he completes his course of antibiotics. ( echo showed wall motion abnormality). He has had no further bloody stools for the last several days and is medically acceptable for discharge to SNF Time Spent with Patient Time attestation: Total time managing care of this patient today ____ minutes. Discharge coordination time: Greater than 30 minutes Quality: Safe Use of Opioids Does Pt have an Active Cancer Diagnosis on the Problem List?: No Quality: Stroke Does the patient have a stroke diagnosis?: No Physical Exam Vital Signs: Vital Signs: Last Vital Signs Temp 97.3 F 04/14/22 07:48 Pulse 51 04/14/22 11:31 Resp 20 04/14/22 11:31 BP 157/66 H 04/14/22 11:31 Pulse Ox 92 04/14/22 11:31 O2 Del Method 04/14/22 11:31 O2 Flow Rate 2 04/09/22 07:35 BMI result Body Mass Index 31.3 Const: Other: awake alert no acute distress Neck: Other: no JVD Resp: Other: clear to auscultation bilaterally no rales rhonchi or wheezes Cardio: Other: no S4; positive S1-S2; no S3 2/6 systolic murmur best heard on the right sternal border Extrem: Other: no edema bilaterally DS: Data Data Completed and Pending Completed studies during hospitalization [Text1]: Procedures Detachment at Left 2nd Toe, Complete, Open Approach (01/05/22) Detachment at Left 3rd Toe, Complete, Open Approach (10/01/21) Detachment at Left 4th Toe, Complete, Open Approach (01/05/22) Detachment at Left 5th Toe, Complete, Open Approach (01/05/22) Dilation of Right Anterior Tibial Artery using Drug-Coated Balloon, Percutaneous Approach (10/01/21) Labs on day of discharge: Laboratory Results - last 24 hr 04/13/22 04/13/22 04/13/22 16:09 19:42 19:51 WBC RBC Hgb Hct MCV MCH MCHC RDW Plt Count MPV Immature Gran % (Auto) Neut % (Auto) Lymph % (Auto) [place] % (Auto) Eos % (Auto) Baso % (Auto) Lymph # (Auto) [place] # (Auto) Eos # (Auto) Baso # (Auto) Abs Immat Gran (auto) Absolute Neuts (auto) Absolute Nucleated RBC Nucleated RBC % (auto) Sodium Potassium Chloride Carbon Dioxide Anion Gap BUN Creatinine Estim Creat Clear Calc Estimated GFR POC Glucose 215 H 155 H Fasting Glucose Calcium Total Bilirubin AST ALT Alkaline Phosphatase Total Protein Albumin Vancomycin Trough 14.7 04/14/22 04/14/22 04/14/22 06:40 06:40 07:32 WBC 14.5 H RBC 3.84 L Hgb 10.7 L Hct 33.0 L MCV 85.9 MCH 27.9 MCHC 32.4 RDW 20.2 H Plt Count 599 H MPV 10.0 Immature Gran % (Auto) 0.6 H Neut % (Auto) 84.5 H Lymph % (Auto) 7.6 L [place] % (Auto) 6.8 Eos % (Auto) 0.4 Baso % (Auto) 0.1 Lymph # (Auto) 1.1 L [place] # (Auto) 1.0 Eos # (Auto) 0.1 Baso # (Auto) 0.0 Abs Immat Gran (auto) 0.09 H Absolute Neuts (auto) 12.2 H Absolute Nucleated RBC 0.000 Nucleated RBC % (auto) 0.0 Sodium 140 Potassium 4.0 Chloride 105 Carbon Dioxide 24 Anion Gap 15 BUN 11 Creatinine 0.72 Estim Creat Clear Calc 89.3 Estimated GFR > 60 POC Glucose 132 H Fasting Glucose 122 H Calcium 7.9 L Total Bilirubin 0.6 AST 27 ALT 30 Alkaline Phosphatase 110 Total Protein 5.7 L Albumin 2.5 L Vancomycin Trough 04/14/22 11:25 WBC RBC Hgb Hct MCV MCH MCHC RDW Plt Count MPV Immature Gran % (Auto) Neut % (Auto) Lymph % (Auto) [place] % (Auto) Eos % (Auto) Baso % (Auto) Lymph # (Auto) [place] # (Auto) Eos # (Auto) Baso # (Auto) Abs Immat Gran (auto) Absolute Neuts (auto) Absolute Nucleated RBC Nucleated RBC % (auto) Sodium Potassium Chloride Carbon Dioxide Anion Gap BUN Creatinine Estim Creat Clear Calc Estimated GFR POC Glucose 282 H Fasting Glucose Calcium Total Bilirubin AST ALT Alkaline Phosphatase Total Protein Albumin Vancomycin Trough Discharge Plan Discharge Anticipated Discharge Date/Time: 04/14/22 13:56 Patient Disposition: Xfer Inpatient Rehab Fac Discharge Diagnosis: NSTEMI Referrals: [facility] [Outside] - 1 Week Keaton Santana MD [Primary Care Provider] - 1 Week Discharge Medications: New atorvastatin 80 mg Tablet 80 mg PO BEDTIME Qty: 30 0RF insulin glargine [Lantus U-100 Insulin] 100 unit/mL Solution 17 unit subcut DAILY Qty: 10 0RF insulin lispro [Humalog U-100 Insulin] 100 unit/mL Solution See Protocol subcut QIDACHS Qty: 10 0RF Protocol: Insulin Correction Scale Less than or equal to 110 ---- Give (units): 0 111 to 150 Give (units): 0 151 to 200 Give (units): 2 201 to 250 Give (units): 4 251 to 300 Give (units): 6 301 to 350 Give (units): 8 Greater than 350 Give (units): 10 Call MD if Blood Glucose > : 350 vancomycin 1.5 gram recon soln 1.5 g IV Q24H Qty: 21 0RF Continued hydrocodone-acetaminophen 5-325 mg tablet 1 tab PO Q6H PRN (Reason: Severe Pain (Scale Score 7-10)) lorazepam 0.5 mg tablet 1 tab PO DAILY PRN (Reason: Anxiety) lisinopril 10 mg tablet 1 tab PO DAILY acetaminophen [Tylenol] 325 mg Capsule 650 mg PO Q6H PRN (Reason: Pain) aspirin 81 mg Tablet,Chewable 81 mg PO DAILY Qty: 30 0RF metformin 1,000 mg tablet 1,000 mg PO BIDWM Discontinued doxycycline monohydrate 100 mg tablet 1 tab PO BID Rx Instructions: START DATE: 04/02/22; END DATE: 04/12/22 insulin glargine 100 unit/mL (3 mL) insulin pen 25 unit subcut DAILY clopidogrel 75 mg Tablet 75 mg PO DAILY Qty: 30 0RF No Action (DME) [facility] [place] See Rx Instructions .ROUTE .MEDSUPPLY Qty: 1 0RF Rx Instructions: As directed (DME) Shower Chair Misc See Rx Instructions .Route Qty: 1 0RF Rx Instructions: As directed Discharge Orders: Discharge Order (Routine); Ordered 04/14/22 Ordered By: Giuseppe Hunter Diet: Advance to usual diet Activity on Discharge: As tolerated Stand Alone Forms: Patient Portal Discharge page Care Plan Goals: will need 21 days of vancomycin 1.5 g daily Health Concerns: patient presented with non STEMI; developed GI bleed. Will eventually need workup once completed antibiotics and repeat negative culture Plan of Treatment: continue to hold Plavix and aspirin until seen again by GI Assessment: see discharge summary
[2022-04-14 15:34] LABS: IDNOW Serial# 9DB6401D
[2022-04-14 15:47] LABS: COVID-19 Test Negative (Negative)
[2022-04-14 16:00] VITALS: PULSE 55; RESP 18; TEMP 36.3; O2SAT 99
[2022-04-14 16:39] LABS: Glucose, Whole Blood 205 mg/dL (60-115)
--- NOTE | 2022-05-04 11:03 | P.CDIM_ITS ---
PROVIDER RESPONSE TEXT: To clarify, the appropriate diagnosis supported by the clinical indicators: Acute QUERY TEXT: >>> Provider Instructions - Do not remove this line >>> PHYSICIAN'S DOCUMENTATION REQUEST Date of Query: 04/08/2022 02:00 PM EST Patient Name: Vj Galicia Admit Date: 04/05/2022 Dear Thiago Adams, A review of the medical record indicates additional documentation may be needed. Please review below and update the documentation accordingly. Clinical Indicators: per MD progress note 04/08/22: DM osteomyelitis of TMA stump On IV Vancomycin and IV Piperacillin/Tazobactam Clarify which of the following accurately represents the acuity of the Osteomyelitis. Possible options might include: <<< Provider Instructions - Do not remove this line <<< Acute Acute on chronic Compensated Chronic stable condition Remission Other (explain) Clinically unable to determine (explain) >>> Contact Info Do not remove this line>>> Thank you, Jeanie Gallo RN Use of terms such as suspected, likely, concern for, or probable (associated with a specific diagnosi s that is being evaluated, monitored, or treated as if it exists) are acceptable and can be coded in the inpatient se tting, when documented at the time of discharge. Please use your independent medical judgment in providing your response. THIS QUERY IS PART OF THE PERMANENT MEDICAL RECORD <<< Contact Info Do not remove this line <<< >>> Disclaimer - Do no remove this line>>> Extension: [phone] <<< Disclaimer - Do not remove this line<<<
== END 2022-04-14 17:11 | DRG 564 ==
LOC: HO.ED 17:18 → HO.EDOVER 19:44 → HO.IMC 04-05 16:52
PROVIDERS: Family Medicine; Internal Medicine; Physician Assistant; Student in an Organized Health Care Education/Training Program; Admitting Provider Student in an Organized Health Care Education/Training Program; Emergency Provider Emergency Medicine; PCP Internal Medicine; Visit Provider Hospitalist
PROC: 02HV33Z Insertion of Infusion Device into Superior Vena Cava, Percutaneous Approach (ICD-10-PCS; principal; 2022-04-07 16:00)
DX: T87.44 Infection of amputation stump, left lower extremity (principal); G93.41 Metabolic encephalopathy; I21.A1 Myocardial infarction type 2; D62 Acute posthemorrhagic anemia; L03.116 Cellulitis of left lower limb; M86.172 Other acute osteomyelitis, left ankle and foot; K62.5 Hemorrhage of anus and rectum; E11.51 Type 2 diabetes mellitus with diabetic peripheral angiopathy without gangrene; E11.69 Type 2 diabetes mellitus with other specified complication; R91.1 Solitary pulmonary nodule; E11.621 Type 2 diabetes mellitus with foot ulcer; D18.09 Hemangioma of other sites; I25.10 Atherosclerotic heart disease of native coronary artery without angina pectoris; D63.8 Anemia in other chronic diseases classified elsewhere; L97.529 Non-pressure chronic ulcer of other part of left foot with unspecified severity; Z66 Do not resuscitate; I95.9 Hypotension, unspecified; Z20.822 Contact with and (suspected) exposure to COVID-19; Z87.891 Personal history of nicotine dependence; Z79.4 Long term (current) use of insulin; Z79.02 Long term (current) use of antithrombotics/antiplatelets; Z79.82 Long term (current) use of aspirin; Z79.84 Long term (current) use of oral hypoglycemic drugs; Z79.899 Other long term (current) drug therapy
CPT/HCPCS: 0241U; 36415; 36430; 36573; 71045; 71275; 73620; 73720; 74174; 74178; 75635; 80048; 80053; 80076; 80202; 81001; 82140; 82272; 82525; 82550; 82565; 82607; 82728; 82746; 82947; 83540; 83605; 83615; 83735; 83880; 84153; 84484; 85014; 85018; 85025; 85027; 85045; 85610; 85652; 85730; 86140; 86141; 86850; 86900; 86901; 86923; 87040; 87635; 92950; 93005; 93306; 93971; 96365; 96366; 96375; 97116; 97162; 97530; 99285; A9585; C1751; C1894; J0696; J1642; J1643; J1650; J2060; J2543; J3370; J3371; J3475; P9016; Q9957; Q9967

== ENCOUNTER 2022-05-15 17:17 | Emergency (ER) | payer MEDICARE, OTHER, SELFPAY ==
[2022-05-15 17:27] VITALS: BP 150/62; PULSE 76; RESP 16; TEMP 36.8; O2SAT 98; BMI 28.8
--- NOTE | 2022-05-15 18:01 | ED.GENADULT ---
HPI - General Adult General Chief complaint: General Medical Stated complaint: CRISIS Time Seen by Provider: 05/15/22 18:00 Source: patient and EMS Mode of arrival: EMS Limitations: no limitations History of Present Illness HPI narrative: Patient is a 81 year old assigned male at with a history of dementia and DM presenting to the emergency department today after a suicidal statement. Patient states that he is not suicidal and his statement was misunderstood. Patient denies any dizziness, lightheadedness, abdominal pain, nausea, vomiting, fever, chills, blurry vision, double vision, loss of vision, chest pain, difficulty breathing, shortness of breath, back pain, night sweats, pain with urination, increased urinary frequency, increased urinary urgency, blood in his urine or stool, syncope or a near syncopal episode, recent trauma or falls, bowel incontinence, bladder incontinence, bowel retention, bladder retention, or any other complaints at this time. Onset (ago): hour(s) Relieving factors: none Exacerbating factors: none Associated symptoms: denies other symptoms Treatments prior to arrival: none Related Data Home Medications Medication Instructions Recorded Confirmed metformin 1,000 mg tablet 1,000 mg PO BIDWM 12/05/19 04/04/22 acetaminophen 325 mg capsule 650 mg PO Q6H PRN Pain 04/04/22 04/04/22 (Tylenol) hydrocodone 5 mg-acetaminophen 325 1 tab PO Q6H PRN Severe Pain 04/04/22 04/04/22 mg tablet (Scale Score 7-10) lisinopril 10 mg tablet 1 tab PO DAILY 04/04/22 04/04/22 lorazepam 0.5 mg tablet 1 tab PO DAILY PRN Anxiety 04/04/22 04/04/22 Previous Rx's Medication Instructions Recorded aspirin 81 mg chewable tablet 81 mg PO DAILY #30 tabs 10/09/21 Shower Chair #1 ea 01/12/22 walker #1 ea 01/12/22 atorvastatin 80 mg tablet 80 mg PO BEDTIME #30 tabs 04/14/22 insulin glargine 100 unit/mL 17 unit (0.17 mL) subcut DAILY #10 04/14/22 subcutaneous solution (Lantus mL U-100 Insulin) insulin lispro 100 unit/mL See Protocol subcut QIDACHS #10 mL 04/14/22 subcutaneous solution (Humalog U-100 Insulin) vancomycin 1.5 gram intravenous 1.5 g IV Q24H #21 ea 04/14/22 solution Allergies Allergy/AdvReac Type Severity Reaction Status Date / Time No Known Allergies Allergy Verified 03/19/22 09:45 [No Known Allergies*] Review of Systems Constitutional: Constitutional: Reports no additional constitutional complaints, Denies chills, Denies fever(s) and Denies night sweats Eyes: Eyes: Reports no additional eye complaints, Denies blurry vision, Denies change in vision, Denies diplopia, Denies eye discharge, Denies loss of vision and Denies eye pain ENT: Denies dizziness Cardiovascular: Cardiovascular: Reports no additional cardiovascular complaints, Denies chest pain, Denies lightheadedness, Denies Loss of Consciousness and Denies dyspnea Respiratory: Respiratory: Reports no additional respiratory complaints and Denies dyspnea Gastrointestinal: Gastrointestinal: Reports no additional gastrointestinal complaints, Denies abdominal pain, Denies melena, Denies hematochezia, Denies change in bowel habits and Denies change in stool character Genitourinary: Genitourinary: Reports no additional male genitourinary complaints, Denies hematuria, Denies oliguria, Denies difficulty urinating, Denies dysuria, Denies urinary frequency, Denies urinary hesitancy, Denies urinary incontinence and Denies urinary urgency Musculoskeletal: Musculoskeletal: Reports no additional musculoskeletal complaints, Denies numbness and Denies tingling Neurologic: Denies dizziness, Denies loss of vision, Denies numbness and Denies tingling Psychiatric: Psychiatric: Reports no additional psychiatric complaints Endocrine: Endocrine: Reports no additional endocrine complaints Hematologic/Lymphatic: Hematologic/Lymphatic: Reports no additional hematologic/lymphatic complaints Allergic/Immunologic: Allergic/Immunologic: Reports no additional allergic/immunologic complaints [facility] Past Medical History Attestation statement: The following information was validated with the patient. Source: old records reviewed and nursing notes reviewed Medical History Diabetes History of amputation of great toe History of amputation of great toe HTN (hypertension) Hx of osteomyelitis 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 PAD (peripheral artery disease) Surgical History History of angioplasty of peripheral vessel Family History Family History Other No family history of coronary artery disease Social History Social History Household Members: Spouse Housing: House Are you a primary career technical education teacher to a significant other at home: No Do you presently have visiting nurse or other home services: Yes Alcohol intake: never Patient Tobacco Use Status: Former Tobacco user Quit Date: 20 years ago Smoked in Last 30 Days: No Second Hand Smoke Exposure: No Use of substances other than those prescribed or required for medical reasons: No Advance Directives: Yes Advance Directives on File: Yes Advance Directives Date on File: 10/01/21 Healthcare Proxy: Yes (Lupe Twaddle/Daughter/Invoked HCP [phone]) Guardian: No service: No Current occupational status: retired Physical Exam ED Vital Signs: Vital Signs - 24 hr 05/15/22 17:27 05/15/22 20:51 Temperature 98.3 F 97.7 F Pulse Rate 76 81 Respiratory Rate 16 18 Blood Pressure 150/62 H 132/79 Pulse Oximetry 98 98 Oxygen Delivery Method Room Air Room Air BMI result Body Mass Index 28.8 Const General: cooperative, no acute distress, alert and awake Nutritional Appearance: well nourished Orientation/consciousness: patient oriented x3 Limitations: no limitations HENMT Head: Yes normal to inspection and Yes atraumatic Ears: hearing grossly normal bilaterally and external ears normal General nose exam: Normal external nose present, no nasal discharge noted and no epistaxis Face and sinus: Yes normal facial exam, No abrasion and No laceration Mouth: Normal oral and palatal mucosa present, no drooling and no muffled voice Eyes General: appearance normal, both eyes and all related structures Periorbital: periorbital findings normal Eyelids: Yes eyelids normal Conjunctivae: conjunctivae normal Pupils: Equal, round and reactive pupils present EOM: EOMs intact bilaterally Neck Neck: Yes normal visual inspection, Yes full ROM and Yes no lymphadenopathy Chest Chest palpation & inspection: normal inspection of the chest Resp Effort & Inspection: normal respiratory effort and able to speak in complete sentences GI Inspection: Yes normal to inspection Neuro General: patient oriented x3 and moves all extremities Cranial nerves: Yes Equal, round and reactive pupils present Cognition (Neuro): normal cognition Motor exam (neuro): 5/5 motor strength present throughout Sensory Exam: Normal double simultaneous stimulation for sensation Coordination: [id number] test normal Extrem General: Yes normal to inspection, Yes full ROM and Yes capillary refill normal Psych Appearance: grossly normal Mental Status: mental status grossly normal Affect: normal affect Attitude: cooperative Thought process: Normal thought process present Thought content: Normal thought content present Insight: Good insight present (Psych) Medical Decision Making Medical Decision Making MDM Narrative: Patient is a 81 year old assigned male at with a history of DM and dementia presenting to the emergency department today after a suicidal statement. Patient's physical exam was unremarkable. Patient's blood work was unremarkable. CARE team evaluated the patient and determined him safe for discharge back to his SNF. I explained my physical exam findings as well as all test results to the patient. I answered all questions asked by the patient. I stressed the importance of the patient taking his medication as prescribed. I stressed the importance of the patient following up with his primary care provider. I stressed the importance of the patient returning to the emergency department immediately if he were to develop any thoughts of hurting himself or others, dizziness, shortness of breath, difficulty breathing, chest pain, blurry vision, loss of vision, nausea, vomiting, abdominal pain, fever, chills, back pain, or any other complaints. Patient verbalized agreement and understanding with this treatment plan and discharge. Differential Diagnosis Differential Diagnoses: The differential diagnosis associated with the presentation includes passive suicidal statements Consult Healthcare Provider Management of the patient was discussed with: Behavioral Health Provider (Recommended patient be discharged back to SNF) Lab Data MDM Lab Attestation statement: I reviewed the patient's lab results. 05/15/22 18:00 05/15/22 18:00 Labs: Lab Results 05/15/22 05/15/22 05/15/22 Range/Units 18:00 18:00 18:04 WBC 9.4 (4.8-10.8) X10*3/uL RBC 3.72 L (4.60-5.80) X10*6/uL Hgb 10.2 L (14.0-18.0) g/dl Hct 32.1 L (42.0-52.0) % MCV 86.3 (80.0-98.0) fL MCH 27.4 (27.0-33.0) pg MCHC 31.8 (31.0-36.0) g/dl RDW 19.4 H (11.0-16.0) % Plt Count 472 H (160-400) X10*3/uL MPV 8.8 L (9.4-12.4) fL Immature Gran % (Auto) 0.2 (0.0-0.4) % Neut % (Auto) 63.5 (45-73) % Lymph % (Auto) 21.3 (20-40) % [place] % (Auto) 13.5 H (2-11) % Eos % (Auto) 1.3 (0-4) % Baso % (Auto) 0.2 (0-2) % Lymph # (Auto) 2.0 (1.2-4.9) X10*3/uL [place] # (Auto) 1.3 H (0.1-1.2) X10*3/uL Eos # (Auto) 0.1 (0.0-0.4) X10*3/uL Baso # (Auto) 0.0 (0.0-0.2) X10*3/uL Abs Immat Gran (auto) 0.02 (0.00-0.03) X10*3/uL Absolute Neuts (auto) 6.0 (2.0-8.3) x10*3/uL Absolute Nucleated RBC 0.000 (0.0-0.012) X10*3/uL Nucleated RBC % (auto) 0.0 (0.0-0.2) /100WBC Sodium 137 (135-145) mmol/L Potassium 4.9 D (3.3-5.1) mmol/L Chloride 101 (96-108) mmol/L Carbon Dioxide 29 (22-29) mmol/L Anion Gap 12 (12-20) BUN 22 H (9-16) mg/dL Creatinine 0.76 (0.5-1.4) mg/dL Estim Creat Clear Calc 81.4 Estimated GFR > 60 Random Glucose 175 H (60-115) mg/dL Calcium 8.3 L (8.4-10.2) mg/dL Total Bilirubin 0.3 (0.0-1.0) mg/dL AST 13 (5-37) U/L ALT 13 (0-40) U/L Alkaline Phosphatase 126 H (39-117) U/L Total Protein 5.7 L (6.5-8.0) g/dL Albumin 3.1 L (3.5-5.0) g/dL Urine Color Urine Appearance Urine pH (5.0-9.0) Ur Specific H[place]orne (1.005-1.025) Urine Protein (Neg-Trace) mg/dL Urine Glucose (UA) (Negative) mg/dL Urine Ketones (Negative) mg/dL Urine Blood (Negative) Urine Nitrite (Negative) Ur Leukocyte Esterase (Negative) Urine RBC (0-2) /HPF Urine WBC (0-5) /HPF Ur Squamous Epith Cells (0-2) /HPF Urine Bacteria (None Seen) Hyaline Casts (0-2) /LPF Salicylates < 5.0 L (15-30) mg/dL Urine Opiates Screen (Not Detect) Urine Fentanyl Screen (Not Detect) Acetaminophen < 17 (<30) mcg/mL Ur Barbiturates Screen (Not Detect) Ur Phencyclidine Scrn (Not Detect) Ur Amphetamines Screen (Not Detect) U Benzodiazepines Scrn (Not Detect) Urine Cocaine Screen (Not Detect) U Marijuana (THC) Screen (Not Detect) Ethyl Alcohol < 10 mg/dL COVID-19 (SANDRINE) Negative (Negative) COVID-19 Clin Com See Note 05/15/22 05/15/22 Range/Units 19:00 19:00 WBC (4.8-10.8) X10*3/uL RBC (4.60-5.80) X10*6/uL Hgb (14.0-18.0) g/dl Hct (42.0-52.0) % MCV (80.0-98.0) fL MCH (27.0-33.0) pg MCHC (31.0-36.0) g/dl RDW (11.0-16.0) % Plt Count (160-400) X10*3/uL MPV (9.4-12.4) fL Immature Gran % (Auto) (0.0-0.4) % Neut % (Auto) (45-73) % Lymph % (Auto) (20-40) % [place] % (Auto) (2-11) % Eos % (Auto) (0-4) % Baso % (Auto) (0-2) % Lymph # (Auto) (1.2-4.9) X10*3/uL [place] # (Auto) (0.1-1.2) X10*3/uL Eos # (Auto) (0.0-0.4) X10*3/uL Baso # (Auto) (0.0-0.2) X10*3/uL Abs Immat Gran (auto) (0.00-0.03) X10*3/uL Absolute Neuts (auto) (2.0-8.3) x10*3/uL Absolute Nucleated RBC (0.0-0.012) X10*3/uL Nucleated RBC % (auto) (0.0-0.2) /100WBC Sodium (135-145) mmol/L Potassium (3.3-5.1) mmol/L Chloride (96-108) mmol/L Carbon Dioxide (22-29) mmol/L Anion Gap (12-20) BUN (9-16) mg/dL Creatinine (0.5-1.4) mg/dL Estim Creat Clear Calc Estimated GFR Random Glucose (60-115) mg/dL Calcium (8.4-10.2) mg/dL Total Bilirubin (0.0-1.0) mg/dL AST (5-37) U/L ALT (0-40) U/L Alkaline Phosphatase (39-117) U/L Total Protein (6.5-8.0) g/dL Albumin (3.5-5.0) g/dL Urine Color Yellow Urine Appearance Hazy Urine pH 6.0 (5.0-9.0) Ur Specific [place] 1.020 (1.005-1.025) Urine Protein 30 (1+) H (Neg-Trace) mg/dL Urine Glucose (UA) Negative (Negative) mg/dL Urine Ketones Negative (Negative) mg/dL Urine Blood Small (1+) H (Negative) Urine Nitrite Negative (Negative) Ur Leukocyte Esterase Large (3+) H (Negative) Urine RBC 6-10 H (0-2) /HPF Urine WBC >50 H (0-5) /HPF Ur Squamous Epith Cells 0-2 (0-2) /HPF Urine Bacteria Trace (None Seen) Hyaline Casts 0-2 (0-2) /LPF Salicylates (15-30) mg/dL Urine Opiates Screen Not Detected (Not Detect) Urine Fentanyl Screen Not Detected (Not Detect) Acetaminophen (<30) mcg/mL Ur Barbiturates Screen Not Detected (Not Detect) Ur Phencyclidine Scrn Not Detected (Not Detect) Ur Amphetamines Screen Not Detected (Not Detect) U Benzodiazepines Scrn Not Detected (Not Detect) Urine Cocaine Screen Not Detected (Not Detect) U Marijuana (THC) Screen Not Detected (Not Detect) Ethyl Alcohol mg/dL COVID-19 (SANDRINE) (Negative) COVID-19 Clin Com Discharge Plan Discharge Clinical Impression: Examination Patient Disposition: Home, Self-Care Additional Instructions: Follow up with your primary care provider. Return to the emergency department immediately if your symptoms worsen or if you develop any dizziness, shortness of breath, difficulty breathing, chest pain, blurry vision, loss of vision, nausea, vomiting, abdominal pain, fever, chills, back pain, or any other complaints. Prescriptions: No Action (DME) walker Misc See Rx Instructions .ROUTE .MEDSUPPLY Qty: 1 0RF Rx Instructions: As directed (DME) Shower Chair Misc See Rx Instructions .Route Qty: 1 0RF Rx Instructions: As directed hydrocodone-acetaminophen 5-325 mg tablet 1 tab PO Q6H PRN (Reason: Severe Pain (Scale Score 7-10)) lorazepam 0.5 mg tablet 1 tab PO DAILY PRN (Reason: Anxiety) lisinopril 10 mg tablet 1 tab PO DAILY acetaminophen [Tylenol] 325 mg Capsule 650 mg PO Q6H PRN (Reason: Pain) atorvastatin 80 mg Tablet 80 mg PO BEDTIME Qty: 30 0RF insulin glargine [Lantus U-100 Insulin] 100 unit/mL Solution 17 unit subcut DAILY Qty: 10 0RF insulin lispro [Humalog U-100 Insulin] 100 unit/mL Solution See Protocol subcut QIDACHS Qty: 10 0RF Protocol: Insulin Correction Scale Less than or equal to 110 ---- Give (units): 0 111 to 150 Give (units): 0 151 to 200 Give (units): 2 201 to 250 Give (units): 4 251 to 300 Give (units): 6 301 to 350 Give (units): 8 Greater than 350 Give (units): 10 Call MD if Blood Glucose > : 350 vancomycin 1.5 gram recon soln 1.5 g IV Q24H Qty: 21 0RF aspirin 81 mg Tablet,Chewable 81 mg PO DAILY Qty: 30 0RF metformin 1,000 mg tablet 1,000 mg PO BIDWM Referrals: [facility] [place] Family Medicine [Provider Group] (Call to establish and follow up with a primary care provider. If you already have a primary care provider, please follow up with them.) [facility] [place] Primary Care[facility] [Provider Group] (Call to establish and follow up with a primary care provider. If you already have a primary care provider, please follow up with them.) [facility] [place] Primary Care,Octav[facility] [Provider Group] (Call to establish and follow up with a primary care provider. If you already have a primary care provider, please follow up with them.) Interventions: ED Discharge Assessment Last Done: 05/15/22 20:51 Discharge Date/Time: 05/15/22 20:52 Print Language: Slovak
[2022-05-15 18:04] LABS: MANUAL DIFF FLAG NO
[2022-05-15 18:05] LABS: Basophils Percent Auto 0.2 % (0-2); Eosinophils Absolute Auto 0.1 X10*3/uL (0.0-0.4); Eosinophils Percent Auto 1.3 % (0-4); Hematocrit 32.1 % (42.0-52.0); Hemoglobin 10.2 g/dl (14.0-18.0); Imm Gran Abs Auto 0.02 X10*3/uL (0.00-0.03); Imm Gran Pct Auto 0.2 % (0.0-0.4); Lymphocytes Percent Auto 21.3 % (20-40); Mean Corpuscular HGB Conc 31.8 g/dl (31.0-36.0); Mean Corpuscular Hemoglobin 27.4 pg (27.0-33.0); Mean Corpuscular Volume 86.3 fL (80.0-98.0); Mean Platelet Volume 8.8 fL (9.4-12.4); Monocytes Absolute Auto 1.3 X10*3/uL (0.1-1.2); Monocytes Percent Auto 13.5 % (2-11); Neutrophils Percent Auto 63.5 % (45-73); Platelet Count 472 X10*3/uL (160-400); Red Blood Count 3.72 X10*6/uL (4.60-5.80); Red Cell Distribution Width 19.4 % (11.0-16.0); White Blood Count 9.4 X10*3/uL (4.8-10.8)
[2022-05-15 18:22] LABS: COVID-19 Test Negative (Negative); IDNOW Serial# 08D9AD1C
--- NOTE | 2022-05-15 18:25 | PC.NURSE ---
Pt resting comfortably in stretcher, call gay in reach. Offering no complaints. Lab work obtained.
[2022-05-15 18:27] LABS: Acetaminophen LAB < 17 mcg/mL (<30); Alanine Aminotransferase 13 U/L (0-40); Albumin Level 3.1 g/dL (3.5-5.0); Alkaline Phosphatase 126 U/L (39-117); Anion Gap 12 (12-20); Aspartate Amino Transferase 13 U/L (5-37); Bilirubin Total 0.3 mg/dL (0.0-1.0); Blood Urea Nitrogen 22 mg/dL (9-16); Calcium 8.3 mg/dL (8.4-10.2); Carbon Dioxide 29 mmol/L (22-29); Chloride 101 mmol/L (96-108); Creatinine Clr Calc Pharmacy 81.4; Estimated Glomerular Filt Rate > 60; Ethanol < 10 mg/dL; Glucose Random 175 mg/dL (60-115); Potassium 4.9 mmol/L (3.3-5.1); Salicylate < 5.0 mg/dL (15-30); Sodium 137 mmol/L (135-145); Total Protein 5.7 g/dL (6.5-8.0)
[2022-05-15 19:18] LABS: Amphetamine Screen Urine Not Detected (Not Detect); Barbiturates, Urine Not Detected (Not Detect); Benzodiazepines Screen Urine Not Detected (Not Detect); Cannabinoid Screen Urine Not Detected (Not Detect); Cocaine Screen Urine Not Detected (Not Detect); Fentanyl, urine Not Detected (Not Detect); Opiate Screen Urine Not Detected (Not Detect); Phencyclidine Screen Urine Not Detected (Not Detect)
[2022-05-15 19:38] LABS: Appearance Urine Hazy; Color Urine Yellow; Glucose Urine UA Negative (Negative); Leukocyte Esterase Urine Large (3+) (Negative); Nitrite Urine Negative (Negative); UMIC TRIGGER UA YES; Urine Blood Small (1+) (Negative); Urine Ketones Negative (Negative); Urine Protein 30 (1+) mg/dL (Neg-Trace)
[2022-05-15 19:39] LABS: Bacteria Urine Trace (None Seen); Hyaline Casts Urine 0-2 /LPF (0-2); Squamous Epithelial Cell Urine 0-2 /HPF (0-2); WBC Urine >50 /HPF (0-5)
--- NOTE | 2022-05-15 20:15 | PC.NURSE ---
Nurse to nurse report called to Annelise Zuñiga, spoke to MARK Zhu. Plan for patient to be transported back to the facility by the ambulance, approximate slate picker time around 9:00 pm.
[2022-05-15 20:51] VITALS: BP 132/79; PULSE 81; RESP 18; TEMP 36.5; O2SAT 98
== END 2022-05-15 20:52 | disposition home or self-care (01) ==
PROVIDERS: Physician Assistant Medical; Emergency Provider Emergency Medicine
DX: R45.851 Suicidal ideations (principal); Z20.822 Contact with and (suspected) exposure to COVID-19; Z20.828 Contact with and (suspected) exposure to other viral communicable diseases; Z79.899 Other long term (current) drug therapy
CPT/HCPCS: 36415; 80053; 80143; 80179; 80307; 81001; 82077; 85025; 87635; 99283; 99284; S9485